=== PATIENT | male | born 1930 | race Caucasian/White ===

== ENCOUNTER 2016-11-02 10:01 | Emergency (ER) | payer MEDICARE ==
[~2016-11-02 10:01] MED LIST: /AMIO20TA OR; /NEPHROTA PO; /PANT40TA OR; /PANT40TA PO; /TAMS4CA OR; /WARF25TA OR; /WARF5TA OR; /WARF5TA PO; ACET500T37 PO; ACET50TA PO; ACET65TA OR; ADVA230A INH; ALBU17IN INH; AMIO20TA PO; ASPI81CH PO; AUGM875T27 PO; BISAC5TA PO; CALC667C2 PO; CALC667T PO; CEFT250S PO; CEFT250T PO; CIPR25SS OR; CIPR500T4 OR; COLA100C PO; COLA100C2 OR; COUM1TAB14 PO; COUM1TAB17 PO; COUM1TAB19 PO; COUM2TAB10 PO; DAILTAB49 PO; DAILTAB51 PO; DARB30SYRN IV; DIALYSIS; DIOV320T OR; DULC10SU2 PR; ENEMENE6 PR; EPOGEN IV; FINA5TAB2 PO; FLORCAP10 PO; GLUC4CHW PO; INSUR SC; LEVA250T PO; LEVO500T32 PO; LISI-538 PO; LISI40TA OR; LISI40TAB PO; LOPR50TA OR; LOPR50TA PO; MAGN1TAB25 PO; MAGN400T5 PO; MAGO400T PO; METO25TA74 PO; METO25TAB OR; METO25TAB PO; METOPROLOL PO; METOPROLOL TARTRATE; METR500T10 PO; MILKSUS PO; MULTIVIT PO; MULTTAB4 PO; MULTTAB63 PO; NEPHTA PO; NEPHTAB PO; NEPHTAB3 PO; NIAC500C OR; NIFE30TA PO; NORV5TAB OR; NUTRLIQ PO; ONDA4TAB6 PO; OYST500T58 OR; PACE200T PO; PANT40TA2 PO; PAXI10TA OR; PAXI20TA OR; PRIL40CA PO; PROS5TAB OR; PROSCAR PO; PROT20TA11 OR; ROCA0.25 PO; ROWASA PR; SIMV20TA2 PO; SPS15SUS2 PO; SULF400T PO; TAMS0.4C PO; TAMS0.4C2 PO; TOPR50TA OR; TUMS500C OR; TUMS500C PO; TYLE167L PO; TYLE325T5 PO; VANC1ADVIV INJ; VANC1INJ IV; VANC75VL IV; VITA100066 PO; VITA400T15 PO; VITAMIN D50000 UNT OR; VITMTA PO; WARF5VL PO; ZEST1TAB6 PO; ZITH250T PO; ZOCO20TA OR; ZYVO100T PO; [UNRECOGNIZED DRUG - CODE] INJ; [UNRECOGNIZED DRUG - CODE] PO; [UNRECOGNIZED DRUG - CODE] PO; [UNRECOGNIZED DRUG - OTHER] PO; tamulosin PO
[2016-11-02] MEDS ORDERED: ACETAMINOPHEN 325 MG TAB As Ordered ONE (10:26)
[2016-11-02 11:05] LABS: MEAN CORPUSCULAR HEMOGLOBIN 35.8 pg (27.0-33.0); MEAN CORPUSCULAR VOLUME 105.3 fl (80.0-96.0); PLATELET COUNT, AUTOMATED 123 k/mm3 (150-450); RED CELL DISTRIBUTION WIDTH 14.2 % (11.5-14.5); WHITE BLOOD COUNT 5.4 K/mm3 (4.0-10.0)
[2016-11-02 11:11] LABS: INR 2.28
[2016-11-02 11:24] LABS: CALCIUM LEVEL 8.6 MG/DL (8.8-10.2); CREATININE FOR GFR 4.52 MG/DL (0.70-1.30); GLOMERULAR FILTRATION RATE 13.2 (>35); POTASSIUM SERUM 4.7 MEQ/L (3.5-5.1)
[2016-11-02 11:27] LABS: BANDS 2 % (< 11); EOSINOPHILS 1 % (0-5)
--- NOTE | 2016-11-02 11:41 | REP ---
SOFT-TISSUE ULTRASOUND OF THE LEFT LATERAL CALF: HISTORY: Large lump on the lateral calf. Hematoma. FINDINGS: The large lump in the lateral calf is scanned. A heterogeneous area is seen without internal Doppler flow containing echogenic components and some small cystic areas. This area measures 6.0 x 2.0 x 4.7 cm and is compatible with hematoma. IMPRESSION: 6 cm heterogeneous avascular soft-tissue lesion consistent with hematoma in the lateral calf. Signed by Hernan Richardson MD 11/02/2016 12:09 P
--- NOTE | 2016-11-02 13:24 | EDDOCDS ---
Nurse's Notes [facility] Name: Cody Caldwell Age: 86 yrs Sex: Male : 1930 Arrival Date: 11/02/2016 Time: 10:01 Bed 17 Private MD: Tomer Faulkner Diagnosis: Nontraumatic hematoma of soft tissue Presentation: 11/02 10:04 Presenting complaint: Patient states: swelling and bruising to left lower extremity, pml golf ball sized area at lateral mid lower leg. does not recall any injury. Adult Sepsis Screening: The patient does not have new or worsening altered mentation. Patient's respiratory rate is less than 22. Systolic blood pressure is greater than 100. Patient has a qSOFA score of 0- Negative Sepsis Screen. Suicide/Homicide risk assessment- the patient denies having any suicidal and/or homicidal ideations and does not present with any other emotional, behavioral or mental health complaints. 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 Transition of care: patient was not received from another setting of care. 10:04 Acuity: FE Level 3 pml 10:04 Method Of Arrival: Ambulance pml Triage Assessment: 10:13 General: Appears in no apparent distress, Behavior is appropriate for age, cooperative. pml Pain: Location: lateral aspect of left calf Pain currently is 10 out of 10 on a pain scale. The patient is triaged at the bedside. See Assessment in Nurses Notes section of ED record. Neurological: Level of Consciousness is awake, alert, Oriented to person, place, time. Cardiovascular: Capillary refill < 3 seconds. Cardiovascular: Edema is absent. Respiratory: Airway is patent. GI: Abdomen is non- distended obese. Derm: Skin is pink, warm & dry. golf ball sized hematoma to left lateral mid calf, dark purple bruising. Historical: - Allergies: IODINEIODINE CONTAINING ("veins hurt"); - Home Meds: 1. renavite Unknown daily 2. Vitamin D Oral 5000 unit daily 3. Advair Diskus 250-50 mcg/dose Inhl dsdv 1 puff 2 times per day 4. Tums 300 mg (750 mg) Oral chew 3 tabs before meals 5. pantoprazole 40 mg oral TbEC 1 tab once daily 6. Coumadin 5 mg oral tab 1 tab once daily - PMHx: Atrial Fib; Renal Failure with Dialysis; - PSHx: AV graft right arm; Hernia repair; Cataract Surgery- Bilateral; - Social history: Smoking status: Patient states former smoker of tobacco. No barriers to communication noted, The patient speaks fluent Syriac, Speaks appropriately for age. - Family history: Not pertinent. - : The pt / caregiver states he / she is on anticoagulants: coumadin. Home medication list is obtained from the patient. - Exposure Risk Screening:: None identified. Screenin:22 Screening information is obtained from the patient. Fall risk: At risk due to age, pml immobility. Assistance ADL's: Requires assistance with meal preparation, this assistance is provided by family members, bathing, assistance is provided by family members, dressing, assistance is provided by family members, toileting, assistance is provided by family members, ambulation, assistance is provided by family members, housework, assistance is provided by family members, medication administration, assistance is provided by family members. Abuse/DV Screen: The patient / caregiver reports he/she is: not in a situation that causes fear, pain or injury. Nutritional screening: No deficits noted. Advance Directives: There is no active DNR order. home support is adequate. Assessment: 10:22 General: see triage note. pml 11:19 General: Appears in no apparent distress, comfortable, Behavior is appropriate for age, pml cooperative. Neurological: Level of Consciousness is awake, alert, Oriented to person, place, none. Cardiovascular: Capillary refill < 3 seconds. Respiratory: Airway is patent Respiratory effort is even, unlabored. Derm: Skin is pink, warm & dry. Bruising that is dark purple, on lateral aspect of left calf. 11:56 General: resting on stretcher, no apparent distress. resps easy and unlabored, skin pml p/w/d. voices no concerns. 13:20 General: Appears in no apparent distress, Behavior is appropriate for age, cooperative. pml Pain: Denies pain. Neurological: Level of Consciousness is awake, alert, Oriented to person, place, time. Cardiovascular: Capillary refill < 3 seconds. Respiratory: Airway is patent Respiratory effort is even, unlabored. GI: Abdomen is non- distended. Derm: Skin is pink, warm & dry. Vital Signs: 10:13 BP 213 / 88; Pulse 69; Resp 18; Temp 99.3(O); Pulse Ox 93% on R/A; Weight 77.11 kg; pml Height 5 ft. 6 in. (167.64 cm); Pain 10/10; 13:20 BP 214 / 86; Pulse 91; Resp 18; Temp 98.8; Pulse Ox 92% on R/A; Pain 0/10; pml 10:13 Body Mass Index 27.44 (77.11 kg, 167.64 cm) pml Vitals: 10:13 Log In Time N/A - ambulance arrival. pml ED Course: 10:02 Patient visited by Amparo Pugh PCA. ar3 10:02 Anum Anaya,FRANCA is Primary Nurse. ar3 10:02 Tomer Faulkner is Private Physician. ar3 10:02 Patient moved to Waiting ar3 10:02 Patient moved to 17 ar3 10:05 Triage Initiated pml 10:16 Patient visited by Anum Anaya RN. pml 10:22 Addis Marlow MD is Attending Physician. sd1 10:22 Patient visited by Addis Marlow MD. sd1 10:22 The patient / caregiver is instructed regarding the plan of care and ED course. Patient pml has correct armband on for positive identification. Placed in gown. Bed in low position. Call light in reach. Side rails up X2. 10:23 Patient visited by Anum Anaya RN. pml 11:02 Patient moved to Ultrasound am17 11:14 Patient moved to 17 am17 11:18 DIFFERENTIAL NO CHARGE Sent. pml 11:19 Patient visited by Anum Anaya RN. pml 11:26 [facility] [place] Payment Agreement was scanned into [employer] and attached to record. lg 11:56 Patient visited by Anum Anaya RN. pml 12:07 EXTREMITY NON VASCUL LIMITED Returned. EDMS 12:38 EXTREMITY NON VASCUL LIMITED Returned. EDMS 12:50 Patient visited by Lauren Hogan PCA. ct3 13:06 Tomer Faulkner is Referral Physician. sd1 13:06 Suhas Ryenoso is Referral Physician. sd1 13:20 No IV's were initiated during this patient's visit. No procedures done that require pml assistance. 13:22 Dressings: Vaseline gauze X 1;. Jed wrap to left lower leg. pml Administered Medications: 10:24 CANCELLED (Other Intervention Used): Acetaminophen Tablet 975 mg PO once sd1 10:30 Drug: Acetaminophen 650 mg [acetaminophen 325 mg tablet (2 tabs)] Route: PO; pml 11:35 Follow up: Response: Pain is resolved pml Order Results: Lab Order: CBC with Diff; SPEC'M 11/02/16 10:55 Test: WHITE BLOOD COUNT; Value: 5.4; Range: 4.0-10.0; Units: K/mm3; Status: F Test: RED BLOOD COUNT; Value: 3.11; Range: 4.30-6.10; Abnormal: Below low normal; Units: M/mm3; Status: F Test: HEMOGLOBIN; Value: 11.1; Range: 14.0-18.0; Abnormal: Below low normal; Units: g/dl; Status: F Test: HEMATOCRIT; Value: 32.7; Range: 42.0-52.0; Abnormal: Below low normal; Units: %; Status: F Test: MEAN CORPUSCULAR VOLUME; Value: 105.3; Range: 80.0-96.0; Abnormal: Above high normal; Units: fl; Status: F Test: MEAN CORPUSCULAR HEMOGLOBIN; Value: 35.8; Range: 27.0-33.0; Abnormal: Above high normal; Units: pg; Status: F Test: MEAN CORPUSCULAR HGB CONC; Value: 34.0; Range: 32.0-36.5; Units: g/dl; Status: F Test: RED CELL DISTRIBUTION WIDTH; Value: 14.2; Range: 11.5-14.5; Units: %; Status: F Test: PLATELET COUNT, AUTOMATED; Value: 123; Range: 150-450; Abnormal: Below low normal; Units: k/mm3; Status: F Test: NEUTROPHILS; Value: 64; Range: 35-75; Units: %; Status: F Test: BANDS; Value: 2; Range: < 11; Units: %; Status: F Test: LYMPHOCYTES; Value: 15; Range: 16-52; Abnormal: Below low normal; Units: %; Status: F Test: MONOCYTES; Value: 10; Range: 0-8; Abnormal: Above high normal; Units: %; Status: F Test: EOSINOPHILS; Value: 1; Range: 0-5; Units: %; Status: F Test: ATYPICAL LYMPH; Value: 8; Range: 0-5; Abnormal: Above high normal; Units: %; Status: F Test: MACROCYTOSIS; Value: 2+; Status: F Lab Order: MED Profile; SPEC11/02/16 10:55 Test: GLUCOSE, FASTING; Value: 108; Range: 83-110; Units: MG/DL; Status: F Test: BLOOD UREA NITROGEN; Value: 30; Range: 7-18; Abnormal: Above high normal; Units: MG/DL; Status: F Test: CREATININE FOR GFR; Value: 4.52; Range: 0.70-1.30; Abnormal: Above high normal; Units: MG/DL; Status: F Test: GLOMERULAR FILTRATION RATE; Value: 13.2; Range: >35; Abnormal: Below low normal; Status: F Test: SODIUM LEVEL; Value: 143; Range: 136-145; Units: MEQ/L; Status: F Test: POTASSIUM SERUM; Value: 4.7; Range: 3.5-5.1; Units: MEQ/L; Status: F Test: CHLORIDE LEVEL; Value: 103; Range: 98-107; Units: MEQ/L; Status: F Test: CARBON DIOXIDE LEVEL; Value: 30; Range: 21-32; Units: MEQ/L; Status: F Test: ANION GAP; Value: 10; Range: 8-16; Units: MEQ/L; Status: F Test: CALCIUM LEVEL; Value: 8.6; Range: 8.8-10.2; Abnormal: Below low normal; Units: MG/DL; Status: F Test Note: ; Units are mL/min/1.73 m2 Chronic Kidney Disease Staging per NKF: Stage I & II GFR >=60 Normal to Mildly Decreased Stage III GFR 30-59 Moderately Decreased Stage IV GFR 15-29 Severely Decreased Stage V GFR <15 Very Little GFR Left ESRD GFR <15 on RN ELIGIBILITY Lab Order: PT/INR; 11/02/16 10:55 Test: PROTHROMBIN TIME; Value: 25.2; Range: 12.3-14.5; Abnormal: Above high normal; Units: SECONDS; Status: F Test: INR; Value: 2.28; Status: F Test Note: ; THERAPUTIC HUMAN INR VALUES INDICATIONS NORMAL RANGES PROPHYLAXIS/TREATMENT OF: VENOUS THROMBOSIS 2.0-3.0 PULMONARY EMBOLISM 2.0-3.0 PREVENTION OF SYSTEMIC EMBOLISM FROM: TISSUE HEART VALVES 2.0-3.0 ACUTE MYOCARDIAL INFARCTION 2.0-3.0 VALVULAR HEART DISEASE 2.0-3.0 ATRIAL FIBRILLATION 2.0-3.0 MECHANICAL VALVES(HIGH RISK) 2.5-3.5 RECURRENT MYOCARDIAL INFARCTION 2.5-3.5 Lab Order: PLATELET ESTIMATE; SPEC'M 11/02/16 10:55 Test: PLATELET ESTIMATE; Value: NORMAL; Range: NORMAL; Status: F Radiology Order: EXTREMITY NON VASCUL LIMITED Test: EXTREMITY NON VASCUL LIMITED REASON FOR EXAMINATION: hematoma to lateral calf; SOFT-TISSUE ULTRASOUND OF THE LEFT LATERAL CALF:; ; HISTORY: Large lump on the lateral calf. Hematoma.; ; FINDINGS: The large lump in the lateral calf is scanned. A heterogeneous area; is seen without internal Doppler flow containing echogenic components and some; small cystic areas. This area measures 6.0 x 2.0 x 4.7 cm and is compatible with; hematoma.; ; IMPRESSION:; ; 6 cm heterogeneous avascular soft-tissue lesion consistent with hematoma in the; lateral calf.; ; ; Signed by; Hernan Richardson MD 11/02/2016 12:09 P; Outcome: 13:07 Discharge ordered by Provider. sd1 13:20 Discharge Assessment: Patient awake, alert and oriented x 3. No cognitive and/or pml functional deficits noted. Patient verbalized understanding of disposition instructions. patient administered narcotics - no. The following High Risk Discharge criteria are identified: None. Discharged to home ambulatory. Condition: good Condition: stable. Discharge instructions given to patient, Instructed on discharge instructions, follow up and referral plans. Demonstrated understanding of instructions, Pt was receptive of discharge instructions/ teaching. Ultrasound Study completed. Property sent home with patient. 13:23 Patient left the ED. pml Signatures: Dispatcher [employer] EDAddis Guy MD MD sd1 Elie Osborne, Zak Reg lg Amparo Pugh, DRY DRUG WORKER DRY DRUG WORKER ar3 Lauren Hogan, DRY DRUG WORKER DRY DRUG WORKER ct3 Anum Anaya,RN RN pml Gaviota Jack am17 MTDD
--- NOTE | 2016-11-02 13:24 | EDDOCDS ---
Physician Documentation [facility] Name: Cody Caldwell Age: 86 yrs Sex: Male : 1930 Arrival Date: 11/02/2016 Time: 10:01 Bed 17 Private MD: Tomer Faulkner Disposition: 11/02/16 13:07 Discharged to Home/Self Care. Impression: Nontraumatic hematoma of soft tissue. - Condition is Stable. - Discharge Instructions: Hematoma. - Medication Reconciliation, Local Pharmacy Hours form. - Follow up: Tomer Faulkner; When: 1 - 2 days. Follow up: Suhas Reynoso; When: Call to arrange an appointment. - Problem is new. - Symptoms have improved. Historical: - Allergies: IODINEIODINE CONTAINING ("veins hurt"); - Home Meds: 1. renavite Unknown daily 2. Vitamin D Oral 5000 unit daily 3. Advair Diskus 250-50 mcg/dose Inhl dsdv 1 puff 2 times per day 4. Tums 300 mg (750 mg) Oral chew 3 tabs before meals 5. pantoprazole 40 mg oral TbEC 1 tab once daily 6. Coumadin 5 mg oral tab 1 tab once daily - PMHx: Atrial Fib; Renal Failure with Dialysis; - PSHx: AV graft right arm; Hernia repair; Cataract Surgery- Bilateral; - Social history: Smoking status: Patient states former smoker of tobacco. No barriers to communication noted, The patient speaks fluent Estonian, Speaks appropriately for age. - Family history: Not pertinent. - : The pt / caregiver states he / she is on anticoagulants: coumadin. Home medication list is obtained from the patient. - Exposure Risk Screening:: None identified. Vital Signs: 11/02 10:13 BP 213 / 88; Pulse 69; Resp 18; Temp 99.3(O); Pulse Ox 93% on R/A; Weight 77.11 kg / pml 170 lbs; Height 5 ft. 6 in. (167.64 cm); Pain 10/10; 13:20 BP 214 / 86; Pulse 91; Resp 18; Temp 98.8; Pulse Ox 92% on R/A; Pain 0/10; pml 10:13 Body Mass Index 27.44 (77.11 kg, 167.64 cm) pml MDM: 10:24 CBC with Diff Ordered. EDMS 10:24 MED Profile Ordered. EDMS 10:24 PT/INR Ordered. EDMS 10:25 Acetaminophen Tablet 650 mg PO once ordered. sd1 10:53 EXTREMITY NON VASCUL LIMITED Ordered. EDMS 11:00 Financial registration complete. lg 11:07 DIFFERENTIAL NO CHARGE Ordered. EDMS 11:07 PLATELET ESTIMATE Ordered. EDMS 11:26 [facility] was scanned into [employer] and attached to record. lg 12:13 CBC with Diff Reviewed. sd1 12:13 MED Profile Reviewed. sd1 12:13 PT/INR Reviewed. sd1 12:13 PLATELET ESTIMATE Reviewed. sd1 12:13 EXTREMITY NON VASCUL LIMITED Reviewed. sd1 12:43 Misc. Nursing Order ordered. sd1 Administered Medications: 10:24 CANCELLED (Other Intervention Used): Acetaminophen Tablet 975 mg PO once sd1 10:30 Drug: Acetaminophen 650 mg [acetaminophen 325 mg tablet (2 tabs)] Route: PO; pml 11:35 Follow up: Response: Pain is resolved pml Signatures: Dispatcher [employer] EDHI Adids Marlow MD MD sd1 Elie Osborne, Reg Reg lg Anum Anaya RN RN pml The chart was reviewed and I authenticate all verbal orders and agree with the evaluation and treatment provided.Corrections: (The following items were deleted from the chart) 10:24 10:24 Acetaminophen Tablet 975 mg PO once ordered. sd1 sd1 10:53 10:50 Duplex, Ext,LOWER veins,unilat+US ordered. EDMS EDMS Attachments: 11:26 [facility] lg MTDD
--- NOTE | 2016-11-04 14:23 | EDDOCDS ---
Physician Documentation [facility] Name: Cody Caldwell Age: 86 yrs Sex: Male : 1930 Arrival Date: 11/02/2016 Time: 10:01 Bed 17 Private MD: Tomer Faulkner Disposition: 11/02/16 13:07 Discharged to Home/Self Care. Impression: Nontraumatic hematoma of soft tissue. - Condition is Stable. - Discharge Instructions: Hematoma. - Medication Reconciliation, Local Pharmacy Hours form. - Follow up: Tomer Faulkner; When: 1 - 2 days. Follow up: Suhas Reynoso; When: Call to arrange an appointment. - Problem is new. - Symptoms have improved. Historical: - Allergies: IODINEIODINE CONTAINING ("veins hurt"); - Home Meds: 1. renavite Unknown daily 2. Vitamin D Oral 5000 unit daily 3. Advair Diskus 250-50 mcg/dose Inhl dsdv 1 puff 2 times per day 4. Tums 300 mg (750 mg) Oral chew 3 tabs before meals 5. pantoprazole 40 mg oral TbEC 1 tab once daily 6. Coumadin 5 mg oral tab 1 tab once daily - PMHx: Atrial Fib; Renal Failure with Dialysis; - PSHx: AV graft right arm; Hernia repair; Cataract Surgery- Bilateral; - Social history: Smoking status: Patient states former smoker of tobacco. No barriers to communication noted, The patient speaks fluent Divehi, Speaks appropriately for age. - Family history: Not pertinent. - : The pt / caregiver states he / she is on anticoagulants: coumadin. Home medication list is obtained from the patient. - Exposure Risk Screening:: None identified. Vital Signs: 11/02 10:13 BP 213 / 88; Pulse 69; Resp 18; Temp 99.3(O); Pulse Ox 93% on R/A; Weight 77.11 kg / pml 170 lbs; Height 5 ft. 6 in. (167.64 cm); Pain 10/10; 13:20 BP 214 / 86; Pulse 91; Resp 18; Temp 98.8; Pulse Ox 92% on R/A; Pain 0/10; pml 10:13 Body Mass Index 27.44 (77.11 kg, 167.64 cm) pml MDM: 10:24 CBC with Diff Ordered. EDMS 10:24 MED Profile Ordered. EDMS 10:24 PT/INR Ordered. EDMS 10:25 Acetaminophen Tablet 650 mg PO once ordered. sd1 10:53 EXTREMITY NON VASCUL LIMITED Ordered. EDMS 11:00 Financial registration complete. lg 11:07 DIFFERENTIAL NO CHARGE Ordered. EDMS 11:07 PLATELET ESTIMATE Ordered. EDMS 11:26 [facility] [place] Payment Agreement was scanned into [employer] and attached to record. lg 12:13 CBC with Diff Reviewed. sd1 12:13 MED Profile Reviewed. sd1 12:13 PT/INR Reviewed. sd1 12:13 PLATELET ESTIMATE Reviewed. sd1 12:13 EXTREMITY NON VASCUL LIMITED Reviewed. sd1 12:43 Misc. Nursing Order ordered. sd1 14:18 EXTREMITY NON VASCUL LIMITED Reviewed. sd1 15:39 T-Sheet-- Draft Copy was scanned into [employer] and attached to record. gb Administered Medications: 10:24 CANCELLED (Other Intervention Used): Acetaminophen Tablet 975 mg PO once sd1 10:30 Drug: Acetaminophen 650 mg [acetaminophen 325 mg tablet (2 tabs)] Route: PO; pml 11:35 Follow up: Response: Pain is resolved pml Signatures: Dispatcher [employer] EDMS Addis Marlow MD MD sd1 Tayla Garcia, Reg Reg Elie Faulkner, Reg Reg lg Anum Anaya RN RN pml The chart was reviewed and I authenticate all verbal orders and agree with the evaluation and treatment provided.Corrections: (The following items were deleted from the chart) 10:24 10:24 Acetaminophen Tablet 975 mg PO once ordered. sd1 sd1 10:53 10:50 Duplex, Ext,LOWER veins,unilat+US ordered. EDMS EDMS Attachments: 11:26 [facility] Payment Agreement lg 15:39 T-Sheet-- Draft Copy gb Chart Complete MTDD
--- NOTE | 2016-11-04 14:23 | EDDOCDS ---
Nurse's Notes [facility] Name: Cody Caldwell Age: 86 yrs Sex: Male : 1930 Arrival Date: 11/02/2016 Time: 10:01 Bed 17 Private MD: Tomer Faulkner Diagnosis: Nontraumatic hematoma of soft tissue Presentation: 11/02 10:04 Presenting complaint: Patient states: swelling and bruising to left lower extremity, pml golf ball sized area at lateral mid lower leg. does not recall any injury. Adult Sepsis Screening: The patient does not have new or worsening altered mentation. Patient's respiratory rate is less than 22. Systolic blood pressure is greater than 100. Patient has a qSOFA score of 0- Negative Sepsis Screen. Suicide/Homicide risk assessment- the patient denies having any suicidal and/or homicidal ideations and does not present with any other emotional, behavioral or mental health complaints. Status: Patient is not a member services coordinator or dependent. Transition of care: patient was not received from another setting of care. 10:04 Acuity: FE Level 3 pml 10:04 Method Of Arrival: Ambulance pml Triage Assessment: 10:13 General: Appears in no apparent distress, Behavior is appropriate for age, cooperative. pml Pain: Location: lateral aspect of left calf Pain currently is 10 out of 10 on a pain scale. The patient is triaged at the bedside. See Assessment in Nurses Notes section of ED record. Neurological: Level of Consciousness is awake, alert, Oriented to person, place, time. Cardiovascular: Capillary refill < 3 seconds. Cardiovascular: Edema is absent. Respiratory: Airway is patent. GI: Abdomen is non- distended obese. Derm: Skin is pink, warm & dry. golf ball sized hematoma to left lateral mid calf, dark purple bruising. Historical: - Allergies: IODINEIODINE CONTAINING ("veins hurt"); - Home Meds: 1. renavite Unknown daily 2. Vitamin D Oral 5000 unit daily 3. Advair Diskus 250-50 mcg/dose Inhl dsdv 1 puff 2 times per day 4. Tums 300 mg (750 mg) Oral chew 3 tabs before meals 5. pantoprazole 40 mg oral TbEC 1 tab once daily 6. Coumadin 5 mg oral tab 1 tab once daily - PMHx: Atrial Fib; Renal Failure with Dialysis; - PSHx: AV graft right arm; Hernia repair; Cataract Surgery- Bilateral; - Social history: Smoking status: Patient states former smoker of tobacco. No barriers to communication noted, The patient speaks fluent Amharic, Speaks appropriately for age. - Family history: Not pertinent. - : The pt / caregiver states he / she is on anticoagulants: coumadin. Home medication list is obtained from the patient. - Exposure Risk Screening:: None identified. Screenin:22 Screening information is obtained from the patient. Fall risk: At risk due to age, pml immobility. Assistance ADL's: Requires assistance with meal preparation, this assistance is provided by family members, bathing, assistance is provided by family members, dressing, assistance is provided by family members, toileting, assistance is provided by family members, ambulation, assistance is provided by family members, housework, assistance is provided by family members, medication administration, assistance is provided by family members. Abuse/DV Screen: The patient / caregiver reports he/she is: not in a situation that causes fear, pain or injury. Nutritional screening: No deficits noted. Advance Directives: There is no active DNR order. home support is adequate. Assessment: 10:22 General: see triage note. pml 11:19 General: Appears in no apparent distress, comfortable, Behavior is appropriate for age, pml cooperative. Neurological: Level of Consciousness is awake, alert, Oriented to person, place, none. Cardiovascular: Capillary refill < 3 seconds. Respiratory: Airway is patent Respiratory effort is even, unlabored. Derm: Skin is pink, warm & dry. Bruising that is dark purple, on lateral aspect of left calf. 11:56 General: resting on stretcher, no apparent distress. resps easy and unlabored, skin pml p/w/d. voices no concerns. 13:20 General: Appears in no apparent distress, Behavior is appropriate for age, cooperative. pml Pain: Denies pain. Neurological: Level of Consciousness is awake, alert, Oriented to person, place, time. Cardiovascular: Capillary refill < 3 seconds. Respiratory: Airway is patent Respiratory effort is even, unlabored. GI: Abdomen is non- distended. Derm: Skin is pink, warm & dry. Vital Signs: 10:13 BP 213 / 88; Pulse 69; Resp 18; Temp 99.3(O); Pulse Ox 93% on R/A; Weight 77.11 kg; pml Height 5 ft. 6 in. (167.64 cm); Pain 10/10; 13:20 BP 214 / 86; Pulse 91; Resp 18; Temp 98.8; Pulse Ox 92% on R/A; Pain 0/10; pml 10:13 Body Mass Index 27.44 (77.11 kg, 167.64 cm) pml Vitals: 10:13 Log In Time N/A - ambulance arrival. pml ED Course: 10:02 Patient visited by Amparo Pugh PCA. ar3 10:02 Anum Anaya,FRANCA is Primary Nurse. ar3 10:02 Tomer Faulkner is Private Physician. ar3 10:02 Patient moved to Waiting ar3 10:02 Patient moved to 17 ar3 10:05 Triage Initiated pml 10:16 Patient visited by Anum Anaya RN. pml 10:22 Addis Marlow MD is Attending Physician. sd1 10:22 Patient visited by Addis Marlow MD. sd1 10:22 The patient / caregiver is instructed regarding the plan of care and ED course. Patient pml has correct armband on for positive identification. Placed in gown. Bed in low position. Call light in reach. Side rails up X2. 10:23 Patient visited by Anum Anaya RN. pml 11:02 Patient moved to Ultrasound am17 11:14 Patient moved to 17 am17 11:18 DIFFERENTIAL NO CHARGE Sent. pml 11:19 Patient visited by Anum Anaya RN. pml 11:26 [facility] Payment Agreement was scanned into [employer] and attached to record. lg 11:56 Patient visited by Anum Anaya RN. pml 12:07 EXTREMITY NON VASCUL LIMITED Returned. EDMS 12:38 EXTREMITY NON VASCUL LIMITED Returned. EDMS 12:50 Patient visited by Lauren Hogan PCA. ct3 13:06 Tomer Faulkner is Referral Physician. sd1 13:06 Suhas Reynoso is Referral Physician. sd1 13:20 No IV's were initiated during this patient's visit. No procedures done that require pml assistance. 13:22 Dressings: Vaseline gauze X 1;. Jed wrap to left lower leg. pml 15:39 T-Sheet-- Draft Copy was scanned into [employer] and attached to record. gb Administered Medications: 10:24 CANCELLED (Other Intervention Used): Acetaminophen Tablet 975 mg PO once sd1 10:30 Drug: Acetaminophen 650 mg [acetaminophen 325 mg tablet (2 tabs)] Route: PO; pml 11:35 Follow up: Response: Pain is resolved pml Order Results: Lab Order: CBC with Diff; SPEC'M 11/02/16 10:55 Test: WHITE BLOOD COUNT; Value: 5.4; Range: 4.0-10.0; Units: K/mm3; Status: F Test: RED BLOOD COUNT; Value: 3.11; Range: 4.30-6.10; Abnormal: Below low normal; Units: M/mm3; Status: F Test: HEMOGLOBIN; Value: 11.1; Range: 14.0-18.0; Abnormal: Below low normal; Units: g/dl; Status: F Test: HEMATOCRIT; Value: 32.7; Range: 42.0-52.0; Abnormal: Below low normal; Units: %; Status: F Test: MEAN CORPUSCULAR VOLUME; Value: 105.3; Range: 80.0-96.0; Abnormal: Above high normal; Units: fl; Status: F Test: MEAN CORPUSCULAR HEMOGLOBIN; Value: 35.8; Range: 27.0-33.0; Abnormal: Above high normal; Units: pg; Status: F Test: MEAN CORPUSCULAR HGB CONC; Value: 34.0; Range: 32.0-36.5; Units: g/dl; Status: F Test: RED CELL DISTRIBUTION WIDTH; Value: 14.2; Range: 11.5-14.5; Units: %; Status: F Test: PLATELET COUNT, AUTOMATED; Value: 123; Range: 150-450; Abnormal: Below low normal; Units: k/mm3; Status: F Test: NEUTROPHILS; Value: 64; Range: 35-75; Units: %; Status: F Test: BANDS; Value: 2; Range: < 11; Units: %; Status: F Test: LYMPHOCYTES; Value: 15; Range: 16-52; Abnormal: Below low normal; Units: %; Status: F Test: MONOCYTES; Value: 10; Range: 0-8; Abnormal: Above high normal; Units: %; Status: F Test: EOSINOPHILS; Value: 1; Range: 0-5; Units: %; Status: F Test: ATYPICAL LYMPH; Value: 8; Range: 0-5; Abnormal: Above high normal; Units: %; Status: F Test: MACROCYTOSIS; Value: 2+; Status: F Lab Order: MED Profile; SPEC'M 11/02/16 10:55 Test: GLUCOSE, FASTING; Value: 108; Range: 83-110; Units: MG/DL; Status: F Test: BLOOD UREA NITROGEN; Value: 30; Range: 7-18; Abnormal: Above high normal; Units: MG/DL; Status: F Test: CREATININE FOR GFR; Value: 4.52; Range: 0.70-1.30; Abnormal: Above high normal; Units: MG/DL; Status: F Test: GLOMERULAR FILTRATION RATE; Value: 13.2; Range: >35; Abnormal: Below low normal; Status: F Test: SODIUM LEVEL; Value: 143; Range: 136-145; Units: MEQ/L; Status: F Test: POTASSIUM SERUM; Value: 4.7; Range: 3.5-5.1; Units: MEQ/L; Status: F Test: CHLORIDE LEVEL; Value: 103; Range: 98-107; Units: MEQ/L; Status: F Test: CARBON DIOXIDE LEVEL; Value: 30; Range: 21-32; Units: MEQ/L; Status: F Test: ANION GAP; Value: 10; Range: 8-16; Units: MEQ/L; Status: F Test: CALCIUM LEVEL; Value: 8.6; Range: 8.8-10.2; Abnormal: Below low normal; Units: MG/DL; Status: F Test Note: ; Units are mL/min/1.73 m2 Chronic Kidney Disease Staging per NKF: Stage I & II GFR >=60 Normal to Mildly Decreased Stage III GFR 30-59 Moderately Decreased Stage IV GFR 15-29 Severely Decreased Stage V GFR <15 Very Little GFR Left ESRD GFR <15 on TREATING [employer] Lab Order: PT/INR; SPEC'M 11/02/16 10:55 Test: PROTHROMBIN TIME; Value: 25.2; Range: 12.3-14.5; Abnormal: Above high normal; Units: SECONDS; Status: F Test: INR; Value: 2.28; Status: F Test Note: ; THERAPUTIC HUMAN INR VALUES INDICATIONS NORMAL RANGES PROPHYLAXIS/TREATMENT OF: VENOUS THROMBOSIS 2.0-3.0 PULMONARY EMBOLISM 2.0-3.0 PREVENTION OF SYSTEMIC EMBOLISM FROM: TISSUE HEART VALVES 2.0-3.0 ACUTE MYOCARDIAL INFARCTION 2.0-3.0 VALVULAR HEART DISEASE 2.0-3.0 ATRIAL FIBRILLATION 2.0-3.0 MECHANICAL VALVES(HIGH RISK) 2.5-3.5 RECURRENT MYOCARDIAL INFARCTION 2.5-3.5 Lab Order: PLATELET ESTIMATE; SPEC'M 11/02/16 10:55 Test: PLATELET ESTIMATE; Value: NORMAL; Range: NORMAL; Status: F Radiology Order: EXTREMITY NON VASCUL LIMITED Test: EXTREMITY NON VASCUL LIMITED REASON FOR EXAMINATION: hematoma to lateral calf; SOFT-TISSUE ULTRASOUND OF THE LEFT LATERAL CALF:; ; HISTORY: Large lump on the lateral calf. Hematoma.; ; FINDINGS: The large lump in the lateral calf is scanned. A heterogeneous area; is seen without internal Doppler flow containing echogenic components and some; small cystic areas. This area measures 6.0 x 2.0 x 4.7 cm and is compatible with; hematoma.; ; IMPRESSION:; ; 6 cm heterogeneous avascular soft-tissue lesion consistent with hematoma in the; lateral calf.; ; ; Signed by; Hernan Richardson MD 11/02/2016 12:09 P; Outcome: 13:07 Discharge ordered by Provider. sd1 13:20 Discharge Assessment: Patient awake, alert and oriented x 3. No cognitive and/or pml functional deficits noted. Patient verbalized understanding of disposition instructions. patient administered narcotics - no. The following High Risk Discharge criteria are identified: None. Discharged to home ambulatory. Condition: good Condition: stable. Discharge instructions given to patient, Instructed on discharge instructions, follow up and referral plans. Demonstrated understanding of instructions, Pt was receptive of discharge instructions/ teaching. Ultrasound Study completed. Property sent home with patient. 13:23 Patient left the ED. pml Signatures: Dispatcher [employer] EDMS Addis Marlow MD MD sd1 Tayla Garcia, Reg Reg gb Elie Osborne, Reg Reg lg Amparo Pugh, PULMONOLOGIST PULMONOLOGIST ar3 Hogan, Lauren, PULMONOLOGIST PULMONOLOGIST ct3 Anum Anaya,RN RN pml Gaviota Jack am Chart Complete MTDD
--- NOTE | 2016-11-04 14:23 | EDDOCDS ---
Physician Documentation [facility] Name: Cody Caldwell Age: 86 yrs Sex: Male : 1930 Arrival Date: 11/02/2016 Time: 10:01 Bed 17 Private MD: Tomer Faulkner Disposition: 11/02/16 13:07 Discharged to Home/Self Care. Impression: Nontraumatic hematoma of soft tissue. - Condition is Stable. - Discharge Instructions: Hematoma. - Medication Reconciliation, Local Pharmacy Hours form. - Follow up: Tomer Faulkner; When: 1 - 2 days. Follow up: Suhas Reynoso; When: Call to arrange an appointment. - Problem is new. - Symptoms have improved. Historical: - Allergies: IODINEIODINE CONTAINING ("veins hurt"); - Home Meds: 1. renavite Unknown daily 2. Vitamin D Oral 5000 unit daily 3. Advair Diskus 250-50 mcg/dose Inhl dsdv 1 puff 2 times per day 4. Tums 300 mg (750 mg) Oral chew 3 tabs before meals 5. pantoprazole 40 mg oral TbEC 1 tab once daily 6. Coumadin 5 mg oral tab 1 tab once daily - PMHx: Atrial Fib; Renal Failure with Dialysis; - PSHx: AV graft right arm; Hernia repair; Cataract Surgery- Bilateral; - Social history: Smoking status: Patient states former smoker of tobacco. No barriers to communication noted, The patient speaks fluent Hebrew, Speaks appropriately for age. - Family history: Not pertinent. - : The pt / caregiver states he / she is on anticoagulants: coumadin. Home medication list is obtained from the patient. - Exposure Risk Screening:: None identified. Vital Signs: 11/02 10:13 BP 213 / 88; Pulse 69; Resp 18; Temp 99.3(O); Pulse Ox 93% on R/A; Weight 77.11 kg / pml 170 lbs; Height 5 ft. 6 in. (167.64 cm); Pain 10/10; 13:20 BP 214 / 86; Pulse 91; Resp 18; Temp 98.8; Pulse Ox 92% on R/A; Pain 0/10; pml 10:13 Body Mass Index 27.44 (77.11 kg, 167.64 cm) pml MDM: 10:24 CBC with Diff Ordered. EDMS 10:24 MED Profile Ordered. EDMS 10:24 PT/INR Ordered. EDMS 10:25 Acetaminophen Tablet 650 mg PO once ordered. sd1 10:53 EXTREMITY NON VASCUL LIMITED Ordered. EDMS 11:00 Financial registration complete. lg 11:07 DIFFERENTIAL NO CHARGE Ordered. EDMS 11:07 PLATELET ESTIMATE Ordered. EDMS 11:26 [facility] [place] was scanned into [employer] and attached to record. lg 12:13 CBC with Diff Reviewed. sd1 12:13 MED Profile Reviewed. sd1 12:13 PT/INR Reviewed. sd1 12:13 PLATELET ESTIMATE Reviewed. sd1 12:13 EXTREMITY NON VASCUL LIMITED Reviewed. sd1 12:43 Misc. Nursing Order ordered. sd1 14:18 EXTREMITY NON VASCUL LIMITED Reviewed. sd1 15:39 T-Sheet-- Draft Copy was scanned into [employer] and attached to record. gb Administered Medications: 10:24 CANCELLED (Other Intervention Used): Acetaminophen Tablet 975 mg PO once sd1 10:30 Drug: Acetaminophen 650 mg [acetaminophen 325 mg tablet (2 tabs)] Route: PO; pml 11:35 Follow up: Response: Pain is resolved pml Signatures: Dispatcher [employer] EDMS Addis Marlow MD MD sd1 Tayla Garcia, Reg Reg Elie Faulkner, Reg Reg lg Anum Anaya RN RN pml The chart was reviewed and I authenticate all verbal orders and agree with the evaluation and treatment provided.Corrections: (The following items were deleted from the chart) 10:24 10:24 Acetaminophen Tablet 975 mg PO once ordered. sd1 sd1 10:53 10:50 Duplex, Ext,LOWER veins,unilat+US ordered. EDMS EDMS Attachments: 11:26 [facility] Payment Agreement lg 15:39 T-Sheet-- Draft Copy gb Chart Complete MTDD
== END 2016-11-02 13:23 | disposition home or self-care (01) ==
LOC: M ED 10:01
DX: S80.12XA Contusion of left lower leg, initial encounter (principal); X58.XXXA Exposure to other specified factors, initial encounter; Y92.89 Other specified places as the place of occurrence of the external cause; Y93.89 Activity, other specified; Y99.8 Other external cause status; I48.91 Unspecified atrial fibrillation; N19 Unspecified kidney failure; Z99.2 Dependence on renal dialysis; Z79.899 Other long term (current) drug therapy; Z79.51 Long term (current) use of inhaled steroids; Z79.01 Long term (current) use of anticoagulants; Z88.8 Allergy status to other drugs, medicaments and biological substances

== ENCOUNTER → 2016-11-26 | Outpatient (CLI) | payer MEDICARE ==
--- NOTE | 2016-11-27 07:15 | REP ---
CHEST PA AND LATERAL: 11/26/2016. Clinical history: wheezing. Comparison: 06/20/2016, 04/23/2016. There is an indwelling left jugular dialysis catheter with tip in SVC above the right atrium. There is a right-sided subclavian wall stent into the SVC. These are unchanged. Cardiomegaly is noted. There is venous hypertension. There are bilateral effusions, right much larger than left and with basilar atelectatic changes compressive due to the size of the effusion on the right and minimally linear atelectatic change on the left. compression deformity in the spine with marginal osteophytes throughout. Tortuous calcified aorta is seen unchanged. Airway intact. Impression: 1. Cardiomegaly with pulmonary venous hypertension and vascular redistribution. There are now bilateral pleural effusions, moderate on the right, small on the left and with compressive atelectasis right base, linear atelectasis left base. 2. The left jugular dialysis catheter with tip in SVC and a right subclavian wall stent into the SVC as before. Signed by Saurav Larkin MD 11/27/2016 04:20 P
== END ==
LOC: M WUC 16:37
PROVIDERS: ATTEND Nurse Practitioner Family
DX: I51.7 Cardiomegaly (principal); I27.0 Primary pulmonary hypertension; J90 Pleural effusion, not elsewhere classified; R06.2 Wheezing; R53.81 Other malaise; Z99.2 Dependence on renal dialysis

== ENCOUNTER 2016-11-28 16:15 | Inpatient (IN) | payer MEDICARE ==
[~2016-11-28] VITALS: Ht 167.6 cm; Wt 73.5 kg
[2016-11-28] MEDS: WARFARIN SOD 2.5 MG TAB PO SCH ×2 (17:00→23:31)
[2016-11-28] MEDS ORDERED: RENATAB5 PO (17:04)
[2016-11-28] MEDS ORDERED: ALBU17IN INH (17:04)
[2016-11-28] MEDS ORDERED: VITA100037 PO (17:04)
[2016-11-28] MEDS ORDERED: COUM2.5T11 PO (17:04)
[2016-11-28] MEDS ORDERED: ADVA230A INH (17:04)
[2016-11-28] MEDS ORDERED: oxygen (17:04)
[2016-11-28] MEDS ORDERED: PRED20TA PO ×2 (17:05→20:40)
[2016-11-28] MEDS: PANTOPRAZOLE 40MG TAB (PROTONIX) PO SCH ×2 (18:00→23:55)
--- NOTE | 2016-11-28 18:38 | REP ---
CHEST, TWO VIEWS: Two views of the chest are performed. COMPARISON: 11/26/2016. There is cardiomegaly. There is vascular congestion. Diffuse interstitial infiltrates are seen. There are bibasilar alveolar infiltrates right greater than left with a moderate to large right effusion. Heart is enlarged. There is calcified torturous aorta. Left central venous catheter is again noted. The right subclavian stent is again noted. There are degenerative changes of the spine. IMPRESSION: Cardiomegaly, vascular congestion and diffuse interstitial infiltrates/edema. Findings are likely on the basis of CHF and pulmonary edema. There are also bibasilar infiltrates right greater than left with a moderate to large right effusion. Signed by Antione Rossi MD 11/28/2016 08:38 P
[2016-11-28 19:10] LABS: ADD MORPHOLOGY? YES; BASO % 0.5 % (0.0-1.0); EOS % 0.4 % (0.0-3.0); LARGE UNSTAINED CELL # 0.2 K/mm3 (0.0-0.4); LYMPH # 0.8 K/mm3 (1.5-4.5); LYMPH % 10.8 % (24.0-44.0); MEAN CORPUSCULAR HEMOGLOBIN 34.2 pg (27.0-33.0); MEAN CORPUSCULAR VOLUME 106.7 fl (80.0-96.0); MONO # 0.3 K/mm3 (0.0-0.8); MONO % 3.9 % (0.0-5.0); NEUTROPHILS % 82.4 % (36.0-66.0); PLATELET COUNT, AUTOMATED 224 k/mm3 (150-450); RED CELL DISTRIBUTION WIDTH 15.2 % (11.5-14.5); WHITE BLOOD COUNT 7.3 K/mm3 (4.0-10.0)
[2016-11-28 19:11] LABS: INR 2.19
[2016-11-28 19:26] LABS: CALCIUM LEVEL 8.8 MG/DL (8.8-10.2); CREATININE FOR GFR 3.78 MG/DL (0.70-1.30); GLOMERULAR FILTRATION RATE 16.2 (>35); POTASSIUM SERUM 3.6 MEQ/L (3.5-5.1)
[2016-11-28 19:30] LABS: ANISOCYTOSIS 1+
[2016-11-28] MEDS ORDERED: FUROSEMIDE 100 MG/10 ML VIAL (J1940) IV ONE (20:30)
[2016-11-28] MEDS ORDERED: FUROSEMIDE 40 MG/4 ML VIAL (J1940) IV ONE (20:30)
[2016-11-28] MEDS ORDERED: VITA500046 PO (20:40)
[2016-11-28] MEDS ORDERED: ALBUTEROL 90 MCG/ACT 8GM HFA INHALER INH PRN (21:30)
--- NOTE | 2016-11-28 21:48 | HPE ---
DATE OF ADMISSION: 11/28/2016 PRIMARY CARE PROVIDER: Dr. Faulkner ELECTRICAL ENGINEERING DESIGNER: Dr. Reynoso REASON FOR ADMISSION: Shortness of breath. HISTORY OF PRESENT ILLNESS: The patient is an 86-year-old male with past medical history significant for end-stage renal disease on hemodialysis, history of diastolic congestive heart failure, moderately severe pulmonary hypertension, presented to the emergency room along with his caregiver complaining of shortness of breath that started Thursday. The patient went to his primary care provider and then he went to Dr. Lee for a leg hematoma that was drained in the office. At that time he was found to be short of breath. He was sent to urgent care clinic where he had a chest x-ray, was given a breathing treatment, and was started on oral prednisone, and was sent home. He had dialysis yesterday as scheduled and then today continued to have shortness of breath and came to the emergency room. The patient was having good oxygen saturation however, chest x-ray was done in the emergency room which showed cardiomegaly, vascular congestion, diffuse infiltrates/edema with moderate to large right effusion. Hospitalist was called for the admission. Dr. Parr was also called, he recommended CT scan of the chest as well as a respiratory panel. On exam the patient denied any chest pain at this time. Denied any chest pressure, palpitation. He denied any shortness of breath right now. He was saturating 92% on room air. He was only complaining of left leg pain where he had an incision and drainage (I D) done by Dr. Lee 2 days ago. REVIEW OF SYSTEMS: 12-point review of systems was obtained, all of which was negative except for those mentioned above. PAST MEDICAL HISTORY: Significant for: 1. End-stage renal disease on hemodialysis Thursday, , Thursday. 2. History of congestive heart failure per echo which was done in 2013, the patient has an ejection fraction (EF) of 70% and diastolic dysfunction. 3. Moderately severe pulmonary hypertension. 4. History of diabetes. Patient is currently not on any medications. 5. History of hypertension, also not on any medication. 6. History of atrial fibrillation on Coumadin. 7. Depression. 8. History of coronary artery disease status post cardiac stents. 9. History of aneurysm repair. 10. History of peptic ulcer disease. 11. History of BPH. PAST SURGICAL HISTORY: Significant for transurethral resection of the prostate (TURP), bilateral cataract surgery, graft replacement, stent placement, current left-sided subclavian dialysis catheter, aortic aneurysm repair and hernia repair. SOCIAL HISTORY: The patient is a former smoker and drinks alcohol occasionally. Lives at home alone but has a caregiver that comes to the house five times a week. FAMILY HISTORY: Noncontributory. ALLERGIES: To CONTRAST and IODINE. HOME MEDICATIONS: Include - Tylenol 650 mg by mouth every 4 hours as needed for mild pain or fever - Ventolin HFA two puffs inhaled every 4 hours as needed for shortness of breath - Tums 500 mg before meals - vitamin D 5000 mg daily - pantoprazole 40 mg at night - prednisone that was started in the urgent care clinic 2 days ago, he was instructed to take 40 mg daily for 10 days and then 20 mg daily for 10 days - Advair puff twice a day - Coumadin 2.5 mg by mouth daily PHYSICAL FINDINGS: VITAL SIGNS: On admission: Temperature 97.6, pulse 70, respiratory rate 20, blood pressure 141/63, pulse oximetry 95% on room air. HEENT: Pupils equal, round, reactive to light and accommodation. NECK: Supple. No obvious jugular venous distention (JVD) noted. However, the patient has a large neck circumference. LUNGS: Diminished right breath sounds. No wheezes appreciated. CARDIAC: Irregular rate and rhythm. ABDOMEN: Soft, nontender, nondistended. EXTREMITIES: Left side dressing in place status post incision and drainage to left-sided lower extremity hematoma, dressings to be changed by Dr. Lee's nurse on Thursday. No edema in the lower extremity. NEUROLOGIC EXAMINATION: Cranial nerves II-XII grossly intact. No focal deficits. LABORATORY DATA: WBC 7.3, hemoglobin 9.2, hematocrit 28.7, platelet count 224, sodium 143, potassium 3.6, chloride 104, BUN 28, creatinine 3.78, fasting glucose 148. Troponin 0.03, BNP 1540. Chest x-ray showed cardiomegaly, vascular congestion and diffuse interstitial infiltrates/ edema, finding likely on the basis of CHF, pulmonary edema. There is also bibasilar infiltrate, right greater than left, with a moderate to large right effusion. ASSESSMENT/PLAN: 1. Shortness of breath likely secondary to moderate right pleural effusion versus congestive heart failure exacerbation. The patient had dialysis yesterday. We will give one dose of 80 mg of Lasix at this time. We will monitor intake and output and daily weights. We will order echocardiogram, last echocardiogram was done in 2013 which showed diastolic dysfunction with an ejection fraction (EF) of 70%. We will order respiratory panel to rule out viral illnesses. The patient denies any fevers. Denies any cough or chills. Has no white count at this time. We will continue the patient's Advair, Ventolin as needed, and prednisone that he was given in urgent care on Thursday. CT scan of the chest is pending. 2. History of end-stage renal disease on hemodialysis Thursday, , Thursday. The patient underwent dialysis yesterday. We will consult Dr. Parr. He currently has a left-sided subclavian dialysis catheter. 3. History of diastolic congestive heart failure. The patient appears to be in acute congestive heart failure exacerbation. He received one dose of IV Lasix in the emergency room. Will continue to monitor intake and output and daily weights and repeat echocardiogram. 4. Moderate severe pulmonary hypertension. 5. History of diabetes. The patient is not currently on any medications. We will order hemoglobin A1c. 6. History of atrial fibrillation. Rate is controlled. We will continue patient's Coumadin. INR is therapeutic, it was found to be 2.19. 7. History of abdominal aneurysm repair. 8. History of coronary artery disease status post cardiac stents. 9. History of BPH status post transurethral resection of the prostate (TURP). 10. Deep venous thrombosis (DVT) prophylaxis. Patient is currently on Coumadin. The patient will be seen by Dr. Mcnulty in the morning.
[2016-11-28 23:00] VITALS: BP 154/65
--- NOTE | 2016-11-28 23:10 | REPUSA ---
CT of the chest without contrast Clinical statement: Shortness of breath. Technique: Multiple axial CT images were obtained with 5 mm cuts through the chest without administra tion of contrast. No comparison is available. Findings: There is an and large precarinal lymph node measuring 1.6 x 1.9 cm. A left perihilar lymph node measures 2.4 x 1.3 cm. A subcarinal lymph node measures 1.7 x 1.3 cm. The visualized portions of the thyroid gland is unremarkable. There is a small left-sided pleural effusion. There is a large ri ght-sided pleural effusion with consolidation and infiltrate in the right lower lung. Limited imaging of the upper abdomen does not demonstrate any acute abnormalities. There are no suspicious osseous l esions. Impression: 1. Moderate right-sided pleural effusion with right lower lobe consolidation and infiltrate. Pneumoni a cannot be excluded. 2. Small left lower lobe pleural effusion. 3. Moderate amount of mediastinal lymphadenopathy, likely reactive in nature.
[2016-11-29] MEDS ORDERED: SLF 3 ML SYR IV PRN (01:45)
[2016-11-29 05:10] VITALS: BP 160/68
[2016-11-29 05:54] LABS: ADD MORPHOLOGY? YES; BASO % 0.4 % (0.0-1.0); EOS # 0.1 K/mm3 (0.0-0.50); EOS % 1.3 % (0.0-3.0); LARGE UNSTAINED CELL # 0.2 K/mm3 (0.0-0.4); LARGE UNSTAINED CELL % 2.3 % (0.0-4.0); LYMPH # 1.1 K/mm3 (1.5-4.5); LYMPH % 12.2 % (24.0-44.0); MEAN CORPUSCULAR HEMOGLOBIN 34.7 pg (27.0-33.0); MEAN CORPUSCULAR HGB CONC 31.6 g/dl (32.0-36.5); MEAN CORPUSCULAR VOLUME 109.8 fl (80.0-96.0); MONO # 0.4 K/mm3 (0.0-0.8); NEUTROPHILS # 6.9 K/mm3 (1.8-7.7); NEUTROPHILS % 78.8 % (36.0-66.0); PLATELET COUNT, AUTOMATED 234 k/mm3 (150-450); WHITE BLOOD COUNT 8.8 K/mm3 (4.0-10.0)
[2016-11-29] MEDS: SLF 3 ML SYR IV SCH ×3 (06:00→20:24)
[2016-11-29 06:09] LABS: INR 2.13
[2016-11-29 06:13] LABS: ALBUMIN 3.1 GM/DL (3.2-5.2); CALCIUM LEVEL 8.4 MG/DL (8.8-10.2); CREATININE FOR GFR 4.33 MG/DL (0.70-1.30); GLOMERULAR FILTRATION RATE 13.8 (>35); PHOSPHORUS LEVEL 2.3 MG/DL (2.5-4.9); POTASSIUM SERUM 3.2 MEQ/L (3.5-5.1)
[2016-11-29 06:31] LABS: HYPOCHROMASIA 1+
[2016-11-29 06:32] LABS: ANISOCYTOSIS 1+
[2016-11-29] MEDS ORDERED: POTASSIUM CHLORIDE 10 MEQ SR TABLET PO ONE (07:15)
[2016-11-29 08:00] VITALS: BP 174/72
[2016-11-29] MEDS: predniSONE 20 MG TAB PO SCH (08:33)
[2016-11-29] MEDS: CALCIUM CARBONATE 500 MG CHEW U/D PO SCH ×3 (08:34→17:50)
[2016-11-29] MEDS: VITAMIN D 1,000 INTERNATIONAL UNITS TABLET PO SCH (08:34)
[2016-11-29] MEDS: ADVAIR HFA 230/21 INHALER INH SCH ×2 (09:30→22:14)
--- NOTE | 2016-11-29 09:46 | IPNPDOC ---
Text Note Date of Service The patient was seen on 11/29/16. NOTE Subjective: Patient is an 86 year old male with a PMHx of ESRD on HD (TTS), CHF ( EF: 70%, DD), Severe Pulmonary HTN, DM2, HTN, A. fib (on Coumadin), Depression, CAD s/p stent, Aneurysm repair, PUD, BPH who presented to the ER with complaints of SOB and non-productive cough for 4 days duration. Patient recently had a left leg hematoma that was drained [address] Lee[address] He was SOB at his office and was sent to urgent care where he received a CXR. He received a breathing treatment and was sent home with oral prednisone. Patient then had his next scheduled HD and SOB there. He was sent to the ER. In the ER he had repeat imaging completed which revealed vascular congestion and diffuse infiltrates / edema with moderate to large right effusion. Patient was seen and examined at the bedside. He reports that he is not too SOB , but he does note a non-productive cough that has been there for a few days. He denies any chest pain or palpitations. Objective: Vitals (See below) General: Lying in bed, no acute distress, comfortable, AAOx3 HEENT: NC, AT CVS: Irregularly irregular, +S1S2 Lungs: Diminished air sounds b/l, mild crackles at right lung base Abdomen: Soft, ND, NT, +BSx4 Extremities: +PPx4, - Edema, - Calf tenderness, Left leg in dressing Assessment and plan: 1. Dyspnea - likely 2/2 moderate right pleural effusion - possibly 2/2 congestive heart failure / fluid overload given ESRD, possible CAP - Presented with a few days of SOB and non-productive cough, no recorded fevers - Physical reveals decreased lungs sounds at b/l bases, +crackles - No leukocytosis, elevated BNP at 1540, will check CRP - Respiratory panel negative, Influenza negative - CT chest 11/28: moderate R sided pleural effusion with R lower lobe consolidation / infiltrate, small L LL pleural effusion, moderate amount of mediastinal lymphadenopathy - s/p Lasix 80 IV one dose in ER - Will check ECHO - Will got for HD today - Will hold on antibiotics for now - Will consult pulmonary for possible thoracocentesis to remove effusion 2. ESRD on HD (TTS) - Will go for HD today - Dr. Parr (Nephrology) following - appreciate their input 3. CHF (EF: 70%, DD) - Will get repeat ECHO 4. Macrocytic anemia 5. Severe Pulmonary HTN 6. DM2 - A1c of 5.2 - not on home medications; not on ISS as an inpatient 7. HTN - blood pressure elevated - will start amlodipine 5mg with holding parameters 8. A. fib (on Coumadin) - INR therapeutic at 2.13 - on anticoagulation with Coumadin 9. Depression 10. CAD s/p stent - not on aspirin 11. Aneurysm repair 12. BPH - not on medications 13. PUD - c/w protonix 14. DVT prophylaxis - already on full anticoagulation with Coumadin VS,Fishbone, I+O VS, Fishbone, I+O Laboratory Tests 11/28/16 18:38 Calcium Level 8.8, Total Creatine Kinase 31 L, Red Blood Count 2.68 L, Mean Corpuscular Volume 106.7 H, Mean Corpuscular Hemoglobin 34.2 H, Mean Corpuscular Hemoglobin Concent 32.0, Red Cell Distribution Width 15.2 H, Neutrophils (%) (Auto) 82.4 H, Lymphocytes (%) (Auto) 10.8 L, Monocytes (%) ( Auto) 3.9, Eosinophils (%) (Auto) 0.4, Basophils (%) (Auto) 0.5, Neutrophils # ( Auto) 6.0, Lymphocytes # (Auto) 0.8 L, Monocytes # (Auto) 0.3, Eosinophils # ( Auto) 0.0, Basophils # (Auto) 0.0 11/29/16 05:26 Red Blood Count 2.90 L, Mean Corpuscular Volume 109.8 H, Mean Corpuscular Hemoglobin 34.7 H, Mean Corpuscular Hemoglobin Concent 31.6 L, Red Cell Distribution Width 15.0 H, Neutrophils (%) (Auto) 78.8 H, Lymphocytes (%) (Auto ) 12.2 L, Monocytes (%) (Auto) 5.0, Eosinophils (%) (Auto) 1.3, Basophils (%) ( Auto) 0.4, Neutrophils # (Auto) 6.9, Lymphocytes # (Auto) 1.1 L, Monocytes # ( Auto) 0.4, Eosinophils # (Auto) 0.1, Basophils # (Auto) 0.0, Anion Gap 10 Vital Signs Date Time Temp Pulse Resp B/P Pulse Ox O2 Delivery O2 Flow Rate FiO2 11/29/16 08:00 95.6 95 22 174/72 94 Room Air I&O- Last 24 Hours up to 6 AM 11/29/16 06:00 Intake Total 30 ml Output Total 0 ml Balance 30 ml LELAND GALVAN MD Nov 29, 2016 09:46
[2016-11-29] MEDS ORDERED: AZITHROMYCIN INJ 500 MG, VIAL MATE ADAPTER 1 EACH in D5W 250 ML IV SCH (10:00)
[2016-11-29] MEDS: amLODIPine 5 MG TAB PO SCH (10:30)
[2016-11-29] MEDS ORDERED: cefTRIAXone SOD 1 GM in D5W MINI-BAG PLUS 50 ML IV SCH (11:00)
--- NOTE | 2016-11-29 11:21 | ECHO ---
DATE OF PROCEDURE: 11/29/2016 REFERRING PHYSICIAN: Dr. Isabella Galvan. INDICATION: Dyspnea. HEIGHT: 168 cm. WEIGHT: 77 kg. DIMENSION: IVS: 1.3 LV: 4.0 LVPW: 1.2 LA: 4.7 Aorta: 3.6 FINDINGS: The study is of acceptable technical quality. Left ventricle is of normal size and systolic function with estimated EF around 60-65%. The right ventricle appears dilated. Both atria are severely dilated. Aortic valve has three cusps. There is definite sclerosis and some restriction of leaflet mobility. There are also degenerative abnormalities of mitral valve. Leaflet mobility is preserved. Tricuspid valve is normal. Pulmonic valve was not well seen. No pericardial effusion noted. Inferior vena cava is dilated but has some collapse with respiration indicative of at least mildly elevated central venous pressure. Doppler interrogation of aortic valve reveals mild to moderate insufficiency and trivial stenosis with mean gradient 10 mmHg. There is mild mitral insufficiency and approximately moderate tricuspid insufficiency. Calculated pulmonary artery pressure is in 50s corresponding to moderate or moderately severe pulmonary hypertension. Evaluation of diastolic function is inconclusive due to atrial fibrillation. CONCLUSIONS: 1. Study is of acceptable technical quality. 2. Normal LV size with mild LVH, normal LV systolic function. 3. Dilated right ventricle. 4. Severely dilated both atria. 5. Sclerotic aortic valve with minimal stenosis and mild to moderate insufficiency. 6. Moderate tricuspid insufficiency. 7. Elevated central venous pressure. 8. At least moderate and probably moderately severe pulmonary hypertension. COMMENT: Subacute bacterial endocarditis (SBE) prophylaxis is not recommended.
[2016-11-29] MEDS ORDERED: HEPARIN 1,000 UNITS/ML 10ML VIAL (FOR RADIOLOGY& DIALYSIS ONLY) IV ONE (12:15)
[2016-11-29 16:00] VITALS: BP 114/42
[2016-11-29] MEDS: PANTOPRAZOLE 40MG TAB (PROTONIX) PO SCH (17:50)
[2016-11-29] MEDS: WARFARIN SOD 2.5 MG TAB PO SCH (17:50)
[2016-11-29 19:40] VITALS: BP 142/63
[2016-11-30 00:15] VITALS: BP 142/70
[2016-11-30] MEDS: SLF 3 ML SYR IV SCH ×3 (02:34→20:35)
--- NOTE | 2016-11-30 02:40 | CR ---
DATE OF CONSULTATION: 11/29/2016 REQUESTING PHYSICIAN: Dr. Arleen Mcnulty REASON FOR CONSULTATION: Management of end-stage renal disease and hemodialysis. CHIEF COMPLAINT: Patient was brought into emergency room because of progressive shortness of breath. HISTORY OF PRESENT ILLNESS: Mr. Cody Caldwell is an 86-year-old male with past medical history of end-stage renal disease on hemodialysis every Thursday, and Thursday. He has history of congestive heart failure and multiple other comorbidities as mentioned below. Patient presented to the emergency room yesterday with progressive shortness of breath for the last four days which was constant, not relieved by any medication; it was associated with orthopnea as well. Patient was seen in the urgent care center a few days ago. He was given steroids and nebulization treatment that did not help with his shortness of breath, so patient was brought into the emergency room yesterday. Initial evaluation including chest x-ray showed that the patient had an infiltrate and possible moderate pleural effusion on the right side. Patient was admitted to the hospital for congestive heart failure exacerbation and right-sided pleural effusion. Nephrology service was called for further management of end-stage renal disease and hemodialysis. Patient got a CT scan of the chest done yesterday which showed right lower lobe infiltrate versus atelectasis and moderate right pleural effusion. PAST MEDICAL HISTORY: Patient has past medical history of end-stage renal disease on hemodialysis on Thursday, and Thursday, today is the day of dialysis, history of congestive heart failure with diastolic dysfunction, moderately severe pulmonary hypertension, history of diet-controlled diabetes mellitus, hypertension, history of atrial fibrillation (AFib) on Coumadin, depression, coronary artery disease status post coronary artery stenting, history of aneurysm repair, peptic ulcer disease, and benign prostatic hyperplasia. PAST SURGICAL HISTORY: Status post transurethral resection of the prostate (TURP) for BPH, bilateral cataract surgery, status post cardiac stent placement, status post aortic aneurysm repair, history of hernia surgery, status post left-sided tunneled hemodialysis catheter placement. ALLERGIES: Patient is allergic to IODINE and IV CONTRAST MEDIA. CURRENT MEDICATIONS: Patient's current inpatient medications include: - azithromycin and Rocephin, one dose was given today - Tylenol as needed - Proventil nebulizations as needed - amlodipine 5 mg by mouth daily - TUMS 2 grams by mouth with meals - Lasix 80 mg IV one dose - heparin IV with hemodialysis - Protonix 40 mg by mouth every night - prednisone 20 mg by mouth daily - Advair two puffs twice a day - vitamin D 5000 units by mouth daily - Coumadin 2.5 mg by mouth daily FAMILY HISTORY: There is no significant family history of end-stage renal disease requiring hemodialysis. SOCIAL HISTORY: Patient denies any recreational drug use. He is a social drinker. He is a former smoker quit many years ago. Patient lives alone, but he has a caregiver who comes to the home about five days a week. REVIEW OF SYSTEMS: CONSTITUTIONAL: Patient denies any fever, chills, rigors, but he reports weakness. EYES: He denies any blurry vision or double vision. ENT: He denies any ear discharge, dysphagia, or odynophagia. CARDIOVASCULAR: He denies any chest pain or palpitation. RESPIRATORY: He reports shortness of breath and orthopnea, and he also reports a mild cough. GI: He denies any nausea, vomiting, pain in the abdomen, or constipation. GENITOURINARY: He denies any dysuria or hematuria. He reports a history of end-stage renal disease. MUSCULOSKELETAL: He denies any muscle aches and pains, but he does report weakness. CENTRAL NERVOUS SYSTEM: Patient denies any history of seizures or stroke. HEMATOLOGICAL/ONCOLOGICAL: Patient reports history of anemia secondary to end-stage renal disease. ENDOCRINE: Patient reports diet-controlled diabetes and secondary hyperparathyroidism. PSYCH: He reports history of depression. All other review of systems is negative. PHYSICAL EXAMINATION: GENERAL: Patient is awake, alert, oriented times three, sitting in the bed in mild respiratory distress. VITAL SIGNS: Temperature is 95.9 degrees Fahrenheit, blood pressure is 160/68, pulse is 71, respiratory rate of 20, saturating 92% on room air. INTAKE AND OUTPUT: There is no urine output recorded today. Weight in the bed scale was 77.1 kg yesterday. HEAD AND NECK EXAM: Extraocular muscles are intact. Pupils equally round and reactive to light. Mucous membranes are moist. Neck is supple. There is no jugular venous distention (JVD). CARDIOVASCULAR: S1, S2 irregular heart rate. No murmur, rub, or gallop. RESPIRATORY: Chest is clear to auscultation on the left side. Patient has decreased breath sounds on the right side mid lung zone and right base. Patient has decreased vocal resonance on the right side as well. ABDOMEN: Soft. Positive bowel sounds. Nontender. No ascites. No organomegaly. EXTREMITIES: Patient has a dressing on left leg because of the recent hematoma which is being treated by Dr. Lee. He has trace edema on the right leg. CENTRAL NERVOUS SYSTEM: No focal neurological deficit. Power is 5/5 in both extremities. PSYCH: Normal mood and affect. LYMPH NODES: No significant cervical, axillary, or inguinal lymphadenopathy. LAB REVIEW: CBC showed a WBC of 88, hemoglobin is 10, platelets are 234. INR is 2.13. BMP showed sodium 144, potassium 3.2, chloride 105, bicarbonate is 29, BUN is 32, creatinine is 4.33, lactic acid is 1.8, phosphorus is 2.3, C-reactive protein is 1.79, albumin is 3.1. MICROBIOLOGY: Respiratory virus panel and influenza is negative so far. IMAGING: A CT scan of the chest done without contrast yesterday showed moderate right-sided pleural effusion with right lower lobe consolidation and infiltrate, small left lower lobe pleural effusion, moderate amount of mediastinal lymphadenopathy. ASSESSMENT: 86-year-old male with past medical history of end-stage renal disease on hemodialysis, congestive heart failure (CHF) with diastolic dysfunction, admitted at this time with shortness of breath and found to have moderate right-sided pleural effusion and right lower lobe infiltrate. Nephrology service is following the patient for management of end-stage renal disease. PLAN: 1. End-stage renal disease on hemodialysis. Patient's regular days of dialysis are Thursday, and Thursday, today is patient's day of dialysis. I am going to dialyze the patient today. Ultrafiltration goal will be around 2.5 to 3 liters as tolerated by his blood pressure. 2. Shortness of breath. Patient does not seem to be volume overloaded at this time; however, hemodialysis and ultrafiltration both help in his shortness of breath and fluid overload if it is secondary to congestive heart failure. However, clinically it looks like his shortness of breath is secondary to moderate-sized right-sided pleural effusion. I will get pulmonary service on board, and if needed, we will need to hold his Coumadin level or reverse his Coumadin as needed to do right-sided chest tube or drainage catheter. 3. History of diastolic congestive heart failure. Patient did not respond to IV Lasix. He does not make enough amount of urine. There is no need of IV diuretics at this time. Patient is not on any beta blockers at this time. Volume will be managed with hemodialysis. 4. Hypertension. Patient's blood pressure is acceptable at this time. Continue current dose of amlodipine 5 mg by mouth daily. 5. Atrial fibrillation. Patient's pulse rate is controlled at this time. Continue Coumadin 2.5 mg by mouth daily. If patient needs any intervention done, then Coumadin can be held and he can be given a dose of vitamin K. 6. 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 Patient is currently on TUMS two grams by mouth three times a day with meals. His phosphorus level is low. If phosphorus level continues to be low by tomorrow, then TUMS dose will be decreased. 7. Hypokalemia. Patient will be dialyzed with a four K bath today. That will take care of low potassium. 8. 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 Patient's hemoglobin is 10.1, which is acceptable now. Patient will be given a dose of Aranesp with next hemodialysis session. Thank you for involving us in the care of this patient. We shall be happy to follow the patient along with you tomorrow morning. Plan of care was discussed with the hospitalist team, Dr. Arleen Mcnulty.
[2016-11-30 04:31] VITALS: BP 150/58
[2016-11-30 05:23] LABS: BASO % 0.4 % (0.0-1.0); EOS # 0.2 K/mm3 (0.0-0.50); EOS % 1.8 % (0.0-3.0); LARGE UNSTAINED CELL # 0.1 K/mm3 (0.0-0.4); LARGE UNSTAINED CELL % 1.4 % (0.0-4.0); LYMPH # 1.4 K/mm3 (1.5-4.5); LYMPH % 13.8 % (24.0-44.0); MEAN CORPUSCULAR HEMOGLOBIN 36.1 pg (27.0-33.0); MEAN CORPUSCULAR HGB CONC 32.8 g/dl (32.0-36.5); MEAN CORPUSCULAR VOLUME 110.3 fl (80.0-96.0); MONO # 0.5 K/mm3 (0.0-0.8); MONO % 5.7 % (0.0-5.0); NEUTROPHILS # 6.8 K/mm3 (1.8-7.7); NEUTROPHILS % 76.9 % (36.0-66.0); PLATELET COUNT, AUTOMATED 227 k/mm3 (150-450); RED CELL DISTRIBUTION WIDTH 15.4 % (11.5-14.5); WHITE BLOOD COUNT 8.9 K/mm3 (4.0-10.0)
[2016-11-30 05:31] LABS: INR 1.84
[2016-11-30 05:54] LABS: CALCIUM LEVEL 8.8 MG/DL (8.8-10.2); CREATININE FOR GFR 3.05 MG/DL (0.70-1.30); GLOMERULAR FILTRATION RATE 20.7 (>35); POTASSIUM SERUM 3.8 MEQ/L (3.5-5.1)
[2016-11-30 08:00] VITALS: BP 147/65
[2016-11-30] MEDS: CALCIUM CARBONATE 500 MG CHEW U/D PO SCH ×3 (09:09→17:13)
[2016-11-30] MEDS: amLODIPine 5 MG TAB PO SCH (09:09)
[2016-11-30] MEDS: VITAMIN D 1,000 INTERNATIONAL UNITS TABLET PO SCH (09:09)
[2016-11-30] MEDS: predniSONE 20 MG TAB PO SCH (09:09)
[2016-11-30] MEDS: ADVAIR HFA 230/21 INHALER INH SCH ×2 (09:11→20:13)
--- NOTE | 2016-11-30 10:08 | IPNPDOC ---
Text Note Date of Service The patient was seen on 11/30/16. NOTE Subjective: Patient is an 86 year old male with a PMHx of ESRD on HD (TTS), CHF ( EF: 70%, DD), Severe Pulmonary HTN, DM2, HTN, A. fib (on Coumadin), Depression, CAD s/p stent, Aneurysm repair, PUD, BPH who presented to the ER with complaints of SOB and non-productive cough for 4 days duration. Patient recently had a left leg hematoma that was drained [address] Lee. He was SOB at his office and was sent to urgent care where he received a CXR. He received a breathing treatment and was sent home with oral prednisone. Patient then had his next scheduled HD and SOB there. He was sent to the ER. In the ER he had repeat imaging completed which revealed vascular congestion and diffuse infiltrates / edema with moderate to large right effusion. Patient was seen and examined at the bedside. He notes that his non-producitve cough has had some improvement. Again denies CP, palpitations or significant SOB. Objective: Vitals (See below) General: Lying in bed, no acute distress, comfortable, AAOx3 HEENT: NC, AT CVS: Irregularly irregular, +S1S2 Lungs: Diminished air sounds b/l, no appreciable crackles Abdomen: Soft, ND, NT, +BSx4 Extremities: +PPx4, - Edema, - Calf tenderness, Left leg in dressing Assessment and plan: 1. Dyspnea - likely 2/2 moderate right pleural effusion - possibly 2/2 congestive heart failure / fluid overload given ESRD, less likely CAP - Presented with a few days of SOB and non-productive cough, no recorded fevers - Physical reveals decreased lungs sounds at b/l bases, +crackles - No leukocytosis, elevated BNP at 1540, will check CRP - Respiratory panel negative, Influenza negative - CT chest 11/28: moderate R sided pleural effusion with R lower lobe consolidation / infiltrate, small L LL pleural effusion, moderate amount of mediastinal lymphadenopathy - ECHO 11/29: EF normal, Dilate RV, Severely dilated atria, Moderate TR, Elevated CVP, Moderately-severe Pulm HTN - s/p HD 11/29: Removed 2700 cc of fluid - Will continue to hold on antibiotics - Dr. Alonzo (Pulmonary) following - appreciate their input 2. ESRD on HD (TTS) - Dr. Parr (Nephrology) following - appreciate their input 3. CHF (EF: 70%, DD) - ECHO 11/29: EF normal, Dilate RV, Severely dilated atria, Moderate TR, Elevated CVP, Moderately-severe Pulm HTN - s/p Lasix 80 IV one dose in ER 4. Macrocytic anemia 5. Severe Pulmonary HTN 6. DM2 - A1c of 5.2 - not on home medications; not on ISS as an inpatient 7. HTN - blood pressure elevated - will start amlodipine 5mg with holding parameters 8. A. fib (on Coumadin) - INR subtherapeutic at 1.84 - on anticoagulation with Coumadin 9. Depression 10. CAD s/p stent - not on aspirin 11. Aneurysm repair 12. BPH - not on medications 13. PUD - c/w protonix 14. DVT prophylaxis - already on full anticoagulation with Coumadin VS,Fishbone, I+O VS, Fishbone, I+O Laboratory Tests 11/30/16 05:05 Anion Gap 9, Red Blood Count 2.69 L, Mean Corpuscular Volume 110.3 H, Mean Corpuscular Hemoglobin 36.1 H, Mean Corpuscular Hemoglobin Concent 32.8, Red Cell Distribution Width 15.4 H, Neutrophils (%) (Auto) 76.9 H, Lymphocytes (%) ( Auto) 13.8 L, Monocytes (%) (Auto) 5.7 H, Eosinophils (%) (Auto) 1.8, Basophils (%) (Auto) 0.4, Neutrophils # (Auto) 6.8, Lymphocytes # (Auto) 1.4 L, Monocytes # (Auto) 0.5, Eosinophils # (Auto) 0.2, Basophils # (Auto) 0.0 Vital Signs Date Time Temp Pulse Resp B/P Pulse Ox O2 Delivery O2 Flow Rate FiO2 11/30/16 08:15 Room Air 11/30/16 08:00 96.3 76 18 147/65 97 11/29/16 20:00 2.0 I&O- Last 24 Hours up to 6 AM 11/30/16 06:00 Intake Total 240 ml Output Total 2700 ml Balance -2460 ml LELAND GALVAN MD Nov 30, 2016 10:08
--- NOTE | 2016-11-30 10:10 | REP ---
TWO VIEW CHEST: Two views of the chest are performed and compared to prior study of 11/28/2016. Vascular congestion and interstitial edema appears improved. There is cardiomegaly. Mediastinal silhouette is unchanged. Moderate to large right effusion is unchanged as is adjacent atelectasis/infiltrate in the right lung base. There is a small left effusion with mild adjacent atelectasis/infiltrate. Left central venous catheter and right subclavian stent are again noted. There are degenerative changes of the spine. IMPRESSION: Improved vascular congestion and interstitial edema. Moderate to large right effusion with adjacent atelectasis/infiltrate and small left effusion with mild left basilar atelectasis/infiltrate not significantly changed. Signed by Antione Rossi MD 11/30/2016 01:56 P
[2016-11-30 12:00] VITALS: BP 143/65
[2016-11-30] MEDS: ACETAMINOPHEN TAB 650MG DOSE (2X325MG) PO PRN ×2 (14:44→20:35)
[2016-11-30 16:00] VITALS: BP 148/67
[2016-11-30] MEDS: PANTOPRAZOLE 40MG TAB (PROTONIX) PO SCH (17:13)
[2016-11-30] MEDS: WARFARIN SOD 2.5 MG TAB PO SCH (17:13)
[2016-11-30] MEDS: IPRATROPIUM 0.03% NASAL SPRAY 30 ML (ATROVENT) SCH ×2 (17:14→20:34)
[2016-11-30 20:00] VITALS: BP 136/60; PULSE 70
[2016-12-01] VITALS: BP 140/66; PULSE 80
[2016-12-01 04:00] VITALS: BP 160/64; PULSE 81
[2016-12-01 05:44] LABS: INR 1.58
[2016-12-01 05:48] LABS: ADD MORPHOLOGY? YES; BASO % 0.5 % (0.0-1.0); EOS # 0.1 K/mm3 (0.0-0.50); EOS % 1.1 % (0.0-3.0); LARGE UNSTAINED CELL # 0.1 K/mm3 (0.0-0.4); LARGE UNSTAINED CELL % 0.9 % (0.0-4.0); LYMPH # 1.1 K/mm3 (1.5-4.5); LYMPH % 10.8 % (24.0-44.0); MEAN CORPUSCULAR HEMOGLOBIN 35.6 pg (27.0-33.0); MEAN CORPUSCULAR HGB CONC 32.5 g/dl (32.0-36.5); MEAN CORPUSCULAR VOLUME 109.4 fl (80.0-96.0); MONO # 0.4 K/mm3 (0.0-0.8); MONO % 4.6 % (0.0-5.0); NEUTROPHILS # 7.9 K/mm3 (1.8-7.7); PLATELET COUNT, AUTOMATED 232 k/mm3 (150-450); RED CELL DISTRIBUTION WIDTH 15.2 % (11.5-14.5); WHITE BLOOD COUNT 9.6 K/mm3 (4.0-10.0)
[2016-12-01 05:55] LABS: ALBUMIN 3.1 GM/DL (3.2-5.2); CALCIUM LEVEL 9.4 MG/DL (8.8-10.2); CREATININE FOR GFR 4.31 MG/DL (0.70-1.30); GLOMERULAR FILTRATION RATE 13.9 (>35); MAGNESIUM LEVEL 1.9 MG/DL (1.8-2.4); PHOSPHORUS LEVEL 2.6 MG/DL (2.5-4.9)
[2016-12-01 07:35] VITALS: BP 165/70
[2016-12-01] MEDS: ADVAIR HFA 230/21 INHALER INH SCH ×2 (07:43→22:12)
--- NOTE | 2016-12-01 08:30 | CR ---
DATE OF CONSULTATION: 11/29/2016 Mr. Caldwell is an 86-year-old male, known to my practice for mild emphysema, who has a history of end-stage renal disease on hemodialysis with congestive heart failure. I was consulted for a right pleural effusion. The patient has had no infectious symptoms that he can recall. He has no cough, fever, chills. He presented to the emergency room with increased shortness of breath. Found to be volume overloaded. Diuresis was attempted as he still makes some urine. He underwent hemodialysis today. I saw him after hemodialysis. He states he is breathing "okay." He is a fairly difficult historian. He could not tell me why his left lower extremity is wrapped. He overall states everything is okay and his daughter that I usually speak with in the office who helps to care for him was not available in the room. Therefore, history is limited to chart review and what I am able to obtain from the patient. He denies any chest pressure, again denies shortness of breath. Denies lower extremity edema though there is systemic edema present. PAST MEDICAL HISTORY: 1. End-stage renal disease on hemodialysis. 2. Atrial fibrillation on chronic anticoagulation. 3. Congestive heart failure with diastolic dysfunction. 4. Mild emphysema. 5. History of diabetes. 6. History of hypertension. 7. Peripheral vascular disease. 8. Coronary artery disease. 9. History of cataract surgery. 10. Hernia repair. 11. Difficulties with AV fistulas. 12. History of aortic aneurysm repair. 13. History of peptic ulcer disease. 14. Hypercholesterolemia. SOCIAL HISTORY: Patient is an ex-smoker. Drinks alcohol occasionally. Lives alone but has a caregiver. FAMILY HISTORY: Noncontributory. CURRENT MEDICATIONS: Were reviewed as in the chart. ALLERGIES: To CONTRAST AND IODINE, reportedly. REVIEW OF SYSTEMS: Difficult to obtain due to the patient's ability to answer questions. I believe there is some memory impairment. PHYSICAL EXAMINATION: Temperature is 95.6. Pulse is 95. Respiratory rate is 22. Blood pressure is 174/72 with an oxygen saturation of 94% on room air. General: Patient is sitting at bedside, speaking in full sentences without dyspnea. He does have a nasal cannula in place at 3 liters. HEENT: Sclerae clear, anicteric. Mucous membranes are moist without lesions. Oropharynx is crowded, without erythema or exudate. He has dentures. Neck: No stridor, tracheal deviation. Masticular veins are nondistended. Carotid upstroke is brisk without bruit. Thyroid is normal in size and contour without nodularity. No cervical, supraclavicular or axillary adenopathy. Heart: Distant S1, S2. Without appreciable murmur, rub or gallop. Point of maximum impulse (PMI) is difficult to palpate. Pulmonary: Breath sounds are decreased bilaterally, more so at the right base. There is dullness to percussion two-thirds of the right base. Expiratory phase slightly prolonged. No rales, rhonchi or wheezes. Abdomen is soft, nontender and nondistended with normoactive bowel sounds. No cervical mass or hepatosplenomegaly. No bruits or large vessel in the abdomen. Extremities: There is significant pitting edema in the right lower extremity. The left lower extremity is wrapped from a recent lesion repair. Multiple previously failed AV grafts with scarring in his extremities. Skin is fairly well kept, no rashes or jaundice. Musculoskeletal: Muscle tone, decreased gait and station not tested as he usually uses a wheelchair. No evidence of unilateral weakness, asterixis or seizure activity. DIAGNOSTIC STUDIES: Testing reviewed in the hospital today, includes a white count of 8.8, hemoglobin of 10.1, albumin of 3.1, with a platelet count of 234. Sodium is 144, potassium is 3.2, chloride is 105, bicarbonate is 29, BUN is 32, creatinine is 4.33, with a glucose of 120. INR is elevated at 2.13. BNP is elevated at 1540. Chest CT was reviewed from 11/28/2016, which shows a moderate right pleural effusion, a small left pleural effusion. There is no significant infiltrate or mass. I reviewed a prior chest CT from May 2015. There was pleural effusion on the right at that point in time, although not too as a significant degree as the one 11/28/2016. IMPRESSION: 1. Right pleural effusion, moderate in nature. He has no signs/symptoms of infection. No elevated white count. No fever, chills. He has a chronic pleural effusion on that side and therefore, I believe this reflects his volume status. Given the fact that he has an elevated INR, is on chronic anticoagulation, I believe the risk outweighs the benefit for thoracentesis at this point in time as there is no signs of infection and most likely causes volume overload. I recommend attempts towards volume reduction and sodium management. Will continue to follow. If pleural effusion becomes significant enough to cause respiratory impairment or he develops signs/symptoms of infection, thoracentesis should be considered at that point in time. Thank you for this consultation. Will continue to follow. 2. Severe hypertension. Patient has had elevated systolic blood pressures in the 170 range. This may be precipitating more diastolic dysfunction and increased heart failure. Would recommend better blood pressure control to help with vascular congestion. If you have any further questions or concerns, please feel free to call. Otherwise, I will see the patient on a daily basis.
[2016-12-01] MEDS: predniSONE 20 MG TAB PO SCH (09:05)
[2016-12-01] MEDS: amLODIPine 5 MG TAB PO SCH (09:05)
[2016-12-01] MEDS: VITAMIN D 1,000 INTERNATIONAL UNITS TABLET PO SCH (09:05)
[2016-12-01] MEDS: IPRATROPIUM 0.03% NASAL SPRAY 30 ML (ATROVENT) SCH ×3 (09:06→21:00)
[2016-12-01] MEDS: CALCIUM CARBONATE 500 MG CHEW U/D PO SCH ×3 (09:06→20:39)
[2016-12-01 12:00] VITALS: BP 170/76
--- NOTE | 2016-12-01 13:23 | IPNPDOC ---
Text Note Date of Service The patient was seen on 12/01/16. NOTE Subjective: Patient is an 86 year old male with a PMHx of ESRD on HD (TTS), CHF ( EF: 70%, DD), Severe Pulmonary HTN, DM2, HTN, A. fib (on Coumadin), Depression, CAD s/p stent, Aneurysm repair, PUD, BPH who presented to the ER with complaints of SOB and non-productive cough for 4 days duration. Patient recently had a left leg hematoma that was drained [address] Lee. He was SOB at his office and was sent to urgent care where he received a CXR. He received a breathing treatment and was sent home with oral prednisone. Patient then had his next scheduled HD and SOB there. He was sent to the ER. In the ER he had repeat imaging completed which revealed vascular congestion and diffuse infiltrates / edema with moderate to large right effusion. Patient was seen and examined at the bedside. He has no additional complaints today. Still at baseline SOB Objective: Vitals (See below) General: Lying in bed, no acute distress, comfortable, AAOx3 HEENT: NC, AT CVS: Irregularly irregular, +S1S2 Lungs: Diminished air sounds b/l, no appreciable crackles Abdomen: Soft, ND, NT, +BSx4 Extremities: +PPx4, - Edema, - Calf tenderness, Left leg in dressing Assessment and plan: 1. Dyspnea - likely 2/2 moderate right pleural effusion - possibly 2/2 congestive heart failure / fluid overload given ESRD, less likely CAP - Presented with a few days of SOB and non-productive cough, no recorded fevers - Physical reveals decreased lungs sounds at b/l bases, +crackles - No leukocytosis, elevated BNP at 1540, will check CRP - Respiratory panel negative, Influenza negative - CT chest 11/28: moderate R sided pleural effusion with R lower lobe consolidation / infiltrate, small L LL pleural effusion, moderate amount of mediastinal lymphadenopathy - CXR 11/30: shows improvement in vascular congestion / interstitial edema, moderate to large R effusion - ECHO 11/29: EF normal, Dilate RV, Severely dilated atria, Moderate TR, Elevated CVP, Moderately-severe Pulm HTN - s/p HD 11/29: Removed 2700 cc of fluid - Plan for additional fluid removal with HD - Dr. Alonzo (Pulmonary) following - appreciate their input 2. ESRD on HD (TTS) - Dr. aPrr (Nephrology) following - appreciate their input 3. CHF (EF: 70%, DD) - ECHO 11/29: EF normal, Dilate RV, Severely dilated atria, Moderate TR, Elevated CVP, Moderately-severe Pulm HTN - s/p Lasix 80 IV one dose in ER - minimal response 4. Macrocytic anemia 5. Severe Pulmonary HTN 6. DM2 - A1c of 5.2 - not on home medications; not on ISS as an inpatient 7. HTN - blood pressure elevated - will start amlodipine 5mg with holding parameters 8. A. fib (on Coumadin) - INR subtherapeutic at 1.5 - on anticoagulation with Coumadin - home dose of 2.5 - Will give 5mg tonight 9. Depression 10. CAD s/p stent - not on aspirin 11. Aneurysm repair 12. BPH - not on medications 13. PUD - c/w protonix 14. DVT prophylaxis - already on full anticoagulation with Coumadin VS,Fishbone, I+O VS, Fishbone, I+O Laboratory Tests 12/01/16 05:26 Anion Gap 10, Red Blood Count 2.78 L, Mean Corpuscular Volume 109.4 H, Mean Corpuscular Hemoglobin 35.6 H, Mean Corpuscular Hemoglobin Concent 32.5, Red Cell Distribution Width 15.2 H, Neutrophils (%) (Auto) 82.0 H, Lymphocytes (%) ( Auto) 10.8 L, Monocytes (%) (Auto) 4.6, Eosinophils (%) (Auto) 1.1, Basophils (% ) (Auto) 0.5, Neutrophils # (Auto) 7.9 H, Lymphocytes # (Auto) 1.1 L, Monocytes # (Auto) 0.4, Eosinophils # (Auto) 0.1, Basophils # (Auto) 0.0 Vital Signs Date Time Temp Pulse Resp B/P Pulse Ox O2 Delivery O2 Flow Rate FiO2 12/01/16 09:10 Room Air 12/01/16 09:05 77 165/70 12/01/16 07:35 95.5 20 92 11/29/16 20:00 2.0 I&O- Last 24 Hours up to 6 AM 12/01/16 06:00 Intake Total 960 ml Balance 960 ml LELAND GALVAN MD Dec 01, 2016 13:23
[2016-12-01 16:00] VITALS: BP 168/70
--- NOTE | 2016-12-01 20:22 | ECGEPIP ---
Stationary ECG Study [facility] - ED Test Date: 2016-11-28 Pat Name: FILIPE RIVAS Department: Room: - Gender: M Director Of Emergency Nursing: ct : 1930 Requested By: MANISHA Gee Order Number: [id number] Reading MD: David Zavala Measurements Intervals [place] Rate: 64 P: VT: 0 QRS: -29 QRSD: 112 T: -40 QT: 362 QTc: 375 Interpretive Statements ATRIAL FIBRILLATION BORDERLINE LEFT AXIS DEVIATION INCOMPLETE RIGHT BUNDLE BRANCH BLOCK NONSPECIFIC ST & T-WAVE ABNORMALITY SIMILAR TO 04/22/16 Electronically Signed On 12-01-2016 20:21:55 EST by David Zavala
[2016-12-01] MEDS: PANTOPRAZOLE 40MG TAB (PROTONIX) PO SCH (20:39)
[2016-12-01] MEDS: WARFARIN SOD 2.5 MG TAB PO SCH (20:39)
[2016-12-01 21:15] VITALS: BP 166/69
[2016-12-02] VITALS: BP 166/71
[2016-12-02 04:00] VITALS: BP 163/75
--- NOTE | 2016-12-02 06:19 | IPN ---
DATE: 11/30/2016 SUBJECTIVE: Patient was seen and examined at the bedside today in the morning. He was actually sitting in the sofa. He feels much better. He was eating his breakfast. His shortness of breath is controlled at this time. REVIEW OF SYSTEMS: The patient denies any fever, chills, rigors, headache, nausea, vomiting, chest pain. He does report shortness of breath, but it is better than before. He denies any pain in abdomen, constipation or diarrhea. The rest of the review of systems is negative. OBJECTIVE: VITAL SIGNS: Temperature 96.8 degrees Fahrenheit, blood pressure 148/67, pulse 82, respiratory rate 18, saturating 93% on room air. INTAKE AND OUTPUT: There is no urine output recorded. Weight on the bed scale is 78.9 kg. The patient got hemodialysis done yesterday, 2.7 liters of fluid was removed. PHYSICAL EXAM: GENERAL: The patient is awake, alert and oriented times three, sitting in the sofa in no apparent distress. HEAD AND NECK EXAM: Extraocular muscles intact. Pupils equally round and reactive to light. Mucous membranes are moist. Neck is supple. There is no jugular venous distention. CARDIOVASCULAR: S1, S2. Irregular heart rate. No murmur, rub or gallop. RESPIRATORY: Decreased breath sounds at the right base. Clear to auscultation of the left side. No rales or rhonchi. ABDOMEN: Soft. Positive bowel sounds. Nontender. No ascites. No organomegaly. EXTREMITIES: The patient has a dressing on the left leg because of a recent hematoma. The patient has trace edema on the right leg as well. CENTRAL NERVOUS SYSTEM (CHECK AND TRANSFER BEADER): No focal neurological deficit. Power is 5/5 in all extremities. PSYCHIATRIC: Normal mood and affect. LYMPH NODES: No significant cervical, axillary or inguinal lymphadenopathy. LAB REVIEW: CBC showed a WBC of 8.9, hemoglobin 9.7 and platelets of 227. BMP showed sodium of 142, potassium 3.8, chloride 106, bicarbonate 27, BUN 22, creatinine 3.05. MICROBIOLOGY: Respiratory viral panel is negative. IMAGING: A chest x-ray done today morning showed improved vascular congestion and interstitial edema, moderate to large right pleural effusion with adjacent atelectasis and a small left effusion. CURRENT MEDICATIONS: Patient's medications were all reviewed by me. There is no change in the medications today as compared with yesterday. ASSESSMENT: 86-year-old male with past medical history of end stage renal disease on hemodialysis, congestive heart failure with diastolic dysfunction, admitted at this time with shortness of breath secondary to fluid overload and right sided pleural effusion. PLAN: 1. End stage renal disease on hemodialysis. Patient's regular dialysis days are Tuesdays, , Saturdays. He was dialyzed yesterday. No urgent need of hemodialysis today. He got an ultrafiltration of 2.7 liters yesterday. I will do an additional ultrafiltration tomorrow morning. 2. Shortness of breath. The patient's shortness of breath is secondary to congestive heart failure, fluid overload and moderate right sided pleural effusion. The patient was evaluated by pulmonary service. No intervention was recommended at this time. I shall try to do further ultrafiltration tomorrow morning. If the symptoms do not improve, then we might have to consider drainage of the pleural fluid. 3. Diastolic congestive heart failure. The patient's symptoms got significantly better with hemodialysis yesterday. Continue current dose of amlodipine 5 mg by mouth daily. Blood pressure is acceptable at this time. 4. Atrial fibrillation. The patient is rate controlled at this time. Continue current dose of Coumadin 2.5 mg by mouth daily. 5. Chronic kidney disease mineral bone disease. The patient's phosphorus level is persistently low. I am going to decrease the Tums dose at this time. 6. 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 The patient will receive a dose of Aranesp with hemodialysis and ultrafiltration tomorrow morning. The plan of care was discussed with the hospitalist team, Dr. Arleen Mcnulty.
[2016-12-02] MEDS: ADVAIR HFA 230/21 INHALER INH SCH ×2 (07:18→20:59)
[2016-12-02 07:35] VITALS: BP 141/50
[2016-12-02] MEDS: predniSONE 20 MG TAB PO SCH (08:07)
[2016-12-02] MEDS: VITAMIN D 1,000 INTERNATIONAL UNITS TABLET PO SCH (08:07)
[2016-12-02] MEDS: amLODIPine 5 MG TAB PO SCH (08:08)
[2016-12-02] MEDS: CALCIUM CARBONATE 500 MG CHEW U/D PO SCH ×3 (08:08→18:24)
[2016-12-02] MEDS: IPRATROPIUM 0.03% NASAL SPRAY 30 ML (ATROVENT) SCH ×3 (08:08→20:46)
[2016-12-02] MEDS ORDERED: DARBEPOETIN 300 MCG/0.6 ML *DIALYSIS* SYRINGE (J0882) IV SCH (08:30)
[2016-12-02 09:11] LABS: ADD MORPHOLOGY? YES; BASO % 0.6 % (0.0-1.0); EOS # 0.1 K/mm3 (0.0-0.50); EOS % 1.4 % (0.0-3.0); LARGE UNSTAINED CELL # 0.1 K/mm3 (0.0-0.4); LARGE UNSTAINED CELL % 1.3 % (0.0-4.0); LYMPH % 10.8 % (24.0-44.0); MEAN CORPUSCULAR HEMOGLOBIN 34.9 pg (27.0-33.0); MONO # 0.4 K/mm3 (0.0-0.8); MONO % 4.1 % (0.0-5.0); NEUTROPHILS # 7.3 K/mm3 (1.8-7.7); NEUTROPHILS % 81.8 % (36.0-66.0); PLATELET COUNT, AUTOMATED 205 k/mm3 (150-450); WHITE BLOOD COUNT 8.9 K/mm3 (4.0-10.0)
[2016-12-02 09:29] LABS: ALBUMIN 3.2 GM/DL (3.2-5.2); CALCIUM LEVEL 8.9 MG/DL (8.8-10.2); CREATININE FOR GFR 5.58 MG/DL (0.70-1.30); GLOMERULAR FILTRATION RATE 10.3 (>35); PHOSPHORUS LEVEL 3.4 MG/DL (2.5-4.9); POTASSIUM SERUM 4.5 MEQ/L (3.5-5.1)
[2016-12-02 09:40] LABS: INR 1.51
[2016-12-02 09:47] LABS: ANISOCYTOSIS 2+; POLYCHROMASIA 1+
--- NOTE | 2016-12-02 10:25 | IPNPDOC ---
Subjective Date Seen The patient was seen on 12/02/16. Subjective Chief Complaint/HPI The patient is a 86-year-old male admitted with a reason for visit of Shortness Of Breath. General: Denies: Chills, Night Sweats Constitutional: Denies: Chills, Fever Eyes: Denies: Pain, Vision change ENT: Denies: Ear Pain, Head Aches Skin: Denies: Lesions, Rash Pulmonary: Denies: Cough, Dyspnea Cardiovascular: Denies: Chest Pain, Palpitations Gastrointestinal: Denies: Nausea, Vomiting Genitourinary: Denies: Dysuria, Frequency Hematologic: Denies: Bleeding Excessively, Bruising Objective Physical Examination General Exam: Positive: Alert, Cooperative, No Acute Distress ENT Exam: Positive: Atraumatic, Mucous membr. moist/pink Chest Exam: Positive: Diminished, Rales (Noted in the RLL on auscultation) Heart Exam: Positive: Normal S1, Normal S2, Rate Normal Telemetry: Positive: Atrial fibrillation Abdomen Exam: Positive: Soft, Negative: Tenderness Extremity Exam: Positive: Normal pulses, Negative: Tenderness Assessment /Plan Plan/VTE VTE Prophylaxis Ordered?: Yes (already on Coumadin) Plan Dyspnea 2/2 moderate right sided pleural effusion Right-sided pleural effusion likely secondary to fluid overload from underlying CHF, and end-stage renal disease It does appear that the patient has a chronic right-sided pleural effusion, which has increased in size CT chest 11/28 notable for moderate R sided pleural effusion with R lower lobe consolidation Respiratory panel negative, Influenza negative The patient has been afebrile, with a normal white blood cell count, and has not required any supplemental oxygen here at this time-we will withhold any antibiotic therapy ECHO 11/29: EF normal, Dilate RV, Severely dilated atria, Moderate TR, Elevated CVP, Moderately-severe Pulm HTN s/p HD 11/29 and 12/01: The patient currently has a net negative balance of approximately 3.4 L at this time The patient is scheduled to go for HD today as well Pulmonary input from Dr. Alonzo appreciated ESRD on HD (TTS) Dr. Parr of nephrology on board Diastolic congestive heart failure ECHO 11/29: EF normal, Dilate RV, Severely dilated atria, Moderate TR, Elevated CVP, Moderately-severe Pulm HTN Nephrology on board for optimizing volume status with HD COPD, stable Continue albuterol, Advair, prednisone Macrocytic anemia Severe Pulmonary HTN DM2 Last A1c noted to be 5.2 percent HTN Patient currently on amlodipine 5mg with holding parameters, however his blood pressures have been running high We will await the patient to undergo dialysis today, and we will consider increasing Norvasc to 10 mg and possibly adding hydralazine for additional blood pressure control A. fib (on Coumadin), rate controlled INR noted to be subtherapeutic at 1.5 this morning The patient was given 5mg of Coumadin last night (normal dose 2.5 mg) We will give him another 5 mg of Coumadin tonight, and consider giving him 7.5 mg of Coumadin the following day if his INR is not upward trending. Depression CAD s/p stent Not on aspirin secondary to Coumadin use Aneurysm repair BPH stable GERD Continue Protonix DVT prophylaxis On full anticoagulation with Coumadin Disposition-we will continue to optimize the patient's volume status with HD with the assistance of nephrology. VS[facility]I&O Vital Signs Date Time Temp Pulse Resp B/P Pulse Ox O2 Delivery O2 Flow Rate FiO2 12/02/16 08:19 Room Air 12/02/16 08:08 75 141/50 12/02/16 07:35 95.4 20 95 11/29/16 20:00 2.0 I&O- Last 24 Hours up to 6 AM 12/02/16 06:00 Intake Total 520 ml Output Total 2500 ml Balance -1980 ml Laboratory Data 24H LABS Laboratory Tests 2 12/02/16 08:40: Albumin 3.2, Blood Urea Nitrogen 51H, Creatinine 5.58H, Sodium Level 142, Potassium Level 4.5, Chloride Level 104, Carbon Dioxide Level 26, Anion Gap 12, Anisocytosis 2+, White Blood Count 8.9, Red Blood Count 2.74L, Hemoglobin 9.6L, Hematocrit 29.9L, Mean Corpuscular Volume 109.0H, Mean Corpuscular Hemoglobin 34.9H, Mean Corpuscular Hemoglobin Concent 32.0, Red Cell Distribution Width 15.0H, Platelet Count 205, Neutrophils (%) (Auto) 81.8H, Lymphocytes (%) (Auto) 10.8L, Monocytes (%) (Auto) 4.1, Eosinophils (%) (Auto) 1.4, Basophils (%) (Auto ) 0.6, Neutrophils # (Auto) 7.3, Lymphocytes # (Auto) 1.0L, Monocytes # (Auto) 0.4, Eosinophils # (Auto) 0.1, Basophils # (Auto) 0.0, C-Reactive Protein, Quantitative 1.52H, Calcium Level 8.9, Glomerular Filtration Rate 10.3L, Large Unclassified Cells # 0.1, Large Unclassified Cells % 1.3, Macrocytosis 2+, Magnesium Level 2.0, Phosphorus Level 3.4#, Platelet Estimate NORMAL, Polychromasia 1+, Prothromb Time International Ratio 1.51, Prothrombin Time 18.3H CBC/BMP Laboratory Tests 12/02/16 08:40 Anion Gap 12, Red Blood Count 2.74 L, Mean Corpuscular Volume 109.0 H, Mean Corpuscular Hemoglobin 34.9 H, Mean Corpuscular Hemoglobin Concent 32.0, Red Cell Distribution Width 15.0 H, Neutrophils (%) (Auto) 81.8 H, Lymphocytes (%) ( Auto) 10.8 L, Monocytes (%) (Auto) 4.1, Eosinophils (%) (Auto) 1.4, Basophils (% ) (Auto) 0.6, Neutrophils # (Auto) 7.3, Lymphocytes # (Auto) 1.0 L, Monocytes # (Auto) 0.4, Eosinophils # (Auto) 0.1, Basophils # (Auto) 0.0 Microbiology Microbiology 11/28/16 Respiratory Virus Panel (PCR) ([facility]) - Final, Complete 11/28/16 Influenza Virus Type A Antigen - Final, Complete 11/28/16 Influenza Virus Type B Antigen - Final, Complete JUANA LAL MD Dec 02, 2016 10:25
[2016-12-02] MEDS ORDERED: HEPARIN 1,000 UNITS/ML 10ML VIAL (FOR RADIOLOGY& DIALYSIS ONLY) IV ONE (10:30)
--- NOTE | 2016-12-02 10:35 | IPN ---
DATE: 12/01/2016 SUBJECTIVE: Patient was seen and examined at the bedside this morning. He denies any active complaints. He was eating his breakfast in the morning when I saw him. REVIEW OF SYSTEMS: Patient denies any fevers, chills, rigors, headache, nausea, vomiting, or chest pain. His shortness of breath has significantly improved as compared with the day of admission. He denies any pain in abdomen, constipation, diarrhea. Rest of review of systems is negative. OBJECTIVE: VITAL SIGNS: Temperature 96 degrees Fahrenheit, blood pressure 160/64, pulse 81, respiratory rate 18, saturating at 94% on room air. INTAKE/OUTPUT: Urine output is not recorded. Weight in the bed scale is 77.7 kg. GENERAL: Patient is awake, alert, oriented times three, sitting in the bed eating his breakfast. HEAD and NECK EXAM: Extraocular muscles intact. Pupils equally round and reactive to light. Neck is supple, there is no jugular venous distention (JVD). CARDIOVASCULAR: S1, S2, regular heart rate. No murmur, rub, or gallop. RESPIRATORY: Chest is clear to auscultation on the left side, patient has decreased breath sounds and decreased vocal resonance on the right base. ABDOMEN: Soft, positive bowel sounds, nontender. No ascites. No organomegaly. EXTREMITIES: Patient has a dressing on the left leg because of recent hematoma, being treated by Dr. Lee. He has trace edema on the right leg. CENTRAL NERVOUS SYSTEM (SPEED WINDER): No focal neurological deficit. Power is 5/5 in all extremities. LABORATORY REVIEW: CBC shows WBC 9.6, hemoglobin 9.9, platelets 232. BMP shows sodium 141, potassium 4, chloride 103, bicarbonate 28, BUN 36, creatinine 4.3, phosphorous 2.6. CURRENT MEDICATIONS: Patient's medications were all reviewed by me. His Tums has been decreased to 1 gram by mouth with meals. There is no other change in the medications today as compared with yesterday. 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 PLAN: 1. End-stage renal disease on hemodialysis. Patient's regular dialysis days are Thursday, , Saturday, however patient will get an extra session of ultrafiltration today for heart failure and fluid overload. 2. Shortness of breath. Patient's shortness of breath is secondary to a combination of congestive heart failure, fluid overload, and right-sided pleural effusion. Patient's symptoms significantly improved over the weekend after dialysis. I shall try to do another ultrafiltration and try to do 2.5 to 3 liters as tolerated by his blood pressure. Patient was seen by pulmonology and no pleural tap was recommended. 3. Diastolic congestive heart failure. As mentioned above, patient will get more ultrafiltration today. His blood pressure is slightly elevated, that will hopefully improve after hemodialysis. Continue current dose of amlodipine 5 mg by mouth daily. If the blood pressure continues to be elevated, then amlodipine dose will be increased to 10 mg by mouth daily and low dose beta-blockers will be added as well. 4. Chronic kidney disease mineral bone disease. Patient's phosphorous levels were low. His Tums dose was decreased to 1 gram by mouth three times a day. Phosphorous level is improving now. 5. Anemia in end-stage renal disease. Patient's hemoglobin is less than 10 now. Anemia management will be according to the outpatient hemodialysis schedule. Plan of care was discussed with the ems helicopter pilot, Dr. Alonzo.
[2016-12-02 14:00] VITALS: BP 165/70
[2016-12-02 18:00] VITALS: BP 134/94
[2016-12-02] MEDS: PANTOPRAZOLE 40MG TAB (PROTONIX) PO SCH (18:23)
[2016-12-02] MEDS: WARFARIN SOD 2.5 MG TAB PO SCH (18:24)
[2016-12-02] MEDS ORDERED: BISOPROLOL FUM 2.5 MG PER 1/2TAB PO ONE (19:30)
[2016-12-02 22:00] VITALS: BP 131/75
[2016-12-03 02:00] VITALS: BP 138/67
[2016-12-03 06:00] VITALS: BP 124/59
[2016-12-03 07:13] LABS: BASO % 0.7 % (0.0-1.0); EOS # 0.2 K/mm3 (0.0-0.50); EOS % 1.9 % (0.0-3.0); LARGE UNSTAINED CELL # 0.2 K/mm3 (0.0-0.4); LARGE UNSTAINED CELL % 1.9 % (0.0-4.0); LYMPH # 1.4 K/mm3 (1.5-4.5); LYMPH % 14.6 % (24.0-44.0); MEAN CORPUSCULAR HEMOGLOBIN 36.1 pg (27.0-33.0); MEAN CORPUSCULAR HGB CONC 32.1 g/dl (32.0-36.5); MEAN CORPUSCULAR VOLUME 112.3 fl (80.0-96.0); MONO # 0.7 K/mm3 (0.0-0.8); MONO % 7.9 % (0.0-5.0); PLATELET COUNT, AUTOMATED 202 k/mm3 (150-450); RED CELL DISTRIBUTION WIDTH 15.4 % (11.5-14.5); WHITE BLOOD COUNT 8.2 K/mm3 (4.0-10.0)
[2016-12-03 07:29] LABS: INR 1.55
[2016-12-03 07:49] LABS: CALCIUM LEVEL 7.9 MG/DL (8.8-10.2); CREATININE FOR GFR 3.6 MG/DL (0.70-1.30); GLOMERULAR FILTRATION RATE 17.1 (>35); MAGNESIUM LEVEL 1.9 MG/DL (1.8-2.4); PHOSPHORUS LEVEL 3.2 MG/DL (2.5-4.9); POTASSIUM SERUM 3.8 MEQ/L (3.5-5.1)
[2016-12-03] MEDS: ADVAIR HFA 230/21 INHALER INH SCH (08:06)
[2016-12-03 09:00] VITALS: BP 130/60
[2016-12-03] MEDS: amLODIPine 5 MG TAB PO SCH (09:00)
[2016-12-03] MEDS: IPRATROPIUM 0.03% NASAL SPRAY 30 ML (ATROVENT) SCH (09:00)
--- NOTE | 2016-12-03 09:29 | IPN ---
DATE: 12/02/2016 SUBJECTIVE: Patient was seen and examined at the bedside today in the morning during hemodialysis procedure. The patient was tolerating the hemodialysis procedure well. The patient got ultrafiltration done yesterday as well because of his congestive heart failure (CHF) and fluid overload. Ultrafiltration was 2.5 liters. REVIEW OF SYSTEMS: The patient denies any fever, chills, rigors, headache, nausea, vomiting, chest pain, shortness of breath, pain of abdomen, constipation , or diarrhea. The rest of the review of systems is negative. OBJECTIVE: VITAL SIGNS: Temperature 96.7 degrees Fahrenheit, blood pressure 141/50, pulse 75, respiratory rate 18, saturating 95% on room air. INTAKE AND OUTPUT: The patient got ultrafiltration of 2.5 liters done yesterday. Weight on the bed scale is 76 kg today. PHYSICAL EXAM: GENERAL: The patient is awake, alert and oriented times three, laying in the bed getting hemodialysis done. HEAD AND NECK EXAM: Extraocular muscles intact. Pupils equally round and reactive to light. Neck is supple. There is no jugular venous distention (JVD) . CARDIOVASCULAR: S1, S2. Regular heart rate. No murmur, rub or gallop. RESPIRATORY: Chest is clear to auscultation bilaterally. The patient has mildly decreased breath sounds and decreased vocal resonance on the right base. ABDOMEN: Soft. Positive bowel sounds. Nontender. No ascites. No organomegaly. EXTREMITIES: The patient has a dressing on the left leg and he had trace edema of the right leg. CENTRAL NERVOUS SYSTEM (CAREER REPRESENTATIVE): No focal neurological deficit. Power is 5/5 in all extremities. LAB REVIEW: CBC showed a WBC of 8.9, hemoglobin 9.6 and platelets of 205. BMP showed sodium of 142, potassium 4.5, chloride 104, bicarbonate 26, BUN 51, creatinine 5.5. CURRENT MEDICATIONS: Patient's medications were all reviewed by me. There is no change in the medications today as compared with yesterday. ASSESSMENT: 86-year-old male with past medical history of end stage renal disease on hemodialysis, congestive heart failure with diastolic dysfunction, admitted at this time because of shortness of breath, fluid overload and moderate right sided pleural effusion. PLAN: 1. End stage renal disease on hemodialysis. Patient's regular dialysis days are Tuesdays, , Saturdays. He is being dialyzed according to his regular schedule. He got an extra session of ultrafiltration done yesterday. We shall try to do an ultrafiltration of 2 to 2.5 liters as tolerated by his blood pressure. 2. Shortness of breath. Shortness of breath is secondary to a combination of congestive heart failure and right sided pleural effusion. Pulmonology service saw the patient and they did recommend doing a pleural tap. Volume is being managed with hemodialysis and extra ultrafiltration session. The patient's symptoms have improved since admission. 3. Diastolic congestive heart failure. Volume status is being optimized with hemodialysis. Blood pressure is acceptable at this time. Continue current dose of amlodipine 5 mg by mouth daily. I am going to start the patient on a lower dose of bisoprolol as well. 4. 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 The patient will get a dose of Aranesp 300 mcg IV with hemodialysis today. MTDD
[2016-12-03] MEDS: predniSONE 20 MG TAB PO SCH (10:29)
[2016-12-03] MEDS: CALCIUM CARBONATE 500 MG CHEW U/D PO SCH (10:29)
[2016-12-03] MEDS: VITAMIN D 1,000 INTERNATIONAL UNITS TABLET PO SCH (10:29)
--- NOTE | 2016-12-03 14:46 | DS.PDOC ---
Discharge Summary General Date of Admission Nov 28, 2016 at 20:56 Date of Discharge Dec 03, 2016 at 11:43 Specialist/Consultants Involve Dr. Parr of Nephrology, Dr. Alonzo of Pulmonary Discharge Summary PROCEDURES PERFORMED DURING STAY: None. ADMITTING DIAGNOSES: 1. . Decompensated congestive heart failure 2. . Right-sided pleural effusion 3. . End-stage renal disease on hemodialysis DISCHARGE DIAGNOSES: 1. . Decompensated congestive heart failure 2. . Right-sided pleural effusion 3. . End-stage renal disease on hemodialysis COMPLICATIONS/CHIEF COMPLAINT: Shortness Of Breath. HISTORY OF PRESENT ILLNESS: 86-year-old male with past medical history of end-stage renal disease on hemodialysis, history of diastolic congestive heart failure, and moderately severe pulmonary hypertension presented to the ER with a chief complaint of worsening shortness of breath. In the ER, the patient was found to have vascular congestion with diffuse infiltrates/edema with moderate to large right- sided pleural effusion noted on CT scan of the chest. The patient was admitted to the hospitalist service for further evaluation and management. During hospitalization here, the patient's right-sided pleural effusion was evaluated by Dr. Alonzo of pulmonary. She recommended that the patient undergo further dialysis for fluid overload management. The patient did not have any fevers here, white blood cell count, or any need for supplemental oxygenation during his time here. The patient was seen by of nephrology here and he did undergo 3 sessions of dialysis removing a net negative of 5 L during his hospitalization. Also of note, the patient was noted to be subtherapeutic with INR of 1.58 during hospitalization here (he takes 2.5mg of Coumadin qpm, and this was increased to 5mg for the past 2 days). We will give him a dose of Coumadin 7.5 mg today, and ask him to take Coumadin 5 mg every night for the next 4 days with a repeat INR to be done on Thursday, 12/08. At this time, the patient states that he is feeling much better, and he has cleared physical therapy The patient will be discharged today with instructions to follow-up with his primary care physician within one week, and to remain adherent with his regularly scheduled dialysis sessions. DISCHARGE MEDICATIONS: Please see below. ALLERGIES: Please see below. PHYSICAL EXAMINATION ON DISCHARGE: VITAL SIGNS: Please see below. General Exam: Positive: Alert, Cooperative, No Acute Distress ENT Exam: Positive: Atraumatic, Mucous membr. moist/pink Chest Exam: Positive: Diminished, Rales (Noted in the RLL on auscultation) Heart Exam: Positive: Normal S1, Normal S2, Rate Normal Telemetry: Positive: Atrial fibrillation Abdomen Exam: Positive: Soft, Negative: Tenderness Extremity Exam: Positive: Normal pulses, Negative: Tenderness LABORATORY DATA: Please see below. IMAGING: CT of the chest without contrast Clinical statement: Shortness of breath. Technique: Multiple axial CT images were obtained with 5 mm cuts through the chest without administration of contrast. No comparison is available. Findings: There is an and large precarinal lymph node measuring 1.6 x 1.9 cm. A left perihilar lymph node measures 2.4 x 1.3 cm. A subcarinal lymph node measures 1.7 x 1.3 cm. The visualized portions of the thyroid gland is unremarkable. There is a small left-sided pleural effusion. There is a large right-sided pleural effusion with consolidation and infiltrate in the right lower lung. Limited imaging of the upper abdomen does not demonstrate any acute abnormalities. There are no suspicious osseous lesions. Impression: 1. Moderate right-sided pleural effusion with right lower lobe consolidation and infiltrate. Pneumonia cannot be excluded. 2. Small left lower lobe pleural effusion. 3. Moderate amount of mediastinal lymphadenopathy, likely reactive in nature. PROGNOSIS: Medically stable at this time, long-term prognosis poor ACTIVITY: As tolerated. DIET: . 2 g low sodium diet DISCHARGE PLAN: Discharge home with previous level of care DISPOSITION: 01 Home, Self-Care. ITEMS TO FOLLOWUP ON ON OUTPATIENT: 1. . Follow-up with primary care physician within one week 2. . Continue to take Coumadin 5 mg every afternoon for the next 4 days. Follow- up with INR on 12/08/16. 3. . Follow-up with nephrology for regularly scheduled dialysis sessions DISCHARGE CONDITION: Stable. TIME SPENT ON DISCHARGE: Greater than 30 minutes. Vital Signs/I&Os Vital Signs Date Time Temp Pulse Resp B/P Pulse Ox O2 Delivery O2 Flow Rate FiO2 12/03/16 09:00 55 130/60 12/03/16 06:00 96.6 17 91 Room Air 11/29/16 20:00 2.0 I&O- Last 24 Hours up to 6 AM 12/03/16 06:00 Intake Total 600 ml Output Total 2000 ml Balance -1400 ml Laboratory Data Labs 24H Laboratory Tests 2 12/03/16 06:44: Prothromb Time International Ratio 1.55, Prothrombin Time 18.7H 12/03/16 06:59: Albumin 3.0L, Blood Urea Nitrogen 27H, Creatinine 3.60H, Sodium Level 140, Potassium Level 3.8, Chloride Level 104, Carbon Dioxide Level 28, Anion Gap 8, White Blood Count 8.2, Red Blood Count 2.88L, Hemoglobin 10.4L, Hematocrit 32.3L , Mean Corpuscular Volume 112.3H, Mean Corpuscular Hemoglobin 36.1H, Mean Corpuscular Hemoglobin Concent 32.1, Red Cell Distribution Width 15.4H, Platelet Count 202, Neutrophils (%) (Auto) 73.0H, Lymphocytes (%) (Auto) 14.6L, Monocytes (%) (Auto) 7.9H, Eosinophils (%) (Auto) 1.9, Basophils (%) (Auto) 0.7 , Neutrophils # (Auto) 6.0, Lymphocytes # (Auto) 1.4L, Monocytes # (Auto) 0.7, Eosinophils # (Auto) 0.2, Basophils # (Auto) 0.0, Calcium Level 7.9L, Glomerular Filtration Rate 17.1L, Large Unclassified Cells # 0.2, Large Unclassified Cells % 1.9, Magnesium Level 1.9, Phosphorus Level 3.2 CBC/BMP Laboratory Tests 12/03/16 06:59 Anion Gap 8, Red Blood Count 2.88 L, Mean Corpuscular Volume 112.3 H, Mean Corpuscular Hemoglobin 36.1 H, Mean Corpuscular Hemoglobin Concent 32.1, Red Cell Distribution Width 15.4 H, Neutrophils (%) (Auto) 73.0 H, Lymphocytes (%) ( Auto) 14.6 L, Monocytes (%) (Auto) 7.9 H, Eosinophils (%) (Auto) 1.9, Basophils (%) (Auto) 0.7, Neutrophils # (Auto) 6.0, Lymphocytes # (Auto) 1.4 L, Monocytes # (Auto) 0.7, Eosinophils # (Auto) 0.2, Basophils # (Auto) 0.0 Microbiology Microbiology 11/28/16 Respiratory Virus Panel (PCR) ([facility]) - Final, Complete 11/28/16 Influenza Virus Type A Antigen - Final, Complete 11/28/16 Influenza Virus Type B Antigen - Final, Complete Discharge Medications Scheduled (Thu-Ivett) 1 Tab Tab 1 TAB PO DAILY (Reported) Calcium Carbonate (Tums) 500 Mg Chw 2,000 MG PO AC (Reported) Cholecalciferol (Vitamin D) 5,000 Unit Tab 5,000 UNIT PO DAILY (Reported) Pantoprazole Sodium (Pantoprazole Sodium) 40 Mg Tab 40 MG PO QPM (Reported) DINNERTIME Prednisone (Prednisone) 20 Mg Tab 20 MG PO DAILY (Reported) TAPER DOSE - RX STATES 20MG DAILY FOR 10 DAYS THEN 10MG DAILY FOR 10 DAYS. Salmeterol/Fluticasone (Advair Hfa 230-21 Mcg/Act) 1 Aer Aer 2 PUFF INH BID ( Reported) Warfarin Sod (Coumadin) 2.5 Mg Tab 2.5 MG PO QPM (Reported) DINNERTIME Scheduled PRN Acetaminophen (Tylenol) 325 Mg Tab 650 MG PO Q4HP PRN PRN MILD PAIN OR FEVER ( Reported) Albuterol Sulfate (Ventolin Hfa) 200 Puff/8 Gm Aers 2 PUFF INH Q4H PRN PRN SHORTNESS OF BREATH (Reported) Allergies Coded Allergies: Iodine (Unverified Allergy, Unknown, 05/30/15) Contrast Media (Verified Adverse Reaction, Severe, VEIN SWELLING & EXCRUCIATING PAIN, 11/28/16) JUANA LAL MD Dec 03, 2016 14:46
[2016-12-03] MEDS ORDERED: WARFARIN SOD 7.5 MG TAB PO ONE (17:00)
--- NOTE | 2016-12-03 18:54 | IPN ---
DATE: 12/03/2016 SUBJECTIVE: This is an 86-year-old male who is seen and examined on medical/surgical floor. He was transferred from progressive care unit (PCU) to medicine/surgery yesterday. Had hemodialysis yesterday with two liters removed, and tolerated that well. The patient has scheduled appointment with wound care today at 1:15 for reevaluation of his hematoma of his left lower extremity. We gave him a one- time dose of bisoprolol 2.5 mg last night due to his hypertension, and he tolerated that well. REVIEW OF SYSTEMS: Denied any chest pain, shortness of breath, fever, chills, headache, nausea, vomiting, abdominal pain, diarrhea, constipation. Rest of review of systems is otherwise negative. OBJECTIVE: VITAL SIGNS: Blood pressure 120/58, heart rate 60, temperature 96.6, respiratory rate 17, pulse oximetry 91% on room air. Intake and output in the last 24 hours: 480 and two liters removed with dialysis. Weight is 73.5 kg. Yesterday was documented at 76 kg. PHYSICAL EXAM: GENERAL: The patient was lying in bed comfortable, in no acute distress. He is alert, awake, oriented times three, pleasant, cooperative. HEENT: Normocephalic, atraumatic. Moist oral mucosa. Dentures in place. NECK: Supple. Trachea midline. No jugular venous distention (JVD). CARDIOVASCULAR: Regular rate and rhythm. Normal S1, S2. Could not appreciate any murmurs, rubs, or gallops. PULMONARY: Decreased bilaterally but clear sounding with occasional crackles. ABDOMEN: Soft, nontender, nondistended. Bowel sounds present. No guarding, no rebound. Could not appreciate organomegaly secondary to body habitus. EXTREMITIES: Left leg with dressing in place for his hematoma, apparently there are plans for reevaluation by wound care later today on an outpatient basis. Right lower extremity still trace pitting edema. NEUROLOGIC: No focal deficit. PSYCHIATRIC: Pleasant, cooperative. Good affect. LABORATORY DATA: WBC 8.2, hemoglobin 10.4, hematocrit 32.3, platelets 202. Sodium 140, potassium 3.8, chloride 104, carbon dioxide 28, BUN 27, creatinine 3.6, glucose 121, calcium 7.9, phosphorus 3.2, magnesium 1.9, albumin 3.0. INR is 1.55, PT is 18.7. MICROBIOLOGY: RSV was negative. CURRENT MEDICATIONS: All medications were reviewed. Aside from a one-time dose of bisoprolol, no further medications were adjusted from today compared to yesterday. ASSESSMENT: Mr. Caldwell is an 86-year-old male past medical history of end-stage renal disease on hemodialysis, diastolic heart failure, admitted for decompensation from his fluid overload and right-sided pleural effusion. PLAN: 1. End-stage renal disease on hemodialysis. Had dialysis yesterday with two liters removed, tolerated that well. He is scheduled for dialysis again outpatient tomorrow. 2. Diastolic heart failure, now compensated, ejection fraction (EF) of 60%-65% from echocardiogram in 11/2016. Underwent hemodialysis yesterday with two liters removed. He is currently on Norvasc 5 mg by mouth daily. 3. Shortness of breath, resolved. Secondary to combination right pleural effusion and decompensation of underlying diastolic congestive heart failure. Imaging recently showed effusion and was evaluated by pulmonology this admission, and no need for thoracentesis was recommended at this time at this time. His condition continues to be improving with dialysis. 4. Hypertension. His blood pressure was somewhat elevated yesterday in the 160s-170s, and did receive a one-time dose of bisoprolol which he tolerated well overnight. For now, we will hold off on further bisoprolol dosing. He may go home with current dose of Norvasc 5 mg daily. However, he will require re-evaluation by Dr. Parr on an outpatient basis and based on his recheck blood pressure and heart rate at that time, we will consider starting him on a low-dose bisoprolol and stopping Norvasc. 5. History of atrial fibrillation. Currently is not on rate-controlling agent as his heart rate has been within reasonable range, and is in sinus rhythm. He is on anticoagulation with Coumadin and dose has been adjusted by the primary team for therapeutic international normalized ratio (INR). As discussed, we might consider adding bisoprolol on an outpatient basis for his blood pressure control. 6. Anemia of chronic disease. Hemoglobin and hematocrit are improved compared to yesterday. He does receive Aranesp with hemodialysis. From a renal standpoint, the patient is amenable to be discharged, but will require close followup with nephrology. He does have dialysis for tomorrow. My preceptor for this patient encounter was Dr. Parr. The preceptor was physically present in the building during the encounter and was fully available as needed. All aspects of the patient interview, examination, medical decision making process, and medical care plan development were reviewed and approved by the preceptor. The preceptor is aware and concurs with the plan as stated in the body of this note and will attest to such by his/her co-signature. TERRI
== END 2016-12-03 11:43 | disposition home health service (06) | DRG 291 ==
LOC: EDBD 16:15 → M ED 17:46 → M ED INP 20:56 → M PCU 22:55 → M MSPAV 12-02 12:14 → M PCU 12-02 12:19 → M MSPAV 12-02 12:30
PROVIDERS: ADMIT Internal Medicine; ATTEND Internal Medicine
PROC: 5A1D60Z (ICD-10-PCS; principal; 2016-11-29)
DX: I50.33 Acute on chronic diastolic (congestive) heart failure (principal); N18.6 End stage renal disease; N25.81 Secondary hyperparathyroidism of renal origin; J90 Pleural effusion, not elsewhere classified; I27.2 Other secondary pulmonary hypertension; E11.9 Type 2 diabetes mellitus without complications; I11.0 Hypertensive heart disease with heart failure; I48.91 Unspecified atrial fibrillation; F32.9 Major depressive disorder, single episode, unspecified; I25.10 Atherosclerotic heart disease of native coronary artery without angina pectoris; K27.9 Peptic ulcer, site unspecified, unspecified as acute or chronic, without hemorrhage or perforation; N40.0 Benign prostatic hyperplasia without lower urinary tract symptoms; D63.1 Anemia in chronic kidney disease; Z79.01 Long term (current) use of anticoagulants; Z95.5 Presence of coronary angioplasty implant and graft; Z99.2 Dependence on renal dialysis; Z87.891 Personal history of nicotine dependence; Z79.52 Long term (current) use of systemic steroids; Z79.51 Long term (current) use of inhaled steroids; Z91.041 Radiographic dye allergy status; Z88.8 Allergy status to other drugs, medicaments and biological substances

== ENCOUNTER 2016-12-19 16:56 | Inpatient (IN) | payer MEDICARE ==
[~2016-12-19] VITALS: Ht 170.2 cm; Wt 73.0 kg
[~2016-12-19 16:56] MED LIST changes: +COUM2.5T11 PO; +PRED20TA PO; +RENATAB5 PO; +VITA100037 PO; +VITA500046 PO; +oxygen
[2016-12-19] MEDS ORDERED: PIPERACILLIN/TAZOBACTAM SOD 3.375 GM in D5W MINI-BAG PLUS 50 ML IV ONE (18:15)
[2016-12-19 18:36] LABS: ADD MORPHOLOGY? YES; BASO % 0.6 % (0.0-1.0); EOS # 0.2 K/mm3 (0.0-0.50); EOS % 1.8 % (0.0-3.0); LARGE UNSTAINED CELL # 0.2 K/mm3 (0.0-0.4); LARGE UNSTAINED CELL % 1.9 % (0.0-4.0); LYMPH # 0.9 K/mm3 (1.5-4.5); LYMPH % 9.9 % (24.0-44.0); MEAN CORPUSCULAR HEMOGLOBIN 35.1 pg (27.0-33.0); MEAN CORPUSCULAR HGB CONC 32.2 g/dl (32.0-36.5); MEAN CORPUSCULAR VOLUME 109.1 fl (80.0-96.0); MONO # 0.5 K/mm3 (0.0-0.8); MONO % 6.1 % (0.0-5.0); NEUTROPHILS # 6.9 K/mm3 (1.8-7.7); NEUTROPHILS % 79.8 % (36.0-66.0); PLATELET COUNT, AUTOMATED 157 k/mm3 (150-450); RED CELL DISTRIBUTION WIDTH 14.9 % (11.5-14.5); WHITE BLOOD COUNT 8.6 K/mm3 (4.0-10.0)
--- NOTE | 2016-12-19 18:58 | REP ---
Clinical: Pain and swelling . Technique: Rossi scale and color Doppler evaluation using linear high frequency transducer. Findings: Ultrasound examination of the left lower extremity deep venous structures from the common femoral vein to the popliteal vein demonstrates normal compressibility flow and wave patterns in response to respiration and augmentation. There is no evidence for deep venous thrombosis. Impression: No evidence for deep venous thrombosis. Signed by Allen Barrow MD 12/19/2016 06:50 P
[2016-12-19 19:31] LABS: ANISOCYTOSIS 1+; OVALOCYTES 1+; POIKILOCYTOSIS 1+
--- NOTE | 2016-12-19 19:46 | REP ---
Clinical: Shortness of breath. Comparison: 11/30/2016. Findings: Mild cardiomegaly cannot be excluded. Double-lumen dialysis catheter with tip in the SVC. Right subclavian stent in stable position. Lung carmichael demonstrate increased interstitial markings and indistinct pulmonary vasculature suggesting interstitial edema along with bibasilar opacities (right greater than left) and suspected right pleural effusion. Impression: Findings suggesting diffuse interstitial edema with possible basilar atelectasis and right pleural effusion. Signed by Allen Barrow MD 12/19/2016 07:37 P
[2016-12-19 19:52] LABS: INR 1.18
[2016-12-19 19:59] LABS: CALCIUM LEVEL 7.7 MG/DL (8.8-10.2); CREATININE FOR GFR 4.42 MG/DL (0.70-1.30); GLOMERULAR FILTRATION RATE 13.5 (>35); POTASSIUM SERUM 4.5 MEQ/L (3.5-5.1)
[2016-12-19 20:00] LABS: ALBUMIN 2.9 GM/DL (3.2-5.2); ALBUMIN/GLOBULIN RATIO 0.74 (1.00-1.93); BILIRUBIN,DIRECT 0.2 MG/DL (0.0-0.2); BILIRUBIN,TOTAL 0.7 MG/DL (0.2-1.0); TOTAL PROTEIN 6.8 GM/DL (6.4-8.2)
[2016-12-19] MEDS: HumaLOG INSULIN (NovoLOG) PER UNIT SC SCH (21:00)
[2016-12-19] MEDS: ADVAIR HFA 230/21 INHALER INH SCH (21:00)
[2016-12-19] MEDS ORDERED: GLUCOSE 4 GM CHEW TABLET PO PRN (21:15)
[2016-12-19] MEDS ORDERED: GLUCAGON FOR INJ 1 MG VIAL (J1610) SC PRN (21:15)
[2016-12-19] MEDS ORDERED: DEXTROSE 50% 50 ML SYRINGE IV PRN (21:15)
[2016-12-19] MEDS ORDERED: IPRATROPIUM 0.5MG/ALBUTEROL 2.5MG INH SOL UD 3ML (DUONEB)(J7620) NEB PRN (21:15)
[2016-12-19 22:22] VITALS: BP 143/66
[2016-12-19] MEDS ORDERED: ONDANSETRON 4MG/2ML VIAL (J2405) IV PRN (23:00)
[2016-12-19 23:05] LABS: MAGNESIUM LEVEL 1.9 MG/DL (1.8-2.4)
[2016-12-19] MEDS ORDERED: WARFARIN SOD 7.5 MG TAB PO ONE (23:15)
[2016-12-20] MEDS: IPRATROPIUM 0.5MG/ALBUTEROL 2.5MG INH SOL UD 3ML (DUONEB)(J7620) NEB SCH ×4 (00:12→23:53)
[2016-12-20] MEDS: guaiFENesin ER 600 MG TAB PO SCH ×3 (01:05→20:36)
[2016-12-20] MEDS: CEFTAROLINE FOSAMIL 200 MG in D5W 50 ML IV SCH ×3 (01:05→23:33)
--- NOTE | 2016-12-20 01:33 | HPE ---
DATE OF ADMISSION: 12/19/2016 TIME PATIENT WAS SEEN: 20:00 PRIMARY CARE PROVIDER: Dr. Tomer Faulkner UPHOLSTERY AUTO TRIMMER: Dr. Zhen Michelle RESIDENTIAL SUBSTANCE ABUSE COUNSELOR: Dr. Suhas Reynoso CHIEF COMPLAINT: Left lower extremity swelling and pain. HISTORY OF PRESENT ILLNESS: 86-year-old male with past medical history of end-stage renal disease on hemodialysis Thursday, and Thursday through the left internal jugular (IJ) hemodialysis catheter, coronary artery disease status post stent, non-insulin dependent type 2 diabetes, chronic atrial fibrillation on warfarin, advanced peripheral vascular disease status post femoral popliteal artery bypass on the left side in 2012, as well as abdominal aneurysm and also right subclavian aneurysm status post graft, diastolic congestive heart failure with ejection fraction of 60% in 2016, chronic obstructive pulmonary disease (COPD) on two liters nasal cannula oxygen as needed at home, gastroesophageal reflux disease (GERD), steal syndrome, hypertension, benign prostatic hypertrophy (BPH) status post transurethral resection of the prostate (TURP), presented with left lower extremity swelling and pain. Per patient's daughter, today she started noticing erythema and swelling above patient's knee which was not present yesterday. Patient went to Dr. Lee's wound care office today and had debridement of the left lower extremity lateral side. The other wound is healing as per patient's daughter. However, when she went to the fairing worker's office later in the day it was noted that the swelling and erythema part of the left lower leg was worse. Therefore, they were emergently send to the emergency room (ER) for further evaluation. Per patient, he currently has pain 3/10, it was dull-like and does not radiate. He denies any fevers or chills. Denies any nausea or vomiting. About two months ago, he did develop this hematoma at his lower extremity and has been following up with wound care for debridement. In addition, about three weeks ago, the patient was also in the hospital for shortness of breath and was found to be fluid overloaded, and at that time, the patient had an echocardiogram done which showed dilated right ventricle and severely dilated bilateral atrium, moderate aortic insufficiency, and moderate tricuspid insufficiency. Otherwise, patient at this time denies any shortness of breath, any chest pain, any abdominal pain, any diarrhea or constipation. Patient does not make urine, and denies any discomfort anywhere else. ALLERGIES: Patient is allergic to IODINE and CONTRAST MEDIA which gives him shortness of breath, which makes him not able to breathe and have angioedema. PAST MEDICAL HISTORY: Includin. End-stage renal disease on hemodialysis on Thursday, and Thursday follows with Dr. Reynoso. 2. Coronary artery disease status post stent follows with Dr. Michelle. 3. Vasculopathy with advanced peripheral vascular disease status post femoral popliteal artery bypass in 2012, as well as steal syndrome and also abdominal aortic aneurysm repair with graft and also right subclavian repair with graft as well as multiple atrioventricular (AV) fistula placements in all four extremities which resulted in nonfunctional AV fistula. 4. Diastolic heart failure with ejection fraction of 60% done in November 2016. 5. Chronic atrial fibrillation on warfarin. 6. 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 7. Hypertensive heart disease. 8. Chronic anemia. 9. Right-sided pleural effusion in early November 2016. 10. COPD on two liters nasal cannula oxygen at home as needed. 11. GERD. 12. History of hypocalcemia. 13. Vitamin D deficiency. 14. Hypertension. 15. BPH status post TURP. PAST SURGICAL HISTORY: Includin. Bilateral cataract removal. 2. Hernia repair, left lower extremity femoral popliteal bypass in 2012. 3. AV fistulas in all four extremities, which are not working. 4. Aneurysm repair, both abdominal and right subclavian. 5. Cardiac stent. 6. TURP. HOME MEDICATIONS: Including: - Tylenol 650 mg one tablet by mouth every four hours as needed - Ventolin two puffs inhalation every four hours as needed - TUMS 2000 mg one tablet by mouth with meals - vitamin D 5000 units one tablet by mouth daily - pantoprazole 40 mg one tablet by mouth every night - Thu-Ivett one tablet by mouth daily - Advair 230/21 mcg two puffs inhalation twice a day - warfarin 2.5 mg one tablet by mouth every night SOCIAL HISTORY: Patient lives at home. Denies any smoking, drinking, or recreational drug use. Patient has his daughter and his grandson come to visit [place] regularly. Walks with a walker at home. FAMILY HISTORY: Patient's sister had breast cancer. REVIEW OF SYSTEMS: GENERAL: Denies any recent traveling, any sick contacts, any weight changes, any fever or chills. HEENT: Denies any changes in vision, smell, hearing, or taste. CARDIOVASCULAR: Denies any chest pain, trouble breathing. Patient sleeps with two pillows at night lying flat. PULMONARY: Patient does have COPD and uses two liters of oxygen as needed. GI: Denies any abdominal pain, nausea, vomiting, diarrhea, or constipation. : Patient has end-stage renal disease, does not make urine. Denies any blood in the urine or stool. MUSCULOSKELETAL: Denies any pain any where. ENDOCRINE: Denies any heat or cold intolerance. Denies any polydipsia or polyuria. Patient does not make urine. NEUROLOGICAL: Patient denies any weakness on any side of his body, any change in sensation. PSYCHIATRY: Denies any depression or anxiety. PHYSICAL EXAMINATION: VITAL SIGNS: Temperature 97.2, pulse 68, respirations 20, blood pressure 156/50, oxygen saturation at 96% on room air. GENERAL: Patient is a weak-looking, elderly male who was alert, awake, oriented times three, does not appear to be in distress, sitting up comfortably with head elevated at 45 degree angle. HEENT: Normocephalic, atraumatic. Extraocular motors are intact. Mucous membranes moist. NECK: Supple. No neck lymphadenopathy; however, patient does have jugular venous distention (JVD) to below ear lobes. CARDIOVASCULAR: Irregularly irregular, normal S1, S2, at least 3/6 systolic heart murmur. LUNGS: Clear to auscultation bilaterally. Reduced breathing sounds at the right lower lobe. Positive egophony on the right basilar region. ABDOMEN: Positive bowel sounds. Soft, nontender, nondistended. No peritoneal signs. No ecchymosis. EXTREMITIES: Patient's dialysis catheter at the left internal jugular (IJ) is dry, clean and intact. Lower extremity shows no pitting edema, no clubbing or cyanosis. However, patient does have an erythematous region running on the left side right above the knee extending all the way to the left foot, which was warm to touch, however, no drainage. No crepitus. It was not tender to palpation. Patient also has a roughly 12 mm wound at the left side of leg which has no drainage currently. SKIN: Warm and dry. NEURO: Cranial nerves II-XII intact. No focal neurological deficit. LABS: WBC 8.6, hemoglobin 11.7, hematocrit 36.4 with a platelet count of 157 and MCV of 109.1. ESR 52. Sodium 140, potassium 4.5, chloride 101, bicarbonate 27, anion gap 12, BUN 40, creatinine 4.42, GFR 13.5, fasting glucose 119, lactic acid 2.3, calcium 7.7, total bilirubin 0.7, direct bilirubin 0.2, AST 23, ALT 31, alkaline phosphatase 138, CRP 8.16, BNP was 578, total protein 6.8, albumin 2.9. B12 and folate are pending. TSH was 2.65. PT 15.1, INR 1.18. Blood culture is pending. Wound culture is pending. Patient did have a Doppler duplex of the left lower extremity which was negative shows no DVT. In addition, per patient's family, he also had a recent Doppler duplex of the right lower extremity which was negative as well, however, could not confirm it in the EMR. Patient's last Doppler duplex in the EMR was in October 2016 shows 6 cm avascular soft tissue consistent with hematoma in the lateral calf. ASSESSMENT AND PLAN: 86-year-old male with past medical history of most significantly end-stage renal disease on hemodialysis Thursday, and Thursday, as well as coronary artery disease status post stent, also type 2 diabetes with neuropathy, hypertensive heart disease, moderate aortic insufficiency, moderate tricuspid insufficiency, severely dilated bilateral atrium, chronic atrial fibrillation on warfarin, advanced peripheral vascular disease status post left-sided femoral popliteal artery bypass, congestive heart failure (CHF), diastolic type, with ejection fraction of 60%, chronic obstructive pulmonary disease (COPD) on two liters nasal cannula as needed at home, presented with: 1. Left lower extremity cellulitis, which was started today. Patient did receive one dose of Zosyn in the emergency room, 3.375 grams. We will start patient on ceftaroline 200 mg IV every 12 hours, which was renally dosed. Wound culture is pending; we will followup. At this point, the patient is not in significant pain. We will only offer Tylenol, and we will start the patient on stronger medication as needed. Patient does not have a white count, however. There is, however, elevation of erythrocyte sedimentation rate (ESR) of 52, and C-reactive protein (CRP) was also elevated at 8.16; we will continue to follow. 2. Moderate sized right pleural effusion with some exertional dyspnea, which was about the same on the chest x-ray compared to earlier in November. We will obtain a CT chest to monitor for progression. At this point, it is not clear if this is due to infectious etiology or secondary to congestive heart failure (CHF) versus malignancy. We will followup with CT results. 3. Subtherapeutic INR with an INR of only 1.18 today. Per patient's daughter, they have been taking warfarin 2.5 mg for the past 10 days, before that it was increased to 5 mg due to patient was subtherapeutic and was recently switched back to 2.5. We will give patient a one-time dose of 7.5 mg for tonight and check INR tomorrow and will adjust warfarin accordingly. 4. Chronic atrial fibrillation with warfarin. Patient is not in rapid ventricular response (RVR). We will continue to monitor. 5. Macrocytic anemia with MCV of 109.1, hemoglobin of 11.7. We will obtain fecal occult blood, check B12 and folate, as well as TSH and continue to monitor patient. 6. Coronary artery disease status post stent. Patient, however, is not on beta yousuf or statin, at this point, it is unclear why. We will possibly need to obtain medical records from outpatient. 7. End-stage renal disease on hemodialysis on Thursday, and Thursday though the left internal jugular (IJ) hemodialysis catheter follows with Dr. Reynoso outpatient. Last time patient was fluid overloaded in early November. Today, patient still has interstitial edema on chest x-ray. Dr. Reynoso has been consulted; we appreciate his help. Patient will receive hemodialysis inpatient tomorrow. We will continue to follow. 8. Advanced peripheral vascular disease status post left-sided femoral popliteal artery bypass in 2012, stable. Continue to monitor. Patient's pulses were palpable. 9. Diastolic congestive heart failure with ejection fraction of 60%. Echocardiogram was done on 11/28/2016, shows dilated right ventricle, severely dilated bilateral atrium, moderate aortic insufficiency and moderate tricuspid insufficiency. We will continue to monitor. We will not give any fluid at this point due to patient's diastolic congestive heart failure and interstitial pulmonary edema and also hemodialysis and end-stage renal disease. 10. COPD on two liters nasal cannula at home as needed. At this point, it is uncertain the type of COPD the patient has. We will continue to monitor. Start the patient on patient's home inhaler as well as DuoNebs. 11. Gastroesophageal reflux disease (GERD). Continue to monitor, stable. Continue home proton pump inhibitor (PPI). 12. History of hypocalcemia. Patient still has slight hypocalcemia today. We will continue home supplementation. 13. Vitamin D deficiency. Continue to monitor. 14. Steal syndrome. Continue to monitor. 15. Hypertension. Patient, however, is not on any blood pressure medication at home. We will continue to monitor. 16. Abdominal aortic aneurysm as well as right subclavian aneurysm, status post repair and graft. Stable, continue to monitor. 17. Benign prostatic hypertrophy (BPH) status post transurethral resection of the prostate (TURP). Patient does not make any urine. Continue to monitor. 18. Deep vein thrombosis (DVT) prophylaxis. Home warfarin. DISPOSITION: Patient does have a new left lower extremity cellulitis, which has worsened within one day. Patient has been started on ceftaroline which would cover methicillin-resistant Staphylococcus aureus (MRSA) as well. We will continue to monitor and continue to follow wound culture. In addition, we will investigate patient's pleural effusion, which does not seem to resolve or reduce since early November. Patient has been discussed with attending doctor, Dr. Ribeiro. My preceptor for this patient encounter was Dr. Pedro Ribeiro. The preceptor was physically present in the building during the encounter and was fully available as needed. All aspects of the patient interview, examination, medical decision making process, and medical care plan development were reviewed and approved by the preceptor. The preceptor is aware and concurs with the plan as stated in the body of this note and will attest to such by his co-signature. TERRI
[2016-12-20 06:00] VITALS: BP 144/63
[2016-12-20 06:01] LABS: ADD MORPHOLOGY? YES; BASO % 0.4 % (0.0-1.0); EOS # 0.2 K/mm3 (0.0-0.50); LARGE UNSTAINED CELL # 0.1 K/mm3 (0.0-0.4); LARGE UNSTAINED CELL % 1.5 % (0.0-4.0); LYMPH % 11.6 % (24.0-44.0); MEAN CORPUSCULAR HEMOGLOBIN 35.4 pg (27.0-33.0); MEAN CORPUSCULAR HGB CONC 31.9 g/dl (32.0-36.5); MEAN CORPUSCULAR VOLUME 110.9 fl (80.0-96.0); MONO # 0.4 K/mm3 (0.0-0.8); MONO % 5.5 % (0.0-5.0); NEUTROPHILS # 5.8 K/mm3 (1.8-7.7); PLATELET COUNT, AUTOMATED 148 k/mm3 (150-450); RED CELL DISTRIBUTION WIDTH 15.3 % (11.5-14.5); WHITE BLOOD COUNT 7.4 K/mm3 (4.0-10.0)
[2016-12-20 06:02] LABS: INR 1.36
[2016-12-20 06:26] LABS: ERYTHROCYTE SEDIMENTATION RATE 60 mm/hr (0-30)
[2016-12-20 06:28] LABS: CALCIUM LEVEL 7.8 MG/DL (8.8-10.2); CREATININE FOR GFR 4.92 MG/DL (0.70-1.30); GLOMERULAR FILTRATION RATE 11.9 (>35); POTASSIUM SERUM 4.1 MEQ/L (3.5-5.1)
[2016-12-20] MEDS: SENOKOT S TAB PO SCH ×2 (06:43→20:36)
[2016-12-20] MEDS: CALCIUM CARBONATE 500 MG CHEW U/D PO SCH ×3 (06:43→17:45)
[2016-12-20] MEDS: VITAMIN D 1,000 INTERNATIONAL UNITS TABLET PO SCH (06:44)
[2016-12-20] MEDS: HumaLOG INSULIN (NovoLOG) PER UNIT SC SCH ×4 (06:56→20:33)
[2016-12-20] MEDS: ADVAIR HFA 230/21 INHALER INH SCH ×2 (08:04→19:35)
--- NOTE | 2016-12-20 08:58 | REP ---
Clinical: Dyspnea. Effusion. Comparison: 11/28/2016. Findings: There is a moderate right pleural effusion with partial collapse to the right lower lobe as well as minimal no atelectasis involving the lateral basilar right middle lobe. Trace left pleural effusion and left basilar atelectasis noted. Mediastinal and hilar adenopathy is identified which is similar to prior examination. Cardiomegaly with atherosclerotic changes to the coronary arteries and thoracic aorta remain unchanged. No significant findings to suggest pulmonary vascular congestion. No right subclavian vein stent graft and double-lumen dialysis catheter extends into the SVC. The musculoskeletal structures demonstrate stable degenerative changes. Impression: Moderate right pleural effusion with partial collapse of the right lower lobe and minimal atelectasis to the lateral right middle lobe along with mediastinal and hilar adenopathy. Signed by Allen Barrow MD 12/20/2016 08:50 A
[2016-12-20] MEDS ORDERED: LIDOCAINE 1% SDV 5 ML VIAL SC ONE (10:45)
[2016-12-20] MEDS ORDERED: HEPARIN 1,000 UNITS/ML 10ML VIAL (FOR RADIOLOGY& DIALYSIS ONLY) IV ONE (10:45)
--- NOTE | 2016-12-20 10:46 | ECGEPIP ---
Stationary ECG Study [facility] Test Date: 2016-12-20 Pat Name: FILIPE RIVAS Department: Room: [place] [address] Gender: M [employer] Matcher: JOHANNE : 1930 Requested By: ZI BLACK Order Number: [id number] Reading MD: Alli Gorman Measurements Intervals Garvin Rate: 87 P: WI: 0 QRS: -37 QRSD: 107 T: 129 QT: 393 QTc: 475 Interpretive Statements ATRIAL FIBRILLATION LEFT AXIS DEVIATION NONSPECIFIC ST & T-WAVE ABNORMALITY Poor R-wave progression. Increased heart rate compared with 11/28/2016. Electronically Signed On 12-20-2016 10:45:50 EDT by Alli Gorman
[2016-12-20 14:00] VITALS: BP 161/69
--- NOTE | 2016-12-20 14:31 | IPN ---
DATE: 12/20/2016 SUBJECTIVE: The patient today tells me he feels well. He tells me that he has no complaints. He does not complain of pain in the left lower extremity. He does not complain of fevers, chills, chest pain, shortness of breath, nausea, vomiting or diarrhea. OBJECTIVE: VITAL SIGNS: Temperature 97.8. He is afebrile. Heart rate 81. Respiratory rate 19. Blood pressure 144/63. Oxygen saturation 99% on room air. GENERAL: He is a frail, elderly, man laying flat in bed, sleeping peacefully when I enter the room but easily arousable to verbal stimuli. HEENT: He has moist mucous membranes. Some elevation of CVP. Cranial nerves II-XII appear to be grossly intact. CARDIOVASCULAR EXAM: S1, S2 regular. RESPIRATORY EXAM: Diminished breath sounds at the bases with scattered rales. ABDOMINAL EXAM: Bowel sounds are present. Abdomen is soft. He has a hemodialysis catheter in the left anterior thorax. Several failed fistula sites. EXTREMITIES: Trace edema bilaterally. 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 There is an area of erythema extending up to his thigh. LABORATORY STUDIES: WBC 7.4, hemoglobin 10.7, hematocrit 33.6, platelet count is 148. Chemistry panel: Sodium 139, potassium 4.1, chloride 101, bicarbonate 28, BUN 46, creatinine 4.9. He has a lactic acid within normal limits. CRP is 8.4. BNP is 581. TSH is within normal limits. Folate and B12 levels are pending. INR is 1.3. Gram stain is pending. Blood cultures are pending. IMAGING: The patient had a CT scan of his chest, which reveals moderate right pleural effusion with partial collapse of the right lower lobe with minimal atelectasis to the lateral right middle lobe along with mediastinal and hilar adenopathy. He had a chest x-ray, which reveals diffuse interstitial edema with possible basilar atelectasis and right pleural effusion. The patient also had a duplex ultrasound of the lower extremity, which revealed no evidence of deep vein thrombosis (DVT) on the left. ASSESSMENT AND PLAN: This is an 86-year-old man who presented to the hospital by his daughter for redness and swelling above the knee for 1 day. Problems: 1. Cellulitis of the left lower extremity. The patient follows with Dr. Lee regarding his chronic lower extremity wounds. He has a known history of peripheral . For the time being, he is on ceftaroline. He is afebrile. He does not have leukocytosis. We will continue to monitor his progress to see if he does begin to improve. I have placed an advanced wound care consult, hopefully with Dr. Lee to provide us with a consult as he is more familiar with the patient's wound. His ESR and CRP are mildly elevated. Will continue to monitor. 2. Moderate right-sided pleural effusion. At this time, I feel as though it is likely decompensated congestive heart failure related to his end-stage renal disease. 3. End-stage renal disease. On hemodialysis Thursday, , Thursday. Consult has been placed with Dr. Reynoso. His help is greatly appreciated. The patient is for hemodialysis today. He would likely benefit from some fluid removal. He is on vitamin D, calcium supplementation. 4. Macrocytic anemia. Thyroid-stimulating hormone (TSH) within normal limits. Folate and B12 levels are currently pending. 5. Subtherapeutic international normalized ratio (INR). The patient's INR is rising with Coumadin. We will give him 5 mg daily and continue to monitor his INR daily. The patient is on Coumadin for atrial fibrillation. 6. Chronic atrial fibrillation. The patient is on Coumadin. We are working towards getting him therapeutic as outlined above. He is rate controlled without any agents at this time. 7. Coronary artery disease. Status post stent. The patient follows with Dr. Michelle. It is unclear to me why he is not on a beta yousuf or a statin. However, will defer to his outpatient director family. 8. Advanced peripheral vascular disease; he is status post multiple bypasses in the past as well as abdominal aortic aneurysm repair. Continue to monitor but likely playing an important role in his poor wound healing. Dr. Lee has reportedly considered a wound VAC in the outpatient basis for this patient. 9. Chronic obstructive pulmonary disease (COPD). The patient uses two liters intermittently at home. At the present time, does not appear to be requiring any. Will continue with his home inhalers and nebulizers treatments. 10. Gastroesophageal reflux disease. Continue with proton pump inhibitor. 11. Hypocalcemia, vitamin D deficiency. Continue with supplementation. 12. BPH. The patient is status post transurethral resection of the prostate (TURP). He is not on any medications. He does not make urine. 13. Deep vein thrombosis (DVT) prophylaxis. We are working towards getting the patient therapeutic on his Coumadin. DISPOSITION: Will continue to monitor this patient closely.
--- NOTE | 2016-12-20 15:15 | IPN ---
DATE: 12/20/2016 Mr. Caldwell is seen during hemodialysis. He was admitted last evening with cellulitis on his left extremity. The patient is feeling well and reports that he had good breakfast. He denies any nausea, vomiting, dyspnea, or chest pain. PHYSICAL EXAMINATION: Temperature 97.8 degrees Fahrenheit, heart rate 80 per minute, respiratory rate 20 per minute, blood pressure 144/63 mm of mercury, and oxygen saturation 99% on room air. Neck veins are moderately distended. Head is atraumatic. Ears, nose, and throat are unremarkable. Heart sounds are irregular in rhythm. Lungs with no wheezing or rales. He has diminished breath sounds on the right lower one-third. Abdomen is soft and nontender and without palpable organomegaly. Bowel sounds are normal. Extremities have no cyanosis or clubbing. Left lower extremity is wrapped in dressing, and cellulitis on his left knee and lower thigh area is improving. PROBLEMS: 1. End-stage renal disease. The patient is being dialyzed today. We are removing 2.0 L of fluid as tolerated. He generally does not tolerate fluid removal very well. 2. Diastolic congestive heart failure and right-sided pleural effusion. The patient does not have any evidence of congestive heart failure at present. Right pleural effusion is most likely chronic. I would suggest to consider a thoracentesis. We will try to maintain his volume status with dialysis as possible. 3. Anemia. Anemia. His stable and does not need any intervention. 4. Cellulitis. The patient is on antibiotic, and cellulitis is gradually improving. 5. Atrial fibrillation and chronic anticoagulation. His INR has been subtherapeutic. Coumadin dose will need to be adjusted.
--- NOTE | 2016-12-20 15:50 | CR ---
DATE OF CONSULTATION: 12/20/2016 REQUESTING PHYSICIAN: Dr. Vikram Grant. REASON FOR CONSULTATION: Is to assist in the management of end-stage renal disease. HISTORY OF PRESENT ILLNESS: Mr. Caldwell is an 86-year-old gentleman with known history of end-stage renal disease requiring maintenance hemodialysis. He has history of superior vena cava (SVC) syndrome, status post SVC stent placement, non-insulin dependent diabetes, chronic atrial fibrillation requiring Coumadin and history of peripheral vascular disease. He has prior history of femoral-popliteal bypass surgery in 2012. He also has history of abdominal aortic aneurysm repair and has history of diastolic congestive heart failure. He is now admitted with cellulitis on his left leg. He developed a hematoma on his left lower leg a few weeks ago which was treated without antibiotics. His Coumadin was held and size of hematoma had improved. However, now he developed cellulitis around his knee and lower thigh. The patient was admitted last evening and he is due for dialysis today. PAST MEDICAL AND SURGICAL HISTORY: Significant for: 1. History of end-stage renal disease requiring maintenance hemodialysis. 2. Coronary artery disease status post angioplasty with stents. 3. History of peripheral vascular disease and history of superior vena cava syndrome. 4. 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 5. Diastolic congestive heart failure. 6. Chronic atrial fibrillation. 7. Non insulin-dependent diabetes. 8. Hypertensive heart disease. 9. Anemia of chronic kidney disease. 10. History of chronic obstructive pulmonary disease (COPD). 11. History of gastroesophageal reflux disease. 12. History of hypertension. 13. History of benign prostatic hypertrophy (BPH), status post transurethral resection of the prostate (TURP). 14. History of chronic hypocalcemia and secondary hyperparathyroidism. Past surgical history is significant for: 1. Bilateral cataract surgery, hernia repair, left lower extremity femoral-popliteal bypass surgery, arteriovenous (AV) fistula surgeries and a Perma-Cath placement, history of abdominal aortic aneurysm repair and right subclavian vein stenosis. 2. History of superior vena cava stent placement. 3. History of cardiac stent. 4. History of TURP. HOME MEDICATIONS: - TUMS 1000 mg three times a day with meals - Ventolin two puffs every four hours as needed for dyspnea - vitamin D 5000 units daily - pantoprazole 40 mg daily - Thu-Ivett one tablet daily - Advair Diskus two puffs twice a day - warfarin 2.5 mg daily - Tylenol as needed for pain PERSONAL AND SOCIAL HISTORY: The patient is . He lives at home with his grandson. He has no history of smoking or alcohol use. FAMILY HISTORY: His sister had breast cancer. There is no family history for end-stage renal disease. REVIEW OF SYSTEMS: The patient denies any fever or chills. Ears, nose and throat are unremarkable. Cardiovascular system is negative for dyspnea or chest pain. He has history of chronic atrial fibrillation. Respiratory system is negative for cough or hemoptysis. Gastrointestinal (GI) system is negative for nausea, vomiting or diarrhea. Genitourinary () system is significant for a history of BPH and TURP. Neurological system is negative for seizures or stroke. Psychosocial system is negative for depression or anxiety. Musculoskeletal system is significant for left lower leg hematoma. He has history of chronic degenerative arthritis and difficulty ambulating. PHYSICAL EXAMINATION: GENERAL: The patient is awake and alert. VITAL SIGNS: Temperature 97.8 degrees Fahrenheit, heart rate 80 per minute and respiratory rate 20 per minute. Blood pressure 144/63 mmHg and oxygen saturation 99% on room air. He has an internal jugular vein catheter in left upper chest. HEENT: Head is atraumatic. Ears, nose and throat are unremarkable. Pupils equal and reactive to light and sclerae are anicteric. Oral mucosa is moist and healthy. NECK: Neck veins are prominent. Neck is supple and there is no thyroid enlargement. HEART: Sounds are irregular in rhythm. RESPIRATORY: Lungs have good bilateral air entry and no wheezing or rales. ABDOMEN: Soft and nontender and bowel sounds are normal. There is no palpable organomegaly. EXTREMITIES: Have no cyanosis or clubbing. He has old surgical scars from his AV fistulas. Left lower leg is wrapped with dressing. Cellulitis on his left knee and lower thigh area is slightly improved. LABORATORY DATA: WBC count 7.4, hemoglobin 10.7 and hematocrit 33.6. Platelets 148. Sodium 139 and potassium 4.1. BUN 46 and creatinine 4.92. His C-reactive protein is 8.46. BNP level was 581 last evening. INR today is 1.36. Chest CT scan done today showed moderate right pleural effusion with partial collapse of the right lower lobe. There is some mediastinal and hilar adenopathy. Vascular ultrasound was negative for DVT. PROBLEMS: 1. End-stage renal disease. The patient is due for hemodialysis today. He is in fact in dialysis room this morning. He will complete his full dialysis treatment. He is being dialyzed with 3.0 mEq of potassium and 3.0 mEq calcium. Two liters of fluid is being removed today. 2. Cellulitis left leg. The patient is receiving ceftaroline with the dose appropriately adjusted for end-stage renal disease. He is currently afebrile and his cellulitis is improving. 3. Anemia. His anemia is stable at baseline. At present no intervention is indicated. 4. Atrial fibrillation and anticoagulation. The patient has been on chronic Coumadin therapy. He will continue with the same and his prothrombin time/international normalized ratio (PT/INR) will need to be monitored and dose adjusted as needed. 5. History of pleural effusion and diastolic congestive heart failure. The patient does have moderate size chronic right pleural effusion. Will try to correct his volume status with hemodialysis. In my opinion, he is likely to require a thoracentesis early next week. Thank you for involving me in the care of Mr. Caldwell. I will follow him along with you.
[2016-12-20] MEDS ORDERED: WARFARIN SOD 5 MG TAB PO SCH (17:00)
[2016-12-20] MEDS: PANTOPRAZOLE 40MG TAB (PROTONIX) PO SCH (17:43)
[2016-12-20 22:00] VITALS: BP 142/67
[2016-12-21 05:57] LABS: ADD MORPHOLOGY? YES; BASO % 0.7 % (0.0-1.0); EOS # 0.1 K/mm3 (0.0-0.50); LARGE UNSTAINED CELL # 0.2 K/mm3 (0.0-0.4); LARGE UNSTAINED CELL % 3.1 % (0.0-4.0); LYMPH # 0.8 K/mm3 (1.5-4.5); MEAN CORPUSCULAR HEMOGLOBIN 35.3 pg (27.0-33.0); MEAN CORPUSCULAR HGB CONC 31.6 g/dl (32.0-36.5); MEAN CORPUSCULAR VOLUME 111.5 fl (80.0-96.0); MONO # 0.4 K/mm3 (0.0-0.8); MONO % 8.2 % (0.0-5.0); NEUTROPHILS # 3.5 K/mm3 (1.8-7.7); NEUTROPHILS % 72.1 % (36.0-66.0); PLATELET COUNT, AUTOMATED 119 k/mm3 (150-450); RED CELL DISTRIBUTION WIDTH 15.2 % (11.5-14.5); WHITE BLOOD COUNT 4.8 K/mm3 (4.0-10.0)
[2016-12-21 05:58] LABS: INR 1.78
[2016-12-21 06:00] VITALS: BP 162/72
[2016-12-21 06:04] LABS: CALCIUM LEVEL 8.4 MG/DL (8.8-10.2); CREATININE FOR GFR 3.26 MG/DL (0.70-1.30); GLOMERULAR FILTRATION RATE 19.2 (>35); POTASSIUM SERUM 4.3 MEQ/L (3.5-5.1)
[2016-12-21 07:31] LABS: ERYTHROCYTE SEDIMENTATION RATE 54 mm/hr (0-30)
[2016-12-21] MEDS: IPRATROPIUM 0.5MG/ALBUTEROL 2.5MG INH SOL UD 3ML (DUONEB)(J7620) NEB SCH ×2 (07:50→16:45)
[2016-12-21] MEDS: ADVAIR HFA 230/21 INHALER INH SCH ×2 (07:50→20:13)
--- NOTE | 2016-12-21 08:27 | REP ---
Clinical: Pleural effusion. Technique: PA and lateral. Comparison: 12/19/2016. Findings: Moderate right pleural effusion with bibasilar atelectasis essentially unchanged from prior examination. No pneumothorax. Mediastinum and cardiac silhouette stable. Atherosclerotic changes to the thoracic aorta noted. Right subclavian stent and dialysis catheter in stable position. Skeletal structures intact. Impression: Moderate right pleural effusion and bibasilar atelectasis unchanged from prior examination. Signed by Allen Barrow MD 12/21/2016 08:18 A
[2016-12-21] MEDS: guaiFENesin ER 600 MG TAB PO SCH ×2 (08:54→20:32)
[2016-12-21] MEDS: VITAMIN D 1,000 INTERNATIONAL UNITS TABLET PO SCH (08:54)
[2016-12-21] MEDS: CALCIUM CARBONATE 500 MG CHEW U/D PO SCH ×3 (08:54→17:15)
[2016-12-21] MEDS: SENOKOT S TAB PO SCH ×2 (08:54→20:32)
[2016-12-21] MEDS: HumaLOG INSULIN (NovoLOG) PER UNIT SC SCH ×4 (08:55→20:21)
--- NOTE | 2016-12-21 11:19 | IPN ---
DATE: 12/21/2016 Mr. Caldwell is seen this morning on his bedside. He is sitting in the chair eating breakfast at the time of my visit. He underwent hemodialysis yesterday which he tolerated well. He denies any dyspnea, chest pain, nausea or vomiting. On physical exam, temperature 97.8 degrees Fahrenheit, heart rate 76 per minute and respiratory rate 18 per minute. Blood pressure 162/72 mmHg and oxygen saturation 98% on room air. Head is atraumatic. Neck is supple and without any thyroid enlargement. His neck veins are mildly prominent. Pupils are equal and reactive to light and sclera is anicteric. Ears, nose and throat are unremarkable. Heart sounds are irregular in rhythm. Lungs have diminished breath sounds at right lower one-third. Bowel sounds are normal and abdomen is otherwise benign. There is no palpable organomegaly. Extremities have no cyanosis or clubbing. Skin has improving cellulitis on his left lower thigh and knee area. The lower leg is still wrapped in dressing. Neurologically, he is awake, alert and oriented times three. Today's labs show WBC count 4.8, hemoglobin 10.6 and hematocrit 33.5. Platelets 119. Sodium 138 and potassium 4.3. BUN 25 and creatinine 3.26. Calcium level is 8.4 and C-reactive protein is down to 6.96. PROBLEMS: 1. End-stage renal disease. The patient was dialyzed yesterday and he will be scheduled for next hemodialysis on Thursday. At present, his electrolytes are within normal range and volume status seems to be reasonably well-compensated. 2. Right-sided pleural effusion and congestive heart failure. The patient does have pleural effusion which is most likely chronic. Will continue our efforts to keep him somewhat dry with hemodialysis. It is quite likely that he will require a thoracentesis. 3. Left leg cellulitis. The patient is improving and continues with intravenous antibiotics. 4. Left leg hematoma. His lower leg is wrapped in dressing. Hematoma has diminished in size since his initial occurrence of hematoma.
[2016-12-21] MEDS: CEFTAROLINE FOSAMIL 200 MG in D5W 50 ML IV SCH ×2 (11:43→23:19)
--- NOTE | 2016-12-21 13:48 | IPN ---
DATE OF EXAM: 12/21/2016 SUBJECTIVE: Today, the patient tells me that the leg is a little bit sore but it does feel improved. He denies any chest pain, shortness of breath, fevers, chills, nausea, vomiting, or diarrhea. OBJECTIVE: VITAL SIGNS: Maximum temperature (Tmax) 99.2, temperature current 97.8. Pulse 75. Respiratory rate 19. Blood pressure 162/72. Oxygen saturation 95% on room air. GENERAL: He is a very pleasant elderly, man sitting up on the edge of recliner reading the newspaper. He does not appear to be in any acute distress whatsoever. HEENT: Cranial nerves II-XII are grossly intact. He has moist mucous membranes. No elevation of CVP. CARDIOVASCULAR EXAM: S1, S2 regular. RESPIRATORY EXAM: Is fairly clear. ABDOMINAL EXAM: Is benign. EXTREMITIES: His dressing is clean, dry, and intact. Erythema marked on his leg appears to have decreased significantly. LABORATORY STUDIES: WBC 4.8, hemoglobin 10.6, hematocrit 33.5, platelet count 119. ESR is trending down. Chemistry panel: Sodium 138, potassium 4.3, chloride 101, bicarbonate 27, BUN 25, creatinine 3.2. CRP is trending down also. Microbiology: Urine culture returned positive for enterobacter fairly sensitive, resistant only to cefazolin. He previously has grown methicillin-sensitive Staphylococcus aureus MSSA in the leg as well. ASSESSMENT AND PLAN: This is an 86-year-old man with left lower extremity cellulitis. Problems: 1. Left lower extremity cellulitis. The patient normally follows with Dr. Lee regarding this. I have placed a telemedicine consult for him to, hopefully, re-evaluate the wound tomorrow. For the time being, we will be continuing wound care as per Dr. Lee's most recent recommendations. The patient is also continuing on ceftaroline. However, I suspect he may be able to transition to by mouth Bactrim within the near future. Will discuss further with Dr. Reynoso given his end-stage renal disease. Will continue monitoring his inflammatory markers. He does appear to be improving. 2. Moderate right-sided pleural effusion. Will check a chest x-ray today to see if it improved following hemodialysis. If not, he may benefit from thoracentesis drainage. 3. End-stage renal disease. On hemodialysis Thursday, , Thursday. Dr. Reynoso's help is greatly appreciated. He did have approximately 2 liters removed at hemodialysis yesterday. He is on vitamin D and calcium supplementation. 4. Macrocytic anemia. Thyroid-stimulating hormone (TSH) is within normal limits. B12 and folate levels are pending. 5. Subtherapeutic international normalized ratio (INR). The patient's INR is rising quickly. I will decrease it to 2.5 mg daily. 6. Chronic atrial fibrillation. He is on Coumadin. He not on any rate controlling agents. 7. Coronary artery disease. Status post stent. He follows up with Dr. Michelle. Will defer to Dr. Michelle regarding beta yousuf, statin therapy. 8. Advanced peripheral vascular disease with numerous bypasses and abdominal aortic aneurysm repair in the past, likely playing a role in his poor wound healing. Dr. Lee has reportedly been considering an outpatient wound VAC. 9. Chronic obstructive pulmonary disease (COPD). He uses 2 liters intermittently at home. He does not appear to be requiring any at this time. He is on his home inhalers. 10. Gastroesophageal reflux disease. He is on a proton pump inhibitor (PPI). 11. Hypocalcemia. The patient is on vitamin D and calcium supplementation. 12. BPH. He does not make urine anymore. He is status post transurethral resection of the prostate (TURP). 13. Deep vein thrombosis (DVT) prophylaxis. We are working towards getting him therapeutic on Coumadin. DISPOSITION: Will continue to monitor him closely.
[2016-12-21 14:00] VITALS: BP 183/76
[2016-12-21] MEDS: WARFARIN SOD 2.5 MG TAB PO SCH (17:14)
[2016-12-21] MEDS: PANTOPRAZOLE 40MG TAB (PROTONIX) PO SCH (17:15)
[2016-12-21 18:55] VITALS: BP 134/59
[2016-12-21 22:00] VITALS: BP 148/63
[2016-12-22] MEDS: IPRATROPIUM 0.5MG/ALBUTEROL 2.5MG INH SOL UD 3ML (DUONEB)(J7620) NEB SCH ×3 (00:24→15:06)
[2016-12-22 06:00] VITALS: BP 110/61
[2016-12-22 06:11] LABS: BASO % 0.6 % (0.0-1.0); EOS # 0.2 K/mm3 (0.0-0.50); EOS % 2.8 % (0.0-3.0); LARGE UNSTAINED CELL # 0.2 K/mm3 (0.0-0.4); LARGE UNSTAINED CELL % 2.6 % (0.0-4.0); LYMPH # 0.8 K/mm3 (1.5-4.5); LYMPH % 12.6 % (24.0-44.0); MEAN CORPUSCULAR HEMOGLOBIN 34.7 pg (27.0-33.0); MEAN CORPUSCULAR HGB CONC 32.2 g/dl (32.0-36.5); MEAN CORPUSCULAR VOLUME 107.9 fl (80.0-96.0); MONO # 0.4 K/mm3 (0.0-0.8); MONO % 6.3 % (0.0-5.0); NEUTROPHILS # 4.9 K/mm3 (1.8-7.7); PLATELET COUNT, AUTOMATED 111 k/mm3 (150-450); RED CELL DISTRIBUTION WIDTH 14.5 % (11.5-14.5); WHITE BLOOD COUNT 6.6 K/mm3 (4.0-10.0)
[2016-12-22 06:21] LABS: INR 1.85
[2016-12-22 06:35] LABS: CALCIUM LEVEL 8.4 MG/DL (8.8-10.2); CREATININE FOR GFR 4.58 MG/DL (0.70-1.30); POTASSIUM SERUM 4.6 MEQ/L (3.5-5.1)
[2016-12-22] MEDS: ADVAIR HFA 230/21 INHALER INH SCH ×2 (07:30→19:26)
[2016-12-22] MEDS: guaiFENesin ER 600 MG TAB PO SCH ×2 (09:20→21:10)
[2016-12-22] MEDS: CALCIUM CARBONATE 500 MG CHEW U/D PO SCH ×3 (09:20→17:36)
[2016-12-22] MEDS: VITAMIN D 1,000 INTERNATIONAL UNITS TABLET PO SCH (09:20)
[2016-12-22] MEDS: SENOKOT S TAB PO SCH ×2 (09:21→21:10)
[2016-12-22] MEDS: HumaLOG INSULIN (NovoLOG) PER UNIT SC SCH ×4 (09:26→21:16)
--- NOTE | 2016-12-22 10:37 | IPN ---
DATE: 12/22/2016 Mr. Caldwell is seen this morning on his bedside. He feels well and denies any fever, chills, nausea, vomiting, dyspnea or chest pain. He is currently being treated for left lower extremity cellulitis. On physical exam, temperature 97.9 degrees Fahrenheit, heart rate 72 per minute and respiratory rate 18 per minute. Blood pressure 110/60 mmHg and oxygen saturation 93% on room air. Head is atraumatic. Ears, nose and throat are unremarkable. Oral mucosa is moist and healthy. Neck is supple and superficial neck veins are quite prominent due to prior history of superior vena cava syndrome. Heart sounds are regular. Lungs sound clear to auscultation with slightly diminished breath sounds at the right base. Abdomen is soft and nontender and without any palpable organomegaly. Extremities have no cyanosis or clubbing. Left thigh and knee area cellulitis has improved significantly. Lower leg is wrapped in a dressing. Today's labs show WBC count 6.6, hemoglobin 11.9 and hematocrit 37.0. Platelets of 111. Sodium 135 and potassium 4.6. BUN 41 and creatinine 4.58. Calcium 8.4. C-reactive protein is slightly improved to 6.53. PROBLEMS: 1. Cellulitis of left lower extremity. The patient remains on IV Ceftaroline. The dose is adjusted for his renal function. I would suggest to continue with the same for the next couple of days and complete his antibiotic therapy. I would not recommend oral Bactrim as the patient is on Coumadin and has a high risk for infection and further problems with bleeding. 2. Left lower extremity hematoma. The patient has a dressing on his left lower leg. This hematoma has improved significantly in size. He remains in the care of Dr. Lee. 3. End-stage renal disease. The patient is dialyzed on Thursday, and Thursday schedule. His dialysis will be scheduled for tomorrow. His volume status is well-compensated and electrolytes are stable. There is no need for an urgent dialysis today. 4. Anemia. This is very mild and stable. No intervention is indicated at this point. 5. Atrial fibrillation and chronic anticoagulation. The patient remains on Coumadin which is being managed by the hospitalist service.
[2016-12-22] MEDS: CEFTAROLINE FOSAMIL 200 MG in D5W 50 ML IV SCH ×2 (10:52→22:32)
--- NOTE | 2016-12-22 12:21 | IPN ---
DATE: 12/22/2016 SUBJECTIVE: This morning the patient tells me that the leg continues to feel better. He has less pain. He denies chest pain, shortness of breath, fevers or chills. No nausea or vomiting. OBJECTIVE: VITAL SIGNS: Temperature 97.9, pulse 73, respiratory rate 18, blood pressure 110/61, oxygen saturation 95% on room air. GENERAL: He is a fair elderly man sleeping on his left side. He is resting peacefully, but easily arousable. He does not appear to be in any acute distress. HEENT: Cranial nerves II through XII grossly intact. He does not appear to be have any elevation of central venous pressure. CARDIOVASCULAR: S1, S2, regularly irregularly. RESPIRATORY EXAM: He has diminished breath sounds on the right, clear breath sounds on the left. ABDOMEN: Benign. Numerous old fistula sites with chronic scarring. He has a hemodialysis catheter on the left anterior thorax. EXTREMITIES: No clubbing, cyanosis or edema. LABORATORY STUDIES: WBC 6.6, hemoglobin 11.9, platelet count 111. Chemistry panel: Sodium 135, potassium 4.6, chloride 99, bicarbonate 23, BUN 41, creatinine 4.5, CRP 6.5 trending down from a peak of 8.4. INR today is 1.8. No new microbiology. The patient did have an x-ray yesterday which revealed moderate right pleural effusion and bibasilar atelectasis unchanged from the prior exams. ASSESSMENT/PLAN: This is an 86-year-old man who initially presented with left lower extremity cellulitis. PROBLEMS: 1. Left lower extremity cellulitis: I did speak with Dr. Lee regarding his care today. Dr. Lee states that the patient did have an ascending erythema and tenderness of the leg and he was appropriate treated with antibiotics. While the patient remains in the hospital, will keep him on his current antibiotics. When he is stable for discharge home, if he has not completed an appropriate course for cellulitis, could consider discharging him on oral doxycycline and levofloxacin which would appropriately cover him renally dosed which would appropriately cover him for the enterobacter, which has grown on his culture this time and methicillin sensitive Staphylococcus aureus (MSSA) which he has grown in the left leg in the past. For the time being he simple continue ceftaroline as the patient is improving quite well with this. Dr. Lee sees this patient weekly in the wound care clinic and does not feel it is necessary for him to evaluate the wound at this time. He does appear to be improving. He is afebrile. There is no leukocytosis. 2. Moderate right-sided pleural effusion: While the patient is here, he was admitted with and this has improved. However, if this chronic pleural effusion has not been alleviated and as such, I have ordered him for a thoracentesis with cytology to help elucidate the etiology of this effusion. 3. Macrocytic anemia: Folate and B12 is pending. His TSH is within normal limits. 4. Endstage renal disease on hemodialysis: Dr. Reynoso's help has been greatly appreciated. 5. Chronic atrial fibrillation: He is on Coumadin. He is approaching therapeutic range. He does not require any rate controlling agents. 6. Coronary artery disease: He is status post stent. He follows up with Dr. Michelle. We will defer to Dr. Michelle regarding beta yousuf. 7. Advanced peripheral vascular disease with numerous bypasses abdominal aortic aneurysms in the past likely playing a role in his poor wound healing. He will likely benefit from a wound vac placed in the outpatient setting and followup with Dr. Lee. 8. COPD: He uses 2 liters intermittently at home but does not appear to be requiring even this at this time. He is to continue on his home inhalers. 9. Gastroesophageal reflux disease: He is on a proton pump inhibitor (PPI). 10. Hypocalcemia: The patient is on vitamin D and calcium supplementation. 11. Benigni prostatic hypertrophy (BPH): He no longer makes urine. He is status post transurethral resection of the prostate (TURP). 12. Deep venous thrombosis: We are working towards getting him therapeutic on Coumadin. DISPOSITION: The patient is not cleared by physical therapy. He is reportedly left home alone at times. I suspect he will get a thoracentesis today, dialysis tomorrow, then pending PT evaluation, could consider disposition home pending the results of his thoracentesis with close followup with Dr. Lee.
--- NOTE | 2016-12-22 13:42 | REP ---
POST-BIOPSY CHEST, PA AND LATERAL: 12/22/2016. Clinical history: Status post right thoracentesis, evaluate for pneumothorax and residual pleural effusion. Two-views show a right subclavian vascular stent extending down into the region of the superior mediastinum in the innominate artery. There is also a left jugular central venous dialysis catheter with the tip in the SVC. Heart size mildly prominent with left atrial and left ventricular enlargement. There is a small right effusion remaining without evidence of pneumothorax. The previous effusion is much decreased in size. There is still some bibasilar atelectatic change. The aorta is calcified, tortuous and ectatic within the chest without gross aneurysm or change. No abnormal widening of the mediastinum. No pneumomediastinum. Impression: 1. Status post right thoracentesis with much smaller right pleural effusion and without pneumothorax or pneumomediastinum. 2. Bibasilar atelectatic change and some fibrosis remains. 3. Vascular stent in the right subclavian region and a left jugular central venous dialysis catheter noted. Signed by Saurav Larkin MD 12/22/2016 05:41 P
[2016-12-22 13:53] LABS: LDH, BODY FLUID 97 U/L (NOT ESTABLISHED); TOTAL PROTEIN, BODY FLUID 2.8 G/DL (NOT ESTABLISHED)
[2016-12-22 14:00] VITALS: BP 146/64
[2016-12-22 16:39] LABS: BF DIFF IF INDICATED? YES (NO); RBC PLEURAL FLUID < 10 (<10mm3 cells/uL); TNC PLEURAL FLUID 342 cells/uL (0-20)
[2016-12-22] MEDS: PANTOPRAZOLE 40MG TAB (PROTONIX) PO SCH (17:33)
[2016-12-22] MEDS: WARFARIN SOD 2.5 MG TAB PO SCH (17:33)
--- NOTE | 2016-12-22 17:42 | REP ---
ULTRASOUND GUIDED RIGHT THORACENTESIS: The procedure was performed under the direct supervision of Dr. Larkin. The risks and benefits of the procedure were explained to the patient and informed consent was obtained. The right pleural effusion was localized using ultrasound guidance. The skin was prepped and draped in a sterile fashion. 1% Lidocaine was used as a local anesthetic. An 8-Korean [id number] catheter was inserted using trocar technique. 990 mL of yellow fluid was withdrawn and sent to the lab. The patient tolerated the procedure well and there were no immediate complications. Reviewed by ANNA Joe 12/23/2016 08:20 AEdited and Signed by Saurav Larkin MD 12/23/2016 02:50 P
[2016-12-22 21:54] LABS: CC BF DIFF EXAM CYTOCENTRIFUGE
[2016-12-22 22:00] VITALS: BP 134/64
[2016-12-23 06:00] VITALS: BP 140/64
[2016-12-23 06:30] LABS: INR 1.99
[2016-12-23 06:32] LABS: CREATININE FOR GFR 5.82 MG/DL (0.70-1.30); GLOMERULAR FILTRATION RATE 9.8 (>35); POTASSIUM SERUM 4.8 MEQ/L (3.5-5.1)
[2016-12-23] MEDS: VITAMIN D 1,000 INTERNATIONAL UNITS TABLET PO SCH (06:49)
[2016-12-23] MEDS: SENOKOT S TAB PO SCH ×2 (06:49→21:22)
[2016-12-23] MEDS: guaiFENesin ER 600 MG TAB PO SCH ×2 (06:49→21:24)
[2016-12-23] MEDS: CALCIUM CARBONATE 500 MG CHEW U/D PO SCH ×3 (06:50→17:38)
[2016-12-23] MEDS: HumaLOG INSULIN (NovoLOG) PER UNIT SC SCH ×4 (07:30→21:24)
[2016-12-23] MEDS: IPRATROPIUM 0.5MG/ALBUTEROL 2.5MG INH SOL UD 3ML (DUONEB)(J7620) NEB SCH ×4 (08:00→23:59)
[2016-12-23] MEDS: ADVAIR HFA 230/21 INHALER INH SCH ×2 (08:48→19:36)
[2016-12-23] MEDS ORDERED: HEPARIN 1,000 UNITS/ML 10ML VIAL (FOR RADIOLOGY& DIALYSIS ONLY) IV ONE (11:15)
[2016-12-23 11:36] LABS: BASO % 0.6 % (0.0-1.0); EOS # 0.1 K/mm3 (0.0-0.50); EOS % 2.1 % (0.0-3.0); LARGE UNSTAINED CELL # 0.1 K/mm3 (0.0-0.4); LARGE UNSTAINED CELL % 2.1 % (0.0-4.0); LYMPH # 0.8 K/mm3 (1.5-4.5); LYMPH % 11.8 % (24.0-44.0); MEAN CORPUSCULAR HEMOGLOBIN 35.1 pg (27.0-33.0); MEAN CORPUSCULAR HGB CONC 33.1 g/dl (32.0-36.5); MEAN CORPUSCULAR VOLUME 106.2 fl (80.0-96.0); MONO # 0.5 K/mm3 (0.0-0.8); MONO % 7.4 % (0.0-5.0); NEUTROPHILS # 5.2 K/mm3 (1.8-7.7); PLATELET COUNT, AUTOMATED 115 k/mm3 (150-450); RED CELL DISTRIBUTION WIDTH 14.4 % (11.5-14.5); WHITE BLOOD COUNT 6.8 K/mm3 (4.0-10.0)
[2016-12-23 11:37] LABS: ERYTHROCYTE SEDIMENTATION RATE 54 mm/hr (0-30)
[2016-12-23 15:00] VITALS: BP 110/53
--- NOTE | 2016-12-23 15:21 | IPNPDOC ---
Text Note Date of Service The patient was seen on 12/23/16. NOTE Subjective: Patient is an 86 year old male with a PMHx of ESRD on HD (TTS), CAD s/ p stent, Vasculopathy (s/p fem-pop bypass 2012, AAA, Multiple AV fistula placements), Diastolic CHF (EF: 60%), Chronic atrial fibrillation (on Coumadin) , NIDDM2, HTN, Chronic anemia, Right sided pleural effusion, COPD on 2LNC, BPH s /p TURP, and GERD who presented to the ED with LLE swelling. He had associated redness and tenderness. Patient had followed with Dr. Lee as an outpatient, but they acutely noticed it worsening and came to the ER. Patient was admitted for cellulitis of the left lower extremity. Patient was seen and examined at the bedside. He denied any new problems. Objective: Vitals (See below) General: Lying in bed, no acute distress, comfortable, AAOx3 HEENT: NC, AT CVS: Irregular, +S1S2 Lungs: Fair air entry b/l, -w/r/r Abdomen: Soft, ND, NT, +BSx4 Extremities: +PPx4, Left lower extremity with dressing in place, no edema or redness noted, - Calf tenderness Assessment and plan: 1. LLE cellulitis - Swelling, erythema and tenderness of the leg have shown improvement - CRP has been trending down - Wound culture 12/19: Enterobacter cloacae complex - faustin-sensitive - c/w Ceftaroline for now - Will transition to oral antibiotics when ready for discharge (Doxycycline and Levaquin - renally dosed) - Will setup outpatient clinic follow up with Dr. Lee 2. Right sided pleural effusion; s/p IR guided drainage - clinically notes some improvement in his dyspnea - appears to be stricly transudative - will follow up cytology 3. Macrocytic anemia - Folate and B12 pending 4. ESRD on HD (TTS) - Will go for dialysis today - Dr. Reynoso following 5. Chronic atrial fibrillation - not on any rate control medications - INR currently 1.99 - c/w Coumadin for anticoagulation 6. CAD s/p stent - Follows with Dr. Michelle as an outpatient 7. Advanced Peripheral vascular disease - history of bypass 8. COPD - no evidence of exacerbation - c/w 2 L supplemental oxygen at baseline; currently not required 9. Hypocalcemia - c/w Calcium and Vitamin D 10. BPH s/p TURP 11. GERD - c/w Protonix 12. DVT prophylaxis - c/w Coumadin VS,Fishbone, I+O VS, Fishbone, I+O Laboratory Tests 12/23/16 05:36 Calcium Level 8.0 L 12/23/16 10:30 Red Blood Count 3.07 L, Mean Corpuscular Volume 106.2 H, Mean Corpuscular Hemoglobin 35.1 H, Mean Corpuscular Hemoglobin Concent 33.1, Red Cell Distribution Width 14.4, Neutrophils (%) (Auto) 76.0 H, Lymphocytes (%) (Auto) 11.8 L, Monocytes (%) (Auto) 7.4 H, Eosinophils (%) (Auto) 2.1, Basophils (%) ( Auto) 0.6, Neutrophils # (Auto) 5.2, Lymphocytes # (Auto) 0.8 L, Monocytes # ( Auto) 0.5, Eosinophils # (Auto) 0.1, Basophils # (Auto) 0.0 Vital Signs Date Time Temp Pulse Resp B/P Pulse Ox O2 Delivery O2 Flow Rate FiO2 12/23/16 06:00 98.2 90 18 140/64 90 Room Air I&O- Last 24 Hours up to 6 AM 12/23/16 06:00 Intake Total 260 ml Output Total 0 ml Balance 260 ml LELAND GALVAN MD Dec 23, 2016 15:21
[2016-12-23] MEDS: CEFTAROLINE FOSAMIL 200 MG in D5W 50 ML IV SCH (15:44)
[2016-12-23] MEDS: WARFARIN SOD 2.5 MG TAB PO SCH (17:38)
[2016-12-23] MEDS: PANTOPRAZOLE 40MG TAB (PROTONIX) PO SCH (17:38)
--- NOTE | 2016-12-23 18:59 | IPN ---
DATE: 12/23/2016 SUBJECTIVE: This is an 86-year-old male who is seen and examined at bedside. Yesterday, underwent thoracentesis with 990 mL of yellow fluid removed, which he tolerated well. He had a chest x-ray that showed no pneumothorax or pneumomediastinum. This morning, feels well, tired of waiting for dialysis, but otherwise no complaints. REVIEW OF SYSTEMS: No chest pain, shortness of breath, nausea, vomiting, diarrhea, constipation, headaches, fevers, chills. OBJECTIVE: VITAL SIGNS: Blood pressure 140/64, heart rate 90, temperature 98.2, maximum temperature (T-max) 98.3, respiration rate 18, pulse oximetry 90% on room air. INTAKE AND OUTPUT: Last 24 hours: 260 and 0 output. Documented weight is 74 kg. GENERAL: Lying in dialysis bed, comfortable, no acute distress. He is alert, awake, oriented times three. Pleasant, cooperative. HEENT: Eye examination shows extraocular movement intact. NECK: Supple. Distended neck vein. HEART: Regular rate and rhythm. Normal S1, S2. LUNGS: Breath sounds are diminished, but otherwise clear bilaterally. ABDOMEN: Soft, nontender, nondistended. Bowel sounds present. Could not appreciate organomegaly. EXTREMITIES: Left lower extremity is currently being wrapped in dressing. It is not tender to palpation. Has trace edema bilateral lower extremity. NEUROLOGIC: Alert, awake, oriented times three PSYCHIATRIC: Pleasant, cooperative LABORATORY DATA: WBC 6.8, hemoglobin 10.8, hematocrit 32.6, platelets 115. Sodium 135, potassium 4.8, chloride 99, carbon dioxide 22, BUN 50, creatinine 5.82, glucose 95, calcium 8. C-reactive protein (CRP) 6.19. PT 22.7, INR 1.99. Gram stain from fluid show no organism seen. Body fluid shows a pH of 7.6. Total nucleated cell 342. Yellow hazy color. LDH is 97. Total protein 2.8. IMAGING: Chest biopsy showed status post right thoracentesis with much smaller right pleural effusion without pneumothorax or pneumomediastinum, bibasilar atelectatic change, and some fibrosis remains. Vascular stent in right subclavian region and left jugular central venous dialysis catheter noted. Thoracentesis performed yesterday had 990 mL of yellow fluid withdrawn. IMPRESSION AND PLAN: Mr. Caldwell is an 86-year-old male who has history of end-stage renal disease on hemodialysis, admitted for left lower extremity cellulitis. 1. End-stage renal disease on hemodialysis. Will be undergoing hemodialysis today. His regular days for dialysis are Thursday, , Thursday. 2. Cellulitis of left lower extremity. Previously failed outpatient treatment. He is on ceftaroline by primary team. 3. Left lower extremity hematoma. He sees Dr. Lee outpatient. 4. Moderate right-sided pleural effusion. Underwent thoracentesis with interventional radiology (IR) yesterday, with 900 mL fluid removed. Culture and gram stain pending at this time. Have added total protein to differentiate type of effusion. 5. Chronic atrial fibrillation. He is on Coumadin by primary team. My preceptor for this patient encounter was Dr. Suhas Reynoso. The preceptor was physically present in the building during the encounter and was fully available as needed. All aspects of the patient interview, examination, medical decision-making process, and medical care plan development were reviewed and approved by the preceptor. The preceptor is aware and concurs with the plan as stated in the body of this note and will attest to such by his/her co-signature. TERRI
[2016-12-23 22:00] VITALS: BP 122/53
[2016-12-24] MEDS: CEFTAROLINE FOSAMIL 200 MG in D5W 50 ML IV SCH ×2 (04:55→16:15)
[2016-12-24 06:00] VITALS: BP 137/60
[2016-12-24 06:54] LABS: INR 1.95
[2016-12-24 07:05] LABS: ADD MORPHOLOGY? YES; BASO % 0.7 % (0.0-1.0); CALCIUM LEVEL 8.2 MG/DL (8.8-10.2); CREATININE FOR GFR 4.25 MG/DL (0.70-1.30); EOS # 0.1 K/mm3 (0.0-0.50); EOS % 1.9 % (0.0-3.0); GLOMERULAR FILTRATION RATE 14.1 (>35); LARGE UNSTAINED CELL # 0.1 K/mm3 (0.0-0.4); LARGE UNSTAINED CELL % 2.2 % (0.0-4.0); LYMPH % 14.5 % (24.0-44.0); MEAN CORPUSCULAR HEMOGLOBIN 36.7 pg (27.0-33.0); MEAN CORPUSCULAR HGB CONC 34.1 g/dl (32.0-36.5); MEAN CORPUSCULAR VOLUME 107.9 fl (80.0-96.0); MONO # 0.5 K/mm3 (0.0-0.8); MONO % 7.9 % (0.0-5.0); NEUTROPHILS # 4.5 K/mm3 (1.8-7.7); NEUTROPHILS % 72.8 % (36.0-66.0); PLATELET COUNT, AUTOMATED 120 k/mm3 (150-450); POTASSIUM SERUM 4.2 MEQ/L (3.5-5.1); WHITE BLOOD COUNT 6.2 K/mm3 (4.0-10.0)
[2016-12-24] MEDS: HumaLOG INSULIN (NovoLOG) PER UNIT SC SCH (07:30)
[2016-12-24 08:00] LABS: ANISOCYTOSIS 2+
[2016-12-24] MEDS: IPRATROPIUM 0.5MG/ALBUTEROL 2.5MG INH SOL UD 3ML (DUONEB)(J7620) NEB SCH ×2 (08:00→16:22)
[2016-12-24] MEDS: ADVAIR HFA 230/21 INHALER INH SCH ×2 (08:20→19:56)
[2016-12-24] MEDS: CALCIUM CARBONATE 500 MG CHEW U/D PO SCH ×3 (09:03→17:25)
[2016-12-24] MEDS: guaiFENesin ER 600 MG TAB PO SCH ×2 (09:03→20:13)
[2016-12-24] MEDS: SENOKOT S TAB PO SCH ×2 (09:03→20:13)
[2016-12-24] MEDS: VITAMIN D 1,000 INTERNATIONAL UNITS TABLET PO SCH (09:04)
[2016-12-24 09:19] LABS: VITAMIN B12 LEVEL 517 PG/ML (247-911)
[2016-12-24 09:20] LABS: FOLATE > 24.0 NG/ML (>5.4)
--- NOTE | 2016-12-24 10:34 | IPNPDOC ---
Text Note Date of Service The patient was seen on 12/24/16. NOTE Subjective: Patient is an 86 year old male with a PMHx of ESRD on HD (TTS), CAD s/ p stent, Vasculopathy (s/p fem-pop bypass 2012, AAA, Multiple AV fistula placements), Diastolic CHF (EF: 60%), Chronic atrial fibrillation (on Coumadin) , NIDDM2, HTN, Chronic anemia, Right sided pleural effusion, COPD on 2LNC, BPH s /p TURP, and GERD who presented to the ED with LLE swelling. He had associated redness and tenderness. Patient had followed with Dr. Lee as an outpatient, but they acutely noticed it worsening and came to the ER. Patient was admitted for cellulitis of the left lower extremity. Patient was seen and examined at the bedside. He reports that his breathing is doing well. Does not have any new complaints. Objective: Vitals (See below) General: Lying in bed, no acute distress, comfortable, AAOx3 HEENT: NC, AT CVS: Irregular, +S1S2 Lungs: Fair air entry b/l, -w/r/r Abdomen: Soft, ND, NT, +BSx4 Extremities: +PPx4, Left lower extremity with dressing in place, no edema or redness noted, - Calf tenderness Assessment and plan: 1. LLE cellulitis - Swelling, erythema and tenderness continue to improve - CRP has trended down - stopped following - Wound culture 12/19: Enterobacter cloacae complex - faustin-sensitive - c/w Ceftaroline for now (Day #6) - Will transition to oral antibiotics when ready for discharge (Doxycycline and Levaquin - renally dosed) - Will setup outpatient clinic follow up with Dr. Lee 2. Right sided pleural effusion; s/p IR guided drainage - clinically notes some improvement in his dyspnea - appears to be strictly transudative - will follow up cytology 3. Macrocytic anemia - Folate and B12 level adequate 4. ESRD on HD (TTS) - Dr. Reynoso following 5. Chronic atrial fibrillation - not on any rate control medications - INR currently 1.95 - c/w Coumadin for anticoagulation - Will give additional 3 mg of Coumadin tonight 6. CAD s/p stent - Follows with Dr. Michelle as an outpatient 7. Advanced Peripheral vascular disease - history of bypass 8. COPD - no evidence of exacerbation - c/w 2 L supplemental oxygen at baseline; currently not required 9. Hypocalcemia - c/w Calcium and Vitamin D 10. BPH s/p TURP 11. GERD - c/w Protonix 12. DVT prophylaxis - c/w Coumadin Disposition: - Awaiting clearance by physical therapy; will require 24 hour care when discharged VS,Fishbone, I+O VS, Fishbone, I+O Laboratory Tests 12/23/16 10:30 Red Blood Count 3.07 L, Mean Corpuscular Volume 106.2 H, Mean Corpuscular Hemoglobin 35.1 H, Mean Corpuscular Hemoglobin Concent 33.1, Red Cell Distribution Width 14.4, Neutrophils (%) (Auto) 76.0 H, Lymphocytes (%) (Auto) 11.8 L, Monocytes (%) (Auto) 7.4 H, Eosinophils (%) (Auto) 2.1, Basophils (%) ( Auto) 0.6, Neutrophils # (Auto) 5.2, Lymphocytes # (Auto) 0.8 L, Monocytes # ( Auto) 0.5, Eosinophils # (Auto) 0.1, Basophils # (Auto) 0.0 12/24/16 06:25 Red Blood Count 3.22 L, Mean Corpuscular Volume 107.9 H, Mean Corpuscular Hemoglobin 36.7 H, Mean Corpuscular Hemoglobin Concent 34.1, Red Cell Distribution Width 15.0 H, Neutrophils (%) (Auto) 72.8 H, Lymphocytes (%) (Auto ) 14.5 L, Monocytes (%) (Auto) 7.9 H, Eosinophils (%) (Auto) 1.9, Basophils (%) (Auto) 0.7, Neutrophils # (Auto) 4.5, Lymphocytes # (Auto) 1.0 L, Monocytes # ( Auto) 0.5, Eosinophils # (Auto) 0.1, Basophils # (Auto) 0.0, Calcium Level 8.2 L Vital Signs Date Time Temp Pulse Resp B/P Pulse Ox O2 Delivery O2 Flow Rate FiO2 12/24/16 06:00 99.6 82 20 137/60 91 Room Air I&O- Last 24 Hours up to 6 AM 12/24/16 06:00 Intake Total 530 ml Output Total 2000 ml Balance -1470 ml LELAND GALVAN MD Dec 24, 2016 10:34
--- NOTE | 2016-12-24 11:54 | IPN ---
DATE OF VISIT: 12/24/2016 SUBJECTIVE: This is an 86-year-old male who was seen and examined in medical-surgical. Yesterday, underwent hemodialysis and tolerated that well without any issues. Had 2 liters removed. This morning, continues to report his breathing is significantly improved. No chest pain, shortness of breath, palpitations, fever, chills, nausea, vomiting. His bowel movement is regular. OBJECTIVE: VITAL SIGNS: Blood pressure 137/60, heart rate 82, temperature 99.6, respiration rate 20, pulse oximetry 91% on room air. INTAKE AND OUTPUT: Last 24 hours: 530 and 2 liters, net negative of 1.47. Weight is 71.9 kg. Yesterday, was 74 kg documented. GENERAL: The patient is lying in bed, comfortable, no acute distress. He is alert, awake, oriented times three. Pleasant, cooperative. HEENT: Nasal septum midline. Moist oral mucosa. Eye: Extraocular movement intact. NECK: Supple. Trachea midline. 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 HEART: Regular rate and rhythm. Normal S1, S2. Somewhat distant-sounding. LUNGS: Diminished bilaterally with occasional crackles in the right lung base, though improved compared to yesterday. ABDOMEN: Soft, nontender, nondistended. Bowel sounds present. Could not appreciate organomegaly. EXTREMITIES: Left lower extremity is currently being wrapped in dressing. It is not tender to palpation, though he continues to have trace pedal edema. LABORATORY DATA: WBC 6.2, hemoglobin 11.8, hematocrit 34.7, platelets 120. Sodium 136, potassium 4.2, chloride 99, carbon dioxide 28, BUN 30, creatinine 4.25, glucose 101, calcium 8.2. Body fluid culture came back no growth aerobically. INR 1.95. IMPRESSION AND PLAN: Mr. Caldwell is an 86-year-old male with past medical history of end-stage renal disease on hemodialysis, admitted for left lower extremity cellulitis. 1. End-stage renal disease on hemodialysis. Tolerated dialysis well yesterday. His regular days for dialysis are Thursday, , and Thursday. 2. Cellulitis of left lower extremity. Failed outpatient treatment. He is currently on ceftaroline. Will defer to primary team to change him to by mouth antibiotics. 3. Left lower extremity hematoma. He sees Dr. Lee outpatient. 4. Chronic atrial fibrillation. He is on Coumadin. 5. Anemia. Hemoglobin has not significantly changed since admission. Continue to monitor for now. No emergent need for transfusion at this time. From a renal standpoint, the patient can be discharged whenever cleared by primary team and physical therapy. My preceptor for this patient encounter was Suhas Reynoso MD. The preceptor was physically present in the building during the encounter and was fully available. As needed, all aspects of the patient interview, examination, medical decision making process, and medical care plan development were reviewed and approved by the preceptor. The preceptor is aware and concurs with the plan as stated in the body of this note and will attest to such by his/her cosignature. TERRI
[2016-12-24] MEDS ORDERED: WARFARIN SOD 3 MG TAB PO ONE (17:00)
[2016-12-24] MEDS: PANTOPRAZOLE 40MG TAB (PROTONIX) PO SCH (17:24)
[2016-12-24 22:00] VITALS: BP 126/61
[2016-12-25] MEDS: CEFTAROLINE FOSAMIL 200 MG in D5W 50 ML IV SCH ×3 (03:21→15:48)
[2016-12-25] MEDS: ACETAMINOPHEN TAB 650MG DOSE (2X325MG) PO PRN ×2 (04:10→09:26)
[2016-12-25 06:00] VITALS: BP 114/53
[2016-12-25] MEDS: SENOKOT S TAB PO SCH ×2 (06:26→20:02)
[2016-12-25] MEDS: VITAMIN D 1,000 INTERNATIONAL UNITS TABLET PO SCH (06:36)
[2016-12-25] MEDS: guaiFENesin ER 600 MG TAB PO SCH ×2 (06:36→20:02)
[2016-12-25] MEDS: CALCIUM CARBONATE 500 MG CHEW U/D PO SCH ×3 (06:37→17:08)
[2016-12-25] MEDS: IPRATROPIUM 0.5MG/ALBUTEROL 2.5MG INH SOL UD 3ML (DUONEB)(J7620) NEB SCH ×3 (08:00→15:15)
[2016-12-25] MEDS: ADVAIR HFA 230/21 INHALER INH SCH ×2 (08:11→19:49)
[2016-12-25 10:28] LABS: ALBUMIN 2.9 GM/DL (3.2-5.2); ALBUMIN/GLOBULIN RATIO 0.78 (1.00-1.93); BILIRUBIN,TOTAL 1.3 MG/DL (0.2-1.0); CALCIUM LEVEL 7.8 MG/DL (8.8-10.2); CREATININE FOR GFR 5.87 MG/DL (0.70-1.30); GLOMERULAR FILTRATION RATE 9.7 (>35); POTASSIUM SERUM 4.1 MEQ/L (3.5-5.1); TOTAL PROTEIN 6.6 GM/DL (6.4-8.2)
[2016-12-25] MEDS ORDERED: HEPARIN 1,000 UNITS/ML 10ML VIAL (FOR RADIOLOGY& DIALYSIS ONLY) IV ONE (10:30)
--- NOTE | 2016-12-25 11:04 | IPN ---
DATE OF VISIT: 12/25/2016 SUBJECTIVE: This is an 86-year-old male who is seen and examined at dialysis. Per nursing staff, overnight the patient was more restless and agitated. Yesterday he was evaluated by physical therapy and was not deemed safe for discharge. He will require 24-hour care. At this time, it is recommended that he might need subacute rehabilitation. Was complaining of some diffuse nonspecific achy pains this morning and was given Tylenol. He was also noted to be more confused. Otherwise, denies any chest pain, shortness of breath, palpitations, fevers, or chills, though he could not remember whether he had breakfast or not. OBJECTIVE: VITAL SIGNS: Blood pressure 114/53, heart rate 78, temperature 97.5, respiration rate 15, pulse oximetry 93% on room air. Intake and output in the last 24 hours , 885, no output documented. Two bowel movements documented. GENERAL: Patient is lying in bed, comfortable though somewhat restless. He is alert, awake, oriented to person and place. Thinks the year is 1999-something. HEENT: Normocephalic, atraumatic. Dry oral mucosa. NECK: Supple. Trachea midline. CHEST: Symmetric chest rise. No accessory muscle use. Breath sounds diminished with occasional crackles in the right lung base. HEART: Regular rate and rhythm, distant sounding. Normal S1 and S2. Could not appreciate murmurs, rubs or gallops. ABDOMEN: Soft, nontender, nondistended. Bowel sounds present. No guarding. No rebound. EXTREMITIES: No pedal edema. Pedal pulses present bilaterally. Left lower extremity is still wrapped. NEUROLOGIC: Sensory is intact. PSYCHIATRIC: Cooperative though somewhat restless. Laboratories from this morning are pending at this time. IMPRESSION/PLAN: Mr. Caldwell is an 86-year-old male with past medical history of end-stage renal disease on hemodialysis one Tuesdays, , Fridays, admitted for a left lower extremity cellulitis. 1. Confusion. He had episodes of altered mental status, was agitated and restless last night, requiring mittens placed. His altered mental status is unclear. It could be secondary to hospital delirium as he has been in the hospital for a prolonged period of time. So far his temperature did not indicate any signs of infection. CBC is pending at this time. He does have an infection to his left lower extremity that is currently being treated with antibiotics. Continue to monitor. Hopefully, his condition will improve as the day progresses. 2. End-stage renal disease on hemodialysis. He is undergoing dialysis currently and is tolerating it well. His regular days for dialysis are Thursday, , and Thursday. 3. Left lower extremity hematoma. He sees Dr. Lee outpatient. 4. Chronic atrial fibrillation. He is on Coumadin. Does not require rate controlling agent at this time. 5. Anemia. CBC is ending this morning, however review from blood count from yesterday did not show significant change. Therefore, no need for emergent dialysis at this time. The patient remains inpatient due to failing physical therapy. There is plan for subacute rehab. My preceptor for this patient encounter was Dr. Suhas Reynoso. The preceptor was physically present in the building during the encounter and was fully available. As needed, all aspects of the patient interview, examination, medical decision making process, and medical care plan development were reviewed and approved by the preceptor. The preceptor is aware and concurs with the plan as stated in the body of this note and will attest to such by his/her cosignature. TERRI
[2016-12-25 12:30] LABS: BASO % 0.7 % (0.0-1.0); EOS # 0.2 K/mm3 (0.0-0.50); EOS % 2.4 % (0.0-3.0); LARGE UNSTAINED CELL # 0.2 K/mm3 (0.0-0.4); LARGE UNSTAINED CELL % 2.2 % (0.0-4.0); LYMPH % 14.3 % (24.0-44.0); MEAN CORPUSCULAR HEMOGLOBIN 34.3 pg (27.0-33.0); MEAN CORPUSCULAR HGB CONC 31.8 g/dl (32.0-36.5); MEAN CORPUSCULAR VOLUME 107.6 fl (80.0-96.0); MONO # 0.4 K/mm3 (0.0-0.8); MONO % 6.6 % (0.0-5.0); NEUTROPHILS # 4.9 K/mm3 (1.8-7.7); NEUTROPHILS % 73.7 % (36.0-66.0); PLATELET COUNT, AUTOMATED 120 k/mm3 (150-450); RED CELL DISTRIBUTION WIDTH 14.4 % (11.5-14.5); WHITE BLOOD COUNT 6.7 K/mm3 (4.0-10.0)
--- NOTE | 2016-12-25 13:37 | IPNPDOC ---
Text Note Date of Service The patient was seen on 12/25/16. NOTE Subjective: Patient is an 86 year old male with a PMHx of ESRD on HD (TTS), CAD s/ p stent, Vasculopathy (s/p fem-pop bypass 2012, AAA, Multiple AV fistula placements), Diastolic CHF (EF: 60%), Chronic atrial fibrillation (on Coumadin) , NIDDM2, HTN, Chronic anemia, Right sided pleural effusion, COPD on 2LNC, BPH s /p TURP, and GERD who presented to the ED with LLE swelling. He had associated redness and tenderness. Patient had followed with Dr. Lee as an outpatient, but they acutely noticed it worsening and came to the ER. Patient was admitted for cellulitis of the left lower extremity. Patient was seen and examined at the bedside. Has not had an events overnight, no issues this morning. Objective: Vitals (See below) General: Lying in bed, no acute distress, comfortable, AAOx3 HEENT: NC, AT CVS: Irregular, +S1S2 Lungs: Fair air entry b/l, -w/r/r Abdomen: Soft, ND, NT, +BSx4 Extremities: +PPx4, Left lower extremity with dressing in place, no edema or redness noted, - Calf tenderness Assessment and plan: 1. LLE cellulitis - Swelling, erythema and tenderness continue to improve - CRP has trended down - stopped following - Wound culture 12/19: Enterobacter cloacae complex - faustin-sensitive - c/w Ceftaroline for now (Day #7) - Will transition to oral antibiotics when ready for discharge (Doxycycline and Levaquin - renally dosed) - Will setup outpatient clinic follow up with Dr. Lee 2. s/p Right sided pleural effusion; s/p IR guided drainage - clinically notes some improvement in his dyspnea - appears to be strictly transudative - will follow up cytology 3. Macrocytic anemia - Folate and B12 level adequate 4. ESRD on HD (TTS) - Dr. Reynoso following 5. Chronic atrial fibrillation - Not on any rate control medications - c/w Coumadin for anticoagulation - Will c/w Coumadin 2.5 daily 6. CAD s/p stent - Follows with Dr. Michelle as an outpatient 7. Advanced Peripheral vascular disease - history of bypass 8. COPD - no evidence of exacerbation - c/w 2 L supplemental oxygen at baseline; currently not required 9. Hypocalcemia - c/w Calcium and Vitamin D 10. BPH s/p TURP 11. GERD - c/w Protonix 12. DVT prophylaxis - c/w Coumadin Disposition: - Will require 24 hour care when discharged; awaiting sub-acute options - Will discuss with family about disposition VS,Fishbone, I+O VS, Fishbone, I+O Laboratory Tests 12/25/16 08:50 Calcium Level 7.8 L, Aspartate Amino Transf (AST/SGOT) 15, Alanine Aminotransferase (ALT/SGPT) 22, Alkaline Phosphatase 123 H, Total Bilirubin 1.3 H, Total Protein 6.6, Albumin 2.9 L, Red Blood Count 3.20 L, Mean Corpuscular Volume 107.6 H, Mean Corpuscular Hemoglobin 34.3 H, Mean Corpuscular Hemoglobin Concent 31.8 L, Red Cell Distribution Width 14.4, Neutrophils (%) (Auto) 73.7 H , Lymphocytes (%) (Auto) 14.3 L, Monocytes (%) (Auto) 6.6 H, Eosinophils (%) ( Auto) 2.4, Basophils (%) (Auto) 0.7, Neutrophils # (Auto) 4.9, Lymphocytes # ( Auto) 1.0 L, Monocytes # (Auto) 0.4, Eosinophils # (Auto) 0.2, Basophils # (Auto ) 0.0 Vital Signs Date Time Temp Pulse Resp B/P Pulse Ox O2 Delivery O2 Flow Rate FiO2 12/25/16 06:00 97.5 78 15 114/53 92 Room Air I&O- Last 24 Hours up to 6 AM 12/25/16 06:00 Intake Total 1110 ml Output Total 0 ml Balance 1110 ml LELAND GALVAN MD Dec 25, 2016 13:37
[2016-12-25 14:00] VITALS: BP 118/56
[2016-12-25] MEDS ORDERED: NYST50SS SS (16:12)
[2016-12-25] MEDS ORDERED: DOXY-278 PO (16:12)
[2016-12-25] MEDS ORDERED: LEVA250T PO (16:12)
[2016-12-25] MEDS: NYSTATIN 500,000 U/5 ML SUSP UDC SS SCH ×2 (16:16→20:02)
[2016-12-25] MEDS ORDERED: WARFARIN SOD 2.5 MG TAB PO SCH (17:00)
[2016-12-25] MEDS: PANTOPRAZOLE 40MG TAB (PROTONIX) PO SCH (17:08)
[2016-12-25 22:00] VITALS: BP 110/55
[2016-12-26] MEDS: CEFTAROLINE FOSAMIL 200 MG in D5W 50 ML IV SCH (04:13)
[2016-12-26 06:00] VITALS: BP 124/60
[2016-12-26] MEDS: IPRATROPIUM 0.5MG/ALBUTEROL 2.5MG INH SOL UD 3ML (DUONEB)(J7620) NEB SCH ×2 (07:27)
[2016-12-26] MEDS: ADVAIR HFA 230/21 INHALER INH SCH (07:27)
[2016-12-26 07:37] LABS: INR 2.28
[2016-12-26 07:39] LABS: ADD MORPHOLOGY? YES; BASO # 0.1 K/mm3 (0.0-0.2); EOS # 0.2 K/mm3 (0.0-0.50); EOS % 2.4 % (0.0-3.0); LARGE UNSTAINED CELL # 0.2 K/mm3 (0.0-0.4); LARGE UNSTAINED CELL % 2.6 % (0.0-4.0); LYMPH # 1.3 K/mm3 (1.5-4.5); LYMPH % 16.1 % (24.0-44.0); MEAN CORPUSCULAR HEMOGLOBIN 35.8 pg (27.0-33.0); MEAN CORPUSCULAR HGB CONC 32.9 g/dl (32.0-36.5); MEAN CORPUSCULAR VOLUME 108.8 fl (80.0-96.0); MONO # 0.5 K/mm3 (0.0-0.8); MONO % 7.8 % (0.0-5.0); NEUTROPHILS # 4.8 K/mm3 (1.8-7.7); NEUTROPHILS % 70.1 % (36.0-66.0); PLATELET COUNT, AUTOMATED 131 k/mm3 (150-450); RED CELL DISTRIBUTION WIDTH 14.9 % (11.5-14.5); WHITE BLOOD COUNT 6.8 K/mm3 (4.0-10.0)
[2016-12-26 08:11] LABS: ALBUMIN 2.8 GM/DL (3.2-5.2); ALBUMIN/GLOBULIN RATIO 0.72 (1.00-1.93); CALCIUM LEVEL 8.5 MG/DL (8.8-10.2); CREATININE FOR GFR 4.42 MG/DL (0.70-1.30); GLOMERULAR FILTRATION RATE 13.5 (>35); POTASSIUM SERUM 4.5 MEQ/L (3.5-5.1); TOTAL PROTEIN 6.7 GM/DL (6.4-8.2)
[2016-12-26] MEDS: VITAMIN D 1,000 INTERNATIONAL UNITS TABLET PO SCH (09:51)
[2016-12-26] MEDS: guaiFENesin ER 600 MG TAB PO SCH (09:51)
[2016-12-26] MEDS: SENOKOT S TAB PO SCH (09:51)
[2016-12-26] MEDS: CALCIUM CARBONATE 500 MG CHEW U/D PO SCH ×2 (09:52→12:25)
[2016-12-26] MEDS: NYSTATIN 500,000 U/5 ML SUSP UDC SS SCH (09:52)
--- NOTE | 2016-12-26 12:36 | IPN ---
DATE: 12/26/2016 SUBJECTIVE: This is an 86-year-old male who is seen and examined at bedside in medical/surgical. Overnight he no longer had episodes of restless and agitation. Currently there is plan for him to be going to [facility] and the patient and his family have been agreeable to this recommendation. No other overnight events noted. Patient underwent hemodialysis and tolerated that well, had 2 liters removed. REVIEW OF SYSTEMS: Denies any chest pain, shortness of breath, nausea, vomiting , diarrhea, constipation, fevers, chills, abdominal pain. OBJECTIVE: Vital signs: Blood pressure 124/60, heart rate 83, temperature 97.8 , respiration rate 19, pulse ox 92% on room air. Intake and output the last 24 hours 705 and 2000. One bowel movement documented yesterday. Weight is 73 kg. PHYSICAL EXAM: General: Patient is lying in bed approximately 45 degree angle, comfortable, no acute distress. He is alert, awake, oriented times three, pleasant, cooperative. No psychiatric distress. No longer lethargic as compared to yesterday. HENT: Normocephalic, atraumatic. Eyes: Extraocular movement intact. Pupils equal and reactive to light. Neck: Supple. Trachea midline. Chest: Symmetric chest rise. No accessory muscle use. Breath sounds were diminished with occasional crackles in the right lung base. Heart: Irregular but not tachycardic. S1, S2, variable. Did not appreciate murmurs, rubs or gallops. Abdomen: Soft, nontender, nondistended. No guarding, rebound. Extremities: Left lower extremity with 1+ pitting edema currently being wrapped. Right lower extremity is without edematous changes. Psychiatric: Normal effect. Neurologic: Alert, awake, oriented times three. LABORATORY DATA: WBC 6.8, hemoglobin 11.2, hematocrit 34.1, platelets 131. Sodium 140, potassium 4.5, chloride 102, carbon dioxide 26, BUN 21, creatinine 4.42. Glucose 98. Calcium 8.5. Magnesium is 2. Total bilirubin 1. AST 15, ALT 19, alkaline phosphatase 126. Troponin 6.7. INR 2.28. IMPRESSION: Mr. Caldwell is an 86-year-old male with past medical history of end stage renal disease on hemodialysis admitted for left lower extremity cellulitis developed confusion yesterday. 1. Confusion. This was likely secondary to hospital-acquired delirium which has been since resolved. Continue to monitor. 2. End stage renal disease on hemodialysis. Underwent dialysis yesterday and tolerated it well. The patient will be planned for outpatient dialysis tomorrow. He is scheduled for Thursday, , Thursday. 3. Left lower extremity hematoma and cellulitis. Sees Dr. Lee outpatient. Antibiotic is currently managed by primary team. 4. Chronic atrial fibrillation. Coumadin level is therapeutic. 5. Anemia. Hemoglobin and hematocrit has not significantly changed. No urgent need for transfusion at this time. Continue to monitor. From a renal standpoint, the patient can be discharged to [facility] whenever cleared by primary team. My preceptor for this patient encounter was Dr. Suhas Reynoso. The preceptor was physically present in the building during the encounter and was fully available. As needed, all aspects of the patient interview, examination, medical decision making process, and medical care plan development were reviewed and approved by the preceptor. The preceptor is aware and concurs with the plan as stated in the body of this note and will attest to such by his/her cosignature. TERRI
--- NOTE | 2016-12-26 21:47 | DSES ---
DATE OF ADMISSION: 12/19/2016 DATE OF DISCHARGE: 12/26/2016 ATTENDING PHYSICIAN: Arleen Mcnulty MD. PRIMARY CARE PHYSICIAN: Dr. Tomer Faulkner. CONSULTING PHYSICIAN: Dr. Suhas Reynoso. CONDITION ON DISCHARGE: Stable. FINAL DIAGNOSES: 1. Left lower extremity cellulitis. 2. Right-sided pleural effusion. PROCEDURES: The patient had a thoracentesis completed on 12/22/2016. HISTORY OF PRESENT ILLNESS: The patient is an 86-year-old male with a past medical history of end-stage renal disease on hemodialysis Thursday, , and Thursday, coronary artery disease status post stent, vasculopathy status post femoral-popliteal bypass in 2012, abdominal aortic aneurysm, multiple arteriovenous (AV) fistula placements, as well as diastolic congestive heart failure (CHF), ejection fraction of 60%, chronic atrial fibrillation on Coumadin, [id number] diabetes mellitus type 2, hypertension, chronic anemia, right-sided pleural effusion, chronic obstructive pulmonary disease (COPD) on two liters nasal cannula, benign prostatic hypertrophy (BPH) status post transurethral resection of the prostate (TURP), and gastroesophageal reflux disease (GERD), who presented to the emergency room with left lower extremity swelling. He had associated redness and tenderness. The patient was followed by Dr. Lee as an outpatient, but they had acutely noticed it was worsening and came to the emergency room. The patient was admitted for cellulitis of the left lower extremity. HOSPITAL COURSE: 1. Left lower extremity cellulitis. There was swelling, erythema and tenderness which were noted on admission, and have improved throughout his hospital course. The patient has a history of having a hematoma on the left lower extremity which was managed by Dr. Lee as an outpatient, but it appears that there has been an overlying cellulitis that had developed. C-reactive protein (CRP) which was elevated initially during his admission has been trending down. Wound cultures on 12/19 were positive for enterobacter cloacae complex which is faustin sensitive. The patient was put on ceftaroline for about eight days' duration, and he has been transitioned to Levaquin and doxycycline as an outpatient. The patient has been advised to followup with Dr. Lee as an outpatient. At the time of discharge, the patient is being discharged home to a subacute rehabilitation center where he will continue physical therapy. He has been advised to have his international normalized ratio (INR) checked frequently while he is on antibiotics. 2. Status post, right-sided pleural effusion. Status post interventional radiology (IR) guided drainage. Clinically shows improvement in his dyspnea. The fluid analysis reveals that it is a transudative pattern. Will followup cytology, which is negative for malignancy. 3. Macrocytic anemia. Folate and B12 levels have been adequate. 4. End-stage renal disease on hemodialysis Thursday, , Thursday. Dr. Reynoso has been following. 5. Chronic atrial fibrillation not on any rate control medications. He has been put on Coumadin for anticoagulation and he is going to continue with Coumadin 2.5 daily. 6. Coronary artery disease status post stent. Follows with Dr. Michelle as an outpatient. 7. Advanced peripheral vascular disease, history of bypass. 8. Chronic obstructive pulmonary disease (COPD). No evidence of exacerbation. Continue with two liters of supplemental oxygenation at baseline. 9. Hypocalcemia. Continue with calcium and vitamin D supplementation. 10. Benign prostatic hypertrophy (BPH) status post transurethral resection of the prostate (TURP). 11. Gastroesophageal reflux disease (GERD). Continue with Protonix. 12. Deep venous thrombosis (DVT) prophylaxis. Continue with full anticoagulation with Coumadin. DISCHARGE MEDICATIONS: The patient is being discharged home with the following medication list: - acetaminophen 650 mg by mouth every four hours as needed for mild pain or fever - albuterol two puffs inhaled every four hours as needed for shortness of breath - calcium carbonate 2000 mg by mouth before meals - vitamin D 5000 units by mouth daily - Protonix 40 mg every evening - Advair two puffs inhaled twice a day - warfarin 2.5 mg by mouth every evening New medications prescribed include: - doxycycline 100 mg by mouth twice a day - levofloxacin 250 mg by mouth every 48 hours for four tablets - Nystatin 5 mL [id number] to be taken for two more days DISCHARGE INSTRUCTIONS: The patient has been advised to followup with his primary care provider, nephrology, and Dr. Lee within the next seven days. He has been advised to remain compliant with the treatment plan and medication. He is to have his INR checked daily while on antibiotics. He has been advised to return to the emergency room if he experiences any problems. TIME SPENT ON DISCHARGE: 35 minutes.
== END 2016-12-26 13:37 | DRG 602 ==
LOC: M ED 17:36 → M ED INP 20:41 → M MSPAV 22:21
PROVIDERS: ADMIT Internal Medicine; ATTEND Internal Medicine
PROC: 5A1D60Z (ICD-10-PCS; principal; 2016-12-20)
PROC: 0W993ZZ Drainage of Right Pleural Cavity, Percutaneous Approach (ICD-10-PCS; 2016-12-22)
DX: L03.116 Cellulitis of left lower limb (principal); N18.6 End stage renal disease; I50.33 Acute on chronic diastolic (congestive) heart failure; I13.2 Hypertensive heart and chronic kidney disease with heart failure and with stage 5 chronic kidney disease, or end stage renal disease; G45.8 Other transient cerebral ischemic attacks and related syndromes; L97.929 Non-pressure chronic ulcer of unspecified part of left lower leg with unspecified severity; J90 Pleural effusion, not elsewhere classified; I87.1 Compression of vein; N25.81 Secondary hyperparathyroidism of renal origin; I25.10 Atherosclerotic heart disease of native coronary artery without angina pectoris; E11.51 Type 2 diabetes mellitus with diabetic peripheral angiopathy without gangrene; I48.2 Chronic atrial fibrillation; J44.9 Chronic obstructive pulmonary disease, unspecified; E11.40 Type 2 diabetes mellitus with diabetic neuropathy, unspecified; D63.8 Anemia in other chronic diseases classified elsewhere; E55.9 Vitamin D deficiency, unspecified; B96.89 Other specified bacterial agents as the cause of diseases classified elsewhere; I08.2 Rheumatic disorders of both aortic and tricuspid valves; K21.9 Gastro-esophageal reflux disease without esophagitis; M79.81 Nontraumatic hematoma of soft tissue; E83.51 Hypocalcemia; N40.0 Benign prostatic hyperplasia without lower urinary tract symptoms; Z95.5 Presence of coronary angioplasty implant and graft; Z98.62 Peripheral vascular angioplasty status; Z79.899 Other long term (current) drug therapy; Z88.8 Allergy status to other drugs, medicaments and biological substances; Z99.81 Dependence on supplemental oxygen; Z79.51 Long term (current) use of inhaled steroids; Z79.01 Long term (current) use of anticoagulants; Z91.041 Radiographic dye allergy status

== ENCOUNTER → 2016-12-27 | Outpatient (REF) ==
[~2016-12-27] MED LIST changes: -COLA100C PO; +COLA100C3 PO; +DOXY-278 PO; +NYST50SS SS
[2016-12-27 08:03] LABS: INR 2.7
== END ==
LOC: SKLAB7 08:00
PROVIDERS: ATTEND Family Medicine
DX: Z79.01 Long term (current) use of anticoagulants (principal)

== ENCOUNTER → 2016-12-29 | Outpatient (REF) ==
[2016-12-29 09:10] LABS: INR 2.21
== END ==
LOC: SKLAB7 08:00
PROVIDERS: ATTEND Family Medicine
DX: Z79.01 Long term (current) use of anticoagulants (principal)

== ENCOUNTER → 2017-01-01 | Outpatient (REF) ==
[2017-01-01 08:37] LABS: INR 1.97
== END ==
LOC: SKLAB7 07:00
PROVIDERS: ATTEND Family Medicine
DX: Z79.01 Long term (current) use of anticoagulants (principal)

== ENCOUNTER → 2017-01-05 | Outpatient (REF) | payer MEDICARE, OTHER ==
[2017-01-05 09:16] LABS: INR 1.89
== END ==
LOC: SKLAB7 12:52
PROVIDERS: ATTEND Family Medicine
DX: I48.91 Unspecified atrial fibrillation (principal)

== ENCOUNTER → 2017-01-12 | Outpatient (REF) ==
[2017-01-12 08:49] LABS: INR 1.74
== END ==
LOC: SKLAB7 08:00
PROVIDERS: ATTEND Family Medicine
DX: Z79.01 Long term (current) use of anticoagulants (principal)

== ENCOUNTER → 2017-01-15 | Outpatient (REF) ==
[2017-01-15 09:06] LABS: INR 1.85
== END ==
LOC: SKLAB7 07:00
PROVIDERS: ATTEND Family Medicine
DX: Z79.01 Long term (current) use of anticoagulants (principal)

== ENCOUNTER → 2017-01-19 | Outpatient (REF) ==
[2017-01-19 15:23] LABS: INR 2.22
== END ==
LOC: SKLAB7 14:18
PROVIDERS: ATTEND Family Medicine
DX: I48.91 Unspecified atrial fibrillation (principal)

== ENCOUNTER → 2017-01-22 | Outpatient (REF) ==
[2017-01-22 08:39] LABS: INR 2.02
== END ==
LOC: SKLAB7 07:00
PROVIDERS: ATTEND Family Medicine
DX: Z79.01 Long term (current) use of anticoagulants (principal)

== ENCOUNTER → 2017-01-26 | Outpatient (REF) ==
[2017-01-26 13:26] LABS: INR 2.4
== END ==
LOC: SKLAB7 12:43
PROVIDERS: ATTEND Family Medicine
DX: Z79.01 Long term (current) use of anticoagulants (principal)

== ENCOUNTER → 2017-01-28 | Outpatient (CLI) | payer MEDICARE, OTHER ==
--- NOTE | 2017-01-28 14:57 | REP ---
Followup pleural effusion. COMPARISON: Multiple, the latest 12/22/2016. There is blunting of the right costo- and cardiophrenic angles with silhouetting out of the diaphragmatic surface of the right lung. Discoid opacities are seen in the left lung base. The central venous catheter is unchanged. Lung carmichael are otherwise unchanged. The osseous structures are unchanged. IMPRESSION: 1. Right-sided pleural effusion, which could obscure concomitant pneumonia or nodule or a mass or atelectasis. Correlate clinically. 2. Discoid atelectasis, left lung base. 3. Other findings, as described above. Signed by Pedro Luis Rader DO 01/28/2017 02:59 P
== END ==
LOC: M SMT 13:49
PROVIDERS: ATTEND Internal Medicine Nephrology
DX: J90 Pleural effusion, not elsewhere classified (principal); J98.11 Atelectasis

== ENCOUNTER → 2017-01-29 | Outpatient (REF) ==
[2017-01-29 10:30] LABS: INR 2.34
== END ==
LOC: SKLAB7 08:22
PROVIDERS: ATTEND Family Medicine
DX: Z79.01 Long term (current) use of anticoagulants (principal)

== ENCOUNTER → 2017-02-02 | Outpatient (REF) ==
[2017-02-01 06:33] LABS: INR 1.99
== END ==
LOC: SKLAB7 08:00
PROVIDERS: ATTEND Family Medicine
DX: Z79.01 Long term (current) use of anticoagulants (principal); I48.91 Unspecified atrial fibrillation

== ENCOUNTER → 2017-02-03 | Outpatient (REF) ==
[2017-02-03 08:40] LABS: MEAN CORPUSCULAR HEMOGLOBIN 35.8 pg (27.0-33.0); MEAN CORPUSCULAR VOLUME 108.7 fl (80.0-96.0); RED CELL DISTRIBUTION WIDTH 13.8 % (11.5-14.5); WHITE BLOOD COUNT 4.9 K/mm3 (4.0-10.0)
[2017-02-03 09:06] LABS: ALBUMIN 3.1 GM/DL (3.2-5.2); ALBUMIN/GLOBULIN RATIO 0.86 (1.00-1.93); BILIRUBIN,TOTAL 0.6 MG/DL (0.2-1.0); CALCIUM LEVEL 8.1 MG/DL (8.8-10.2); GLOMERULAR FILTRATION RATE 7.9 (>35); POTASSIUM SERUM 4.8 MEQ/L (3.5-5.1); TOTAL PROTEIN 6.7 GM/DL (6.4-8.2)
== END ==
LOC: SKLAB7 07:02
PROVIDERS: ATTEND Family Medicine
DX: E11.9 Type 2 diabetes mellitus without complications (principal); D64.9 Anemia, unspecified; E55.9 Vitamin D deficiency, unspecified; E83.51 Hypocalcemia; I10 Essential (primary) hypertension; J44.9 Chronic obstructive pulmonary disease, unspecified; K21.9 Gastro-esophageal reflux disease without esophagitis

== ENCOUNTER → 2017-02-05 | Outpatient (REF) ==
[2017-02-05 09:28] LABS: INR 1.88
== END ==
LOC: SKLAB7 08:00
PROVIDERS: ATTEND Family Medicine
DX: Z79.01 Long term (current) use of anticoagulants (principal)

== ENCOUNTER → 2017-02-12 | Outpatient (REF) ==
[2017-02-12 08:58] LABS: INR 1.78
== END ==
LOC: SKLAB7 10:11
PROVIDERS: ATTEND Family Medicine
DX: I48.91 Unspecified atrial fibrillation (principal)

== ENCOUNTER 2017-03-10 10:19 | Inpatient (IN) | payer MEDICARE ==
[~2017-03-10] VITALS: Ht 167.6 cm; Wt 69.2 kg
[~2017-03-10 10:19] MED LIST changes: +ACET-683 PO; -ACET500T37 PO; -AUGM875T27 PO; +AUGM875T28 PO; -COLA100C3 PO; +COLA100C5 PO; -COUM2.5T11 PO; +COUM2.5T17 PO; -COUM2TAB10 PO; +COUM2TAB22 PO; +LEVA1TAB PO; -LEVA250T PO; +LEVO500T3 PO; -LEVO500T32 PO; +METO1TAB32 PO; -METO25TA74 PO; +METR1TAB66 PO; -METR500T10 PO; -VITA100037 PO; +VITA100067 PO
[2017-03-10] MEDS ORDERED: OXYGEN (10:52)
[2017-03-10 11:30] LABS: ADD MORPHOLOGY? YES; BASO # 0.1 K/mm3 (0.0-0.2); BASO % 1.1 % (0.0-1.0); EOS # 0.1 K/mm3 (0.0-0.50); EOS % 1.5 % (0.0-3.0); LARGE UNSTAINED CELL # 0.2 K/mm3 (0.0-0.4); LARGE UNSTAINED CELL % 2.7 % (0.0-4.0); LYMPH # 1.2 K/mm3 (1.5-4.5); LYMPH % 18.3 % (24.0-44.0); MEAN CORPUSCULAR HEMOGLOBIN 35.9 pg (27.0-33.0); MEAN CORPUSCULAR HGB CONC 33.5 g/dl (32.0-36.5); MEAN CORPUSCULAR VOLUME 107.1 fl (80.0-96.0); MONO # 0.5 K/mm3 (0.0-0.8); NEUTROPHILS # 3.8 K/mm3 (1.8-7.7); NEUTROPHILS % 67.4 % (36.0-66.0); PLATELET COUNT, AUTOMATED 149 k/mm3 (150-450); RED CELL DISTRIBUTION WIDTH 14.9 % (11.5-14.5); WHITE BLOOD COUNT 5.6 K/mm3 (4.0-10.0)
[2017-03-10 11:43] LABS: CALCIUM LEVEL 8.8 MG/DL (8.8-10.2); CREATININE FOR GFR 7.67 MG/DL (0.70-1.30); GLOMERULAR FILTRATION RATE 7.1 (>35)
[2017-03-10 11:54] LABS: INR 1.78
[2017-03-10 12:04] LABS: POTASSIUM SERUM 5.5 MEQ/L (3.5-5.1)
--- NOTE | 2017-03-10 12:18 | REP ---
PORTABLE CHEST, ONE VIEW: HISTORY: Dyspnea. COMPARISON: 01/28/2017. A right pleural effusion is present increased compared to the previous study. Increased density is present in the right lower lobe consistent with atelectasis or infiltrate. Parenchymal density is present in the left lower lobe consistent with atelectasis or scar unchanged compared to the previous study. The heart is normal in size. The pulmonary vasculature is normal in appearance. An Infusaport catheter is present. IMPRESSION: 1. Right pleural effusion increased compared to the previous study. 2. Right lower lobe atelectasis or infiltrate. 3. Left lower lobe atelectasis or scar. Signed by Torrey Boyd MD 03/10/2017 12:40 P
[2017-03-10] MEDS ORDERED: WARF4TAB51 PO (12:52)
[2017-03-10] MEDS ORDERED: WARF-18 PO (12:52)
[2017-03-10] MEDS ORDERED: RENATAB5 PO (12:54)
[2017-03-10] MEDS ORDERED: ONDANSETRON 4MG/2ML VIAL (J2405) IV PRN (14:00)
[2017-03-10] MEDS ORDERED: IPRATROPIUM 0.5MG/ALBUTEROL 2.5MG INH SOL UD 3ML (DUONEB)(J7620) NEB PRN (14:30)
[2017-03-10] MEDS: IPRATROPIUM 0.5MG/ALBUTEROL 2.5MG INH SOL UD 3ML (DUONEB)(J7620) NEB SCH ×2 (15:09→20:00)
[2017-03-10] MEDS ORDERED: HEPARIN 1,000 UNITS/ML 10ML VIAL (FOR RADIOLOGY& DIALYSIS ONLY) IV ONE (16:00)
--- NOTE | 2017-03-10 17:42 | HPEPDOC ---
General Date of Admission Mar 10, 2017 at 13:56 Primary Care Physician: NICO MCCOY M.D. Chief Complaint The patient is a 87-year-old male admitted with a reason for visit of End Stage Renal Disease. History of Present Illness 86-year-old male with a past medical history of end-stage renal disease on hemodialysis Thursday, , and Thursday, coronary artery disease status post stent, vasculopathy status post femoral-popliteal bypass in 2012, abdominal aortic aneurysm, multiple arteriovenous (AV) fistula placements, as well as diastolic congestive heart failure (CHF), ejection fraction of 60%, chronic atrial fibrillation on Coumadin, hypertension, chronic anemia, right sided pleural effusion, chronic obstructive pulmonary disease (COPD) on two liters nasal cannula, benign prostatic hypertrophy (BPH) status post transurethral resection of the prostate (TURP), and gastroesophageal reflux disease (GERD), who presented to the emergency room with the chief complaint of increasing shortness of breath. The patient states that he has been adherent to his dialysis therapy. He states that the shortness of breath began to worsen over the last few weeks. He does note that he does have a chronic right-sided pleural effusion which she most recently had drained back in November 2016. During this time, the patient states that he has had increased weakness and lethargy associated with the increasing shortness of breath. The patient states that he has noticed an increased amount of fluid in his legs, an increased number of pillows to sleep at night. He is scheduled for dialysis today. He denies any complaints of fevers, chills, cough, chest pain, palpitations, abdominal pain, or any nausea/vomiting/diarrhea. In the ER, a chest x-ray revealed a right pleural effusion increased compared to previous study. The patient will be admitted under the hospitalist service, and a consultation will be placed nephrology for dialysis today. Home Medications Scheduled (Thu-Ivett) 1 Tab Tab, 1 TAB PO DAILY, (Reported) Calcium Carbonate (Tums) 500 Mg Chw, 2,000 MG PO AC, (Reported) Cholecalciferol (Vitamin D) 5,000 Unit Tab, 5,000 UNIT PO DAILY, (Reported) Pantoprazole Sodium (Pantoprazole Sodium) 40 Mg Tab, 40 MG PO QPM, (Reported) DINNERTIME Salmeterol/Fluticasone (Advair Hfa 230-21 Mcg/Act) 1 Aer Aer, 2 PUFF INH BID, ( Reported) Warfarin Sod (Warfarin Sodium) 2.5 Mg Tab, 2.5 MG PO QPM, (Reported) 4.5MG TOTAL QPM Warfarin Sod (Warfarin Sodium) 2 Mg Tab, 2 MG PO QPM, (Reported) 4.5MG TOTAL QPM Scheduled PRN Acetaminophen (Tylenol) 325 Mg Tab, 650 MG PO Q4HP PRN for MILD PAIN OR FEVER, ( Reported) Albuterol Sulfate (Ventolin Hfa) 200 Puff/8 Gm Aers, 2 PUFF INH Q4H PRN for SHORTNESS OF BREATH, (Reported) Allergies Coded Allergies: Ibuprofen (Verified Allergy, Unknown, UNKNOWN, 03/10/17) Iodine (Unverified Allergy, Unknown, 05/30/15) Contrast Media (Verified Adverse Reaction, Severe, VEIN SWELLING & EXCRUCIATING PAIN, 11/28/16) Past Medical History Medical History As noted in HPI. Surgical History Bilateral cataract extractions. Transurethral resection of the prostate. Hernia repair. Femoral popliteal bypass of the left side. Abdominal aortic aneurysm repair. AV fistula placement. Cardiac stents. Family History Significant Family History: No pertinent family hx Social History * Smoker: non-smoker Alcohol: Denies Resides in his own home, is able to complete most activities of daily living independently. Review of Symptoms Other systems 10 point review of systems negative unless otherwise specified in HPI. Physical Examination General Exam: Positive: Alert, Cooperative, No Acute Distress ENT Exam: Positive: Atraumatic, Mucous membr. moist/pink Neck Exam: Positive: JVD Chest Exam: Positive: Diminished, Other (crackles noted on auscultation greater on the right side versus left), Negative: Wheezing Heart Exam: Positive: Irregular Rhythm, Normal S1, Normal S2 Abdomen Exam: Positive: Soft, Negative: Tenderness Extremity Exam: Positive: Swelling (1+ pitting edema in lower extremity is bilaterally), Other (left lower extremity noted to be wrapped in surgical dressing, which is clean and dry and intact with no active drainage noted), Negative: Tenderness Vital Signs Vital Signs Date Time Temp Pulse Resp B/P (MAP) Pulse Ox O2 Delivery O2 Flow Rate FiO2 03/10/17 12:19 80 20 98 03/10/17 12:19 164/63 (96) 03/10/17 10:38 98.8 Nasal Cannula 2.0 Laboratory Data Labs 24H Laboratory Tests 2 03/10/17 10:39: White Blood Count 5.6, Red Blood Count 3.72L, Hemoglobin 13.3L, Hematocrit 39.8L , Mean Corpuscular Volume 107.1H, Mean Corpuscular Hemoglobin 35.9H, Mean Corpuscular Hemoglobin Concent 33.5, Red Cell Distribution Width 14.9H, Platelet Count 149L, Neutrophils (%) (Auto) 67.4H, Lymphocytes (%) (Auto) 18.3L , Monocytes (%) (Auto) 9.0H, Eosinophils (%) (Auto) 1.5, Basophils (%) (Auto) 1.1H, Neutrophils # (Auto) 3.8, Lymphocytes # (Auto) 1.2L, Monocytes # (Auto) 0.5, Eosinophils # (Auto) 0.1, Basophils # (Auto) 0.1, Large Unclassified Cells % 2.7, Large Unclassified Cells # 0.2, Platelet Estimate NORMAL, Macrocytosis 2+ , Prothrombin Time 20.8H, Prothromb Time International Ratio 1.78, Activated Partial Thromboplast Time 38.2H, Anion Gap 14, Glomerular Filtration Rate 7.1L, Blood Urea Nitrogen 67H, Creatinine 7.67H, Sodium Level 136, Potassium Level 5.5H, Chloride Level 98, Carbon Dioxide Level 24, Calcium Level 8.8, Total Creatine Kinase 63, Creatine Kinase MB 2.5, Creatine Kinase MB Relative Index 3.96, Troponin I 0.21H 03/10/17 14:58: Total Creatine Kinase 48, Creatine Kinase MB 2.9, Creatine Kinase MB Relative Index 6.04H, Troponin I 0.24H CBC/BMP Laboratory Tests 03/10/17 10:39 Red Blood Count 3.72 L, Mean Corpuscular Volume 107.1 H, Mean Corpuscular Hemoglobin 35.9 H, Mean Corpuscular Hemoglobin Concent 33.5, Red Cell Distribution Width 14.9 H, Neutrophils (%) (Auto) 67.4 H, Lymphocytes (%) (Auto ) 18.3 L, Monocytes (%) (Auto) 9.0 H, Eosinophils (%) (Auto) 1.5, Basophils (%) (Auto) 1.1 H, Neutrophils # (Auto) 3.8, Lymphocytes # (Auto) 1.2 L, Monocytes # (Auto) 0.5, Eosinophils # (Auto) 0.1, Basophils # (Auto) 0.1, Calcium Level 8.8 , Total Creatine Kinase 63 Microbiology Microbiology 03/10/17 Blood Culture, Received Pending 03/10/17 Blood Culture, Received Pending Plan / VTE VTE Prophylaxis Ordered?: Yes Plan Plan Increasing SOB 2/2 Right Sided Pleural Effusion s/p Thoracentesis on previous admission in 11/2016 (Fluid was noted to be transudative, and Cytology was negative for Malignancy) We will order Dialysis for the patient today as per Nephrology If the patient's clinical presentation, and imaging do not improve after Dialysis--the patient will likely need further thoracentesis No need for antibiotics at this time as the patient has been afebrile with a normal WBC End-stage renal disease on hemodialysis Thursday, , and Thursday Patient will receive Dialysis today, Nephro consulted Elevated Troponins Serum Trop noted to be 0.21 Likely 2/2 ESRD on HD EKG with no Acute ST-Changes No c/o of chest pain at this time Will cont to monitor Hx of Coronary artery disease status post stent, vasculopathy status post femoral-popliteal bypass in 2012, abdominal aortic aneurysm On Coumadin, not on Statin?--Will defer to PCP Hx of Diastolic congestive heart failure (CHF), ejection fraction of 60% Volume optimize with Dialysis Chronic atrial fibrillation on Coumadin Rate controlled, Cont Coumadin INR Subtherapeutic--will repeat in the AM Chronic obstructive pulmonary disease (COPD) on two liters nasal cannula, stable Cont current regimen Benign prostatic hypertrophy (BPH) status post transurethral resection of the prostate (TURP) Gastroesophageal reflux disease (GERD) Cont Protonix DVT Prophylaxis Already on Coumadin The patient will be admitted under the service of Dr. Grant, who will begin to follow the patient was 03/11/17 at 7 AM. JUANA LAL MD Mar 10, 2017 17:42
[2017-03-10 18:20] VITALS: BP 130/70
[2017-03-10] MEDS: VITAMIN D 1,000 INTERNATIONAL UNITS TABLET PO SCH (18:43)
[2017-03-10] MEDS: CALCIUM CARBONATE 500 MG CHEW U/D PO SCH (18:44)
[2017-03-10] MEDS: WARFARIN SOD 2 MG TAB PO SCH (18:44)
[2017-03-10] MEDS: WARFARIN SOD 2.5 MG TAB PO SCH (18:44)
--- NOTE | 2017-03-10 19:38 | CR ---
DATE OF CONSULTATION: 03/10/2017 REQUESTING PHYSICIAN: Dr. Vikram Grant CONSULTING PHYSICIAN: Dr. Parr REASON FOR CONSULTATION: Management of fluid overload in this patient with end-stage renal disease and hemodialysis. HISTORY OF THE PRESENT ILLNESS: Mr. Cody Caldwell is an 87-year-old male with a past medical history of end-stage renal disease, on hemodialysis every Thursday, , Thursday. Today is the patient's regular day of dialysis. He has multiple other comorbidities as mentioned below, including diastolic congestive heart failure and a history of right-sided pleural effusion in the past. The patient presented to the emergency room today in the morning because of progressively worsening shortness of breath over the last few weeks. On initial evaluation in the emergency room, the patient got a chest x-ray done, which showed a large right-sided pleural effusion. The patient is being admitted through the emergency room for shortness of breath secondary to fluid overload and large right-sided pleural effusion. Nephrology service was called for help in the management of this patient with end-stage renal disease. PAST MEDICAL HISTORY: The patient has a past medical history of end-stage renal disease, on hemodialysis every Thursday, , Thursday, history of peripheral vascular disease, status post femoral popliteal (fem-pop) bypass in 2012, history of abdominal aortic aneurysm, diastolic congestive heart failure, chronic atrial fibrillation, hypertension, anemia secondary to end-stage renal disease, history of right-sided pleural effusion in the past, chronic obstructive pulmonary disease (COPD), gastroesophageal reflux disease, BPH and coronary artery disease status post stent. PAST SURGICAL HISTORY: The patient has a past surgical history of transurethral resection of prostate, history of hernia repair in the past, history of left-sided fem-pop bypass in 2012, history of abdominal aortic aneurysm repair, history of AV fistula placement, status post cardiac stents and status post left-sided tunneled hemodialysis catheter placement. ALLERGIES: The patient is allergic to IV CONTRAST MEDIA, IBUPROFEN and IODINE. FAMILY HISTORY: No significant family history of end-stage renal disease requiring hemodialysis. SOCIAL HISTORY: The patient lives at home. He is able to perform his activities of daily life. He denies any illicit drug abuse, alcohol abuse or smoking. REVIEW OF SYSTEMS: CONSTITUTIONAL: The patient reports feeling very weak and tired. EYES: He denies any blurry vision or double vision. ENT: He denies any dysphagia, odynophagia or ear discharge. CARDIOVASCULAR: The patient denies any palpitations, but he does report right-sided chest pain. RESPIRATORY: The patient reports mild cough, dyspnea and orthopnea. GASTROINTESTINAL: He denies any nausea, vomiting or diarrhea. GENITOURINARY: He denies any dysuria or hematuria. MUSCULOSKELETAL: The patient reports lower extremity edema but otherwise he denies any muscle aches and pains. CENTRAL NERVOUS SYSTEM: The patient denies any strokes or seizure disorder. PSYCHIATRIC: He denies any depression or anxiety. All other review of systems are negative. PHYSICAL EXAMINATION: GENERAL: The patient is awake, alert, oriented times three, sitting upright in the bed in moderate respiratory distress. VITAL SIGNS: Temperature is 98.8 degrees Fahrenheit, blood pressure is 163/70, pulse is 87, respiratory rate of 18, saturating 96% on nasal cannula at 2 liters. HEAD AND NECK EXAM: Extraocular muscles intact. Pupils equally round and reactive to light. Mucous membranes are moist. Neck is supple. There is mildly elevated jugular venous distention (JVD). CARDIOVASCULAR: S1, S2. Irregularly irregular heart rate. RESPIRATORY: Decreased breath sounds on the right side, decreased vocal resonance on the right side. Mild crepitations on deep inspiration on the left side. ABDOMEN: Soft. Positive bowel sounds. Nontender. No ascites. No organomegaly. EXTREMITIES: No clubbing or cyanosis. Pulses are 2+. He has 1+ edema of the bilateral lower extremities. CENTRAL NERVOUS SYSTEM: No focal neurological deficit. Power is 5/5 in all extremities. SKIN: No rashes or ulcers. PSYCHIATRIC: Normal mood and affect. AV ACCESS: The patient has a left internal jugular (IJ) tunneled hemodialysis catheter. LAB REVIEW: CBC showed a WBC of 5.6, hemoglobin is 13.3, platelets are 149. BMP showed sodium 136, potassium 5.5, chloride 98, bicarbonate 24, BUN 67, creatinine is 7.6. Troponin is 0.21, which ruma to 0.24. IMAGING: Chest x-ray done today in the morning in the emergency room (ER) showed a large right-sided pleural effusion with right lower lobe atelectasis. CURRENT INPATIENT MEDICATIONS: Patient's current inpatient medications were all reviewed by me. He is currently on Tylenol as needed, DuoNebs every 6 hours, TUMS 2 grams by mouth with meals, Zofran as needed, Protonix 40 mg by mouth in the evening, Advair two puffs twice a day, vitamin D 5000 units daily, warfarin 2 mg by mouth daily. ASSESSMENT: An 87-year-old male with past medical history of end-stage renal disease, on hemodialysis every Thursday, , Thursday, admitted this time because of worsening shortness of breath secondary to large right-sided pleural effusion. PLAN: 1. Worsening shortness of breath secondary to large right-sided pleural effusion. Emergency hemodialysis was arranged for this patient. We shall try to do 2.5 to 3 liters of ultrafiltration as tolerated by the patient's blood pressure. If the patient's pleural effusion does not improve after hemodialysis, then the patient would need thoracentesis. 2. End-stage renal disease, on hemodialysis. The patient's regular days of dialysis are Thursday, , Thursday. The patient will be dialyzed according to his regular schedule today. 3. Hyperkalemia. Potassium is 5.5. He will be dialyzed against a 2K bath. Potassium is expected to improve after hemodialysis. 4. Anemia in end-stage renal disease. Hemoglobin is 13.3, which is acceptable in end-stage renal disease. No need of Aranesp administration at this time. 5. Chronic atrial fibrillation. The patient's heart rate is controlled at this time. Continue home dose of Coumadin. International normalized ratio (INR) is 1.7, which is subtherapeutic at this time. The rest of the management is as per primary team. 6. Chronic kidney disease mineral bone disease. Continue TUMS 2 grams by mouth three times a day with meals. 7. Chronic obstructive pulmonary disease (COPD). Continue Advair and nebulizations. Thank you for involving us in the care of this patient. We shall be happy to follow the patient along with you tomorrow morning. Urgent hemodialysis was arranged for ultrafiltration and patient's hyperkalemia. I spent more than 45 minutes in coordinating the care of this patient.
[2017-03-10] MEDS: ADVAIR HFA 230/21MCG INHALER INH SCH (20:31)
[2017-03-10] MEDS: PANTOPRAZOLE 40MG TAB (PROTONIX) PO SCH (20:57)
[2017-03-10 22:00] VITALS: BP 134/60
[2017-03-11] VITALS (7 sets, daily range): BP systolic 118–164; BP diastolic 50–98
[2017-03-11] MEDS: IPRATROPIUM 0.5MG/ALBUTEROL 2.5MG INH SOL UD 3ML (DUONEB)(J7620) NEB SCH ×4 (01:51→20:00)
[2017-03-11] MEDS: VITAMIN D 1,000 INTERNATIONAL UNITS TABLET PO SCH (08:37)
[2017-03-11] MEDS: CALCIUM CARBONATE 500 MG CHEW U/D PO SCH ×3 (08:37→17:15)
[2017-03-11] MEDS: ADVAIR HFA 230/21MCG INHALER INH SCH ×2 (08:53→20:14)
[2017-03-11 09:35] LABS: MEAN CORPUSCULAR HEMOGLOBIN 35.5 pg (27.0-33.0); MEAN CORPUSCULAR HGB CONC 33.4 g/dl (32.0-36.5); MEAN CORPUSCULAR VOLUME 106.2 fl (80.0-96.0); RED CELL DISTRIBUTION WIDTH 14.4 % (11.5-14.5); WHITE BLOOD COUNT 4.7 K/mm3 (4.0-10.0)
[2017-03-11 09:44] LABS: INR 1.93
[2017-03-11 10:03] LABS: FOLATE > 24.0 NG/ML (>5.4); VITAMIN B12 LEVEL 875 PG/ML (247-911)
[2017-03-11 10:06] LABS: ANION GAP 12 MEQ/L (8-16); BLOOD UREA NITROGEN 50 MG/DL (7-18); CALCIUM LEVEL 8.4 MG/DL (8.8-10.2); CARBON DIOXIDE LEVEL 26 MEQ/L (21-32); CHLORIDE LEVEL 97 MEQ/L (98-107); CREATININE FOR GFR 6.37 MG/DL (0.70-1.30); GLOMERULAR FILTRATION RATE 8.8 (>35); GLUCOSE, FASTING 87 MG/DL (83-110); POTASSIUM SERUM 4.9 MEQ/L (3.5-5.1); SODIUM LEVEL 135 MEQ/L (136-145)
--- NOTE | 2017-03-11 12:32 | REP ---
CHEST, TWO VIEWS: HISTORY: Right pleural effusion. COMPARISON: 03/10/2017. A right pleural effusion is present unchanged compared to the previous study. Increased density is present in the right lower lobe consistent with atelectasis or infiltrate. Parenchymal density is present in the left lower lobe consistent with atelectasis or scar. The heart is normal in size. The pulmonary vasculature is normal in appearance. An [id number] catheter is present. IMPRESSION: 1. Right pleural effusion and right lower lobe atelectasis or infiltrate unchanged compared to the previous study. 2. Left lower lobe atelectasis or scar. Signed by Torrey Boyd MD 03/11/2017 12:33 P
--- NOTE | 2017-03-11 14:20 | IPNPDOC ---
Date Seen The patient was seen on 03/11/17. Progress Note SUBJECTIVE: Patient tells me that he is feeling better now after dialysis he denies shortness of breath at the present time OBJECTIVE PHYSICAL EXAMINATION: VITAL SIGNS: Please see below. GENERAL: Frail elderly man sitting in a recliner he does not appear to be in acute distress HEENT: Some mild elevation in CVP moist mucous membranes cranial nerves II through XII grossly intact CARDIOVASCULAR: 1 S2 irregularly irregular. RESPIRATORY: Diminished breath sounds at the right base but otherwise fairly good movement. ABDOMINAL: Bowel sounds present abdomen soft EXTREMITIES: Numerous old AV fistula site scars LABORATORY DATA: Please see below. MICROBIOLOGY: Please see below. IMAGING: Chest x-ray today appears to be unchanged from previous day DVT prophylaxis ordered?: Coumadin ASSESSMENT AND PLAN: This is a 87-year-old man with shortness of breath and right pleural effusion. PROBLEMS: 1. Shortness of breath: Secondary to right-sided pleural effusion and fluid overload when I last saw this patient back in November he did undergo thoracentesis at the time of cytology was negative for malignancy and he did have good relief. I did discuss with nephrology however today although he is feeling better post dialysis is pleural effusion does not appear to be improved. He is currently at his baseline respiratory status and was actually prior to his presentation in the emergency room as well. I place an order for interventional radiology to complete a thoracentesis. The patient did have some mild troponin abnormality I am concerned he may have some anginal symptom contributing to his shortness of breath as well and should likely have an outpatient stress test with his hansard reporter Dr. Michelle 2. End-stage renal disease: Hemodialysis Thursday nephrology's was greatly appreciated 3. Coronary artery disease: Status post stent significant peripheral vascular disease with femoropopliteal bypass and aortic aneurysm repair patient likely not able tolerate beta blockers secondary to his COPD he is on Coumadin is not on a statin will defer to his hansard reporter 4. Diastolic congestive heart failure: Decompensated ejection fraction 60% volume status maintained. Hemodialysis 5. Atrial fibrillation chronic: Patient is on Coumadin becoming therapeutic 6. COPD: The patient is at his baseline 2 L of oxygen titrate sats were 88-92 continue with Advair and duo nebs when necessary and standing 7. Gastric reflux disease: Continue with Protonix 8. 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 mineral bone disease: The patient is on Tums and vitamin D DISPOSITION: We'll continue to monitor this patient closely. VS, I&O, 24H, Fishbone Vital Signs/I&O Vital Signs Date Time Temp Pulse Resp B/P (MAP) Pulse Ox O2 Delivery O2 Flow Rate FiO2 03/11/17 08:30 Nasal Cannula 2.0 03/11/17 06:00 96.9 86 20 130/62 (84) 94 I&O- Last 24 Hours up to 6 AM 03/11/17 06:00 Intake Total 170 ml Output Total 2500 ml Balance -2330 ml Laboratory Data 24H LABS Laboratory Tests 2 03/10/17 14:58: Total Creatine Kinase 48, Creatine Kinase MB 2.9, Creatine Kinase MB Relative Index 6.04H, Troponin I 0.24H 03/11/17 00:11: Total Creatine Kinase 37L, Creatine Kinase MB 2.4, Creatine Kinase MB Relative Index 6.48H, Troponin I 0.20H 03/11/17 09:12: Troponin I 0.15#H, Prothrombin Time 22.1H, Prothromb Time International Ratio 1.93, Anion Gap 12, Glomerular Filtration Rate 8.8L, Blood Urea Nitrogen 50H, Creatinine 6.37H, Sodium Level 135L, Potassium Level 4.9, Chloride Level 97L, Carbon Dioxide Level 26, Calcium Level 8.4L, Vitamin B12 Level 875, Folate > 24.0, Thyroid Stimulating Hormone (TSH) 2.920 CBC/BMP Laboratory Tests 03/11/17 09:12 Red Blood Count 3.61 L, Mean Corpuscular Volume 106.2 H, Mean Corpuscular Hemoglobin 35.5 H, Mean Corpuscular Hemoglobin Concent 33.4, Red Cell Distribution Width 14.4, Calcium Level 8.4 L Microbiology Microbiology 03/10/17 Blood Culture - Preliminary, Resulted No growth after 24 hours . All specim... 03/10/17 Blood Culture - Preliminary, Resulted No growth after 24 hours . All specim... YVETTE DANIELS MD Mar 11, 2017 14:20
--- NOTE | 2017-03-11 16:09 | ECGEPIP ---
Stationary ECG Study [facility] - ED Test Date: 2017-03-10 Pat Name: FILIPE RIVAS Department: Room: [facility] Gender: M [employer] Associate: KASSIDY : [id number] Requested By: David Mares Order Number: [id number] Reading MD: Addis Marlow Measurements Intervals [place] Rate: 83 P: [place]: 0 QRS: -31 QRSD: 100 T: 250 QT: 426 QTc: 501 Interpretive Statements ATRIAL FIBRILLATION MARKED LEFT AXIS DEVIATION INCOMPLETE RIGHT BUNDLE BRANCH BLOCK ST DEVIATION AND MODERATE T-WAVE ABNORMALITY, CONSIDER ANTEROLATERAL ISCHEMIA, MORE PRONOUNCED COMPARED 12/20/16 Electronically Signed On 03-11-2017 16:09:10 EDT by Addis Marlow
--- NOTE | 2017-03-11 16:53 | REP ---
CHEST, TWO VIEWS: Two views of the chest are performed status-post right thoracentesis. There is no pneumothorax. The amount of pleural fluid has decreased with some residual pleural fluid remaining. Left lung is unchanged. Cardiomediastinal silhouette is unchanged. There is a left central venous catheter again noted as well as a right subclavian stent. There are degenerative changes of the spine. IMPRESSION: Decreased amount of right pleural fluid with mild to moderate residual pleural fluid remaining. No pneumothorax. Status-post right thoracentesis. Signed by Antione Rossi MD 03/11/2017 07:49 P
--- NOTE | 2017-03-11 16:55 | REP ---
ULTRASOUND GUIDED RIGHT THORACENTESIS: The procedure was performed under the direct supervision of Dr. Rossi. The risks and benefits of the procedure were explained to the patient and informed consent was obtained. The right pleural effusion was localized using ultrasound guidance. The skin was prepped and draped in a sterile fashion. 1% lidocaine was used as a local anesthetic. An #8-Pashto [id number] catheter was inserted using trocar technique. 1460 mL of reddish colored fluid was withdrawn with a sample sent to the lab for analysis. The patient tolerated the procedure well and there were no immediate complications. Reviewed by ANNA Joe 03/11/2017 04:58 PEdited and Signed by Antione Rossi MD 03/11/2017 07:53 P
[2017-03-11] MEDS: WARFARIN SOD 2.5 MG TAB PO SCH (17:16)
[2017-03-11] MEDS: WARFARIN SOD 2 MG TAB PO SCH (17:16)
[2017-03-11 17:52] LABS: RBC PLEURAL FLUID < 10 (<10mm3 cells/uL); TNC PLEURAL FLUID 366 cells/uL (0-20)
[2017-03-11 17:53] LABS: BF DIFF IF INDICATED? YES (NO)
[2017-03-11 19:54] LABS: CC BF DIFF EXAM CYTOCENTRIFUGE
[2017-03-11] MEDS: PANTOPRAZOLE 40MG TAB (PROTONIX) PO SCH (21:00)
--- NOTE | 2017-03-11 23:25 | IPN ---
DATE OF SERVICE: 03/11/2017 SUBJECTIVE: The patient was seen and examined at the bedside today in the morning. He was sitting and eating his breakfast. His shortness of breath is significantly better. The patient was dialyzed yesterday. 2.5 liters of fluid was removed. The patient is otherwise hemodynamically stable. REVIEW OF SYSTEMS: The patient denies any fevers, chills, rigors, headache, nausea, vomiting or chest pain. He does report mild shortness of breath, but is significantly better than yesterday. He denies any pain in the abdomen, constipation or diarrhea. The rest of review of systems is negative. OBJECTIVE: VITAL SIGNS: Temperature is 96.9 degrees Fahrenheit, blood pressure is 130/62, pulse is 86, respiratory rate of 18, saturating 94% on nasal cannula at 2 liters. Intake and output: Urine output is not recorded. Ultrafiltration was hemodialysis was 2.5 liters yesterday. Weight on the bed scale is 70.5 kg. PHYSICAL EXAMINATION: GENERAL: The patient is awake, alert and oriented times three, sitting on the sofa eating his breakfast in no apparent distress. HEAD AND NECK EXAM: Extraocular muscles intact. Pupils equally round and reactive to light. Mucous membranes are moist. Neck is supple. There is no jugular venous distension (JVD). CARDIOVASCULAR: S1, S2, irregularly irregular heart rate. No murmur, rub and gallop. RESPIRATORY: Decreased breath sounds at the right base. Mild crepitations in the right middle lobe on deep inspiration. ABDOMEN: Soft, positive bowel sounds, nontender, no ascites, no organomegaly. EXTREMITIES: No clubbing or cyanosis. Pulses are 2+. He has trace edema of the bilateral lower extremities. CENTRAL NERVOUS SYSTEM: No focal neurological deficit. Power is 5/5 in all extremities. SKIN: No rashes or ulcers. IV ACCESS: The patient has a left IJ tunnel, hemodialysis catheter. LAB REVIEW: Complete blood count (CBC) showed a white blood count (WBC) 4.7, hemoglobin 12.8, platelets of 137. Basic metabolic panel (BMP) showed sodium 135, potassium 4.9, chloride 97, bicarbonate 26, BUN 50, creatine is 6.3, calcium 8.4, troponin is 0.15. B12 875, folate is more than 24. Thyroid simulating hormone (TSH) is 2.9. PATIENT MEDICATIONS: The patient's medications are all reviewed by me There is no change in the medications today as compared with yesterday. ASSESSMENT: An 87-year-old male with past medical history of end-stage renal disease on hemodialysis every Thursday, , , admitted at this time because of worsening shortness of breath secondary to large right-sided pleural effusion. PLAN: 1. Shortness of breath secondary to large right-sided pleural effusion. The patient was dialyzed yesterday, 2.5 liters of fluid was removed. His shortness of breath was significantly better. I am going to do another chest x-ray PA lateral to look at the amount of fluid and to see if the patient needs any pleural tap. 2. End-stage renal disease on hemodialysis. The patient's regular dialysis days are Thursday, , Thursday. There is no urgent need to do an additional ultrafiltration today. The patient will be dialyzed tomorrow as per his regular schedule. 3. Hyponatremia. Hyponatremia secondary to hypervolemia. Sodium is 135. Sodium will improve with further hemodialysis and ultrafiltration tomorrow as per his schedule. 4. Hyperkalemia. Potassium improved to 4.9 after hemodialysis. Continue low potassium diet. 5. Anemia and end-stage renal disease. Hemoglobin is 12.8, which is acceptable at this time. No need Aranesp administration with hemodialysis. 6. Chronic obstructive pulmonary disease (COPD). Continue Advair and nebulizations as per primary team.
[2017-03-12] MEDS: IPRATROPIUM 0.5MG/ALBUTEROL 2.5MG INH SOL UD 3ML (DUONEB)(J7620) NEB SCH ×4 (01:39→20:00)
[2017-03-12 06:00] VITALS: BP 101/55
[2017-03-12 07:09] LABS: MEAN CORPUSCULAR HEMOGLOBIN 35.4 pg (27.0-33.0); MEAN CORPUSCULAR HGB CONC 32.8 g/dl (32.0-36.5); MEAN CORPUSCULAR VOLUME 107.8 fl (80.0-96.0); RED CELL DISTRIBUTION WIDTH 14.2 % (11.5-14.5); WHITE BLOOD COUNT 14.5 K/mm3 (4.0-10.0)
[2017-03-12 07:19] LABS: CALCIUM LEVEL 8.2 MG/DL (8.8-10.2); CREATININE FOR GFR 7.7 MG/DL (0.70-1.30); GLOMERULAR FILTRATION RATE 7.1 (>35)
[2017-03-12 07:22] LABS: INR 2.46
[2017-03-12 07:24] LABS: POTASSIUM SERUM 5.6 MEQ/L (3.5-5.1)
[2017-03-12] MEDS: ADVAIR HFA 230/21MCG INHALER INH SCH ×2 (07:43→20:44)
[2017-03-12] MEDS: VITAMIN D 1,000 INTERNATIONAL UNITS TABLET PO SCH (08:08)
[2017-03-12] MEDS: CALCIUM CARBONATE 500 MG CHEW U/D PO SCH ×3 (08:09→17:16)
[2017-03-12] MEDS ORDERED: HEPARIN 1,000 UNITS/ML 10ML VIAL (FOR RADIOLOGY& DIALYSIS ONLY) IV ONE (11:15)
--- NOTE | 2017-03-12 11:49 | IPNPDOC ---
Date Seen The patient was seen on 03/12/17. Progress Note SUBJECTIVE: Patient tells me that he is feeling better now he denies shortness of breath at the present time OBJECTIVE PHYSICAL EXAMINATION: VITAL SIGNS: Please see below. GENERAL: Frail elderly man lying flat in bed he does not appear to be in acute distress HEENT: No elevation in CVP moist mucous membranes cranial nerves II through XII grossly intact CARDIOVASCULAR: S 1 S2 irregularly irregular. RESPIRATORY: Improved breath sounds at the right base, fairly good movement. ABDOMINAL: Bowel sounds present abdomen soft EXTREMITIES: Numerous old AV fistula site scars, chronic left lower extremity ulcer dressing clean dry and intact LABORATORY DATA: Please see below. MICROBIOLOGY: Please see below. IMAGING: Chest x-ray today appears to be unchanged from previous day DVT prophylaxis ordered?: Coumadin ASSESSMENT AND PLAN: This is a 87-year-old man with shortness of breath and right pleural effusion. PROBLEMS: 1. Shortness of breath: Secondary to right-sided pleural effusion and fluid overload. Patient is status post ultrafiltration and thoracentesis we'll follow- up his pleural studies previously was negative for malignancy and transudate of in nature. He is at his baseline respiratory status. The patient did have some mild troponin abnormality I am concerned he may have some anginal symptoms contributing to his shortness of breath as well and should likely have an outpatient stress test with his towel hemmer Dr. Michelle. 2. End-stage renal disease: Hemodialysis Thursday nephrology's help is greatly appreciated. He is hyperkalemic today and undergoing hemodialysis 3. Coronary artery disease: Status post stent significant peripheral vascular disease with femoropopliteal bypass and aortic aneurysm repair patient likely not able tolerate beta blockers secondary to his COPD he is on Coumadin is not on a statin will defer to his towel hemmer. Once again the patient should have a outpatient stress test. 4. Diastolic congestive heart failure: Decompensated ejection fraction 60% volume status maintained optimize via Hemodialysis 5. Atrial fibrillation chronic: Patient is on Coumadin he is therapeutic he has not required any rate controlling agents and recent memory 6. COPD: The patient is at his baseline 2 L of oxygen titrate sats were 88-92 continue with Advair and duo nebs when necessary and standing 7. Gastric reflux disease: Continue with Protonix 8. 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 mineral bone disease: The patient is on Tums and vitamin D DISPOSITION: The patient's respiratory status has returned to its baseline however. Physical therapy perspective he is not ready to be discharged home to his previous living environment his caregivers are unavailable to provide 24 7 care to him he may benefit once again from subacute rehabilitation placement as during his last hospitalization. VS, I&O, 24H, Fishbone Vital Signs/I&O Vital Signs Date Time Temp Pulse Resp B/P (MAP) Pulse Ox O2 Delivery O2 Flow Rate FiO2 03/12/17 10:05 Nasal Cannula 2.0 03/12/17 06:00 97.9 100 17 101/55 (57) 92 I&O- Last 24 Hours up to 6 AM 03/12/17 06:00 Intake Total 240 ml Output Total 0 ml Balance 240 ml Laboratory Data 24H LABS Laboratory Tests 2 03/11/17 16:00: Body Fluid pH 7.582, Body Fluid Neutrophils 4, Body Fluid Lymphocytes 61, Body Fluid Eosinophils 3, Body Fluid Monocytes/Macrophages 32, Body Fluid Glucose Source PLEURAL, Body Fluid Glucose 102, Body Fluid Albumin Source PLEURAL, Body Fluid Albumin 2.2, Body Fluid Triglyceride Source PLEURAL, Body Fluid Triglycerides 42, Pleural Fluid Source PLEURAL, Pleural Fluid Color YELLOW, Pleural Fluid Appearance HAZY, Pleural Fluid RBC (Auto) < 10, Pleural Fluid Total Nucleated Cells 366H, Body Source PLEURAL 03/12/17 06:51: Prothrombin Time 26.7H, Prothromb Time International Ratio 2.46, Anion Gap 12, Glomerular Filtration Rate 7.1L, Blood Urea Nitrogen 64H, Creatinine 7.70H, Sodium Level 133L, Potassium Level 5.6H, Chloride Level 100, Carbon Dioxide Level 21, Calcium Level 8.2L CBC/BMP Laboratory Tests 03/12/17 06:51 Red Blood Count 3.71 L, Mean Corpuscular Volume 107.8 H, Mean Corpuscular Hemoglobin 35.4 H, Mean Corpuscular Hemoglobin Concent 32.8, Red Cell Distribution Width 14.2, Calcium Level 8.2 L Microbiology Microbiology 03/10/17 Blood Culture - Preliminary, Resulted No growth after 24 hours . All specim... 03/10/17 Blood Culture - Preliminary, Resulted No growth after 24 hours . All specim... 03/11/17 Gram Stain - Final, Complete 03/11/17 Body Fluid Culture, Received Pending YVETTE DANIELS MD Mar 12, 2017 11:48
[2017-03-12 12:23] LABS: TOTAL PROTEIN, BODY FLUID 4.1 G/DL (NOT ESTABLISHED)
[2017-03-12 14:00] VITALS: BP 100/49
--- NOTE | 2017-03-12 14:44 | REP ---
PORTABLE CHEST: AP portable view of the chest is performed. The very small right pneumothorax is seen. Infiltrate/atelectasis is seen in the right lung base. There is mild right pleural fluid or thickening. The left lung appears unchanged. Cardiomediastinal silhouette appears unchanged. Left central venous catheter and right subclavian stent is again noted. IMPRESSION: Very small right pneumothorax. Signed by Antione Rossi MD 03/12/2017 04:29 P
[2017-03-12] MEDS: WARFARIN SOD 2.5 MG TAB PO SCH (17:16)
[2017-03-12] MEDS: WARFARIN SOD 2 MG TAB PO SCH (17:17)
[2017-03-12] MEDS: PANTOPRAZOLE 40MG TAB (PROTONIX) PO SCH (20:35)
--- NOTE | 2017-03-12 21:17 | IPN ---
DATE: 03/12/2017 SUBJECTIVE: The patient was seen and examined at the bedside today morning, during hemodialysis, patient was tolerating the hemodialysis procedure well. Last 24 hour events were noted. Patient got the right pleural tap done, 1.4 liters of fluid was removed which was sent for cytology and cultures. Patient reports that his shortness of breath is better, however he still reports some cough with phlegm. REVIEW OF SYSTEMS: The patient denies any fevers, chills, rigors, headache, nausea, vomiting, or chest pain. He reports shortness of breath is significantly better after ascitic tap. He does report some productive cough. Patient denies any pain in abdomen, constipation, or diarrhea. The rest of review of systems is negative. OBJECTIVE: VITAL SIGNS: Temperature is 97.4 degrees Fahrenheit, blood pressure is 130/70, pulse is 81, respiratory rate of 18, saturating 90% on nasal cannula at 2 liters. Intake and output: Urine output is not recorded. Weight in the bed scale is 69.1 kg. PHYSICAL EXAMINATION: GENERAL: The patient is awake, alert, oriented times three, laying in bed, in no apparent distress. HEAD and NECK EXAM: Extraocular muscles intact. Pupils equally round and reactive to light. Mucous membranes are dry. Neck is supple. There is no jugular venous distension (JVD). CARDIOVASCULAR: S1, S2, irregularly irregular heart rate. No murmur, rub or gallop. RESPIRATORY: Decreased breath sounds at the right base with mild crepitations on deep inspiration. Chest is clear to auscultation on left side. ABDOMEN: Soft, positive bowel sounds, nontender. No ascites. No organomegaly. EXTREMITIES: No clubbing or cyanosis. Pulses are 2+. He has trace edema of the bilateral lower extremities. CENTRAL NERVOUS SYSTEM (FINANCIAL ASSISTANCE ADVISOR): No focal neurological deficit. Power is 5/5 in all extremities. SKIN: There is decreased skin turgor. IV ACCESS: The patient has a left internal jugular (IJ) tunneled hemodialysis catheter. LABORATORY REVIEW: CBC showed WBC 14.5, hemoglobin 13.1, platelets of 157. INR is 2.4. BMP showed sodium 133, potassium 5.6, chloride 100, bicarbonate 21, BUN 64, creatine is 7.7, calcium 8.2. Microbiology: Pleural fluid gram stain showed many RBCs, few WBCs, no organism. IMAGING: A right-sided thoracentesis was done yesterday, 1.4 liters of reddish-colored fluid was removed. CURRENT MEDICATIONS: The patient's current inpatient medications were reviewed. There is no change in the medications today as compared with yesterday. ASSESSMENT: 87-year-old male with past medical history of end-stage renal disease on hemodialysis every Thursday, , Thursday, admitted at this time because of worsening shortness of breath secondary to large right-sided pleural effusion. PLAN: 1. Shortness of breath secondary to large right-sided pleural effusion. The patient was dialyzed the day before yesterday, 2.5 liters of fluid was removed. Patient got the ascitic tap done yesterday and 1.4 liters of fluid was removed. Patient has dry mucous membranes today. I would not do further ultrafiltration today. I would just remove 500 mL of fluid today. 2. End-stage renal disease on hemodialysis. The patient's regular dialysis days are Thursday, , Thursday. He is being dialyzed according to his regular schedule today. 3. Hyponatremia. Hyponatremia is secondary to hypervolemia. Sodium is expected to improve with hemodialysis, 4. Hyperkalemia. Potassium is 5.6. He is being dialyzed against 1K bath for 1-1/2 hours and 2K bath for two hours. Potassium level is expected to improve after hemodialysis. 5. Anemia in end-stage renal disease. Hemoglobin is 13.1. No need of Aranesp administration at this time. 6. Leukocytosis. Patient's white cell count suddenly bumped up from 4.7 to 14.5, it might be reactive after ascitic tap, however if patient shows any signs of infection, including fever, then he will be started on antibiotics.
[2017-03-12 22:00] VITALS: BP 120/57
[2017-03-13] MEDS: IPRATROPIUM 0.5MG/ALBUTEROL 2.5MG INH SOL UD 3ML (DUONEB)(J7620) NEB SCH ×4 (01:50→20:11)
--- NOTE | 2017-03-13 03:10 | REPUSA ---
CLINICAL HISTORY: Not provided. COMMENTS: Single view of the chest reveals The cardiac silhouette is moderately enlarged.. There is moderate ce ntral pulmonary venous congestion. Left internal jugular central catheter is in good position with it s tip in the superior vena cava. Right subclavian endovascular stents are noted in good position. Min imal bilateral pleural effusions with passive atelectatic airspace disease of the lower lobes. IMPRESSION: Congestive heart failure. Small pleural effusions. Atherosclerosis. Bilateral passive atelectatic airspace disease of the lower lobes. Thank you for your kind referral of this patient.
[2017-03-13 06:00] VITALS: BP 108/42
[2017-03-13 06:53] LABS: INR 3.24
[2017-03-13 07:10] LABS: CALCIUM LEVEL 8.7 MG/DL (8.8-10.2); CREATININE FOR GFR 4.49 MG/DL (0.70-1.30); GLOMERULAR FILTRATION RATE 13.2 (>35); POTASSIUM SERUM 4.6 MEQ/L (3.5-5.1)
[2017-03-13 07:25] LABS: MEAN CORPUSCULAR HEMOGLOBIN 35.5 pg (27.0-33.0); MEAN CORPUSCULAR VOLUME 107.5 fl (80.0-96.0); RED CELL DISTRIBUTION WIDTH 14.7 % (11.5-14.5); WHITE BLOOD COUNT 8.2 K/mm3 (4.0-10.0)
[2017-03-13] MEDS: VITAMIN D 1,000 INTERNATIONAL UNITS TABLET PO SCH (08:53)
[2017-03-13] MEDS: CALCIUM CARBONATE 500 MG CHEW U/D PO SCH ×3 (08:53→17:51)
[2017-03-13] MEDS: ADVAIR HFA 230/21MCG INHALER INH SCH ×2 (09:13→20:34)
--- NOTE | 2017-03-13 12:03 | IPNPDOC ---
Date Seen The patient was seen on 03/13/17. Progress Note SUBJECTIVE: Patient tells me that he feels well and has no complaints OBJECTIVE PHYSICAL EXAMINATION: VITAL SIGNS: Please see below. GENERAL: Frail elderly man sitting in a chair eating breakfast he does not appear to be in acute distress HEENT: Mild elevation in CVP moist mucous membranes cranial nerves II through XII grossly intact CARDIOVASCULAR: S 1 S2 irregularly irregular. RESPIRATORY: Improved breath sounds at the right base, fairly good movement. ABDOMINAL: Bowel sounds present abdomen soft EXTREMITIES: Numerous old AV fistula site scars, chronic left lower extremity ulcer dressing clean dry and intact LABORATORY DATA: Please see below. MICROBIOLOGY: Please see below. IMAGING: Chest x-ray today Congestive heart failure. Small pleural effusions DVT prophylaxis ordered?: Coumadin ASSESSMENT AND PLAN: This is a 87-year-old man with improving shortness of breath and right pleural effusion. PROBLEMS: 1. Shortness of breath: Secondary to right-sided pleural effusion and fluid overload. Patient is status post ultrafiltration and thoracentesis, he is due to receive regular HD today. He is at his baseline respiratory status. The patient did have some mild troponin abnormality I am concerned he may have some anginal symptoms contributing to his shortness of breath as well and should likely have an outpatient stress test with his gravel truck driver Dr. Michelle. Will check a trop today as he has some increased effusions and fluid overload today. 2. End-stage renal disease: Hemodialysis Thursday nephrology's help is greatly appreciated. He is hyperkalemic today and undergoing hemodialysis 3. Coronary artery disease: Status post stent significant peripheral vascular disease with femoropopliteal bypass and aortic aneurysm repair patient likely not able tolerate beta blockers secondary to his COPD he is on Coumadin is not on a statin will defer to his gravel truck driver. Once again the patient should have a outpatient stress test. 4. Diastolic congestive heart failure: Decompensated, ejection fraction 60% volume status maintained optimize via Hemodialysis 5. Atrial fibrillation chronic: Patient is on Coumadin he is therapeutic he has not required any rate controlling agents and recent memory 6. COPD: The patient is at his baseline 2 L of oxygen titrate sats were 88-92 continue with Advair and duo nebs when necessary and standing 7. Gastric reflux disease: Continue with Protonix 8. 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 mineral bone disease: The patient is on Tums and vitamin D DISPOSITION: The patient's respiratory status has returned to its baseline however. Physical therapy perspective he is not ready to be discharged home to his previous living environment his caregivers are unavailable to provide 24 7 care to him he may benefit once again from subacute rehabilitation placement as during his last hospitalization. VS, I&O, 24H, Fishbone Vital Signs/I&O Vital Signs Date Time Temp Pulse Resp B/P (MAP) Pulse Ox O2 Delivery O2 Flow Rate FiO2 03/13/17 09:00 Nasal Cannula 2.0 03/13/17 06:00 98.3 91 18 108/42 (63) 96 I&O- Last 24 Hours up to 6 AM 03/13/17 05:59 Intake Total 700 ml Output Total 500 ml Balance 200 ml Laboratory Data 24H LABS Laboratory Tests 2 03/13/17 06:27: Prothrombin Time 33.1H, Prothromb Time International Ratio 3.24, Anion Gap 9, Glomerular Filtration Rate 13.2L, Blood Urea Nitrogen 26#H, Creatinine 4.49H, Sodium Level 135L, Potassium Level 4.6, Chloride Level 100, Carbon Dioxide Level 26, Calcium Level 8.7L CBC/BMP Laboratory Tests 03/13/17 06:27 Red Blood Count 3.34 L, Mean Corpuscular Volume 107.5 H, Mean Corpuscular Hemoglobin 35.5 H, Mean Corpuscular Hemoglobin Concent 33.0, Red Cell Distribution Width 14.7 H, Calcium Level 8.7 L Microbiology Microbiology 03/10/17 Blood Culture - Preliminary, Resulted No Growth after 48 hours. All Specime... 03/10/17 Blood Culture - Preliminary, Resulted No Growth after 48 hours. All Specime... 03/11/17 Gram Stain - Final, Complete 03/11/17 Body Fluid Culture - Final, Complete YVETTE DANIELS MD Mar 13, 2017 12:03
[2017-03-13] MEDS: WARFARIN SOD 2 MG TAB PO SCH (12:39)
[2017-03-13] MEDS: WARFARIN SOD 2.5 MG TAB PO SCH (12:39)
[2017-03-13 14:00] VITALS: BP 102/50
[2017-03-13] MEDS: PANTOPRAZOLE 40MG TAB (PROTONIX) PO SCH (20:57)
[2017-03-13 22:00] VITALS: BP 134/56
--- NOTE | 2017-03-13 22:24 | IPN ---
DATE: 03/13/2017 SUBJECTIVE: The patient was seen and examined at the bedside today morning. He was actually sitting on the sofa and getting ready to have his breakfast done. The patient is asymptomatic at this time. He tolerated the hemodialysis procedure well, however, the patient was clinically dry yesterday, only 500 mL of ultrafiltration was done. The patient was seen by physical therapy and the recommendation is to send him to rehabilitation. REVIEW OF SYSTEMS: The patient denies any fever or chills, rigors, headache, nausea, vomiting, chest pain. He reports his shortness of breath is better after dialysis and pleural tap. He denies any pain in abdomen, constipation or diarrhea. The rest of review of system is negative. OBJECTIVE: Vital signs: Temperature is 98.3 degrees Fahrenheit. Blood pressure is 108/42, pulse is 91, respiratory rate of 18, saturating 96% on nasal cannula at 3 liters. Intake and output: Urine output is not recorded. Ultrafiltration with hemodialysis was 500 mL yesterday. Weight in the bed scale is 70.1 kg. PHYSICAL EXAMINATION: GENERAL: The patient is awake, alert and oriented times three. Sitting on the sofa. No apparent distress. HEAD/NECK: Extraocular muscles intact. Pupils equally round and reactive to light. Neck is supple. There is no jugular venous distention (JVD). CARDIOVASCULAR: S1, S2, irregularly irregular heart rate. There is no murmur, rub or gallop. Decreased breath sounds at the right base with mild crepitations. Left lung is clear to auscultation. ABDOMEN: Soft. Positive bowel sounds. Nontender. No ascites. No organomegaly. EXTREMITIES: No clubbing or cyanosis. Pulses are 2+. CENTRAL NERVOUS SYSTEM: No focal neurological deficit. Power is 5/5 in all extremities. DIALYSIS ACCESS: The patient has a left IJ tunneled hemodialysis catheter. LABORATORY REVIEW: CBC showed a WBC 8.2, hemoglobin 11.9, platelets of 165. BMP shows sodium 135, potassium 4.6, chloride 100, bicarbonate is 26. BUN 26, creatinine 4.4. Microbiology: Culture of the peritoneal tap is negative so far. CURRENT INPATIENT MEDICATIONS: The patient's medications are all reviewed by me. There is no change in the medications today as compared with yesterday ASSESSMENT: 87-year-old male with past medical history of end-stage renal disease, on hemodialysis every Thursday, , Thursday admitted this time because of worsening shortness of breath secondary to large right-sided pleural effusion. PLAN: 1. Shortness of breath secondary to large right-sided pleural effusion. Pleural fluid was tapped. 1.4 liter of fluid was removed. The patient got dialysis yesterday and a further 500 mL of fluid was removed. The patient is asymptomatic at this time. His shortness of breath is significantly better. 2. End-stage renal disease. On hemodialysis. The patient's regular dialysis days are Thursday, , Thursday. Next hemodialysis session will be tomorrow as per his regular schedule. 3. Hyponatremia. The patient's sodium is stable at 135. Hyponatremia was secondary to hypovolemia. Sodium will further improve with hemodialysis and ultrafiltration. 4. Leukocytosis. It was most likely reactive in nature. The patient is not on antibiotics. White cell count is improved to 8.2 now.
[2017-03-14] VITALS (7 sets, daily range): BP systolic 95–148; BP diastolic 42–78
[2017-03-14] MEDS ORDERED: TEMAZEPAM 7.5 MG CAP PO ONE
[2017-03-14] MEDS: IPRATROPIUM 0.5MG/ALBUTEROL 2.5MG INH SOL UD 3ML (DUONEB)(J7620) NEB SCH ×5 (02:39→19:47)
[2017-03-14] MEDS: VITAMIN D 1,000 INTERNATIONAL UNITS TABLET PO SCH (05:28)
[2017-03-14] MEDS: CALCIUM CARBONATE 500 MG CHEW U/D PO SCH ×3 (05:29→17:19)
[2017-03-14 05:44] LABS: MEAN CORPUSCULAR HEMOGLOBIN 36.3 pg (27.0-33.0); MEAN CORPUSCULAR HGB CONC 33.6 g/dl (32.0-36.5); MEAN CORPUSCULAR VOLUME 107.9 fl (80.0-96.0); RED CELL DISTRIBUTION WIDTH 14.8 % (11.5-14.5); WHITE BLOOD COUNT 7.9 K/mm3 (4.0-10.0)
[2017-03-14 05:48] LABS: INR 3.05
[2017-03-14 05:58] LABS: CALCIUM LEVEL 8.9 MG/DL (8.8-10.2); CREATININE FOR GFR 6.12 MG/DL (0.70-1.30); GLOMERULAR FILTRATION RATE 9.3 (>35)
[2017-03-14 06:06] LABS: POTASSIUM SERUM 5.2 MEQ/L (3.5-5.1)
[2017-03-14] MEDS: ADVAIR HFA 230/21MCG INHALER INH SCH ×2 (07:49→20:57)
[2017-03-14] MEDS ORDERED: QUEtiapine FUMARATE 25 MG TAB PO ONE (11:00)
[2017-03-14] MEDS ORDERED: HEPARIN 1,000 UNITS/ML 10ML VIAL (FOR RADIOLOGY& DIALYSIS ONLY) IV ONE (11:00)
--- NOTE | 2017-03-14 13:11 | IPNPDOC ---
Date Seen The patient was seen on 03/14/17. Progress Note Overnight events: The patient was reportedly confused at night once again required a sitter he did receive temazepam this morning he is more sleepy SUBJECTIVE: Patient tells me that he has no complaints and that he is breathing well OBJECTIVE PHYSICAL EXAMINATION: VITAL SIGNS: Please see below. GENERAL: Frail elderly man laying in bed, he appears sleepy but he does not appear to be in acute distress HEENT: Mild elevation in CVP moist mucous membranes cranial nerves II through XII grossly intact CARDIOVASCULAR: S 1 S2 irregularly irregular. RESPIRATORY: Improved breath sounds at the right base, fairly good movement. ABDOMINAL: Bowel sounds present abdomen soft EXTREMITIES: Numerous old AV fistula site scars, chronic left lower extremity ulcer dressing clean dry and intact LABORATORY DATA: Please see below. MICROBIOLOGY: Please see below. IMAGING: Chest x-ray today Congestive heart failure. Small pleural effusions DVT prophylaxis ordered?: Coumadin ASSESSMENT AND PLAN: This is a 87-year-old man with improving shortness of breath and right pleural effusion. PROBLEMS: 1. Shortness of breath: Secondary to right-sided pleural effusion and fluid overload. Patient is status post ultrafiltration and thoracentesis, he is due to receive regular HD today. He is at his baseline respiratory status. The patient did have some mild troponin abnormality I am concerned he may have some anginal symptoms contributing to his shortness of breath as well and should likely have an outpatient stress test with his carbon paper interleafer Dr. Michelle. 2. End-stage renal disease: Hemodialysis Thursday nephrology's help is greatly appreciated. He is hyperkalemic today and undergoing hemodialysis 3. Coronary artery disease: Status post stent significant peripheral vascular disease with femoropopliteal bypass and aortic aneurysm repair patient likely not able tolerate beta blockers secondary to his COPD he is on Coumadin is not on a statin will defer to his carbon paper interleafer. Once again the patient should have a outpatient stress test. 4. Diastolic congestive heart failure: Decompensated, ejection fraction 60% volume status maintained optimize via Hemodialysis 5. Atrial fibrillation chronic: Patient is on Coumadin he is therapeutic he has not required any rate controlling agents and recent memory 6. COPD: The patient is at his baseline 2 L of oxygen titrate sats were 88-92 continue with Advair and duo nebs when necessary and standing 7. Gastric reflux disease: Continue with Protonix 8. 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 mineral bone disease: The patient is on Tums and vitamin D DISPOSITION: The patient's respiratory status has returned to its baseline however. Physical therapy perspective he is not ready to be discharged home to his previous living environment his caregivers are unavailable to provide 24 7 care to him he may benefit once again from subacute rehabilitation placement as during his last hospitalization. The patient does appear to be having some sundowning in the evening I have provided him with some cervical when necessary we'll monitor his QTC VS, I&O, 24H, Fishbone Vital Signs/I&O Vital Signs Date Time Temp Pulse Resp B/P (MAP) Pulse Ox O2 Delivery O2 Flow Rate FiO2 03/14/17 06:00 96.5 87 20 132/61 (84) 95 Nasal Cannula 3.0 I&O- Last 24 Hours up to 6 AM 03/14/17 05:59 Intake Total 360 ml Output Total 0 ml Balance 360 ml Laboratory Data 24H LABS Laboratory Tests 2 03/14/17 05:18: Prothrombin Time 31.6H, Prothromb Time International Ratio 3.05, Anion Gap 10, Glomerular Filtration Rate 9.3L, Blood Urea Nitrogen 42#H, Creatinine 6.12H, Sodium Level 135L, Potassium Level 5.2H, Chloride Level 100, Carbon Dioxide Level 25, Calcium Level 8.9 CBC/BMP Laboratory Tests 03/14/17 05:18 Red Blood Count 3.41 L, Mean Corpuscular Volume 107.9 H, Mean Corpuscular Hemoglobin 36.3 H, Mean Corpuscular Hemoglobin Concent 33.6, Red Cell Distribution Width 14.8 H, Calcium Level 8.9 Microbiology Microbiology 03/10/17 Blood Culture - Preliminary, Resulted No Growth after 72 hours. All specime... 03/10/17 Blood Culture - Preliminary, Resulted No Growth after 72 hours. All specime... 03/11/17 Gram Stain - Final, Complete 03/11/17 Body Fluid Culture - Final, Complete YVETTE DANIELS MD Mar 14, 2017 13:11
[2017-03-14 14:09] LABS: ABG BASE EXCESS -1.2 (-2.0-2.0); ABG HCO3 25.8 MEQ/L (22.0-26.0); ABG PARTIAL PRESSURE CO2 53.3 mmHg (35.0-45.0); ABG STANDARD HCO3 22.7 MEQ/L (22.0-26.0); ABG TOTAL CO2 27.5 MEQ/L (23.0-31.0); ABG pH (ARTERIAL) 7.303 UNITS (7.350-7.450)
[2017-03-14 14:12] LABS: ABG PARTIAL PRESSURE O2 34.1 mmHg (75.0-100.0)
[2017-03-14] MEDS: WARFARIN SOD 2 MG TAB PO SCH (17:00)
[2017-03-14] MEDS: WARFARIN SOD 2.5 MG TAB PO SCH (17:00)
--- NOTE | 2017-03-14 17:22 | IPN ---
DATE: 03/14/2017 Mr. Caldwell is seen this morning on his bedside during hemodialysis. He was admitted with shortness of breath and was noticed to have a large pleural effusion on the right side, which has been drained. This morning he is quite restless during dialysis. He is able to answer simple questions. He has no fever or chills and denies any nausea or vomiting. He remains on oxygen via nasal cannula. PHYSICAL EXAMINATION: Temperature 96.5 degrees Fahrenheit, heart rate 88 per minute, respiratory rate 20 per minute, blood pressure 132/60 mm of mercury, and oxygen saturation 95% on 3 liters oxygen. His head is atraumatic. Ears, nose, and throat are unremarkable. Neck is supple and without jugular venous distention (JVD) or thyroid enlargement. Pupils are equal and reactive to light, and sclerae are anicteric. Dialysis catheter on left upper chest is intact. Heart sounds are irregular in rhythm. Lungs with bilateral scattered rhonchi. Abdomen soft with minimal tenderness bilaterally. Bowel sounds are present. Extremities have no cyanosis or clubbing. Skin has no rash or ulcers. Neurologically, he is awake and moving all limbs. He is able to answer simple questions. Today's labs show WBC count 7.9, hemoglobin 12.4, and hematocrit 36.8. Sodium 135, potassium 5.2, BUN 42, and creatinine 6.12. PROBLEMS 1. End-stage renal disease. The patient is being dialyzed today. He is quite restless during dialysis, and blood pressure was low earlier; however, it has improved after we cut down the ultrafiltration goal. At present, we will continue to monitor closely. 2. Shortness of breath, congestive heart failure, and pleural effusion. His repeat chest x-ray showed small bilateral pleural effusions. Clinically, he does not look in congestive heart failure, though chest x-ray reported to have some element of congestive heart failure (CHF). At present we are trying to remove about 1.5 liters fluid as tolerated. His blood pressure is low, so we are not able to remove fluid too aggressively. 3. Hyperkalemia. This is mild and will be corrected with hemodialysis. The patient is being dialyzed with 2.0 mEq potassium bath. 4. Anemia. His anemia is mild and does not need any intervention. 5. Nutrition. The patient has history of for nutrition. We will encourage for increased protein intake and add 1 can of Nepro daily.
[2017-03-14] MEDS: PANTOPRAZOLE 40MG TAB (PROTONIX) PO SCH (21:00)
[2017-03-15] VITALS: BP 110/62
[2017-03-15] MEDS: IPRATROPIUM 0.5MG/ALBUTEROL 2.5MG INH SOL UD 3ML (DUONEB)(J7620) NEB SCH ×4 (02:00→19:47)
[2017-03-15 04:00] VITALS: BP 106/54
[2017-03-15 04:43] LABS: MEAN CORPUSCULAR HEMOGLOBIN 35.4 pg (27.0-33.0); MEAN CORPUSCULAR HGB CONC 32.9 g/dl (32.0-36.5); MEAN CORPUSCULAR VOLUME 107.5 fl (80.0-96.0); RED CELL DISTRIBUTION WIDTH 14.8 % (11.5-14.5); WHITE BLOOD COUNT 5.6 K/mm3 (4.0-10.0)
[2017-03-15 04:49] LABS: INR 3.05
[2017-03-15 04:56] LABS: CALCIUM LEVEL 8.5 MG/DL (8.8-10.2); CREATININE FOR GFR 4.57 MG/DL (0.70-1.30); POTASSIUM SERUM 4.2 MEQ/L (3.5-5.1)
[2017-03-15] MEDS: CALCIUM CARBONATE 500 MG CHEW U/D PO SCH ×3 (07:30→17:30)
--- NOTE | 2017-03-15 07:55 | REP ---
Portable chest x-ray: Single view. History: Hypoxia. Comparison chest x-ray March 13, 2017. Findings: There is a tunneled central venous catheter via the left internal jugular vein with its tip in the expected location of the superior vena cava. Vascular stent graft are seen in the right subclavian distribution unchanged. There is blunting of the right lateral pleural angle indicating a small right pleural effusion. Heart size is borderline. No infiltrate is seen in the lung carmichael. There is some coarse linear fibrosis versus discoid atelectasis in the right base which is unchanged from March 13, 2017 film. Impression: No new infiltrate. Right basilar discoid atelectatic changes and blunted right pleural angle again noted unchanged. Signed by Hernan Richardson MD 03/15/2017 08:59 A
[2017-03-15 08:00] VITALS: BP 120/65
[2017-03-15] MEDS: ADVAIR HFA 230/21MCG INHALER INH SCH ×2 (08:05→19:50)
[2017-03-15] MEDS: VITAMIN D 1,000 INTERNATIONAL UNITS TABLET PO SCH (08:27)
--- NOTE | 2017-03-15 08:47 | ECGEPIP ---
Stationary ECG Study [facility] Test Date: 2017-03-14 Pat Name: FILIPE RIVAS Department: Room: [place] [address] Gender: M City Planner: LILLIANA : 1930 Requested By: YVETTE DANIELS Order Number: [id number] Reading MD: Pj Reid Measurements Intervals [place] Rate: 101 P: IA: 0 QRS: -35 QRSD: 103 T: 136 QT: 337 QTc: 438 Interpretive Statements Atrial fibrillation with moderate ventricular response Lead V3 is missing Left anterior fascicular block and incomplete right bundle branch block Nonspecific repolarization abnormalities suggesting LVH No significant change since 03/10/2017 Electronically Signed On 03-15-2017 8:47:26 EDT by Pj Reid
[2017-03-15 10:00] VITALS: BP 141/61
--- NOTE | 2017-03-15 10:51 | IPNPDOC ---
Date Seen The patient was seen on 03/15/17. Progress Note Overnight events: The patient became more lethargic in the afternoon clearing the secretions well he began to become more hypoxic he was combative and argumentative with staff as well as disoriented. The patient did undergo nasotracheal deep suctioning did have improvement in his symptoms however due to significant hypoxia and combativeness he was transferred down to the medical intensive care unit and pulmonary consult was placed Dr. Alonzo with his outpatient die welder SUBJECTIVE: Patient is oriented to person and place but not to time he denies shortness of breath or feeling unwell. OBJECTIVE PHYSICAL EXAMINATION: VITAL SIGNS: Please see below. GENERAL: Frail elderly man lying in bed at a 30 angle he does not provide good coughs, he appears sleepy but he does not appear to be in acute distress HEENT: Mild elevation in CVP moist mucous membranes cranial nerves II through XII grossly intact CARDIOVASCULAR: S 1 S2 irregularly irregular. RESPIRATORY: Improved breath sounds at the right base, fairly good movement. ABDOMINAL: Bowel sounds present abdomen soft EXTREMITIES: Numerous old AV fistula site scars, chronic left lower extremity ulcer dressing clean dry and intact LABORATORY DATA: Please see below. MICROBIOLOGY: Please see below. IMAGING: Chest x-ray Congestive heart failure. Small pleural effusions DVT prophylaxis ordered?: Coumadin ASSESSMENT AND PLAN: This is a 87-year-old man with shortness of breath and right pleural effusion. PROBLEMS: 1. Shortness of breath: Yesterday the patient was not clearing his secretions very well possibly related to temazepam use would avoid benzodiazepines in the future he did improve with deep suctioning he's using it at [place] Dr. Alonzo in pulmonary help is greatly appreciated. At this time he does appear to be significantly improved and as such I will transfer him back to the medical surgical floor. He appears to be at his baseline respiratory status. The patient did have some mild troponin abnormality at admission I am concerned he may have some anginal symptoms contributing to his shortness of breath as well and should likely have an outpatient stress test with his siebel consultant Dr. Michelle. 2. End-stage renal disease: Hemodialysis Thursday nephrology's help is greatly appreciated. 3. Coronary artery disease: Status post stent significant peripheral vascular disease with femoropopliteal bypass and aortic aneurysm repair patient likely not able tolerate beta blockers secondary to his COPD he is on Coumadin is not on a statin will defer to his siebel consultant. Once again the patient should have a outpatient stress test. 4. Diastolic congestive heart failure: Was decompensated appears fairly euvolemic at this time, ejection fraction 60% volume status maintained optimize via Hemodialysis 5. Atrial fibrillation chronic: Patient is on Coumadin he is therapeutic he has not required any rate controlling agents and recent memory 6. COPD: The patient is at his baseline 2 L of oxygen titrate sats were 88-92 continue with Advair and duo nebs when necessary and standing 7. Gastric reflux disease: Continue with Protonix 8. 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 mineral bone disease: The patient is on Tums and vitamin D DISPOSITION: The patient will require at least subacute rehabilitation he is extremely fragile with frequent rehospitalizations I did discuss CODE STATUS with the patient and his daughter he is a full code VS, I&O, 24H, Fishbone Vital Signs/I&O Vital Signs Date Time Temp Pulse Resp B/P (MAP) Pulse Ox O2 Delivery O2 Flow Rate FiO2 03/15/17 10:00 87 20 141/61 (87) 95 Nasal Cannula 3.0 03/15/17 08:00 98.6 I&O- Last 24 Hours up to 6 AM 03/15/17 06:00 Intake Total 120 ml Output Total 1000 ml Balance -880 ml Laboratory Data 24H LABS Laboratory Tests 2 03/14/17 13:52: Blood Gas Bicarbonate Standard 22.7, Arterial Blood pH 7.303L, Arterial Blood Partial Pressure CO2 53.3H, Arterial Blood Partial Pressure O2 34.1*L, Arterial Blood Total CO2 27.5, Arterial Blood HCO3 25.8, Arterial Blood Base Excess -1.2 , Arterial Blood Oxygen Saturation 61.4L 03/14/17 16:52: Bedside Glucose (Misc Panel) 93 03/15/17 04:10: Prothrombin Time 31.6H, Prothromb Time International Ratio 3.05, Anion Gap 8, Glomerular Filtration Rate 13.0L, Blood Urea Nitrogen 26H, Creatinine 4.57H, Sodium Level 138, Potassium Level 4.2, Chloride Level 102, Carbon Dioxide Level 28, Calcium Level 8.5L CBC/BMP Laboratory Tests 03/15/17 04:10 Red Blood Count 3.54 L, Mean Corpuscular Volume 107.5 H, Mean Corpuscular Hemoglobin 35.4 H, Mean Corpuscular Hemoglobin Concent 32.9, Red Cell Distribution Width 14.8 H, Calcium Level 8.5 L Microbiology Microbiology 03/10/17 Blood Culture - Preliminary, Resulted No Growth after 72 hours. All specime... 03/10/17 Blood Culture - Preliminary, Resulted No Growth after 72 hours. All specime... 03/11/17 Gram Stain - Final, Complete 03/11/17 Body Fluid Culture - Final, Complete YVETTE DANIELS MD Mar 15, 2017 10:51
[2017-03-15 14:00] VITALS: BP 128/51
[2017-03-15] MEDS: WARFARIN SOD 2 MG TAB PO SCH (17:00)
[2017-03-15] MEDS: WARFARIN SOD 2.5 MG TAB PO SCH (17:54)
--- NOTE | 2017-03-15 21:10 | IPN ---
DATE:03/15/2017 SUBJECTIVE: Mr. Caldwell is seen this afternoon on his bedside. He has been transferred back to medical floor from intensive care unit (ICU) this morning. He was quite confused and still somewhat confused. He is able to answer questions and was able to tell me correctly that he is in [facility]; however, could not recognize me or tell my name correctly. He is not aware of time at this point. He has been nothing by mouth due to sudden shortness of breath yesterday and altered mentation. He is considered high risk for aspiration. He did have hemodialysis yesterday which he tolerated reasonably well. PHYSICAL EXAMINATION: VITAL SIGNS: Temperature 98.6 degrees Fahrenheit, heart rate 87 per minute and respiratory rate 22 per minute. Blood pressure 141/61 mmHg and oxygen saturation 95% on three liters oxygen. HEENT: Head is atraumatic. Oral mucosa is dry. NECK: Supple and without jugular venous distention (JVD) or thyroid enlargement. Dialysis catheter on left upper chest is intact. CARDIAC: Heart sounds are irregular in rhythm. LUNGS: With diminished breath sounds bilaterally and poor inspiratory effort. ABDOMEN: Soft and nontender and bowel sounds are normal. EXTREMITIES: Have no cyanosis or clubbing. SKIN: Has no rash or ulcers. NEUROLOGIC: He is awake, disoriented and confused. He is not agitated anymore today. LABORATORY DATA: Today's labs show WBC count 5.6, hemoglobin 12.5 and hematocrit 38.1. Platelets 233. Sodium 138 and potassium 4.2. BUN 26 and creatinine 4.57. Calcium level is 8.5. Blood cultures have been negative so far. PROBLEMS: 1. End-stage renal disease. The patient underwent hemodialysis yesterday. We will schedule his next hemodialysis on March 17. At present his volume status is well compensated and electrolytes are within normal range. There is no emergent need for dialysis today. 2. Hyperkalemia and hyponatremia. Electrolytes have corrected with hemodialysis yesterday. The patient is currently nothing by mouth. We will monitor his electrolytes again tomorrow. No intervention is indicated. 3. Altered mentation, probably related to medications or with toxic encephalopathy. I do not feel that there is any uremic encephalopathy at this point as the patient has not missed any dialysis. He does not seem to have any central nervous system infection. We will continue to monitor. 4. Anemia. This has not been an issue and no intervention is indicated. 5. Nutrition. The patient is currently nothing by mouth. I would suggest the possibility of a nasogastric tube placement or a feeding tube placement after discussion with his family. He is high risk for aspiration and worsening respiratory status at this point due to altered mentation.
[2017-03-15 22:00] VITALS: BP 148/67
[2017-03-15] MEDS: PANTOPRAZOLE 40MG TAB (PROTONIX) PO SCH (22:03)
[2017-03-16 06:00] VITALS: BP 138/65
[2017-03-16] MEDS: CALCIUM CARBONATE 500 MG CHEW U/D PO SCH ×3 (07:30→17:26)
[2017-03-16] MEDS: VITAMIN D 1,000 INTERNATIONAL UNITS TABLET PO SCH (07:41)
[2017-03-16] MEDS: IPRATROPIUM 0.5MG/ALBUTEROL 2.5MG INH SOL UD 3ML (DUONEB)(J7620) NEB SCH ×3 (08:00→20:00)
[2017-03-16] MEDS: ADVAIR HFA 230/21MCG INHALER INH SCH ×2 (08:25→21:00)
[2017-03-16 09:00] VITALS: BP 138/65
[2017-03-16] MEDS ORDERED: LevoFLOXacin IV 500 MG in APPROPRIATE DILUENT 1 EA IV SCH (10:00)
--- NOTE | 2017-03-16 10:31 | IPN ---
DATE: 03/16/2017 Mr. Caldwell is seen this morning on his bedside. He remains somewhat confused and disoriented. Apparently, he was agitated and restless at times. He remains nothing by mouth (n.p.o.) due to difficulty swallowing. On physical examination, temperature 97.2 degrees Fahrenheit, heart rate 85 per minute and respiratory rate 20 per minute. Blood pressure 138/65 mmHg and oxygen saturation 92% on 3 liters oxygen. His head is atraumatic. Oral mucosa is dry. Neck is supple and without jugular venous distention (JVD) or thyroid enlargement. Dialysis catheter is intact on left upper chest. Heart sounds are irregular in rhythm. Lungs with diminished breath sounds bilaterally. He has poor inspiratory effort. Abdomen soft and bowel sounds are present. There is no palpable organomegaly. Extremities have no cyanosis or clubbing. He has large areas of ecchymosis on his arms. Neurologically. he remains confused and disoriented. PROBLEMS: 1. End-stage renal disease. The patient was last dialyzed on Thursday. He will be scheduled for next dialysis tomorrow. He has been n.p.o. and volume status is well-compensated. 2. Hyperkalemia. His potassium level did improve with last hemodialysis. His chemistry is still pending from today. His peripheral access is quite difficult and he may have hemolysis as blood was drawn in my presence with great difficulty. 3. Malnutrition. The patient has been n.p.o. for a few days due to shortness of breath and difficulty swallowing. I have discussed with Dr. Grant about need for feeding and discussing with his family. I have also recommended a CT scan of chest to rule out any infiltrates due to aspiration. I would recommend to start him on broad-spectrum antibiotic.
--- NOTE | 2017-03-16 12:05 | REP ---
REASON: Cough, dyspnea, and pyrexia. COMPARISON: 12/20/2016. The lack of intravenous contrast decreases the sensitivity of the exam. There is mediastinal and hilar adenopathy status quo. The tip of the central venous catheter is in the superior vena cava status quo. There is a moderate unchanged right pleural effusion. There is no pericardial effusion. There is on change in appearance of the imaged upper abdomen or images osseous structures. Evaluation of the lung carmichael again show patchy right lower lobe opacities with air bronchograms, but increased from the prior exam. Scattered asymmetric opacities noted throughout both lung carmichael status quo. There is basilar bronchiectasis unchanged. IMPRESSION: 1. Chronic changes as described above including adenopathy and a right pleural effusion. 2. Patchy right lower lobe opacities which have increased from the prior exam possibly secondary to acute pneumonia superimposed upon chronic change. This needs to be correlated clinically with appropriate followup. Signed by Pedro Luis Rader DO 03/16/2017 03:58 P
[2017-03-16 13:21] VITALS: BP 138/65
[2017-03-16 14:49] LABS: CALCIUM LEVEL 8.5 MG/DL (8.8-10.2); CREATININE FOR GFR 7.05 MG/DL (0.70-1.30); GLOMERULAR FILTRATION RATE 7.9 (>35)
[2017-03-16 14:53] LABS: POTASSIUM SERUM 5.3 MEQ/L (3.5-5.1)
--- NOTE | 2017-03-16 15:15 | PHACANCOPD ---
PHARMACY VANCOMYCIN DOSING Pt Demographics Demographics Patient Age:87 , Weight:67.200 , Gender: male Adjusted Body Weight Date: 03/16/17, Adjusted Body Weight: Kg Events Past 24 Hours Events Past 24 Hours: YES: Dialysis, NO: Diuretic Therapy, Change in CrCl, Fever, Elevation in WBC, Pending Diagnostics, Pending Procedures, Other Vancomycin Vancomycin indication: HCAP Vancomycin Target Ranges: 10-20 mcg/ml Vancomycin Load Y/N: Yes Load Dose Date Time Vancomycin Load Dose: 1000MG Date: 03/16 Time: 1600 Vancomycin Dose Date: 03/16/17. Current Vancomycin Dose: [1GM after HD] Intermittent Dosing?: No Labs Labs Item Value Date Time White Blood Count 7.9 K/mm3 03/14/17 0518 White Blood Count 5.6 K/mm3 03/15/17 0410 Creatinine 4.57 MG/DL H 03/15/17 0410 Creatinine 7.05 MG/DL H # 03/16/17 1406 Vital Signs Label Value Date Time Patient Temperature 96.4 degrees F 03/16/17 1321 Temperature Source Core 03/16/17 1321 Micro Microbiology 03/10/17 Blood Culture - Final, Complete NO GROWTH AFTER 5 DAYS 03/10/17 Blood Culture - Final, Complete NO GROWTH AFTER 5 DAYS 03/11/17 Gram Stain - Final, Complete 03/11/17 Body Fluid Culture - Final, Complete Creatinine Clearance Date:03/16/17. Creatinine Clearance: . Assessment and Plan Maintaining Current Dose?: Yes Reason for dose change: No Dose Change Pharmacist Note Pharmacist Note Date: 03/16/17. Pharmacist note: The patient is started empirically on Vancomycin and Zosyn for possible HCAP. Patient has no history of MRSA at [facility], but does have a history of MSSA. He receives hemodialysis on Tuesdays, , and Saturdays. His blood cultures from 03/10 were negative , and his pleural fluid was negative as well. Currently he is afebrile, and his WBC is within normal limits. His most recent chest X-ray shows increased right lower lobe opacities possibly secondary to pneumonia. We gave him 1 gram of Vancomycin today, then will continue him on Vancomycin 1gm after each dialysis session. We will continue to monitor and make adjustments as necessary. CHIKI [facility]BAR [facility] Mar 16, 2017 15:15
[2017-03-16] MEDS ORDERED: VANCOMYCIN HCL 1,000 MG, VIAL MATE ADAPTER 1 EACH in D5W 250 ML IV ONE (16:00)
[2017-03-16] MEDS: CHECK TO SEE IF PATIENT IS RECEIVING DIALYSIS TODAY AND REFER TO THE VANCOMYCIN ORDER XX SCH (16:00)
[2017-03-16] MEDS: PIPERACILLIN/TAZOBACTAM SOD 2.25 GM in D5W MINI-BAG PLUS 50 ML IV SCH ×2 (16:06→23:34)
--- NOTE | 2017-03-16 17:01 | IPNPDOC ---
Date Seen The patient was seen on 03/16/17. Progress Note SUBJECTIVE: Patient is oriented to person but not to place or time. OBJECTIVE PHYSICAL EXAMINATION: VITAL SIGNS: Please see below. GENERAL: Frail elderly man lying in bed at a 30 angle he does not provide good coughs, he appears sleepy but he does not appear to be in acute distress HEENT: Mild elevation in CVP moist mucous membranes cranial nerves II through XII grossly intact CARDIOVASCULAR: S1 S2 irregularly irregular. RESPIRATORY: decreased breath sounds at the right base, fairly good movement otherwise. ABDOMINAL: Bowel sounds present abdomen soft EXTREMITIES: Numerous old AV fistula site scars, chronic left lower extremity ulcer dressing clean dry and intact LABORATORY DATA: Please see below. MICROBIOLOGY: Please see below. IMAGING: Chest x-ray Congestive heart failure. Small pleural effusions DVT prophylaxis ordered?: Coumadin ASSESSMENT AND PLAN: This is a 87-year-old man with shortness of breath and right pleural effusion. PROBLEMS: 1. Shortness of breath: The patient has had difficulty clearing his secretions and recent days and has had worsening confusion which waxes and wanes. I didn't test his orientation examined him on his daughter was bedside she is his healthcare proxy patient is clearly disoriented and unable to make his own medical decisions I did discuss the plan of care with his daughter. At the present time would not feel safe to feed him I did discuss with Dr. Howard will place a swallow eval we have concerned that he may have aspirated may be developing an aspiration pneumonia although he is afebrile not mounting an obvious immune response this is not uncommon in dialysis patients. We will start him on broad-spectrum antibiotics and check a CT of his chest. I did discuss with the patient's healthcare proxy and daughter that should he fail to improve over the next 48 hours we may need to revisit goals of care has been significantly agitated requiring staff members told him down or to cooperate with basic care daughter does not wish to see this continue if it is short- lived we can get him through this next 48 hours and a swallow improves and becomes more oriented that we have asked but if not she may revisit to his full CODE STATUS . The patient did have an equivocal troponin at the time of admission likely demand ischemia I am concerned he may have some anginal symptoms contributing to his shortness of breath as well and should likely have an outpatient stress test with his distribution clerk Dr. Slezka. 2. End-stage renal disease: Hemodialysis Thursday nephrology's help is greatly appreciated. 3. Coronary artery disease: Status post stent significant peripheral vascular disease with femoropopliteal bypass and aortic aneurysm repair patient likely not able tolerate beta blockers secondary to his COPD he is on Coumadin is not on a statin will defer to his distribution clerk. Once again the patient should have a outpatient stress test. 4. Diastolic congestive heart failure: Was decompensated appears fairly euvolemic at this time, ejection fraction 60% volume status maintained optimize via Hemodialysis 5. Atrial fibrillation chronic: Patient is on Coumadin he is therapeutic he has not required any rate controlling agents and recent memory 6. COPD: The patient is at his baseline 2 L of oxygen titrate sats were 88-92 continue with Advair and duo nebs when necessary and standing 7. Gastric reflux disease: Continue with Protonix 8. 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 mineral bone disease: The patient is on Tums and vitamin D DISPOSITION: At the present time the patient's clinical prognosis is guarded VS, I&O, [facility] Vital Signs/I&O Vital Signs Date Time Temp Pulse Resp B/P (MAP) Pulse Ox O2 Delivery O2 Flow Rate FiO2 03/16/17 13:21 96.4 84 18 138/65 89 Nasal Cannula 3.0 I&O- Last 24 Hours up to 6 AM 03/16/17 06:00 Intake Total 0 ml Output Total 0 ml Balance 0 ml Laboratory Data 24H LABS Laboratory Tests 2 03/16/17 14:06: Anion Gap 17H, Glomerular Filtration Rate 7.9L, Blood Urea Nitrogen 51#H, Creatinine 7.05#H, Sodium Level 136, Potassium Level 5.3H, Chloride Level 101, Carbon Dioxide Level 18L, Calcium Level 8.5L CBC/BMP Laboratory Tests 03/16/17 14:06 Calcium Level 8.5 L Microbiology Microbiology 03/10/17 Blood Culture - Final, Complete NO GROWTH AFTER 5 DAYS 03/10/17 Blood Culture - Final, Complete NO GROWTH AFTER 5 DAYS 03/11/17 Gram Stain - Final, Complete 03/11/17 Body Fluid Culture - Final, Complete YVETTE DANIELS MD Mar 16, 2017 17:01
[2017-03-16] MEDS: WARFARIN SOD 2.5 MG TAB PO SCH (17:27)
[2017-03-16] MEDS: WARFARIN SOD 2 MG TAB PO SCH (17:27)
[2017-03-16] MEDS: PANTOPRAZOLE 40MG TAB (PROTONIX) PO SCH (21:00)
[2017-03-16 22:00] VITALS: BP 120/51
[2017-03-16] MEDS: MORPHINE 2 MG/ML 1ML SYRINGE IV PRN (23:35)
[2017-03-17] MEDS: IPRATROPIUM 0.5MG/ALBUTEROL 2.5MG INH SOL UD 3ML (DUONEB)(J7620) NEB SCH ×4 (01:19→19:17)
[2017-03-17 06:00] VITALS: BP 117/66
[2017-03-17] MEDS: NYSTATIN 500,000 U/5 ML SUSP UDC SSP SCH ×5 (06:00→23:14)
[2017-03-17] MEDS: PIPERACILLIN/TAZOBACTAM SOD 2.25 GM in D5W MINI-BAG PLUS 50 ML IV SCH ×3 (06:18→22:46)
[2017-03-17] MEDS: VITAMIN D 1,000 INTERNATIONAL UNITS TABLET PO SCH ×2 (06:19→06:23)
[2017-03-17] MEDS: CALCIUM CARBONATE 500 MG CHEW U/D PO SCH ×4 (06:19→15:57)
[2017-03-17 06:59] LABS: CREATININE FOR GFR 7.95 MG/DL (0.70-1.30); GLOMERULAR FILTRATION RATE 6.8 (>35)
[2017-03-17 07:02] LABS: POTASSIUM SERUM 5.4 MEQ/L (3.5-5.1)
[2017-03-17] MEDS: ADVAIR HFA 230/21MCG INHALER INH SCH ×2 (08:44→19:16)
[2017-03-17 09:43] LABS: MEAN CORPUSCULAR HGB CONC 35.1 g/dl (32.0-36.5); MEAN CORPUSCULAR VOLUME 105.4 fl (80.0-96.0); RED CELL DISTRIBUTION WIDTH 14.8 % (11.5-14.5); WHITE BLOOD COUNT 6.7 K/mm3 (4.0-10.0)
[2017-03-17] MEDS ORDERED: VANCOMYCIN 1000 MG/20 ML VIAL (J3370) As Ordered ONE (12:11)
[2017-03-17] MEDS: VANCOMYCIN HCL 1,000 MG, VIAL MATE ADAPTER 1 EACH in D5W 250 ML IV SCH (12:30)
[2017-03-17] MEDS: CHECK TO SEE IF PATIENT IS RECEIVING DIALYSIS TODAY AND REFER TO THE VANCOMYCIN ORDER XX SCH (12:30)
[2017-03-17] MEDS ORDERED: HEPARIN 1,000 UNITS/ML 10ML VIAL (FOR RADIOLOGY& DIALYSIS ONLY) IV ONE (12:30)
[2017-03-17 14:00] VITALS: BP 128/62
[2017-03-17 15:36] LABS: ABG PARTIAL PRESSURE CO2 43.1 mmHg (35.0-45.0); ABG PARTIAL PRESSURE O2 66.9 mmHg (75.0-100.0); ABG TOTAL CO2 28.2 MEQ/L (23.0-31.0); ABG pH (ARTERIAL) 7.412 UNITS (7.350-7.450)
[2017-03-17 15:37] LABS: ABG BASE EXCESS 1.9 (-2.0-2.0); ABG HCO3 26.8 MEQ/L (22.0-26.0); ABG STANDARD HCO3 26.1 MEQ/L (22.0-26.0)
[2017-03-17] MEDS: WARFARIN SOD 2.5 MG TAB PO SCH (16:34)
[2017-03-17] MEDS: WARFARIN SOD 2 MG TAB PO SCH (16:34)
--- NOTE | 2017-03-17 17:02 | IPNPDOC ---
Subjective Date Seen The patient was seen on 03/17/17. Subjective Chief Complaint/HPI The patient is a 87-year-old male admitted with a reason for visit of End Stage Renal Disease. Events since last encounter no acute events overnight, Denied cp, c/w cough and dypnea, tolerating HR. mild malaise. General: Reports: Fatigue, Malaise, Denies: Chills, Night Sweats Constitutional: Reports: Chills, Denies: Fever Eyes: Denies: Pain, Vision change ENT: Denies: Head Aches Skin: Denies: Rash, Lesions Pulmonary: Reports: Dyspnea, Cough Cardiovascular: Denies: Chest Pain, Palpitations Gastrointestinal: Denies: Nausea, Vomiting, Abdominal Pain Genitourinary: Denies: Dysuria Objective Physical Examination General Exam: Positive: Alert, Cooperative, No Acute Distress ENT Exam: Positive: Atraumatic, Mucous membr. moist/pink Neck Exam: Positive: JVD Chest Exam: Positive: Diminished, Other (crackles noted on auscultation greater on the right side versus left), Negative: Wheezing Heart Exam: Positive: Irregular Rhythm, Normal S1, Normal S2 Abdomen Exam: Positive: Soft, Negative: Tenderness Extremity Exam: Positive: Swelling (1+ pitting edema in lower extremity is bilaterally), Other (left lower extremity noted to be wrapped in surgical dressing, which is clean and dry and intact with no active drainage noted), Negative: Tenderness Assessment /Plan Assessment 86-year-old male with a past medical history of end-stage renal disease on hemodialysis Thursday, , and Thursday, coronary artery disease status post stent, vasculopathy status post femoral-popliteal bypass in 2012, abdominal aortic aneurysm, multiple arteriovenous (AV) fistula placements, as well as diastolic congestive heart failure (CHF), ejection fraction of 60%, chronic atrial fibrillation on Coumadin, hypertension, chronic anemia, right sided pleural effusion, chronic obstructive pulmonary disease (COPD) on two liters nasal cannula, benign prostatic hypertrophy (BPH) status post transurethral resection of the prostate (TURP), and gastroesophageal reflux disease (GERD), a/w aspiration PNA Problems (1) Aspiration pneumonia Problem Text: c/w antibiotics zosyn and vanco f/u culture, aspiration precaution full code d/w daughter re-eval tomorrow with speech and swallow (2) Encephalopathy acute Problem Text: / to infection, supportive care (3) COPD (chronic obstructive pulmonary disease) Problem Text: O2 dependent at baseline 2L, Duoneb, advair (4) GERD (gastroesophageal reflux disease) Problem Text: ppi (5) Diastolic HF (heart failure) Problem Text: was decompensated, HF, currently euvolemic, EF 60%, c/w hd (6) ESRD (end stage renal disease) on dialysis Onset Date: 06/27/2014 Status: Chronic Problem Text: HD as per nephrology (7) Atrial fibrillation Status: Chronic Problem Text: coumadin, f/u INR, not on rate control meds, (8) Diabetes Status: Chronic Problem Text: diet control (9) Anemia Status: Chronic Problem Text: amenia for chronic disease, f/u hh (10) Elevated troponin Problem Text: likely demand ischemia, resolved, outpatient f/u cardiology Dr Michelle Plan/VTE VTE Prophylaxis Ordered?: Yes (on coumadin) Disposition Pending repeat speech and swallow, PT, clinical improvement. dw patient's Daughter, as per Daughter patient wished to be full code last week. if not tolerate diet, potential peg. VS, I&O, 24H, Fishbone Vital Signs/I&O Vital Signs Date Time Temp Pulse Resp B/P (MAP) Pulse Ox O2 Delivery O2 Flow Rate FiO2 03/17/17 14:00 97.7 68 20 128/62 (84) 98 Nasal Cannula 2.0 I&O- Last 24 Hours up to 6 AM 03/17/17 06:00 Intake Total 150 ml Output Total 0 ml Balance 150 ml Laboratory Data 24H LABS Laboratory Tests 2 03/17/17 06:07: Anion Gap 15, Glomerular Filtration Rate 6.8L, Blood Urea Nitrogen 61H, Creatinine 7.95H, Sodium Level 138, Potassium Level 5.4H, Chloride Level 100, Carbon Dioxide Level 23, Calcium Level 8.0L 03/17/17 15:27: Blood Gas Bicarbonate Standard 26.1H, Arterial Blood pH 7.412, Arterial Blood Partial Pressure CO2 43.1, Arterial Blood Partial Pressure O2 66.9L, Arterial Blood Total CO2 28.2, Arterial Blood HCO3 26.8H, Arterial Blood Base Excess 1.9 , Arterial Blood Oxygen Saturation 93.3L CBC/BMP Laboratory Tests 03/17/17 06:07 Calcium Level 8.0 L 03/17/17 08:47 Red Blood Count 3.30 L, Mean Corpuscular Volume 105.4 H, Mean Corpuscular Hemoglobin 37.0 H, Mean Corpuscular Hemoglobin Concent 35.1, Red Cell Distribution Width 14.8 H Microbiology Microbiology 03/10/17 Blood Culture - Final, Complete NO GROWTH AFTER 5 DAYS 03/10/17 Blood Culture - Final, Complete NO GROWTH AFTER 5 DAYS 03/11/17 Gram Stain - Final, Complete 03/11/17 Body Fluid Culture - Final, Complete TAMAR PERDOMO MD Mar 17, 2017 17:02
[2017-03-17] MEDS: PANTOPRAZOLE 40MG TAB (PROTONIX) PO SCH (20:58)
--- NOTE | 2017-03-17 21:17 | IPN ---
DATE: 03/17/2017 Mr. Caldwell is seen on his bedside in hemodialysis this morning. He remains disoriented, confused, and lethargic. Today is his regular dialysis treatment. CT scan of chest was done yesterday, which showed recurrent right pleural effusion and infiltrate. He has been started on antibiotics and has been afebrile. He is currently on vancomycin and Zosyn. PHYSICAL EXAMINATION: His temperature is 97.3 degrees Fahrenheit, heart rate 87 per minute, respiratory rate 18 per minute, blood pressure at present is about 94/60 mm of mercury, and oxygen saturation 90% on 2 liters oxygen. His head is atraumatic. Neck veins are not abnormally distended. Neck is supple and without thyroid enlargement. Oral mucosa is dry. Pupils equal and reactive to light, and sclerae is anicteric. Heart sounds are regular and lungs with moderate bilateral air entry and bilateral scattered rhonchi. Abdomen is soft and nontender and without palpable organomegaly. Bowel sounds are normal. Extremities have no cyanosis or clubbing. Ecchymosis on his upper extremities is noticed. Neurologically, he remains confused and disoriented. Today's labs show WBC count 6.7, hemoglobin 12.2, hematocrit 34.7, platelets 235. Sodium level 138, potassium 5.4, BUN 61, and creatinine 7.95. PROBLEMS: 1. Altered mentation. Most likely this is metabolic encephalopathy related to pulmonary infection. The patient has been started on antibiotics, and we will continue to monitor closely. 2. End-stage renal disease. The patient is being dialyzed today. He is tolerating dialysis reasonably well. He has been nothing by mouth for the last 3 days, so no fluid removal is being attempted. 3. Hyperkalemia. This is related to end-stage renal disease, and it will be corrected with hemodialysis today. 4. Nutrition. The patient is not able to swallow properly due to encephalopathy. His family has not decided about tube feeding as yet. It remains to be seen how his condition improves with antibiotic treatment of possible pneumonia.
[2017-03-17 22:00] VITALS: BP 135/65
[2017-03-18] MEDS: IPRATROPIUM 0.5MG/ALBUTEROL 2.5MG INH SOL UD 3ML (DUONEB)(J7620) NEB SCH ×6 (01:11→20:33)
[2017-03-18 06:00] VITALS: BP 134/64
[2017-03-18] MEDS: NYSTATIN 500,000 U/5 ML SUSP UDC SSP SCH ×3 (06:21→17:16)
[2017-03-18] MEDS: PIPERACILLIN/TAZOBACTAM SOD 2.25 GM in D5W MINI-BAG PLUS 50 ML IV SCH ×3 (06:24→23:19)
[2017-03-18 06:48] LABS: MEAN CORPUSCULAR HEMOGLOBIN 35.5 pg (27.0-33.0); MEAN CORPUSCULAR HGB CONC 33.6 g/dl (32.0-36.5); MEAN CORPUSCULAR VOLUME 105.5 fl (80.0-96.0); RED CELL DISTRIBUTION WIDTH 14.6 % (11.5-14.5); WHITE BLOOD COUNT 7.6 K/mm3 (4.0-10.0)
[2017-03-18 07:07] LABS: CALCIUM LEVEL 8.3 MG/DL (8.8-10.2); CREATININE FOR GFR 4.73 MG/DL (0.70-1.30); GLOMERULAR FILTRATION RATE 12.5 (>35); POTASSIUM SERUM 4.1 MEQ/L (3.5-5.1)
[2017-03-18] MEDS: VITAMIN D 1,000 INTERNATIONAL UNITS TABLET PO SCH (08:04)
[2017-03-18] MEDS: CALCIUM CARBONATE 500 MG CHEW U/D PO SCH ×3 (08:04→17:16)
[2017-03-18 08:39] LABS: INR 5.94
[2017-03-18] MEDS: ADVAIR HFA 230/21MCG INHALER INH SCH ×2 (08:41→20:32)
[2017-03-18] MEDS ORDERED: PHYTONADIONE INJection 5 MG in NS 50 ML IV ONE (10:00)
[2017-03-18] MEDS ORDERED: PHYTONADIONE 10MG/ML INJECTION (J3430) SQ ONE (10:45)
[2017-03-18 14:00] VITALS: BP 138/58
[2017-03-18] MEDS: CHECK TO SEE IF PATIENT IS RECEIVING DIALYSIS TODAY AND REFER TO THE VANCOMYCIN ORDER XX SCH (15:02)
--- NOTE | 2017-03-18 18:33 | IPNPDOC ---
Subjective Date Seen The patient was seen on 03/18/17. Subjective Chief Complaint/HPI The patient is a 87-year-old male admitted with a reason for visit of End Stage Renal Disease. Events since last encounter Mental status much improved. OOB to chair. Respiration improved. Denied cp, abd pain, n/v Constitutional: Denies: Chills, Fever Pulmonary: Reports: Dyspnea, Cough Cardiovascular: Denies: Chest Pain, Palpitations, Orthopnea Gastrointestinal: Denies: Nausea, Vomiting, Abdominal Pain, Diarrhea Objective Physical Examination General Exam: Positive: Alert, Cooperative, No Acute Distress ENT Exam: Positive: Atraumatic, Mucous membr. moist/pink Neck Exam: Positive: JVD Chest Exam: Positive: Rales, Diminished, Other (crackles noted on auscultation greater on the right side versus left), Negative: Wheezing Heart Exam: Positive: Irregular Rhythm, Normal S1, Normal S2 Abdomen Exam: Positive: Soft, Negative: Tenderness Extremity Exam: Positive: Swelling (1+ pitting edema in lower extremity is bilaterally), Other (left lower extremity noted to be wrapped in surgical dressing, which is clean and dry and intact with no active drainage noted), Negative: Tenderness Assessment /Plan Problems (1) Aspiration pneumonia Problem Text: c/w antibiotics zosyn and vanco f/u culture, aspiration precaution full code d/w daughter re-eval with speech and swallow d/w Dr Reynoso given patient has not had any nutrition for 4 days, and given patient mental status much improved, initially advance patient's diet to pureed with nectar thick, speech and swallow rec, NPO , will d/w family about PEG tomorrow (2) Encephalopathy acute Problem Text: 2/2 to infection, supportive care (3) COPD (chronic obstructive pulmonary disease) Problem Text: O2 dependent at baseline 2L, Duoneb, advair (4) GERD (gastroesophageal reflux disease) Problem Text: ppi (5) Diastolic HF (heart failure) Problem Text: was decompensated, HF, currently euvolemic, EF 60%, c/w hd (6) ESRD (end stage renal disease) on dialysis Onset Date: 06/27/2014 Status: Chronic Problem Text: HD as per nephrology (7) Atrial fibrillation Status: Chronic Problem Text: hold coumadin, supratherapeutic INR, not on rate control meds, (8) Diabetes Status: Chronic Problem Text: diet control (9) Anemia Status: Chronic Problem Text: amenia for chronic disease, f/u hh (10) Elevated troponin Problem Text: likely demand ischemia, resolved, outpatient f/u cardiology Dr Michelle (11) Supratherapeutic INR Status: Resolved Problem Text: given vitamin K f/u INR Plan/VTE VTE Prophylaxis Ordered?: Yes (on coumadin, supratherapeutic INR) Disposition clinical improvement, potential peg for tube feeding VS, I&O, 24H, Fishbone Vital Signs/I&O Vital Signs Date Time Temp Pulse Resp B/P (MAP) Pulse Ox O2 Delivery O2 Flow Rate FiO2 03/18/17 14:00 96.9 88 20 138/58 (84) 91 Room Air 03/17/17 22:00 2.0 I&O- Last 24 Hours up to 6 AM 03/18/17 06:00 Intake Total 425 ml Output Total 400 ml Balance 25 ml Laboratory Data 24H LABS Laboratory Tests 2 03/18/17 06:28: Prothrombin Time 52.9H, Prothromb Time International Ratio 5.94*H, Anion Gap 14 , Glomerular Filtration Rate 12.5L, Blood Urea Nitrogen 26#H, Creatinine 4.73H, Sodium Level 136, Potassium Level 4.1#, Chloride Level 98, Carbon Dioxide Level 24, Calcium Level 8.3L, Magnesium Level 2.0, C-Reactive Protein, Quantitative 8.55H CBC/BMP Laboratory Tests 03/18/17 06:28 Red Blood Count 3.67 L, Mean Corpuscular Volume 105.5 H, Mean Corpuscular Hemoglobin 35.5 H, Mean Corpuscular Hemoglobin Concent 33.6, Red Cell Distribution Width 14.6 H, Calcium Level 8.3 L Microbiology Microbiology 03/10/17 Blood Culture - Final, Complete NO GROWTH AFTER 5 DAYS 03/10/17 Blood Culture - Final, Complete NO GROWTH AFTER 5 DAYS 03/11/17 Gram Stain - Final, Complete 03/11/17 Body Fluid Culture - Final, Complete 03/17/17 Gram Stain - Final, Resulted 03/17/17 Sputum Culture, Resulted Pending TAMAR PERDOMO MD Mar 18, 2017 18:33
--- NOTE | 2017-03-18 18:44 | IPN ---
DATE: 03/18/2017 Mr. Caldwell is seen this morning on his bedside. His daughter is present in the room. The patient is currently sitting in the chair. He recently walked into the bathroom and just walked out. He is much more alert today and able to answer questions appropriately. He is currently not using oxygen. He denies any nausea or vomiting and reports not feeling hungry. PHYSICAL EXAMINATION: On physical examination, temperature 97.8 degrees Fahrenheit, heart rate 85 per minute and respiratory rate 20 per minute. Blood pressure 134/64 mmHg and oxygen saturation 90% on room air. Head is atraumatic. Neck is supple and jugular venous distention (JVD) is not elevated. Dialysis catheter is present on left upper chest. Oral mucosa is dry. There is no thrush or ulcers. Heart sounds are somewhat distant and irregular. Lungs with only moderate air entry. He has few basilar crepitations. Abdomen is soft and nontender and without a palpable organomegaly. Bowel sounds are normal. Extremities have no cyanosis or clubbing. Skin has ecchymosis on his upper extremities. LABORATORY DATA: Today's laboratories show WBC count 7.6, hemoglobin 13.0, hematocrit 38.7. INR is 5.94. Sodium 136 and potassium 4.1. BUN 26 and creatinine 4.73. A C-reactive protein is 8.55. PROBLEM: 1. Toxic metabolic encephalopathy. Most likely related to pneumonia. The patient is improving now and much better today compared with yesterday. We will continue with antibiotics. 2. End-stage renal disease. The patient was dialyzed yesterday and will be scheduled for next hemodialysis tomorrow. At present, there is no indication for emergent dialysis today. His volume status is well-compensated. 3. Hyperkalemia. Potassium level has corrected with hemodialysis yesterday. We will recheck his electrolytes tomorrow prior to dialysis. 4. Right-sided pneumonia and pleural effusion. The patient has moderate-sized pleural effusion again with infiltrates. He is currently on IV antibiotics and seems to be improving. 5. Nutrition. The patient has been nothing by mouth for the last five days. He is currently not receiving any IV fluids. I have discussed with Dr. Lehman about nutritional support. The patient will be reevaluated for a swallowing evaluation today and pureed diet could be considered if he passes his evaluation.
[2017-03-18] MEDS: PANTOPRAZOLE 40MG TAB (PROTONIX) PO SCH (20:58)
[2017-03-18 21:15] VITALS: BP 102/48
[2017-03-19] MEDS: NYSTATIN 500,000 U/5 ML SUSP UDC SSP SCH ×5 (00:34→23:07)
[2017-03-19] MEDS: IPRATROPIUM 0.5MG/ALBUTEROL 2.5MG INH SOL UD 3ML (DUONEB)(J7620) NEB SCH ×4 (01:26→19:43)
[2017-03-19 05:30] VITALS: BP 132/54
[2017-03-19] MEDS: PIPERACILLIN/TAZOBACTAM SOD 2.25 GM in D5W MINI-BAG PLUS 50 ML IV SCH ×3 (06:33→23:07)
[2017-03-19] MEDS: CALCIUM CARBONATE 500 MG CHEW U/D PO SCH ×3 (07:30→17:46)
[2017-03-19] MEDS: ADVAIR HFA 230/21MCG INHALER INH SCH ×2 (08:04→19:44)
[2017-03-19] MEDS: VITAMIN D 1,000 INTERNATIONAL UNITS TABLET PO SCH (09:00)
[2017-03-19] MEDS: HEPARIN SOD (PORCINE) 5000 UNITS/ML VIAL SQ SCH ×2 (09:00→21:21)
[2017-03-19 10:30] LABS: MEAN CORPUSCULAR HEMOGLOBIN 35.5 pg (27.0-33.0); MEAN CORPUSCULAR VOLUME 104.3 fl (80.0-96.0); RED CELL DISTRIBUTION WIDTH 14.6 % (11.5-14.5); WHITE BLOOD COUNT 7.3 K/mm3 (4.0-10.0)
[2017-03-19] MEDS ORDERED: HEPARIN 1,000 UNITS/ML 10ML VIAL (FOR RADIOLOGY& DIALYSIS ONLY) IV ONE (10:30)
[2017-03-19 10:40] LABS: INR 1.84
[2017-03-19 11:09] LABS: CALCIUM LEVEL 8.8 MG/DL (8.8-10.2); CREATININE FOR GFR 4.84 MG/DL (0.70-1.30); GLOMERULAR FILTRATION RATE 12.1 (>35); MAGNESIUM LEVEL 2.1 MG/DL (1.8-2.4); POTASSIUM SERUM 3.5 MEQ/L (3.5-5.1)
[2017-03-19 14:15] VITALS: BP 118/40
--- NOTE | 2017-03-19 14:31 | PHACANCOPD ---
PHARMACY VANCOMYCIN DOSING Pt Demographics Demographics Patient Age:87 , Weight:67.300 , Gender: male Adjusted Body Weight Date: 03/16/17, Adjusted Body Weight: Kg Vancomycin Vancomycin indication: HCAP Vancomycin Target Ranges: 10-20 mcg/ml Vancomycin Load Y/N: Yes Load Dose Date Time Vancomycin Load Dose: 1000MG Date: 03/16 Time: 1600 Vancomycin Dose Date: 03/16/17. Current Vancomycin Dose: [1GM after HD] Intermittent Dosing?: No Labs Micro Microbiology 03/10/17 Blood Culture - Final, Complete NO GROWTH AFTER 5 DAYS 03/10/17 Blood Culture - Final, Complete NO GROWTH AFTER 5 DAYS 03/11/17 Gram Stain - Final, Complete 03/11/17 Body Fluid Culture - Final, Complete 03/17/17 Gram Stain - Final, Complete 03/17/17 Sputum Culture - Final, Complete Creatinine Clearance Date:03/16/17. Creatinine Clearance: . Assessment and Plan Maintaining Current Dose?: Yes Reason for dose change: No Dose Change Pharmacist Note Pharmacist Note 03/19/17: Day #4 abx therapy. WBC is WNL, CRP is elevated, and patient is afebrile. Sputum cultures are still pending. A random level has been scheduled for 03/21/17 @ 0500, prior to Thursday's dialysis session. We will continue to monitor and make adjustments as needed. Date: 03/16/17. Pharmacist note: The patient is started empirically on Vancomycin and Zosyn for possible HCAP. Patient has no history of MRSA at [facility], but does have a history of MSSA. He receives hemodialysis on Tuesdays, , and Saturdays. His blood cultures from 03/10 were negative , and his pleural fluid was negative as well. Currently he is afebrile, and his WBC is within normal limits. His most recent chest X-ray shows increased right lower lobe opacities possibly secondary to pneumonia. We gave him 1 gram of Vancomycin today, then will continue him on Vancomycin 1gm after each dialysis session. We will continue to monitor and make adjustments as necessary. [facility] Mar 19, 2017 14:30
[2017-03-19] MEDS: CHECK TO SEE IF PATIENT IS RECEIVING DIALYSIS TODAY AND REFER TO THE VANCOMYCIN ORDER XX SCH (16:00)
[2017-03-19] MEDS: VANCOMYCIN HCL 1,000 MG, VIAL MATE ADAPTER 1 EACH in D5W 250 ML IV SCH (17:24)
[2017-03-19] MEDS: WARFARIN SOD 2 MG TAB PO SCH (17:24)
--- NOTE | 2017-03-19 18:25 | IPNPDOC ---
Subjective Date Seen The patient was seen on 03/19/17. Subjective Chief Complaint/HPI The patient is a 87-year-old male admitted with a reason for visit of End Stage Renal Disease. Events since last encounter No acute events overnight, con't sob, cough, wet upper airway sound, Denied cp/ abd pain/n/v. General: Reports: Malaise Constitutional: Denies: Chills, Fever Pulmonary: Reports: Dyspnea, Cough Cardiovascular: Denies: Chest Pain, Palpitations, Orthopnea Gastrointestinal: Denies: Nausea, Vomiting, Abdominal Pain, Diarrhea Objective Physical Examination General Exam: Positive: Alert, Cooperative, Mild Distress Eye Exam: Positive: PERRLA, EOMI ENT Exam: Positive: Atraumatic, Mucous membr. moist/pink Neck Exam: Positive: JVD Chest Exam: Positive: Rales, Diminished, Other (crackles noted on auscultation greater on the right side versus left), Negative: Wheezing Heart Exam: Positive: Irregular Rhythm, Normal S1, Normal S2 Abdomen Exam: Positive: Soft, Negative: Tenderness Extremity Exam: Positive: Swelling (1+ pitting edema in lower extremity is bilaterally), Other (left lower extremity noted to be wrapped in surgical dressing, which is clean and dry and intact with no active drainage noted), Negative: Tenderness Assessment /Plan Assessment 86-year-old male with a past medical history of end-stage renal disease on hemodialysis Thursday, , and Thursday, coronary artery disease status post stent, vasculopathy status post femoral-popliteal bypass in 2012, abdominal aortic aneurysm, multiple arteriovenous (AV) fistula placements, as well as diastolic congestive heart failure (CHF), ejection fraction of 60%, chronic atrial fibrillation on Coumadin, hypertension, chronic anemia, right sided pleural effusion, chronic obstructive pulmonary disease (COPD) on two liters nasal cannula, benign prostatic hypertrophy (BPH) status post transurethral resection of the prostate (TURP), and gastroesophageal reflux disease (GERD), a/w aspiration PNA Problems (1) Aspiration pneumonia Problem Text: c/w antibiotics zosyn and vanco f/u culture, aspiration precaution re-eval with speech and swallow, rec NPO for aspiration Family Meeting d/w daughters and patient. risk and benefit of peg discussed, Patient refused a trial of NGT feeding or Peg, wanted to start oral feeding aware of risk of aspiration and . family produced MOLST form DNR, MOLST form revised DNR DNI limited medical intervention, no tube feeding, c/w antibiotics, as per family if patient respiration worsen, would consider comfort Measure only diet changed to Pureed Honey thick, aspiration precaution, upright for feeding, family and patient aware of risk of aspiration and , but refused tube feeding. (2) Encephalopathy acute Problem Text: 2/2 to infection, supportive care (3) COPD (chronic obstructive pulmonary disease) Problem Text: O2 dependent at baseline 2L, Duoneb, advair (4) GERD (gastroesophageal reflux disease) Problem Text: ppi (5) Diastolic HF (heart failure) Problem Text: was decompensated, HF, currently euvolemic, EF 60%, c/w hd (6) ESRD (end stage renal disease) on dialysis Onset Date: 06/27/2014 Status: Chronic Problem Text: HD as per nephrology (7) Atrial fibrillation Status: Chronic Problem Text: restarted at lower dose coumadin, f/u INR, not on rate control meds, (8) Diabetes Status: Chronic Problem Text: diet control (9) Anemia Status: Chronic Problem Text: amenia for chronic disease, f/u hh (10) Elevated troponin Problem Text: likely demand ischemia, resolved, outpatient f/u cardiology Dr Michelle (11) Supratherapeutic INR Status: Resolved Problem Text: given vitamin K f/u INR (12) Venous stasis ulcer Problem Text: c/w with Dr Lee pt wound care, rec foarm dressing as per Dr Lee leg elevation Plan/VTE VTE Prophylaxis Ordered?: Yes (on coumadin, ) Disposition Family Meeting d/w daughters and patient. risk and benefit of peg discussed, Patient refused a trial of NGT feeding or Peg, wanted to start oral feeding aware of risk of aspiration and . family produced MOLST form DNR, MOLST form revised DNR DNI limited medical intervention, no tube feeding, c/w antibiotics, as per family if patient respiration worsen, would consider comfort Measure only Advance Care planning 30 min Prognosis guarded VS, I&O, 24H, Fishbone Vital Signs/I&O Vital Signs Date Time Temp Pulse Resp B/P (MAP) Pulse Ox O2 Delivery O2 Flow Rate FiO2 03/19/17 14:15 97.7 58 22 118/40 (66) 96 Room Air 03/17/17 22:00 2.0 I&O- Last 24 Hours up to 6 AM 03/19/17 06:00 Intake Total 220 ml Output Total 0 ml Balance 220 ml Laboratory Data 24H LABS Laboratory Tests 2 03/19/17 09:30: Prothrombin Time 21.3H, Prothromb Time International Ratio 1.84, Anion Gap 11, Glomerular Filtration Rate 12.1L, Blood Urea Nitrogen 26H, Creatinine 4.84H, Sodium Level 139, Potassium Level 3.5, Chloride Level 100, Carbon Dioxide Level 28, Calcium Level 8.8, Magnesium Level 2.1 CBC/BMP Laboratory Tests 03/19/17 09:30 Red Blood Count 3.52 L, Mean Corpuscular Volume 104.3 H, Mean Corpuscular Hemoglobin 35.5 H, Mean Corpuscular Hemoglobin Concent 34.0, Red Cell Distribution Width 14.6 H, Calcium Level 8.8 Microbiology Microbiology 03/10/17 Blood Culture - Final, Complete NO GROWTH AFTER 5 DAYS 03/10/17 Blood Culture - Final, Complete NO GROWTH AFTER 5 DAYS 03/11/17 Gram Stain - Final, Complete 03/11/17 Body Fluid Culture - Final, Complete 03/17/17 Gram Stain - Final, Complete 03/17/17 Sputum Culture - Final, Complete TAMAR PERDOMO MD Mar 19, 2017 18:25
[2017-03-19 20:10] VITALS: BP 121/56
[2017-03-19] MEDS: PANTOPRAZOLE 40MG TAB (PROTONIX) PO SCH (21:21)
--- NOTE | 2017-03-19 21:27 | IPN ---
DATE: 03/19/2017 Mr. Caldwell is seen this morning on his bedside during hemodialysis. He has a sitter on the bedside. He is moaning, but he does answer questions appropriately. He has no fever or chills. He is currently using oxygen via nasal cannula, though earlier his oxygen saturation was 95% on room air. PHYSICAL EXAMINATION: Temperature 96.9 degrees Fahrenheit, heart rate 82 per minute, respiratory rate 22 per minute, blood pressure 132/54 mm of mercury, and oxygen saturation 95% on room air. Head is atraumatic. Oral mucosa is dry. Pupils equal and reactive to light and sclerae anicteric. Neck is supple and without jugular venous distention (JVD) or thyroid enlargement. Heart sounds are irregular in rhythm. Lungs with bilateral rhonchi and diminished breath sounds. Abdomen soft and nontender. Bowel sounds normal. Extremities without any cyanosis or clubbing. Ecchymosis on upper extremities is noted. His labs were drawn in dialysis, and results are still pending. PROBLEMS: 1. Altered mentation. This is most likely toxic metabolic encephalopathy related to possible pneumonia. He seems to be slightly improved but not fully back to his baseline at this time. 2. Pneumonia and right pleural effusion. The patient remains on vancomycin and Zosyn. He did make some improvement initially but seems to be leveled off. We would like to see further improvement in his mentation. Antibiotics will be continued. 3. Nutrition. So far he remains nothing by mouth. Family has not decided for a feeding tube placement as yet. His INR was high yesterday, and a repeat one is pending today. He was treated with vitamin K. 4. End-stage renal disease. The patient is being dialyzed today, and no fluid removal is being attempted due to low blood pressure and being nothing by mouth for last 5 days.
[2017-03-20] MEDS: IPRATROPIUM 0.5MG/ALBUTEROL 2.5MG INH SOL UD 3ML (DUONEB)(J7620) NEB SCH ×4 (02:00→20:20)
[2017-03-20 05:52] LABS: MEAN CORPUSCULAR HEMOGLOBIN 35.9 pg (27.0-33.0); MEAN CORPUSCULAR HGB CONC 33.3 g/dl (32.0-36.5); MEAN CORPUSCULAR VOLUME 107.7 fl (80.0-96.0); RED CELL DISTRIBUTION WIDTH 14.6 % (11.5-14.5); WHITE BLOOD COUNT 8.2 K/mm3 (4.0-10.0)
[2017-03-20 06:00] VITALS: BP 134/63
[2017-03-20 06:00] LABS: INR 1.19
[2017-03-20 06:11] LABS: CREATININE FOR GFR 3.93 MG/DL (0.70-1.30); GLOMERULAR FILTRATION RATE 15.4 (>35); MAGNESIUM LEVEL 2.1 MG/DL (1.8-2.4)
[2017-03-20] MEDS: NYSTATIN 500,000 U/5 ML SUSP UDC SSP SCH ×3 (06:27→17:12)
[2017-03-20] MEDS: PIPERACILLIN/TAZOBACTAM SOD 2.25 GM in D5W MINI-BAG PLUS 50 ML IV SCH ×3 (06:28→22:38)
[2017-03-20] MEDS ORDERED: HEPARIN SOD (PORCINE) 5000 UNITS/ML VIAL SQ SCH (07:30)
[2017-03-20] MEDS: ADVAIR HFA 230/21MCG INHALER INH SCH ×2 (08:09→20:51)
[2017-03-20] MEDS: CALCIUM CARBONATE 500 MG CHEW U/D PO SCH ×3 (08:25→16:29)
[2017-03-20] MEDS: HEPARIN SOD (PORCINE) 5000 UNITS/ML VIAL SQ SCH ×2 (08:26→22:39)
[2017-03-20] MEDS: VITAMIN D 1,000 INTERNATIONAL UNITS TABLET PO SCH (08:26)
[2017-03-20 14:00] VITALS: BP 118/62
--- NOTE | 2017-03-20 15:52 | IPNPDOC ---
Subjective Date Seen The patient was seen on 03/20/17. Subjective Chief Complaint/HPI The patient is a 87-year-old male admitted with a reason for visit of End Stage Renal Disease. Events since last encounter No acute events overnight. Wet upper airway sound persisted. Denied cp, abq pain , n, v. Constitutional: Denies: Chills, Fever ENT: Denies: Head Aches Skin: Denies: Rash, Lesions Pulmonary: Reports: Dyspnea, Cough Cardiovascular: Denies: Chest Pain, Palpitations, Orthopnea Gastrointestinal: Reports: Diarrhea, Denies: Nausea, Vomiting, Abdominal Pain, Constipation Objective Physical Examination General Exam: Positive: Alert, Cooperative, Mild Distress Eye Exam: Positive: PERRLA, EOMI ENT Exam: Positive: Atraumatic, Mucous membr. moist/pink Neck Exam: Positive: JVD Chest Exam: Positive: Rales, Diminished, Other (crackles noted on auscultation greater on the right side versus left), Negative: Wheezing Heart Exam: Positive: Irregular Rhythm, Normal S1, Normal S2 Abdomen Exam: Positive: Soft, Negative: Tenderness Extremity Exam: Positive: Swelling (1+ pitting edema in lower extremity is bilaterally), Other (left lower extremity noted to be wrapped in surgical dressing, which is clean and dry and intact with no active drainage noted), Negative: Tenderness Assessment /Plan Assessment 86-year-old male with a past medical history of end-stage renal disease on hemodialysis Thursday, , and Thursday, coronary artery disease status post stent, vasculopathy status post femoral-popliteal bypass in 2012, abdominal aortic aneurysm, multiple arteriovenous (AV) fistula placements, as well as diastolic congestive heart failure (CHF), ejection fraction of 60%, chronic atrial fibrillation on Coumadin, hypertension, chronic anemia, right sided pleural effusion, chronic obstructive pulmonary disease (COPD) on two liters nasal cannula, benign prostatic hypertrophy (BPH) status post transurethral resection of the prostate (TURP), and gastroesophageal reflux disease (GERD), a/w aspiration PNA Problems (1) Aspiration pneumonia Problem Text: c/w antibiotics zosyn and vanco f/u culture, aspiration precaution re-eval with speech and swallow, rec NPO for aspiration Family Meeting d/w daughters and patient. risk and benefit of peg discussed, Patient refused a trial of NGT feeding or Peg, wanted to start oral feeding aware of risk of aspiration and . family produced MOLST showing DNR, MOLST form revised DNR DNI limited medical intervention, no tube feeding, c/w antibiotics, as per family if patient respiration worsen, would consider comfort Measure only diet changed to Pureed Honey thick, aspiration precaution, upright for feeding, family and patient aware of risk of aspiration and , but refused tube feeding. Repeat CT chest as per Dr Reynoso (2) Encephalopathy acute Problem Text: 2/2 to infection, supportive care (3) COPD (chronic obstructive pulmonary disease) Problem Text: O2 dependent at baseline 2L, Duoneb, advair (4) GERD (gastroesophageal reflux disease) Problem Text: ppi (5) Diastolic HF (heart failure) Problem Text: was decompensated, HF, currently euvolemic, EF 60%, c/w hd (6) ESRD (end stage renal disease) on dialysis Onset Date: 06/27/2014 Status: Chronic Problem Text: HD as per nephrology (7) Atrial fibrillation Status: Chronic Problem Text: restarted at lower dose coumadin, f/u INR, not on rate control meds, (8) Diabetes Status: Chronic Problem Text: diet control (9) Anemia Status: Chronic Problem Text: amenia for chronic disease, f/u hh (10) Elevated troponin Problem Text: likely demand ischemia, resolved, outpatient f/u cardiology Dr Michelle (11) Supratherapeutic INR Status: Resolved Problem Text: given vitamin K f/u INR (12) Venous stasis ulcer Problem Text: c/w with Dr Lee pt wound care, rec foarm dressing as per Dr Lee leg elevation Plan/VTE VTE Prophylaxis Ordered?: Yes (on coumadin, ) Disposition Pendingi clinical improvement, Repeat CT chest, PT VS, I&O, 24H, Fishbone Vital Signs/I&O Vital Signs Date Time Temp Pulse Resp B/P (MAP) Pulse Ox O2 Delivery O2 Flow Rate FiO2 03/20/17 14:00 97.2 88 18 118/62 (80) 94 Nasal Cannula 2.0 I&O- Last 24 Hours up to 6 AM 03/20/17 06:00 Intake Total 190 ml Output Total 0 ml Balance 190 ml Laboratory Data 24H LABS Laboratory Tests 2 03/20/17 05:31: Prothrombin Time 15.2H, Prothromb Time International Ratio 1.19, Anion Gap 11, Glomerular Filtration Rate 15.4L, Blood Urea Nitrogen 15, Creatinine 3.93H, Sodium Level 136, Potassium Level 4.0, Chloride Level 101, Carbon Dioxide Level 24, Calcium Level 9.0, Magnesium Level 2.1, C-Reactive Protein, Quantitative 5.93H CBC/BMP Laboratory Tests 03/20/17 05:31 Red Blood Count 3.72 L, Mean Corpuscular Volume 107.7 H, Mean Corpuscular Hemoglobin 35.9 H, Mean Corpuscular Hemoglobin Concent 33.3, Red Cell Distribution Width 14.6 H, Calcium Level 9.0 Microbiology Microbiology 03/10/17 Blood Culture - Final, Complete NO GROWTH AFTER 5 DAYS 03/10/17 Blood Culture - Final, Complete NO GROWTH AFTER 5 DAYS 03/11/17 Gram Stain - Final, Complete 03/11/17 Body Fluid Culture - Final, Complete 03/20/17 Clostridium difficile (PCR) - Final, Complete 03/17/17 Gram Stain - Final, Complete 03/17/17 Sputum Culture - Final, Complete TAMAR PERDOMO MD Mar 20, 2017 15:52
[2017-03-20] MEDS: CHECK TO SEE IF PATIENT IS RECEIVING DIALYSIS TODAY AND REFER TO THE VANCOMYCIN ORDER XX SCH (16:00)
[2017-03-20] MEDS: WARFARIN SOD 2 MG TAB PO SCH (16:29)
--- NOTE | 2017-03-20 16:42 | REP ---
CT of the chest without IV contrast: Comparison is 03/16/2017. There is a large right pleural effusion that has not significantly changed. There is compression atelectasis of the lung adjacent to the effusion, unchanged. There are no new infiltrates. There are no masses. There is mediastinal adenopathy, unchanged. In the absence of IV contrast the study is insensitive for hilar adenopathy. There is no axillary adenopathy. Thoracic aorta is unremarkable except for calcified atheroma. Cardiac size normal. There is no pericardial effusion. The visualized upper abdominal contents are unremarkable and unchanged. There is marked renal cortical atrophy of the renal upper poles bilaterally. The remainder of the kidneys are not included in the scan. Impression: Persisting large right pleural effusion with compression atelectasis of the adjacent lung. Mediastinal adenopathy, unchanged. Bilateral renal cortical atrophy. Signed by Antione Menon MD 03/20/2017 04:34 P
--- NOTE | 2017-03-20 19:33 | IPN ---
DATE: 03/20/2017 SUBJECTIVE: Mr. Caldwell is seen this morning on his bedside. At the time of my visit he is sitting in the chair and his daughter is trying to feed him puree and nectar-thick food. The patient's family met with Dr. Lehman yesterday and the decision for feeding tube was not accepted by the family. In the meantime, they are trying to feed him and see how he does. He does look much more alert and interactive this morning. He has no fever or chills. He is not using oxygen at present. PHYSICAL EXAMINATION: VITAL SIGNS: Temperature 97.1 degrees Fahrenheit, heart rate 83 per minute and respiratory rate 18 per minute. Blood pressure 134/63 mmHg and oxygen saturation 88% on room air. HEENT: Head is atraumatic. Ears, nose and throat are unremarkable. NECK: Supple and jugular venous distention (JVD) is difficult to be assessed. Hemodialysis catheter in left upper chest and left internal jugular vein is present. CARDIAC: Heart sounds are irregular in rhythm. LUNGS: With only moderate bilateral air entry and scattered rhonchi. ABDOMEN: Soft and nontender. Bowel sounds are normal and there is no palpable organomegaly. EXTREMITIES: Without any cyanosis or clubbing. Ecchymosis on upper extremities is unchanged. LABORATORY DATA: Today's labs show WBC count 8.2, hemoglobin 13.4 and hematocrit 40.1. Platelets 206. Sodium 136 and potassium 4.0. BUN is only 15 and creatinine 3.93. C-reactive protein is down to 5.93. PROBLEMS: 1. End-stage renal disease. The patient was dialyzed yesterday. His next dialysis will be scheduled for March 21. Electrolytes are all within normal range. 2. Hypoxemia. He did have a right pleural effusion and possible infiltrate. He has been on antibiotics and also initially had a thoracentesis done. I will repeat his CT scan of chest to assess the pleural effusion and infiltrate. At present, he remains on Zosyn and vancomycin. 3. Malnutrition and inability to swallow. The patient's family has declined a feeding tube placement. They are trying to feed him today and this remains to be seen how he does. Nutritional status has been poor as he has not been fed for last several days. 4. Chronic anticoagulation. His international normalized ratio (INR) is down to 1.19 as his Coumadin has been on hold. Being managed by hospitalist service.
[2017-03-20 20:40] VITALS: BP 137/54
[2017-03-20] MEDS: PANTOPRAZOLE 40MG TAB (PROTONIX) PO SCH (21:00)
[2017-03-21] MEDS: IPRATROPIUM 0.5MG/ALBUTEROL 2.5MG INH SOL UD 3ML (DUONEB)(J7620) NEB SCH ×4 (01:59→19:02)
[2017-03-21] MEDS: VITAMIN D 1,000 INTERNATIONAL UNITS TABLET PO SCH (05:46)
[2017-03-21] MEDS: NYSTATIN 500,000 U/5 ML SUSP UDC SSP SCH ×5 (05:46→22:40)
[2017-03-21] MEDS: CALCIUM CARBONATE 500 MG CHEW U/D PO SCH ×3 (05:46→17:30)
[2017-03-21 06:32] VITALS: BP 150/64
[2017-03-21 06:37] LABS: MEAN CORPUSCULAR HEMOGLOBIN 35.9 pg (27.0-33.0); MEAN CORPUSCULAR HGB CONC 33.8 g/dl (32.0-36.5); RED CELL DISTRIBUTION WIDTH 15.2 % (11.5-14.5); WHITE BLOOD COUNT 6.4 K/mm3 (4.0-10.0)
[2017-03-21 06:42] LABS: INR 1.21
[2017-03-21] MEDS: PIPERACILLIN/TAZOBACTAM SOD 2.25 GM in D5W MINI-BAG PLUS 50 ML IV SCH ×3 (06:51→22:40)
[2017-03-21 06:56] LABS: CALCIUM LEVEL 8.8 MG/DL (8.8-10.2); CREATININE FOR GFR 5.69 MG/DL (0.70-1.30); GLOMERULAR FILTRATION RATE 10.1 (>35); MAGNESIUM LEVEL 2.3 MG/DL (1.8-2.4); POTASSIUM SERUM 3.7 MEQ/L (3.5-5.1); VANCOMYCIN RANDOM 27.6 UG/ML
[2017-03-21] MEDS: ADVAIR HFA 230/21MCG INHALER INH SCH ×2 (07:50→19:46)
[2017-03-21] MEDS ORDERED: LIDOCAINE 1% SDV 5 ML VIAL SQ ONE (11:30)
[2017-03-21] MEDS ORDERED: HEPARIN 1,000 UNITS/ML 10ML VIAL (FOR RADIOLOGY& DIALYSIS ONLY) XX ONE (11:30)
[2017-03-21] MEDS ORDERED: HEPARIN 1,000 UNITS/ML 10ML VIAL (FOR RADIOLOGY& DIALYSIS ONLY) IV ONE (11:30)
[2017-03-21] MEDS: HEPARIN SOD (PORCINE) 5000 UNITS/ML VIAL SQ SCH ×2 (13:23→21:00)
[2017-03-21 14:00] VITALS: BP 99/48
--- NOTE | 2017-03-21 16:38 | IPNPDOC ---
Subjective Date Seen The patient was seen on 03/21/17. Subjective Chief Complaint/HPI The patient is a 87-year-old male admitted with a reason for visit of End Stage Renal Disease. Events since last encounter no acute events, con't cough, sob. poor po. Denied CP, abd pain, n/v General: Denies: Chills Constitutional: Denies: Chills, Fever Eyes: Denies: Pain, Vision change ENT: Denies: Head Aches Skin: Denies: Rash, Lesions Pulmonary: Reports: Dyspnea, Cough Cardiovascular: Denies: Chest Pain, Palpitations Gastrointestinal: Denies: Nausea, Vomiting, Abdominal Pain, Diarrhea, Constipation Objective Physical Examination General Exam: Positive: Alert, Cooperative, Mild Distress Eye Exam: Positive: PERRLA, EOMI ENT Exam: Positive: Atraumatic, Mucous membr. moist/pink Neck Exam: Positive: JVD Chest Exam: Positive: Rales, Diminished, Other (crackles noted on auscultation greater on the right side versus left), Negative: Wheezing Heart Exam: Positive: Irregular Rhythm, Normal S1, Normal S2 Abdomen Exam: Positive: Soft, Negative: Tenderness Extremity Exam: Positive: Swelling (1+ pitting edema in lower extremity is bilaterally), Other (left lower extremity noted to be wrapped in surgical dressing, which is clean and dry and intact with no active drainage noted), Negative: Tenderness Assessment /Plan Assessment 86-year-old male with a past medical history of end-stage renal disease on hemodialysis Thursday, , and Thursday, coronary artery disease status post stent, vasculopathy status post femoral-popliteal bypass in 2012, abdominal aortic aneurysm, multiple arteriovenous (AV) fistula placements, as well as diastolic congestive heart failure (CHF), ejection fraction of 60%, chronic atrial fibrillation on Coumadin, hypertension, chronic anemia, right sided pleural effusion, chronic obstructive pulmonary disease (COPD) on two liters nasal cannula, benign prostatic hypertrophy (BPH) status post transurethral resection of the prostate (TURP), and gastroesophageal reflux disease (GERD), a/w aspiration PNA Problems (1) Pleural effusion on right Problem Text: D/W Dr Parr given large sized pleural effusion not likely resolve with HD will d/w Dr Ferris regarding Pleurx cath. (2) Aspiration pneumonia Problem Text: c/w antibiotics zosyn and vanco f/u culture, aspiration precaution re-eval with speech and swallow, rec NPO for aspiration Family Meeting d/w daughters and patient. risk and benefit of peg discussed, Patient refused a trial of NGT feeding or Peg, wanted to start oral feeding aware of risk of aspiration and . family produced MOLST showing DNR, MOLST form revised DNR DNI limited medical intervention, no tube feeding, c/w antibiotics, as per family if patient respiration worsen, would consider comfort Measure only diet changed to Pureed Honey thick, aspiration precaution, upright for feeding, family and patient aware of risk of aspiration and , but refused tube feeding. Repeat CT chest as per Dr Reynoso (3) Encephalopathy acute Problem Text: 2/2 to infection, supportive care (4) COPD (chronic obstructive pulmonary disease) Problem Text: O2 dependent at baseline 2L, Duoneb, advair (5) GERD (gastroesophageal reflux disease) Problem Text: ppi (6) Diastolic HF (heart failure) Problem Text: was decompensated, HF, currently euvolemic, EF 60%, c/w hd (7) ESRD (end stage renal disease) on dialysis Onset Date: 06/27/2014 Status: Chronic Problem Text: HD as per nephrology (8) Atrial fibrillation Status: Chronic Problem Text: restarted at lower dose coumadin, f/u INR, not on rate control meds, (9) Diabetes Status: Chronic Problem Text: diet control (10) Anemia Status: Chronic Problem Text: amenia for chronic disease, f/u hh (11) Elevated troponin Problem Text: likely demand ischemia, resolved, outpatient f/u cardiology Dr Michelle (12) Supratherapeutic INR Status: Resolved Problem Text: given vitamin K f/u INR (13) Venous stasis ulcer Problem Text: c/w with Dr Lee pt wound care, rec foarm dressing as per Dr Lee leg elevation Plan/VTE VTE Prophylaxis Ordered?: Yes (on coumadin, ) Disposition Pending d/w with Dr Ferris Regarding Pleurx cath, clinical improvement. VS, I&O, 24H, Fishbone Vital Signs/I&O Vital Signs Date Time Temp Pulse Resp B/P (MAP) Pulse Ox O2 Delivery O2 Flow Rate FiO2 03/21/17 14:00 97.0 87 18 99/48 (65) 94 Nasal Cannula 2.0 I&O- Last 24 Hours up to 6 AM 6/24/17 06:00 Intake Total 130 ml Output Total 0 ml Balance 130 ml Laboratory Data 24H LABS Laboratory Tests 2 03/21/17 06:18: Prothrombin Time 15.4H, Prothromb Time International Ratio 1.21, Anion Gap 11, Glomerular Filtration Rate 10.1L, Blood Urea Nitrogen 23#H, Creatinine 5.69H, Sodium Level 137, Potassium Level 3.7, Chloride Level 101, Carbon Dioxide Level 25, Calcium Level 8.8, Magnesium Level 2.3, C-Reactive Protein, Quantitative 4.72H, Random Vancomycin Level 27.6 CBC/BMP Laboratory Tests 03/21/17 06:18 Red Blood Count 3.60 L, Mean Corpuscular Volume 106.0 H, Mean Corpuscular Hemoglobin 35.9 H, Mean Corpuscular Hemoglobin Concent 33.8, Red Cell Distribution Width 15.2 H, Calcium Level 8.8 Microbiology Microbiology 03/11/17 Gram Stain - Final, Complete 03/11/17 Body Fluid Culture - Final, Complete 03/20/17 Clostridium difficile (PCR) - Final, Complete 03/17/17 Gram Stain - Final, Complete 03/17/17 Sputum Culture - Final, Complete TAMAR PERDOMO MD Mar 21, 2017 16:38
--- NOTE | 2017-03-21 16:57 | IPN ---
DATE: 03/21/2017 SUBJECTIVE: The patient was seen and examined at the bedside today morning during hemodialysis procedure. He was tolerating the hemodialysis procedure well. However, we are not doing any ultrafiltration at this time. REVIEW OF SYSTEMS: The patient denies any fevers, chills, rigors. He denies chest pain, shortness of breath, pain abdomen, constipation, or diarrhea. Rest of review of systems is negative. OBJECTIVE: VITAL SIGNS: Temperature is 96.9 degrees Fahrenheit, blood pressure is 150/64, pulse 87, respiratory rate of 18, saturating 94% on room air. INTAKE AND OUTPUT: The patient's total intake is around 230 mL overnight, and 160 mL for the last two days. Urine output is not recorded. Weight in the bed scale is not available at this time. PHYSICAL EXAMINATION: GENERAL: The patient is awake, alert, and oriented times two, lying in bed getting hemodialysis, in no apparent distress at this time. HEAD/NECK: Extraocular muscles intact. Pupils equal, round, and reactive to light. Mucous membranes are dry. Neck is supple. There is no jugular venous distention (JVD). The patient has a left internal jugular (IJ) tunneled hemodialysis catheter. CARDIOVASCULAR: S1, S2. Irregularly irregular heart rate. RESPIRATORY: Chest is clear to auscultation anteriorly. Otherwise no rales or rhonchi on the bases. ABDOMEN: Soft. Positive bowel sounds. Nontender. No ascites. No organomegaly. EXTREMITIES: No clubbing or cyanosis. The patient has multiple dressings on the arms and legs because of ulcerations and ecchymosis. CENTRAL NERVOUS SYSTEM ([place]EL[place] HAND): No focal deficit. Power is 5/5 in bilateral upper extremities. LABORATORY DATA: CBC showed a WBC of 6.4, hemoglobin 12.9, platelets of 169. BMP shows sodium of 137, potassium 3.7, chloride 101, bicarbonate 25, BUN 23, creatinine 5.6. C-reactive protein 4.7. Random vancomycin level is 27.6 today. MICROBIOLOGY: Stool for C. difficile is negative. IMAGING: A CT chest was done yesterday, which showed a persistent large right pleural effusion with compression atelectasis of the adjacent lung, along with mediastinal adenopathy. CURRENT INPATIENT MEDICATIONS: The patient's medications are all reviewed by me. He continues to be on IV Zosyn. His vancomycin was held because of high levels today. There is no other change in the medications today as compared with yesterday. ASSESSMENT: Mr. Cody Caldwell is an 87-year-old male with medical history of end-stage renal disease on hemodialysis, admitted this time initially because of hypoxemia secondary to large right-sided pleural effusion. Hospital course was complicated by altered mental status, confusion, and possible aspiration pneumonitis. PLAN: 1. End-stage renal disease on hemodialysis: The patient is being dialyzed according to his regular schedule today. We are not removing any fluid because he patient was nothing by mouth because of possible aspiration pneumonitis. 2. Malnutrition and inability to swallow: The patient has been started on puree diet as per primary team. The patient has refused feeding tube placement. 3. Large right-sided pleural effusion. Repeat CT chest showed persistent large right-sided pleural effusion. The patient got the right-sided pleural tap done on 03/11/2017, and 1.4 liters of fluid were removed. Looks like the fluid has reaccumulated at this time. I have discussed this with the primary hospitalist, Dr. Valeria Lehman, to get cardiothoracic (CT) surgery on board to see if the patient would benefit from a tunneled PleurX catheter for intermittent pleural taps for symptomatic relief. Continue empiric Zosyn at this time. Last dose will be on March 23, 2017. Vancomycin has been held because of supratherapeutic levels.
[2017-03-21] MEDS: WARFARIN SOD 2 MG TAB PO SCH (17:29)
[2017-03-21] MEDS: ACETAMINOPHEN TAB 650MG DOSE (2X325MG) PO PRN (17:29)
[2017-03-21] MEDS: PANTOPRAZOLE 40MG TAB (PROTONIX) PO SCH (21:58)
[2017-03-21 22:00] VITALS: BP 90/44
[2017-03-22] VITALS (10 sets, daily range): BP systolic 92–146; BP diastolic 47–60
[2017-03-22] MEDS: IPRATROPIUM 0.5MG/ALBUTEROL 2.5MG INH SOL UD 3ML (DUONEB)(J7620) NEB SCH ×4 (01:37→19:51)
[2017-03-22] MEDS: NYSTATIN 500,000 U/5 ML SUSP UDC SSP SCH ×3 (06:00→18:58)
[2017-03-22] MEDS: PIPERACILLIN/TAZOBACTAM SOD 2.25 GM in D5W MINI-BAG PLUS 50 ML IV SCH ×3 (06:15→23:39)
[2017-03-22 06:22] LABS: MEAN CORPUSCULAR HGB CONC 33.4 g/dl (32.0-36.5); MEAN CORPUSCULAR VOLUME 107.9 fl (80.0-96.0); RED CELL DISTRIBUTION WIDTH 14.7 % (11.5-14.5); WHITE BLOOD COUNT 6.8 K/mm3 (4.0-10.0)
[2017-03-22 06:24] LABS: INR 1.14
[2017-03-22 06:34] LABS: CALCIUM LEVEL 9.2 MG/DL (8.8-10.2); CREATININE FOR GFR 3.98 MG/DL (0.70-1.30); GLOMERULAR FILTRATION RATE 15.2 (>35); MAGNESIUM LEVEL 1.9 MG/DL (1.8-2.4); POTASSIUM SERUM 3.8 MEQ/L (3.5-5.1)
[2017-03-22] MEDS: ADVAIR HFA 230/21MCG INHALER INH SCH ×2 (08:09→19:46)
[2017-03-22] MEDS: CALCIUM CARBONATE 500 MG CHEW U/D PO SCH ×3 (08:38→17:04)
[2017-03-22] MEDS: HEPARIN SOD (PORCINE) 5000 UNITS/ML VIAL SQ SCH ×2 (08:38→20:58)
[2017-03-22] MEDS: VITAMIN D 1,000 INTERNATIONAL UNITS TABLET PO SCH (08:38)
[2017-03-22] MEDS ORDERED: MIDAZOLAM INJ 2 MG/2 ML VIAL (J2250) As Ordered ONE ×2 (09:28→11:39)
[2017-03-22] MEDS ORDERED: FLUMAZENIL 0.5 MG/5 ML VIAL As Ordered ONE (09:28)
[2017-03-22] MEDS ORDERED: LIDOCAINE 1% MDV 20ML VIAL As Ordered ONE ×2 (09:29→11:39)
[2017-03-22] MEDS ORDERED: MIDAZOLAM INJ 2 MG/2 ML VIAL (J2250) IV ONE ×2 (11:50→12:00)
[2017-03-22] MEDS ORDERED: LIDOCAINE 1% MDV 20ML VIAL SC ONE ×2 (11:50)
--- NOTE | 2017-03-22 12:45 | REP ---
AP PORTABLE SEATED CHEST: 03/22/2017 COMPARISON: CT 03/20/2017, portable chest 03/14/2017, 03/13/2017. CLINICAL HISTORY: Pleural effusion. FINDINGS: The left jugular central catheter is again seen with tip in the SVC near the right atrium. There is a wall stent along the course of the right subclavian artery into the SVC. Epicardial fat pad along the left lateral heart border to the chest wall with the CP angles sharply defined. Slight elevation of the right diaphragm with hazy atelectasis and effusion. This is not much changed from the 03/14/2017 exam. Mid and upper lung zones are clear. The aorta is tortuous calcified and unchanged. Airway midline. IMPRESSION: 1. Right base effusion and compressive atelectasis or infiltrate. Not much change from previous study. The left base show no definite effusion has an epicardial fat pad. That lung was clear otherwise. 2. Cardiomegaly without pulmonary edema. There is calcified aortic arch and indwelling left internal jugular dialysis catheter with tip in SVC near the right atrium. Signed by Saurav Larkin MD 03/22/2017 07:37 P
--- NOTE | 2017-03-22 13:14 | IPNPDOC ---
Subjective Date Seen The patient was seen on 03/22/17. Subjective Chief Complaint/HPI The patient is a 87-year-old male admitted with a reason for visit of End Stage Renal Disease. Events since last encounter no acute events overnight. Denied chest pain,n/v. coughing and sob, improved. denied f/c Constitutional: Denies: Chills, Fever Pulmonary: Reports: Dyspnea, Cough Cardiovascular: Denies: Chest Pain, Palpitations, Orthopnea Gastrointestinal: Denies: Nausea, Vomiting, Abdominal Pain, Diarrhea, Constipation Objective Physical Examination General Exam: Positive: Alert, Cooperative, Mild Distress Eye Exam: Positive: PERRLA, EOMI ENT Exam: Positive: Atraumatic, Mucous membr. moist/pink Neck Exam: Positive: JVD Chest Exam: Positive: Rales, Diminished, Other (crackles noted on auscultation greater on the right side versus left), Negative: Wheezing Heart Exam: Positive: Irregular Rhythm, Normal S1, Normal S2 Abdomen Exam: Positive: Soft, Negative: Tenderness Extremity Exam: Positive: Swelling (1+ pitting edema in lower extremity is bilaterally), Other (left lower extremity noted to be wrapped in surgical dressing, which is clean and dry and intact with no active drainage noted), Negative: Tenderness Assessment /Plan Problems (1) Pleural effusion on right Problem Text: D/W Dr Parr given large sized pleural effusion not likely resolve with HD d/w Dr Ferris regarding Pleurx cath. (2) Aspiration pneumonia Problem Text: c/w antibiotics zosyn 04/03, dc vanco f/u culture, aspiration precaution re-eval with speech and swallow, rec NPO for aspiration Family Meeting d/w daughters and patient. risk and benefit of peg discussed, Patient refused a trial of NGT feeding or Peg, wanted to start oral feeding aware of risk of aspiration and . family produced MOLST showing DNR, MOLST form revised DNR DNI limited medical intervention, no tube feeding, c/w antibiotics, as per family if patient respiration worsen, would consider comfort Measure only diet changed to Pureed Honey thick, aspiration precaution, upright for feeding, family and patient aware of risk of aspiration and , but refused tube feeding. Repeat CT chest as per Dr Reynoso (3) Encephalopathy acute Problem Text: 2/2 to infection, supportive care, resolved (4) COPD (chronic obstructive pulmonary disease) Problem Text: O2 dependent at baseline 2L, alyce Mustafa (5) GERD (gastroesophageal reflux disease) Problem Text: ppi (6) Diastolic HF (heart failure) Problem Text: was decompensated, HF, currently euvolemic, EF 60%, c/w hd (7) ESRD (end stage renal disease) on dialysis Onset Date: 06/27/2014 Status: Chronic Problem Text: HD as per nephrology (8) Atrial fibrillation Status: Chronic Problem Text: restarted at lower dose coumadin, f/u INR, not on rate control meds, (9) Diabetes Status: Chronic Problem Text: diet control (10) Anemia Status: Chronic Problem Text: amenia for chronic disease, f/u hh (11) Elevated troponin Problem Text: likely demand ischemia, resolved, outpatient f/u cardiology Dr Michelle (12) Supratherapeutic INR Status: Resolved Problem Text: given vitamin K f/u INR (13) Venous stasis ulcer Problem Text: c/w with Dr Lee pt wound care, rec foarm dressing as per Dr Lee leg elevation Plan/VTE VTE Prophylaxis Ordered?: Yes (on coumadin, heparin Sq until inr therapetic) Disposition likely switch antibiotic to oral Thursday. PT, prognosis guarded VS, I&O, 24H, Fishbone Vital Signs/I&O Vital Signs Date Time Temp Pulse Resp B/P (MAP) Pulse Ox O2 Delivery O2 Flow Rate FiO2 03/22/17 13:00 83 17 96/47 (63) 100 Nasal Cannula 2.0 03/22/17 06:00 96.5 I&O- Last 24 Hours up to 6 AM 03/22/17 05:59 Intake Total 630 ml Output Total 0 ml Balance 630 ml Laboratory Data 24H LABS Laboratory Tests 2 03/22/17 05:53: Prothrombin Time 14.7H, Prothromb Time International Ratio 1.14, Anion Gap 11, Glomerular Filtration Rate 15.2L, Blood Urea Nitrogen 14, Creatinine 3.98H, Sodium Level 142, Potassium Level 3.8, Chloride Level 104, Carbon Dioxide Level 27, Calcium Level 9.2, Magnesium Level 1.9, Lactate Dehydrogenase 148, C- Reactive Protein, Quantitative 4.48H 03/22/17 12:54: CBC/BMP Laboratory Tests 03/22/17 05:53 Red Blood Count 3.75 L, Mean Corpuscular Volume 107.9 H, Mean Corpuscular Hemoglobin 36.0 H, Mean Corpuscular Hemoglobin Concent 33.4, Red Cell Distribution Width 14.7 H, Calcium Level 9.2 Microbiology Microbiology 03/22/17 Acid Fast Stain, Received Pending 03/22/17 Mycobacterial Culture, Received Pending 03/22/17 Fungal Smear, Received Pending 03/22/17 Fungal Culture, Received Pending 03/22/17 Gram Stain, Received Pending 03/22/17 Anaerobic Culture, Received Pending 03/22/17 Body Fluid Culture, Received Pending 03/20/17 Clostridium difficile (PCR) - Final, Complete 03/17/17 Gram Stain - Final, Complete 03/17/17 Sputum Culture - Final, Complete TAMAR PERDOMO MD Mar 22, 2017 13:14
--- NOTE | 2017-03-22 13:32 | RO ---
DATE OF PROCEDURE: 03/22/2017 PREPROCEDURE DIAGNOSIS: Refractory right pleural effusion, recurrent, secondary to renal failure. POSTPROCEDURE DIAGNOSIS: Refractory right pleural effusion, recurrent, secondary to renal failure. PROCEDURE: Insertion of right PleurX catheter. SURGEON: Dr. Kamar Ferris TELEPHONE SERVICE ADVISER: ANESTHESIA: PROCEDURE: Under satisfactory moderate sedation achieved with originally 3 mg of Versed, the patient was prepped and draped in the usual sterile fashion. The insertion site was identified at approximately the 7th intercostal space. This was infiltrated with 1% Xylocaine and a needle was placed with production of serosanguineous fluid. A wire was then placed in the chest. The exit site was then chosen and a tract along with the exit site were infiltrated with 1% Xylocaine. Incisions were made over the wire and at the exit site and a tunnel was created between the two sites. The catheter was pulled in the tunnel and positioned. The tract was then dilated to eventually a peel away introducer. The catheter was placed through the peel away introducer and then properly positioned. The entry site to the incision was closed with running #4-0 Monopril subcuticular suture which was covered with Dermabond and the catheter was secured to the abdominal wall with one #3-0 silk suture. The patient was then drained for 750 mL of serosanguineous fluid. The patient tolerated the procedure well and a chest x-ray is pending.
[2017-03-22 13:51] LABS: LDH, BODY FLUID 178 U/L (NOT ESTABLISHED); TOTAL PROTEIN, BODY FLUID 4.1 G/DL (NOT ESTABLISHED)
[2017-03-22 13:59] LABS: RBC PLEURAL FLUID 20 (<10mm3 cells/uL); TNC PLEURAL FLUID 289 cells/uL (0-20)
[2017-03-22 14:17] LABS: BF DIFF IF INDICATED? YES (NO)
[2017-03-22 14:34] LABS: CC BF DIFF EXAM CYTOCENTRIFUGE
[2017-03-22] MEDS ORDERED: WARFARIN SOD 2.5 MG TAB PO SCH (17:00)
[2017-03-22] MEDS: ACETAMINOPHEN TAB 650MG DOSE (2X325MG) PO PRN (17:04)
[2017-03-22] MEDS: PANTOPRAZOLE 40MG TAB (PROTONIX) PO SCH (20:58)
[2017-03-22] MEDS: MORPHINE 2 MG/ML 1ML SYRINGE IV PRN (23:38)
[2017-03-23] MEDS: NYSTATIN 500,000 U/5 ML SUSP UDC SSP SCH ×4 (01:34→17:15)
[2017-03-23] MEDS: IPRATROPIUM 0.5MG/ALBUTEROL 2.5MG INH SOL UD 3ML (DUONEB)(J7620) NEB SCH ×4 (01:53→20:00)
[2017-03-23 05:58] LABS: MEAN CORPUSCULAR HEMOGLOBIN 36.2 pg (27.0-33.0); MEAN CORPUSCULAR VOLUME 109.7 fl (80.0-96.0); RED CELL DISTRIBUTION WIDTH 15.5 % (11.5-14.5); WHITE BLOOD COUNT 7.4 K/mm3 (4.0-10.0)
[2017-03-23 06:00] VITALS: BP 103/51
[2017-03-23 06:01] LABS: INR 1.19
[2017-03-23] MEDS: PIPERACILLIN/TAZOBACTAM SOD 2.25 GM in D5W MINI-BAG PLUS 50 ML IV SCH (06:03)
[2017-03-23 06:08] LABS: CREATININE FOR GFR 5.4 MG/DL (0.70-1.30); GLOMERULAR FILTRATION RATE 10.7 (>35); POTASSIUM SERUM 3.9 MEQ/L (3.5-5.1)
[2017-03-23] MEDS: ADVAIR HFA 230/21MCG INHALER INH SCH ×2 (07:48→20:21)
[2017-03-23] MEDS: HEPARIN SOD (PORCINE) 5000 UNITS/ML VIAL SQ SCH ×2 (09:05→21:03)
[2017-03-23] MEDS: CALCIUM CARBONATE 500 MG CHEW U/D PO SCH ×3 (09:05→17:15)
[2017-03-23] MEDS: CEFDINIR 300 MG CAP (OMNICEF) PO SCH ×2 (09:06→21:02)
[2017-03-23] MEDS: VITAMIN D 1,000 INTERNATIONAL UNITS TABLET PO SCH (09:06)
[2017-03-23] MEDS: ACETAMINOPHEN TAB 650MG DOSE (2X325MG) PO PRN ×2 (09:17→16:03)
--- NOTE | 2017-03-23 12:11 | IPN ---
DATE: 03/22/2017 SUBJECTIVE: Patient was seen and examined at the bedside today in the morning. He was sitting on the sofa. No apparent distress at this time. Patient is afebrile and hemodynamically stable. He is pending evaluation by cardiothoracic (CT) surgery today for possible placement of chest tube or PleurX catheter. REVIEW OF SYSTEMS: Patient denies any fevers, chills, rigors, headache, nausea, vomiting, chest pain. He does report mild shortness of breath. He denies any abdominal pain, constipation, or diarrhea. The rest of the review of systems is negative. OBJECTIVE: VITAL SIGNS: Temperature is 97.7 degrees Fahrenheit, blood pressure is 92/51, pulse is 84, respiratory rate of 18, saturating 99% on nasal cannula at 2 liters. INTAKE AND OUTPUT: Urine output is not recorded at this time. Weight in the bed scale is 65.9 kg. PHYSICAL EXAMINATION: GENERAL: Patient is awake, alert, oriented times two, sitting on the sofa, no apparent distress at this time. HEAD AND NECK EXAMINATION: Extraocular muscles intact. Pupils equally round and reactive to light. Mucous membranes are moist today. Neck is supple. There is no jugular venous distention (JVD). Patient has a left internal jugular (IJ) tunneled hemodialysis catheter. CARDIOVASCULAR: S1, S2. Irregularly irregular heart rate. Otherwise, No murmurs, rubs or gallops. RESPIRATORY: Decreased breath sounds at the bases, right worse than left, and he has decreased focal resonance on the right side as well. ABDOMEN: Is soft, positive bowel sounds. Nontender. No ascites. No organomegaly. EXTREMITIES: No clubbing or cyanosis. Patient has multiple small dressings on arms and legs because of ulcerations and ecchymosis. CENTRAL NERVOUS SYSTEM: No focal neurological deficits. Power is 5/5 in bilateral extremities. LABORATORY REVIEW: CBC showed a WBC 6.8, hemoglobin 13.5, platelets of 154. INR is 1.14. BMP showed sodium 142, potassium 3.8, chloride 104, bicarbonate 27, BUN 14, creatinine 3.9, calcium 9.2, magnesium 1.9. C-reactive protein 4.4. IMAGING: A chest x-ray done today morning showed right base effusion and compressive atelectasis on the right side. There was cardiomegaly without pulmonary edema. CURRENT INPATIENT MEDICATIONS: Patient's inpatient medications are all reviewed by me. He continues to be on intravenous (IV) Zosyn. His warfarin dose is being adjusted by primary team. There are no other changes in the medications today as compared with yesterday. ASSESSMENT: Mr. Caldwell is an 87-year-old male with past medical history of end-stage renal disease on hemodialysis admitted this time initially because of hypoxemia, fluid overload and large right-sided pleural effusion. Hospital course was complicated by altered mental status, confusion and possible aspiration pneumonitis. PLAN: 1. End-stage renal disease on hemodialysis. Patient's regular dialysis days Thursday, , Thursday. He was dialyzed yesterday. No fluid was removed because of her decreased ora intake. Next hemodialysis session will be on Thursday, 2. Large right-sided pleural effusion. Repeat CAT scan and repeat chest x-ray done today both show large right-sided effusions. This is a recurrent problem. Patient is pending evaluation by cardiopulmonary (CT) surgery for possible placement of chest tube versus PleurX catheter. Hemodialysis is not helping with the right-sided effusion. 3. Malnutrition and inability to swallow. Patient is currently on a pureed diet. Family has refused a placement of feeding tube earlier.
--- NOTE | 2017-03-23 12:15 | CR ---
DATE OF CONSULTATION: 03/22/2017 Patient is seen at the request of Dr. Lehman and Dr. Parr of nephrology for a persistent recurrent pleural effusion on the right side with accompanying shortness of breath. HISTORY OF PRESENT ILLNESS: The patient is an 87-year-old white male who has end stage renal failure on dialysis and who has had two recurrent pleural effusions. His pleural effusions were tapped in November and most recently in February. In November, 990 mL were removed, which looked to be at most mildly exudative, but most likely transudative and in February 1400 mL were removed. The last thoracentesis was on March 11 and he has reaccumulated the fluid with increasing shortness of breath. His shortness of breath is relieved markedly with removal of the fluid. Nephrology did not think that they could keep up with the fluid removal with dialysis. He has multiple medical comorbidities including coronary artery disease with diastolic heart failure, but with preserved systolic function of 60% with peripheral vascular disease status post femoral popliteal bypass grafting procedure, an abdominal aortic aneurysm along with hypertension, prior diabetes, and chronic obstructive pulmonary disease (COPD). His family is quite concerned about his comfort and after a prolonged discussion of approximately 45 minutes with the family in the serenity room, we have come to the conclusion that he would not do well with the sensation of suffocation with the increasing pleural effusions and have decided to place a PleurX catheter. PAST MEDICAL ILLNESS: See history of present illness. PAST SURGICAL HISTORY: See history of present illness. ALLERGIES: 1. IBUPROFEN. 2. IODINE. 3. CONTRAST MEDIA. TRAVEL HISTORY: Not pertinent. HABITS: Is currently a nonsmoker. REVIEW OF SYSTEMS: CONSTITUTIONAL: Without fevers, chills or sweats, with weight fluctuations with dialysis. EYES: Has had cataracts without amaurosis fugax or diplopia without prior jaundice. NOSE: Without epistaxis. RESPIRATORY: See history of present illness. CARDIAC: Status post coronary stents with coronary artery disease. GASTROINTESTINAL (GI): Without nausea and vomiting, diarrhea. Does have constipation. GENITOURINARY (): Has BPH status post TURP. ENDOCRINE: Prior diabetes. No thyroid disease. NEUROLOGIC: Without prior CVAs. PHYSICAL EXAMINATION: Well developed weak, 87-year-old white male lying in bed, who can answer questions in the negative and affirmative, but is no forthcoming with a history. Most history is obtained from his daughters. VITAL SIGNS: Temperature 97.0, pulse of 87, respiratory rate of 18, the patient is 99/48. He is 94% saturated on 2 liters nasal cannula. EYES: Pupils equal, around and reactive to light. Extraocular motors intact. Sclera nonicteric. Head is normocephalic. Nose without deformity. Mouth shows his mucous membranes to be pink and moist. NECK: Supple. There is no jugular venous distention (JVD). No subcutaneous emphysema. Trachea is midline. There is no thyromegaly or lymphadenopathy. LUNGS: Show decreased breath sound at the right with a dull percussion note at the base. He has normal vesicular sounds on the left. Percussion note is full to the diaphragm on the left. CARDIAC: Exam shows distant heart sounds without murmurs, clicks, gallops or rubs. I cannot feel his PMI. S1 and S2 are normal. ABDOMEN: Soft, nontender. Bowel sounds are positive. There is no hepatomegaly. No CVA tenderness. EXTREMITIES: Show no pretibial edema. No calf tenderness. No differential swelling of the upper extremities. SKIN: Warm, dry and perfused without cyanosis or mottling including that of the nail beds and knees NEURO: Shows gross motor and gross sensation intact along with II through XII intact. Gait is not tested. PSYCHIATRIC: Shows him to be awake, but slightly somnolent, but able to answer questions. INVESTIGATIONS: His white count is 6.8 with a hemoglobin and hematocrit of 13.5 and 40.5, platelet count of 154. There s no differential. Chemistries show normal electrolytes with a BUN and creatinine of 14 and 3.98 after dialysis. Glucose is 97 with a calcium of 9.2. Magnesium 1.9. There are no recent blood gases. His PT/INR are 14.7 and 1.14 respectively. Chest x-ray shows a right pleural effusion and his chest CT shows the same with a right lower lobe lung compression. IMPRESSION: 1. Recurrent pleural effusions, now accelerating. 2. Renal failure on dialysis. 3. Chronic obstructive pulmonary disease (COPD). 4. Diastolic heart failure. 5. Peripheral vascular disease. 6. Benign prostatic hypertrophy (BPH). 7. Hypertension. 8. Chronic atrial fibrillation. PLAN AND DISCUSSION: I will place the PleurX catheter after the extensive discussion I have had with the family. Two daughters are present and another was on the cell phone in [place] during her conversation. The family was very concerned that he has the least suffering as possible and we have decided that the pain of both the procedure and the intermittent would be better than the feelings of suffocations from the pleural effusions. I suspect he will only need to be drained every 4-5 days or when he become symptomatic. This has not been an easy decision for the family and they have struggled over it, hence the long counseling session. I will therefore proceed to place a right sided PleurX catheter.
[2017-03-23 14:00] VITALS: BP 91/43
[2017-03-23] MEDS ORDERED: NS 500 ML IV ONE (15:00)
[2017-03-23] MEDS: WARFARIN SOD 3 MG TAB PO SCH (17:15)
--- NOTE | 2017-03-23 18:45 | IPNPDOC ---
Subjective Date Seen The patient was seen on 03/23/17. Subjective Chief Complaint/HPI The patient is a 87-year-old male admitted with a reason for visit of End Stage Renal Disease. Events since last encounter frail and weak, Denied cp, abd pain, n,v. con't to have cough and sob, poor oral Constitutional: Denies: Chills, Fever Pulmonary: Reports: Dyspnea, Cough Cardiovascular: Denies: Chest Pain, Palpitations Gastrointestinal: Denies: Nausea, Vomiting, Abdominal Pain, Diarrhea, Constipation Objective Physical Examination General Exam: Positive: Alert, Cooperative, Mild Distress Eye Exam: Positive: PERRLA, EOMI ENT Exam: Positive: Atraumatic, Mucous membr. moist/pink Neck Exam: Positive: JVD Chest Exam: Positive: Rales, Diminished, Other (crackles noted on auscultation greater on the right side versus left), Negative: Wheezing Heart Exam: Positive: Irregular Rhythm, Normal S1, Normal S2 Abdomen Exam: Positive: Soft, Other (plerux cath, c/d/i), Negative: Tenderness Extremity Exam: Positive: Swelling (1+ pitting edema in lower extremity is bilaterally), Other (left lower extremity noted to be wrapped in surgical dressing, which is clean and dry and intact with no active drainage noted), Negative: Tenderness Assessment /Plan Assessment 86-year-old male with a past medical history of end-stage renal disease on hemodialysis Thursday, , and Thursday, coronary artery disease status post stent, vasculopathy status post femoral-popliteal bypass in 2012, abdominal aortic aneurysm, multiple arteriovenous (AV) fistula placements, as well as diastolic congestive heart failure (CHF), ejection fraction of 60%, chronic atrial fibrillation on Coumadin, hypertension, chronic anemia, right sided pleural effusion, chronic obstructive pulmonary disease (COPD) on two liters nasal cannula, benign prostatic hypertrophy (BPH) status post transurethral resection of the prostate (TURP), and gastroesophageal reflux disease (GERD), a/w aspiration PNA Problems (1) Pleural effusion on right Problem Text: D/W Dr Parr given large sized pleural effusion not likely resolve with HD consulted Dr Ferris s/p palliative Pleurx cath. drain Q3-4 days or for symptoms of sob (2) Aspiration pneumonia Problem Text: c/w antibiotics zosyn 04/03, dc vanco f/u culture, aspiration precaution re-eval with speech and swallow, rec NPO for aspiration Family Meeting d/w daughters and patient. risk and benefit of peg discussed, Patient refused a trial of NGT feeding or Peg, wanted to start oral feeding aware of risk of aspiration and . family produced MOLST showing DNR, MOLST form revised DNR DNI limited medical intervention, no tube feeding, c/w antibiotics, as per family if patient respiration worsen, would consider comfort Measure only diet changed to Pureed Honey thick, aspiration precaution, upright for feeding, family and patient aware of risk of aspiration and , but refused tube feeding. Repeat CT chest as per Dr Reynoso Hospice consulted (3) Encephalopathy acute Problem Text: 2/ to infection, supportive care, resolved (4) COPD (chronic obstructive pulmonary disease) Problem Text: O2 dependent at baseline 2L, Duoneb, advair (5) GERD (gastroesophageal reflux disease) Problem Text: ppi (6) Diastolic HF (heart failure) Problem Text: was decompensated, HF, currently euvolemic, EF 60%, c/w hd (7) ESRD (end stage renal disease) on dialysis Onset Date: 06/27/2014 Status: Chronic Problem Text: HD as per nephrology (8) Atrial fibrillation Status: Chronic Problem Text: restarted at lower dose coumadin, f/u INR, not on rate control meds, (9) Diabetes Status: Chronic Problem Text: diet control (10) Anemia Status: Chronic Problem Text: amenia for chronic disease, f/u hh (11) Elevated troponin Problem Text: likely demand ischemia, resolved, outpatient f/u cardiology Dr Michelle (12) Supratherapeutic INR Status: Resolved Problem Text: given vitamin K f/u INR (13) Venous stasis ulcer Problem Text: c/w with Dr Lee pt wound care, rec foarm dressing as per Dr Lee leg elevation Plan/VTE VTE Prophylaxis Ordered?: Yes (on coumadin, heparin Sq until inr therapetic) Disposition Hospice consulted. potential home with hospice VS, I&O, 24H, Fishbone Vital Signs/I&O Vital Signs Date Time Temp Pulse Resp B/P (MAP) Pulse Ox O2 Delivery O2 Flow Rate FiO2 03/23/17 14:00 97.3 92 18 91/43 (59) 99 Room Air 2.0 I&O- Last 24 Hours up to 6 AM 03/23/17 06:00 Intake Total 0 ml Output Total 750 ml Balance -750 ml Laboratory Data 24H LABS Laboratory Tests 2 03/23/17 05:19: Prothrombin Time 15.2H, Prothromb Time International Ratio 1.19, Anion Gap 7L, Glomerular Filtration Rate 10.7L, Blood Urea Nitrogen 22#H, Creatinine 5.40H, Sodium Level 138, Potassium Level 3.9, Chloride Level 104, Carbon Dioxide Level 27, Calcium Level 9.0, Magnesium Level 2.0, C-Reactive Protein, Quantitative 3.49H CBC/BMP Laboratory Tests 03/23/17 05:19 Red Blood Count 3.57 L, Mean Corpuscular Volume 109.7 H, Mean Corpuscular Hemoglobin 36.2 H, Mean Corpuscular Hemoglobin Concent 33.0, Red Cell Distribution Width 15.5 H, Calcium Level 9.0 Microbiology Microbiology 03/22/17 Acid Fast Stain, Received Pending 03/22/17 Mycobacterial Culture, Received Pending 03/22/17 Fungal Smear, Received Pending 03/22/17 Fungal Culture, Received Pending 03/22/17 Gram Stain - Final, Resulted 03/22/17 Anaerobic Culture, Resulted Pending 03/22/17 Body Fluid Culture, Received Pending 03/20/17 Clostridium difficile (PCR) - Final, Complete 03/17/17 Gram Stain - Final, Complete 03/17/17 Sputum Culture - Final, Complete TAMAR PERDOMO MD Mar 23, 2017 18:45
--- NOTE | 2017-03-23 19:19 | IPN ---
DATE: 03/23/2017 SUBJECTIVE: Patient was seen and examined at the bedside today in the morning. Last 24 hours, it has been noted patient got right-sided tunneled PleurX catheter placed and 750 mL of pleural tap was also done. Patient is asymptomatic at this time. He was getting cleaned when I saw him this morning. Patient's daughter was also present at the bedside. REVIEW OF SYSTEMS: Patient denies any fevers, chills, rigors, headache, chest pain, or shortness of breath. He denies any abdominal pain, constipation or diarrhea. The rest of the review of systems is negative. OBJECTIVE: VITAL SIGNS: Temperature is 98 degrees Fahrenheit, blood pressure is 103/51, pulse is 88, respiratory rate of 18, saturating 95% on nasal cannula at 2 liters. INTAKE AND OUTPUT: Urine output is not recorded. Pleural tap done yesterday was 750 mL. Weight in the bed scale is 65.5 kg. PHYSICAL EXAMINATION: GENERAL: Patient is awake, alert, oriented times two, laying in bed, no apparent distress. Slightly obtunded. HEAD AND NECK EXAMINATION: Extraocular muscles intact. Pupils equally round and reactive to light. Mucous membranes are moist. Neck is supple. There is no jugular venous distention (JVD). Patient has a left internal jugular (IJ) tunneled hemodialysis catheter. CARDIOVASCULAR: S1, S2. Irregularly irregular heart rate. No murmurs, rubs or gallops. RESPIRATORY: Decreased breath sounds at the right base. Patient has a new tunneled PleurX catheter on the right side. ABDOMEN: Soft, positive bowel sounds. Nontender. No ascites. No organomegaly. EXTREMITIES: No clubbing or cyanosis. Patient has multiple small dressings on arms and legs because of ecchymosis and ulcerations. CENTRAL NERVOUS SYSTEM: Patient is oriented times two. He follows commands and moves extremities, but otherwise, he is slightly obtunded. LABORATORY REVIEW: CBC showed a WBC of 7.4, hemoglobin 12.9, platelets of 154. INR is 1.19. BMP showed sodium 138, potassium 3.9, chloride 104, bicarbonate 27, BUN 22, creatinine is 5.4, calcium is 9, magnesium is 2. C-reactive protein 3.4. MICROBIOLOGY: Pleural fluid gram-stain is negative for any organisms. Culture is pending. CURRENT INPATIENT MEDICATIONS: Patient's medications were all reviewed by me. His intravenous (IV) antibiotics have been stopped now. Patient was given one bolus of normal saline 500 mL today in the afternoon. Warfarin dose has been changed to 3 mg by mouth daily. There are no other changes in the medications today. ASSESSMENT: Mr. Caldwell is an 87-year-old male with past medical history of end-stage renal disease on hemodialysis admitted this time because of hypoxemia, fluid overload and large right-sided pleural effusion, which is recurrent. Hospital course is complicated by altered mental status, confusion. PLAN: 1. End-stage renal disease on hemodialysis. Patient's regular dialysis days are Thursday, , Thursday. He will be dialyzed according to his regular schedule tomorrow; however, family is considering stopping the hemodialysis. They are getting the hospice on board because of patient's chronic, prolonged illness, confusion and irreversibility of his current medical conditions. 2. Right-sided pleural effusion. Patient had a tunneled PleurX catheter placed yesterday by pulmonology; 750 mL of fluid was removed. If needed, pleural fluid can be tapped for symptomatic relief now. 3. Malnutrition and inability to swallow. Patient is currently on a pureed diet, but he has very low intake. Family has refused feeding tube placement. 4. Goals of care. I discussed patient's current medical condition with patient's daughter at the bedside. They are getting hospice on board and they are considering stopping the hemodialysis. For now, they want to continue the current treatments. Family will decide and give us the final word by tomorrow morning.
[2017-03-23] MEDS: PANTOPRAZOLE 40MG TAB (PROTONIX) PO SCH (21:02)
[2017-03-23 22:00] VITALS: BP 125/59
[2017-03-23] MEDS: MORPHINE 2 MG/ML 1ML SYRINGE IV PRN (22:37)
[2017-03-24] MEDS: IPRATROPIUM 0.5MG/ALBUTEROL 2.5MG INH SOL UD 3ML (DUONEB)(J7620) NEB SCH ×4 (02:00→19:37)
[2017-03-24] MEDS: MORPHINE 2 MG/ML 1ML SYRINGE IV PRN (03:13)
[2017-03-24] MEDS: VITAMIN D 1,000 INTERNATIONAL UNITS TABLET PO SCH (05:59)
[2017-03-24] MEDS: NYSTATIN 500,000 U/5 ML SUSP UDC SSP SCH ×4 (05:59→17:56)
[2017-03-24] MEDS: CEFDINIR 300 MG CAP (OMNICEF) PO SCH ×2 (05:59→21:18)
[2017-03-24] MEDS: CALCIUM CARBONATE 500 MG CHEW U/D PO SCH ×3 (05:59→17:55)
[2017-03-24 06:00] VITALS: BP 117/57
[2017-03-24] MEDS: HEPARIN SOD (PORCINE) 5000 UNITS/ML VIAL SQ SCH ×2 (06:00→21:18)
[2017-03-24 06:37] LABS: INR 1.21
[2017-03-24 06:40] LABS: MEAN CORPUSCULAR HEMOGLOBIN 34.7 pg (27.0-33.0); MEAN CORPUSCULAR HGB CONC 31.6 g/dl (32.0-36.5); RED CELL DISTRIBUTION WIDTH 15.4 % (11.5-14.5); WHITE BLOOD COUNT 8.7 K/mm3 (4.0-10.0)
[2017-03-24 06:52] LABS: CALCIUM LEVEL 8.8 MG/DL (8.8-10.2); CREATININE FOR GFR 6.83 MG/DL (0.70-1.30); GLOMERULAR FILTRATION RATE 8.2 (>35); MAGNESIUM LEVEL 1.9 MG/DL (1.8-2.4); POTASSIUM SERUM 4.6 MEQ/L (3.5-5.1)
[2017-03-24] MEDS: ADVAIR HFA 230/21MCG INHALER INH SCH ×2 (07:53→19:36)
[2017-03-24] MEDS ORDERED: HEPARIN 1,000 UNITS/ML 10ML VIAL (FOR RADIOLOGY& DIALYSIS ONLY) XX ONE ×2 (10:45)
[2017-03-24] MEDS ORDERED: HEPARIN 1,000 UNITS/ML 10ML VIAL (FOR RADIOLOGY& DIALYSIS ONLY) IV ONE (10:45)
--- NOTE | 2017-03-24 12:49 | IPN ---
DATE OF SERVICE: 03/24/2017 SUBJECTIVE: The patient was seen and examined at the bedside today in the morning during hemodialysis. He was tolerating the hemodialysis procedure well. The patient is oriented times two. No apparent distress at this time. REVIEW OF SYSTEMS: The patient denies any fevers, chills, rigors, headache, nausea, vomiting, or chest pain. He denies any shortness of breath. The patient denies any pain abdomen, constipation, or diarrhea. The rest of the review of systems is negative. OBJECTIVE: VITAL SIGNS: Temperature is 97.6 degrees Fahrenheit, blood pressure is 117/57, pulse is 82, respiratory rate of 18, saturating 98% on nasal cannula at 2 liters. INTAKE AND OUTPUT: Urine output is not recorded. Weight in the bed scale is 65.4 kg. PHYSICAL EXAMINATION: GENERAL: The patient is awake, alert, oriented times two, laying in bed, getting hemodialysis. HEAD AND NECK EXAMINATION: Extraocular muscles intact. Pupils equally round and reactive to light. Mucous membranes are moist. Neck is supple. There is no jugular venous distention (JVD). The patient has a left internal jugular (IJ) tunneled hemodialysis catheter, which is being used for dialysis at this time. CARDIOVASCULAR: S1, S2. Irregularly irregular heart rate. No murmur, rub, and gallop. RESPIRATORY: Decreased breath sounds at the right base. The patient has a tunneled PleurX catheter on the right side. ABDOMEN: Is soft, positive bowel sounds. Nontender. No ascites. No organomegaly. EXTREMITIES: No clubbing or cyanosis. The patient has multiple small dressings on arms and legs because of multiple ulcerations. CENTRAL NERVOUS SYSTEM (WHEEL PRESS CLERK): The patient is oriented times two. He follows commands and moves his extremities on commands. LABORATORY REVIEW: CBC showed a WBC of 8.7, hemoglobin of 12.9, platelets of 152. BMP showed sodium 140, potassium 4.6, chloride 106, bicarbonate 24, BUN 29, creatinine is 6.8, calcium 8.8, magnesium 1.9. MICROBIOLOGY: Pleural fluid culture is negative so far. CURRENT INPATIENT MEDICATIONS: The patient's medications were all reviewed by me. There is no other change in his medications today, except that he is on Omnicef 300 mg by mouth twice a day. ASSESSMENT: Mr. Caldwell is an 87-year-old male with past medical history of end-stage renal disease on hemodialysis admitted this time because of hypoxemia and recurrent right-sided pleural effusion. Hospital course is complicated by altered mental status and confusion. PLAN: 1. End-stage renal disease, on hemodialysis. The patient is being dialyzed according to his regular Thursday, , Thursday schedule. He is tolerating the procedure well. 2. Right-sided pleural effusion. The patient got the tunneled PleurX catheter placed during this admission. 750 mL of fluid was removed 2 days ago. The patient can get palliative pleural fluid drainage as needed for shortness of breath every 1 week. 3. Malnutrition and inability to swallow. The patient is currently on a pureed diet, but he is having very low diet intake. The family has refused the feeding tube placement. 4. Goals of care. The patient will be evaluated by Hospice service today after dialysis; and after that, the family is considering stopping hemodialysis.
[2017-03-24 14:00] VITALS: BP 126/59
--- NOTE | 2017-03-24 15:11 | IPNPDOC ---
Text Note Date of Service The patient was seen on 03/24/17. NOTE Subjective: Pt feels well. Denies any complaints. On HD. Objective: Vitals: (see below) General: No acute distress, laying comfortably in bed. HEENT: Moist mucous membranes. Neck: No JVD or lymphadenopathy Cardiac: RRR, No murmurs Pulm: Coarse crackles bilateral bases. No wheezing, rhonchi Abd: NT/ND + BS Ext: No edema or cyanosis AAO x person and hospital. Labs (see below) Images: Assessment/Plan 1. Recurrent pleural effusion status Pleur X catheter, to be drained every 3-4 days offer symptom relief. 2. Aspiration pneumonia- status post vancomycin and Zosyn. Family refused PEG tube. Trial of NG tube was refused by patient. Patient wanted to start by mouth feeding although patient does have a high risk of aspiration as he did not pass speech therapy. The patient was changed to DNR/DNI. Family met with hospice today, and patient will be going to the hospice house tomorrow. 3. Encephalopathy, secondary to infectious process as well as baseline dementia. 4. History of COPD on 2 L O2, stable. 5. End-stage renal disease on hemodialysis, received hemodialysis today. Family states this will be his last session. 6. Atrial fibrillation- on Coumadin 7. Diabetes mellitus- diet controlled 8. Anemia of chronic disease- hemoglobin stable 9. Elevated troponin, likely from demand ischemia 10. Coumadin coagulopathy status post vitamin K 11. Venous stasis ulcer- management per Dr. Lee. Leg elevation. DVT prophy: On Coumadin Dispo: Patient will be going to hospice house tomorrow. Discussed goals of care with family. VS,Fishbone, I+O VS, Fishbone, I+O Laboratory Tests 03/24/17 06:22 Red Blood Count 3.70 L, Mean Corpuscular Volume 110.0 H, Mean Corpuscular Hemoglobin 34.7 H, Mean Corpuscular Hemoglobin Concent 31.6 L, Red Cell Distribution Width 15.4 H, Calcium Level 8.8 Vital Signs Date Time Temp Pulse Resp B/P (MAP) Pulse Ox O2 Delivery O2 Flow Rate FiO2 03/24/17 14:00 97.7 80 18 126/59 (81) 94 Nasal Cannula 2.0 I&O- Last 24 Hours up to 6 AM 03/24/17 06:00 Intake Total 660 ml Output Total 0 ml Balance 660 ml ELIZABETH KEENE MD Mar 24, 2017 15:11
[2017-03-24] MEDS: ACETAMINOPHEN TAB 650MG DOSE (2X325MG) PO PRN (16:16)
[2017-03-24] MEDS: WARFARIN SOD 3 MG TAB PO SCH (17:56)
[2017-03-24] MEDS: PANTOPRAZOLE 40MG TAB (PROTONIX) PO SCH (21:19)
[2017-03-24 22:00] VITALS: BP 102/52
[2017-03-25] MEDS: NYSTATIN 500,000 U/5 ML SUSP UDC SSP SCH ×2 (00:34→05:23)
[2017-03-25] MEDS: IPRATROPIUM 0.5MG/ALBUTEROL 2.5MG INH SOL UD 3ML (DUONEB)(J7620) NEB SCH ×2 (01:13→07:28)
[2017-03-25 06:00] VITALS: BP 100/50
[2017-03-25 06:28] LABS: INR 1.19
[2017-03-25 06:58] LABS: CALCIUM LEVEL 8.5 MG/DL (8.8-10.2); CREATININE FOR GFR 4.67 MG/DL (0.70-1.30); GLOMERULAR FILTRATION RATE 12.6 (>35); POTASSIUM SERUM 4.8 MEQ/L (3.5-5.1)
[2017-03-25] MEDS: ADVAIR HFA 230/21MCG INHALER INH SCH (07:27)
[2017-03-25] MEDS ORDERED: LORA1TAB12 PO ×2 (09:03→10:31)
[2017-03-25] MEDS ORDERED: HYOS0.1259 PO (09:03)
[2017-03-25] MEDS ORDERED: MORP1SOL PO ×2 (09:03→10:31)
[2017-03-25] MEDS: CEFDINIR 300 MG CAP (OMNICEF) PO SCH (09:10)
[2017-03-25] MEDS: HEPARIN SOD (PORCINE) 5000 UNITS/ML VIAL SQ SCH (09:11)
--- NOTE | 2017-03-25 11:29 | IPN ---
DATE: 03/25/2017 SUBJECTIVE: Patient was seen today morning at the bedside. His family members were also present. His two daughters were there. Last 24 hours, no events were noted. Patient got hemodialysis done yesterday. He tolerated the procedure well. Family has decided to take the patient to Hospice today. Last hemodialysis was yesterday and they do not want to pursue any more hemodialysis as well. Patient is awake and alert and he agrees with the current decision. Vital signs: Temperature is 97 degrees Fahrenheit, blood pressure is 100/50, pulse is 86, respiratory rate 18, saturating 92% on nasal cannula. PHYSICAL EXAMINATION: General: Patient is awake, alert, oriented times two sitting on the bed, no apparent distress. Head and neck exam: Extraocular muscles intact. Mucous membranes are moist. Cardiovascular: S1, S2, irregularly irregular heart rate. Respiratory: Decreased breath sounds at the bases, otherwise no rales or rhonchi. He has a PleurX catheter on the right side. Abdomen is soft, positive bowel sounds, nontender. Extremities: No clubbing or cyanosis. Central nervous system: Patient is oriented times two. He follows commands. LAB REVIEW: Potassium is 4.8, BUN 17, creatinine is 4.6. CURRENT MEDICATIONS: I reviewed patient's current medications and stopped his vitamin D. I stopped TUMS with meals. The rest of the medication changes are as per primary team. ASSESSMENT: Mr. Caldwell is a 87-year-old male with past medical history of end stage renal disease on hemodialysis admitted this time because of hypoxemia and recurrent right sided pleural effusion. He got the right sided PleurX catheter placed during this admission. Hospital course is complicated by deterioration of his health including altered mental status, confusion and protein calorie malnutrition. PLAN: 1. End stage renal disease on hemodialysis. Yesterday his hemodialysis was the last dialysis. Patient would not get any more dialysis because he is going to Hospice. 2. Right sided pleural effusion. Patient has a PleurX catheter at this time for symptomatic relief for shortness of breath and Hospice service is aware of that. 3. Dialysis access. Patient has a left IJ tunneled hemodialysis catheter and family does not want to remove the catheter at this time because that would cause the pain to the patient. 4. Goals of care: Patient is being transferred to Hospice today.
--- NOTE | 2017-03-25 14:37 | DS.PDOC ---
Discharge Summary General Date of Admission Mar 10, 2017 at 13:56 Date of Discharge 03/25/17 Attending Physician: ELIZABETH KEENE MD Specialist/Consultants Involve: LORETTA GALAVIZ MD Discharge Summary PROCEDURES PERFORMED DURING STAY: None. ADMITTING/DISCHARGE DIAGNOSES: 1. Aspiration pneumonia 2. Recurrent pleural effusion 3. Metabolic Encephalopathy 4. COPD 5. End-stage renal disease hemodialysis dependent 6. Atrial fibrillation 7. Diabetes mellitus 8. Anemia of chronic disease 9. Demand ischemia with elevated troponin 10. Coumadin coagulopathy 11. Venous stasis ulcer 12. Peripheral artery disease status post femoropopliteal bypass 13. History of CAD status post PCI 14. History of AAA COMPLICATIONS/CHIEF COMPLAINT: End Stage Renal Disease. HISTORY OF PRESENT ILLNESS/HOSPITAL COURSE: . This 87-year-old male with significant vascular disease including femoropopliteal bypass and end-stage renal disease on hemodialysis, as well as atrial fibrillation, diabetes, and recurrent pleural effusions who presents complaining of shortness of breath. Patient was noted to have recurrent right-sided pleural effusion for which thoracic surgery was consulted and patient received a Pleurx catheter which is to be drained every 3-4 days and as needed for symptom relief. Patient was also noted to have aspiration pneumonia, and as per speech therapy. Family and patient was refused feeding tube, and patient would like to continue eating as he tolerates, despite the high risk of aspiration. The patient was initially made a DNR/DNI, however given his progressive deconditioning, significant comorbidities, and aspiration pneumonia, family has decided to make the patient comfort measures only and to be transferred to hospice house, which we will be doing today. Molst form has been updated DISCHARGE MEDICATIONS: Please see below. ALLERGIES: Please see below. PHYSICAL EXAMINATION ON DISCHARGE: VITAL SIGNS: Please see below. General: No acute distress, laying comfortably in bed. HEENT: Moist mucous membranes. Neck: No JVD or lymphadenopathy Cardiac: RRR, No murmurs Pulm: Coarse crackles bilateral bases. No wheezing, rhonchi Abd: NT/ND + BS Ext: No edema or cyanosis AAO x person and hospital. LABORATORY DATA: Please see below. IMAGING: PROGNOSIS: Guarded ACTIVITY: As tolerated. DIET: As tolerated. Patient family aware of high risk of aspiration pneumonia however patient would like to continue eating as he tolerates. DISCHARGE PLAN/DISPOSITION: [facility]. DISCHARGE INSTRUCTIONS: 1. Follow-up with PCP as needed. DISCHARGE CONDITION: Stable. TIME SPENT ON DISCHARGE: Greater than 30 minutes. Vital Signs/I&Os Vital Signs Date Time Temp Pulse Resp B/P (MAP) Pulse Ox O2 Delivery O2 Flow Rate FiO2 03/25/17 10:43 Nasal Cannula 2.0 03/25/17 06:00 97.0 86 20 100/50 (67) 92 I&O- Last 24 Hours up to 6 AM 03/25/17 06:00 Intake Total 100 ml Output Total 100 ml Balance 0 ml Laboratory Data Labs 24H Laboratory Tests 2 03/25/17 06:06: Prothrombin Time 15.2H, Prothromb Time International Ratio 1.19, Anion Gap 9, Glomerular Filtration Rate 12.6L, Blood Urea Nitrogen 17, Creatinine 4.67H, Sodium Level 137, Potassium Level 4.8, Chloride Level 105, Carbon Dioxide Level 23, Calcium Level 8.5L, Magnesium Level 2.0, C-Reactive Protein, Quantitative 6.48H CBC/BMP Laboratory Tests 03/25/17 06:06 Calcium Level 8.5 L Microbiology Microbiology 03/22/17 Acid Fast Stain, Received Pending 03/22/17 Mycobacterial Culture, Received Pending 03/22/17 Fungal Smear, Received Pending 03/22/17 Fungal Culture, Received Pending 03/22/17 Gram Stain - Final, Complete 03/22/17 Anaerobic Culture - Final, Complete 03/22/17 Body Fluid Culture - Final, Complete 03/20/17 Clostridium difficile (PCR) - Final, Complete 03/17/17 Gram Stain - Final, Complete 03/17/17 Sputum Culture - Final, Complete Discharge Medications Scheduled Calcium Carbonate (Tums) 500 Mg Chw, 2,000 MG PO AC, (Reported) Cholecalciferol (Vitamin D) 5,000 Unit Tab, 5,000 UNIT PO DAILY, (Reported) Pantoprazole Sodium (Pantoprazole Sodium) 40 Mg Tab, 40 MG PO QPM, (Reported) DINNERTIME Salmeterol/Fluticasone (Advair Hfa 230-21 Mcg/Act) 1 Aer Aer, 2 PUFF INH BID, ( Reported) Scheduled PRN Acetaminophen (Tylenol) 325 Mg Tab, 650 MG PO Q4HP PRN for MILD PAIN OR FEVER, ( Reported) Albuterol Sulfate (Ventolin Hfa) 200 Puff/8 Gm Aers, 2 PUFF INH Q4H PRN for SHORTNESS OF BREATH, (Reported) Hyoscyamine Sulfate (Hyoscyamine Sulfate) 0.125 Mg/5 Ml Elx, 0.125 MG PO Q6HP PRN for ANXIETY/AGITATION Lorazepam (Lorazepam) 1 Mg Tab, 0.5 TAB PO Q4H PRN for ANXIETY/AGITATION Use sublingually if unable to swallow MDD = 3 mg Morphine Sulfate (Morphine Sulfate Concentrate) 10 Mg/0.5 Ml Conc, 0.25-1 ML PO Q2H PRN for PAIN OR DYSPNEA Use sublingually if unable to swallow MDD = 12 ml Allergies Coded Allergies: Ibuprofen (Verified Allergy, Unknown, UNKNOWN, 03/10/17) Iodine (Unverified Allergy, Unknown, 05/30/15) Contrast Media (Verified Adverse Reaction, Severe, VEIN SWELLING & EXCRUCIATING PAIN, 11/28/16) ELIZABETH KEENE MD Mar 25, 2017 14:37
== END 2017-03-25 10:40 | disposition hospice, inpatient (51) | DRG 186 ==
LOC: M ED 11:27 → M ED INP 13:56 → M MSPAV 16:48 → M ICU 03-14 15:08 → M MSPAV 03-15 11:24 → M ICU 03-22 09:12 → M MSPAV 03-22 17:21
PROVIDERS: ADMIT Internal Medicine; ATTEND Internal Medicine
PROC: 5A1D00Z (ICD-10-PCS; principal; 2017-03-10)
PROC: 0W993ZZ Drainage of Right Pleural Cavity, Percutaneous Approach (ICD-10-PCS; 2017-03-11)
PROC: 0W9930Z Drainage of Right Pleural Cavity with Drainage Device, Percutaneous Approach (ICD-10-PCS; 2017-03-22)
DX: J90 Pleural effusion, not elsewhere classified (principal); N18.6 End stage renal disease; I50.33 Acute on chronic diastolic (congestive) heart failure; G93.41 Metabolic encephalopathy; J69.0 Pneumonitis due to inhalation of food and vomit; E46 Unspecified protein-calorie malnutrition; D68.9 Coagulation defect, unspecified; E87.1 Hypo-osmolality and hyponatremia; J44.9 Chronic obstructive pulmonary disease, unspecified; I48.2 Chronic atrial fibrillation; K21.9 Gastro-esophageal reflux disease without esophagitis; R79.89 Other specified abnormal findings of blood chemistry; I25.10 Atherosclerotic heart disease of native coronary artery without angina pectoris; E87.5 Hyperkalemia; D63.1 Anemia in chronic kidney disease; Z95.820 Peripheral vascular angioplasty status with implants and grafts; Z88.6 Allergy status to analgesic agent; Z88.8 Allergy status to other drugs, medicaments and biological substances; Z91.041 Radiographic dye allergy status; Z79.899 Other long term (current) drug therapy; Z99.81 Dependence on supplemental oxygen; Z79.01 Long term (current) use of anticoagulants; Z99.2 Dependence on renal dialysis